=== PATIENT | male | born 1955 | race Two or more races ===

== ENCOUNTER 2016-08-26 05:36 | Inpatient (IN) | payer OTHER ==
[2016-08-26] MEDS ORDERED: LIDOCAINE 1% 5 ML SDV ONE (05:39)
[2016-08-26] MEDS ORDERED: ceFAZolin 2 GM/DEXTROSE 100 ML IV ONE (06:00)
[2016-08-26] MEDS ORDERED: SURGIFLO MATRIX KIT WITH THROMBIN TP ONE (06:50)
[2016-08-26] MEDS ORDERED: THROMBIN (RECOMBINANT) 5,000 UNIT VIAL TP ONE (06:51)
[2016-08-26] MEDS ORDERED: AVITENE POWDER 1 GM JAR TP ONE (06:51)
[2016-08-26] MEDS ORDERED: MANNITOL 20% 100 GM/500 ML BAG IV ONE (06:51)
[2016-08-26] MEDS ORDERED: BUPIVACAINE/EPI 0.25% 30 ML SDV ONE (06:51)
[2016-08-26] MEDS ORDERED: GADOBUTROL 10 ML VIAL IVP ONE (06:52)
[2016-08-26] MEDS ORDERED: BACITRACIN 50,000 UNITS/10 ML SYR IRR ONE (06:52)
[2016-08-26] MEDS ORDERED: REMIFENTANIL HCL 1 MG VIAL ONE ×5 (06:56→11:33)
[2016-08-26] MEDS ORDERED: PROPOFOL/EMULSION 500 MG/50 ML BOTTLE IV ONE ×5 (06:56→10:18)
[2016-08-26] MEDS ORDERED: SUCCINYLCHOLINE CHLORIDE*ANESTHESIA ONLY*200 MG/10 ML SYR IVP ONE (07:04)
[2016-08-26] MEDS ORDERED: LIDOCAINE 2% 5 ML SDV ONE (07:04)
[2016-08-26] MEDS ORDERED: DEXAMETHASONE 10 MG/ML VIAL ONE (07:31)
[2016-08-26] MEDS ORDERED: THROMBIN (RECOMBINANT) 20,000 UNIT VIAL TP ONE ×2 (07:36→10:12)
[2016-08-26] MEDS ORDERED: INSULIN REGULAR HUMAN 100 UNIT/ML ONE ×3 (07:41→14:36)
--- NOTE | 2016-08-26 08:36 | MR ---
MRI Brain With IV Contrast History: Presurgical evaluation. Left facial drooping and weakness. Known brain mass. Comparisons: None. Technique: MRI was performed of the brain using a 1.5 Christiane MRI system. Sagittal and axial imaging wa s obtained post intravenous contrast, 9 mL Gadavist. Imaging sequences were tailored for the evaluati on for [facility] protocol for presurgical evaluation and localization. Findings: There is a lobulated mass in the left cerebellum centered over the left cerebellar peduncle and anteromedial aspect of the left cerebellum. There is nodular enhancement at the anterior aspect of the lesion with mass effect into the fourth ventricle. Overall, the size of the lesion is 2.9 cm c raniocaudal x 2.7 cm anterior to posterior x 3 cm in width. There is surrounding vasogenic edema exte nding into the left cerebellum. Mass effect effaces the left side of the fourth ventricle and left fo ramen of Luschka and left cerebellopontine cistern. Vasogenic edema extends into the left cerebral pe duncle and into the medulla and massiel. No other evidence of abnormal enhancement. There are a few deep hemispheric white matter lesions bilaterally with no evidence of mass effect or abnormal enhancement . Ventricles, sulci, and cisterns are otherwise within normal limits for the patient's age. No eviden ce for an extraaxial fluid collection. Impression: Left cerebellar mass with mass effect and adjacent vasogenic edema, as above. Mild underl kyle deep hemispheric white matter change that can be seen with small vessel ischemic disease.
[2016-08-26] MEDS ORDERED: epHEDrine SULFATE 10 MG/ML SYR ONE ×2 (08:52)
[2016-08-26] MEDS ORDERED: PHENYLEPHRINE HCL 100 MCG/ML SYR ONE ×2 (08:52)
[2016-08-26] MEDS ORDERED: PHENYLEPHRINE 10 MG/ML SDV ONE (09:15)
[2016-08-26] MEDS ORDERED: HYDROmorphONE/DILAUDID 1 MG/ML SYR ONE (12:51)
--- NOTE | 2016-08-26 12:53 | POSTOPPROG ---
Post Op Note Date of Operation: 08/26/16 Surgeon: Janes Dumont Anesthesiologist: Blair Anesthesia: GET(General Endotracheal) Pre-op Diagnosis: brainstem tumor Post-op Diagnosis: same Indication: brainstem tumor Procedure: suboccipital craniotomy for brainstem tumor biopsy/subtotal resection Findings: malignant tumor (unknown type) Inf/Abcess present in the surg proc area at time of surgery?: No EBL: 50-100 Complications: none Specimen(s): brainstem tumor
[2016-08-26] MEDS ORDERED: ACETAMINOPHEN 325 MG TAB PO PRN (12:54)
[2016-08-26] MEDS ORDERED: HYDROCODONE/APAP 10/325 TAB PO PRN (12:54)
[2016-08-26] MEDS ORDERED: LACTULOSE 20 GM/30 ML UDCUP PO PRN (12:54)
[2016-08-26] MEDS ORDERED: DIAZEPAM 5 MG TAB PO PRN (12:54)
[2016-08-26] MEDS ORDERED: BISACODYL 10 MG SUPP PR PRN (12:54)
[2016-08-26] MEDS ORDERED: HYDROmorphONE/DILAUDID 2 MG TAB PO PRN (12:54)
[2016-08-26] MEDS ORDERED: ONDANSETRON 4 MG/2 ML VIAL IVP PRN (12:54)
[2016-08-26] MEDS ORDERED: MAGNESIUM HYDROXIDE 30 ML UDCUP PO PRN (12:54)
[2016-08-26] MEDS ORDERED: POLYETHYLENE GLYCOL 3350 17 GM PKT PO PRN (12:54)
[2016-08-26] MEDS ORDERED: MAG HYDROX/AL HYDROX/SIMETH 30 ML UDCUP PO PRN (12:54)
--- NOTE | 2016-08-26 13:19 | GOP ---
[f rep st] OPERATIVE REPORT DATE OF OPERATION: 08/26/2016 SURGEON: Janes Dumont MD PHILOSOPHY SPECIALIST: None. PREOPERATIVE DIAGNOSIS: Brainstem tumor. POSTOPERATIVE DIAGNOSIS: Brainstem tumor. PROCEDURE PERFORMED: 1. Suboccipital craniotomy. 2. Microsurgical likely subtotal resection of brainstem tumor via telovelotonsillar approach. 3. Use of the operative microscope. 4. Stealth stereotactic neuronavigation for trajectory planning and volumetric resection of tumor. 5. Intraoperative somatosensory-evoked potential, motor-evoked potential, facial electromyography, and brainstem auditory-evoked potential monitoring. FINDINGS: Brainstem tumor. SPECIMENS: 1. Brainstem tumor for frozen section. 2. Brainstem tumor for permanent section. ESTIMATED BLOOD LOSS: Approximately 100 cc. HISTORY: Neil Landaverde is a 61-year-old man who presented with acute left- sided hearing loss. This progressed to include balance problems and some left facial droop as well. MRI showed a tumor near the foramen of Luschka laterally on the left side of the brainstem and cerebellum. It is unclear if this was infiltrating tumor or extraaxial mass. He was scheduled for biopsy and resection today. His chest, abdomen, and pelvis CTs were negative for malignancy. DESCRIPTION OF PROCEDURE: After informed consent was obtained from the patient , the patient was brought to the operating room and was left in a supine position on the transport cart. A formal timeout was performed identifying the patient by name, medical record number, and date of . Preoperative antibiotics were given. An endotracheal tube was placed and general endotracheal anesthesia was smoothly induced. All appropriate monitoring leads were placed and baseline potentials were obtained. Dumas pins were then placed, and the patient was turned in the prone position on a standard table. All appropriate pressure points were padded and checked. At this point, the Stealth neuronavigation was registered to the face using known surface landmarks and checked for accuracy. A standard suboccipital linear incision was then made over the midline from the inion down to about C3 spinous process where this was marked. 10 cc of 0.25% Marcaine with epinephrine was infiltrated in the skin for hemostasis. The head was then prepped and draped in the normal sterile fashion. The skin incision was made using a 10 blade. Subcutaneous tissues were dissected using monopolar electrocautery. The skin was then undermined over the fascia laterally and a T-incision was made in the fascia just below the inion. This was then continued in an avascular midline plane down to the foramen magnum and exposing the arch of C1 laterally. Once all the soft tissues were removed, the Stealth was used to localize the transverse sinus and in an area just below the transverse sinus, 2 bur holes were created laterally and posteriorly on the suboccipital bone. These were then connected in the midline with a high-speed drill and a craniotome was then used to perform a standard suboccipital craniotomy flap. The edges of the foramen magnum were drilled down lateral to be parallel with the edge of the spinal canal. At this point, the dura was opened in a Y-shaped fashion and was tacked laterally. This exposed the tonsils and the inferior portion of the vermis beneath. At this point, the operative microscope was brought on the field and the remainder of the procedure was performed under high-power magnification. We began dissecting in the tonsillouvular fissure medially exposing the floor of the 4th ventricle. The floor of the 4th ventricle was clearly expanded posteriorly and eccentric to the left. This tissue appeared abnormal. We continued this dissection cephalad and used the Stealth to localize the medial and lateral borders of the tumor. At this point, in an area superiorly above the where the facial colliculus would be we made a small corticectomy in the brainstem and biopsied some abnormal tissue beneath. This was sent for frozen section, which initially came back as some neutrophilic cells suggestive of an inflammatory process. 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 At this point, within the cavity some necrotic tissue was seen and this was all debulked. I continued resecting until I could not see any further tumor on the lateral borders; however, I suspect that there may have been some tumor still on the cephalad component of the cavity that I could not see. A small amount of the tumor was removed with the ultrasonic aspirator. The motor-evoked potentials were ran periodically and all remained at baseline. Facial EMGs did not show any signs of irritability. And the brainstem auditory-evoked potentials were poor from the beginning given the patient has very little hearing on the left side. Once I could not see any further tumor within the cavity, the remaining portions that I had taken out were sent for permanent pathology and hemostasis was obtained within the cavity with bipolar electrocautery. A small amount of Surgicel was placed over the cerebellar tonsil and this was allowed to return to its normal position. The wound was copiously irrigated with sterile saline irrigation. The lower portion of the Y opening of the dura was then closed primarily, and a Synthecel graft was placed in the superior portion and closed in a watertight fashion. Once the dura was closed again, the wound was copiously irrigated. The dura was covered with Surgicel and this was then covered with DuraSeal. The craniotomy flap was then plated back in place using Synthes titanium plates and screws. The wound was again copiously irrigated using bacitracin irrigation. The fascia was closed in a watertight fashion using 0 Vicryls. The superficial fascia was closed using interrupted 0 Vicryls. The dermis was closed using interrupted 2-0 Vicryls and the skin was closed using a running 3-0 nylon. The patient was turned back into the supine position where he was extubated, was awakened in the operating room, and was transferred to the PACU in stable condition. There were no operative complications. I was scrubbed and present for the entire procedure, and performed the procedure myself. All sponge and needle counts were correct at the end of the case. FLUIDS: Per the Anesthesia record. /[id number]/MODL MTDD
[2016-08-26] MEDS: NS W/ 20 KCl/L 1,000 ML IV SCH (13:38)
[2016-08-26] MEDS ORDERED: LABETALOL HCL 5 MG/ML 20 ML MDV IVP ONE (14:30)
[2016-08-26] MEDS ORDERED: INSULIN REGULAR HUMAN 100 UNIT/ML IVP ONE (14:30)
[2016-08-26] MEDS ORDERED: niCARdipine/NACL 200 ML IV PRN (14:41)
[2016-08-26] MEDS: PETROLAT,WHT/MIN OIL/SOD CHL 3.5 GM OPHT.OINT LEFTEYE SCH ×2 (17:24→22:05)
[2016-08-26] MEDS ORDERED: KETOROLAC 30 MG/1 ML SDV IVP ONE (17:30)
[2016-08-26 18:00] LABS: % IMMATURE GRANULYOCYTES 0.7 % (0.0-1.1); ABSOLUTE IMMATURE GRANULOCYTES 0.12 10^3/uL (0.00-0.10); ADD DIFF? NO; ADD MORPH? NO; ADD SCAN? NO; ATYPICAL LYMPHOCYTE FLAG 0 (0-99); FRAGMENT RBC FLAG 0 (0-99); HEMATOCRIT 36.1 % (40.0-51.0); HEMOGLOBIN 13.1 g/dL (13.7-17.5); LEFT SHIFT FLG 10 (0-99); LIPEMIA HEMOLYSIS FLAG 90 (0-99); MEAN CELL HEMOGLOBIN CONCENTR. 36.3 g/dL (32.4-36.7); MEAN CELL VOLUME 90.9 fL (81.5-99.8); MEAN PLATELET VOLUME 8.7 fL (8.7-11.7); PLATELET CLUMPS FLAG 0 (0-99); PLATELET COUNT 308 10^3/uL (150-400); RED BLOOD CELL COUNT 3.97 10^6/uL (4.40-6.38); RED CELL DISTRIBUTION WIDTH 11.8 % (11.5-15.2)
[2016-08-26 18:12] LABS: ANION GAP 8 mEq/L (8-16); CALCIUM 8.9 mg/dL (8.5-10.4); CARBON DIOXIDE 27 mEq/l (22-31); CHLORIDE 99 mEq/L (97-110); CREATININE 0.5 mg/dL (0.7-1.3); GLOMERULAR FILTRATION RATE > 60; GLUCOSE 243 mg/dL (70-100); POTASSIUM 3.9 mEq/L (3.5-5.2); SODIUM 134 mEq/L (134-144)
[2016-08-26] MEDS: SENNOSIDES/DOCUSATE SODIUM TAB PO SCH (21:43)
[2016-08-26] MEDS: DEXAMETHASONE 4 MG/ML VIAL IVP SCH (22:08)
[2016-08-27] MEDS: KETOROLAC 15 MG/1 ML SDV IVP SCH ×5 (00:32→23:48)
[2016-08-27] MEDS: NS W/ 20 KCl/L 1,000 ML IV SCH (01:56)
[2016-08-27] MEDS: PETROLAT,WHT/MIN OIL/SOD CHL 3.5 GM OPHT.OINT LEFTEYE SCH ×6 (01:56→23:45)
[2016-08-27] MEDS: DEXAMETHASONE 4 MG/ML VIAL IVP SCH ×4 (04:59→23:45)
[2016-08-27 05:12] LABS: % IMMATURE GRANULYOCYTES 1.1 % (0.0-1.1); ABSOLUTE IMMATURE GRANULOCYTES 0.19 10^3/uL (0.00-0.10); ADD DIFF? NO; ADD MORPH? NO; ADD SCAN? NO; ATYPICAL LYMPHOCYTE FLAG 0 (0-99); FRAGMENT RBC FLAG 0 (0-99); HEMATOCRIT 34.9 % (40.0-51.0); HEMOGLOBIN 12.1 g/dL (13.7-17.5); LEFT SHIFT FLG 10 (0-99); LIPEMIA HEMOLYSIS FLAG 90 (0-99); MEAN CELL HEMOGLOBIN 32.4 pg (27.9-34.1); MEAN CELL HEMOGLOBIN CONCENTR. 34.7 g/dL (32.4-36.7); MEAN CELL VOLUME 93.3 fL (81.5-99.8); MEAN PLATELET VOLUME 8.9 fL (8.7-11.7); PLATELET CLUMPS FLAG 10 (0-99); PLATELET COUNT 287 10^3/uL (150-400); RED BLOOD CELL COUNT 3.74 10^6/uL (4.40-6.38)
[2016-08-27 05:43] LABS: ANION GAP 8 mEq/L (8-16); CALCIUM 8.9 mg/dL (8.5-10.4); CARBON DIOXIDE 26 mEq/l (22-31); CHLORIDE 101 mEq/L (97-110); CREATININE 0.6 mg/dL (0.7-1.3); GLOMERULAR FILTRATION RATE > 60; GLUCOSE 223 mg/dL (70-100); POTASSIUM 4.1 mEq/L (3.5-5.2); SODIUM 135 mEq/L (134-144)
--- NOTE | 2016-08-27 07:40 | SOAPPROG ---
SOAP Progress Note Assessment/Plan: Assessment: 61 yo M POD #1 resection/biopsy of left cerebellar/brainstem lesion Plan: stable and doing well overall PT/OT MRI today to evaluate degree of resection on decadron ok to transfer to floor after MRI Speech to evaluate dysphagia please call with neuro changes discussed with dr rios 08/27/16 07:37 Subjective: pt has mild headache, no N/V. Objective: Vital Signs Temp Pulse Resp BP Pulse Ox 37.1 C 97 20 119/70 95 08/27/16 00:00 08/27/16 06:00 08/27/16 06:00 08/27/16 06:00 08/27/16 06:00 Laboratory Results 08/27/16 05:00 08/27/16 05:00 08/26/16 08/27/16 08/28/16 05:59 05:59 05:59 Intake Total 3313 Output Total 5505 Balance -2192 AAOX4, +FC Pupils: 4 mm ou reactive, EOMI, left facial droop 5/5 arms/leg + light touch C/D/I ICD10 Worksheet Patient Problems: Problems Problem Status Diagnosed Brain lesion Acute - ICD10 Problem Qualifiers (1) Brain lesion
[2016-08-27] MEDS: SENNOSIDES/DOCUSATE SODIUM TAB PO SCH (08:07)
[2016-08-27] MEDS: metFORMIN HCL 500 MG TAB PO SCH ×2 (08:37→15:35)
[2016-08-27] MEDS ORDERED: ATORVASTATIN CALCIUM 10 MG TAB PO SCH (09:00)
[2016-08-27] MEDS ORDERED: GLUCOSAMINE SULF 500 MG CAP PO SCH (09:00)
[2016-08-27] MEDS: INSULIN REGULAR, HUMAN 100 UNIT/1 ML VIAL STANDARD SC SCH ×3 (12:19→23:48)
[2016-08-27] MEDS: TEARS/DEXTRAN 70/HYPROMELLOSE 15 ML OPHT.BTL EACHEYE PRN (12:40)
[2016-08-27] MEDS ORDERED: ACETAMINOPHEN 650 MG SUPP PR PRN (16:46)
[2016-08-27] MEDS: ASPIRIN RECTAL 300 MG SUPP PR SCH (16:52)
[2016-08-27] MEDS ORDERED: GEMFIBROZIL 600 MG TAB PO SCH (17:30)
[2016-08-27] MEDS ORDERED: GADOBUTROL 10 ML VIAL IVP ONE (23:08)
[2016-08-28] MEDS: DEXAMETHASONE 4 MG/ML VIAL IVP SCH ×4 (04:12→22:13)
[2016-08-28] MEDS: PETROLAT,WHT/MIN OIL/SOD CHL 3.5 GM OPHT.OINT LEFTEYE SCH ×7 (04:12→23:56)
[2016-08-28] MEDS: TEARS/DEXTRAN 70/HYPROMELLOSE 15 ML OPHT.BTL EACHEYE PRN ×4 (04:12→22:30)
[2016-08-28] MEDS: KETOROLAC 15 MG/1 ML SDV IVP SCH ×4 (05:41→23:48)
[2016-08-28] MEDS: INSULIN REGULAR, HUMAN 100 UNIT/1 ML VIAL STANDARD SC SCH ×4 (05:41→23:49)
--- NOTE | 2016-08-28 07:38 | SOAPPROG ---
SOAP Progress Note Assessment/Plan: Assessment: 61 yo M POD #2 resection/biopsy of left cerebellar/brainstem lesion Plan: stable and doing well overall PT/OT MRI last night shows partial resection of lesion without hemorrhage. on decadron floor status Speech to evaluate dysphagia, if he fails swallow study then he may need dobhoff please call with neuro changes discussed with dr rios 08/27/16 07:37 08/28/16 07:35 Subjective: mild headaches, no N/V. Continued numbness in tongue with difficulty swallowing. Objective: Vital Signs Temp Pulse Resp BP Pulse Ox 36.3 C 84 12 136/84 H 94 08/27/16 20:00 08/28/16 00:00 08/28/16 00:00 08/28/16 00:00 08/28/16 00:00 Laboratory Results 08/27/16 05:00 08/27/16 05:00 08/27/16 08/28/16 08/29/16 05:59 05:59 05:59 Intake Total 3313 1492 Output Total 5505 425 Balance -2192 1067 AAOx4, +FC PERRL, left facial droop, tongue numbness 5/5 + light touch C/D/I with some dried blood at top of incision ICD10 Worksheet Patient Problems: Problems Problem Status Diagnosed Brain lesion Acute - ICD10 Problem Qualifiers (1) Brain lesion
[2016-08-28] MEDS: ASPIRIN RECTAL 300 MG SUPP PR SCH (12:06)
[2016-08-28] MEDS: NS W/ 20 KCl/L 1,000 ML IV SCH ×2 (12:47→22:19)
--- NOTE | 2016-08-28 12:51 | MR ---
MRI of the Head (Before and Following Gadolinium) Clinical Indications: Postsurgical evaluation. Cerebellar tumor surgery. Technique: T1-weighted images were obtained sagittally and axially. Diffusion-weighted, inversion-r ecovery, and fast T2-weighted axial images were obtained. T1-weighted axial and coronal images were obtained after intravenous administration of 9 mL of Gadavist. Comparison Examination: August 26, 2016. Findings: From prior study, there has been performance of surgery within the cerebellum with partial resection of a previously descried mass centered on the left cerebellar peduncle and vermis. A signi ficant portion of the tumor has been surgically removed, although residual masslike enhancement is id entified along the left side of the 4th ventricle. The 4th ventricle remains stable in size, and ther e are no features of obstructive hydrocephalus. Abnormal masslike enhancement extends centrally to in volve the left side of the brainstem. No significant postsurgical hemorrhage and mild vasogenic edema within the operative bed. Impression: Status post partial surgical resection of a left-sided cerebellar tumor.
[2016-08-29] MEDS: DEXAMETHASONE 4 MG/ML VIAL IVP SCH ×4 (04:19→21:47)
[2016-08-29] MEDS: PETROLAT,WHT/MIN OIL/SOD CHL 3.5 GM OPHT.OINT LEFTEYE SCH ×5 (05:25→21:52)
[2016-08-29] MEDS: INSULIN REGULAR, HUMAN 100 UNIT/1 ML VIAL STANDARD SC SCH ×4 (05:40→23:49)
[2016-08-29] MEDS: KETOROLAC 15 MG/1 ML SDV IVP SCH ×4 (05:48→23:49)
[2016-08-29] MEDS: ASPIRIN RECTAL 300 MG SUPP PR SCH (08:28)
[2016-08-29] MEDS ORDERED: ASPIRIN 325 MG TAB PO SCH (09:00)
--- NOTE | 2016-08-29 11:16 | NEUSURGPN ---
Assessment/Plan: Assessment: 61 yo M POD #3 resection/biopsy of left cerebellar/brainstem lesion Plan: Continued trouble with swallowing. Stable and doing well overall but feels fatigued and hungry. PT/OT/OENOLOGIST MRI shows partial resection of lesion without hemorrhage. on decadron floor status Pathology is still pending Speech to evaluate dysphagia, if he fails swallow study again will possibly need dobhoff. please call with neuro changes discussed with dr rios Subjective: Patient overall feels fatigued and hungry. Tongue and whole mouth feels numb. Still has difficulty swallowing, gait difficulties. Denies headaches. Objective: NAD, depressed Left sided facial droop Left eye erythema- moist EOMI, PERRL / BUE/BLE Catheter Insertion Date: 08/26/16 - Physician Discussed Patient with Dr.: Rios Neurosurgery Physical Exam - Vitals, I&O, Labs I and O 08/28/16 08/29/16 08/30/16 05:59 05:59 05:59 Intake Total 1492 2170 Output Total 425 2725 350 Balance 1067 -555 -350 Intake: IV Infused (ml) 1492 2170 NS W/ 20 KCl/L 1,000 ml @ 1492 2170 100 mls/hr IV CONT HENRY Rx#:[id number] Output: Urine (ml) 425 2725 350 Catheter 250 Urinal 175 2725 350 Other: Intake Quantity No Sufficient Number of Voids Catheter 1 Urinal 1 Vital Signs Temp Pulse Resp BP Pulse Ox 36.8 C 93 14 131/86 H 92 08/29/16 08:00 08/29/16 08:00 08/29/16 08:00 08/29/16 08:00 08/29/16 08:00 Laboratory Results 08/27/16 05:00 08/27/16 05:00 ICD10 Worksheet Patient Problems: Problems Problem Status Diagnosed Brain lesion Acute
[2016-08-29] MEDS: NS W/ 20 KCl/L 1,000 ML IV SCH ×2 (15:36→23:52)
[2016-08-30] MEDS: PETROLAT,WHT/MIN OIL/SOD CHL 3.5 GM OPHT.OINT LEFTEYE SCH ×6 (03:09→21:17)
[2016-08-30] MEDS: DEXAMETHASONE 4 MG/ML VIAL IVP SCH ×4 (03:15→21:17)
[2016-08-30] MEDS: INSULIN REGULAR, HUMAN 100 UNIT/1 ML VIAL STANDARD SC SCH ×3 (06:05→17:59)
[2016-08-30] MEDS: KETOROLAC 15 MG/1 ML SDV IVP SCH ×3 (06:06→17:58)
[2016-08-30] MEDS: NS W/ 20 KCl/L 1,000 ML IV SCH ×2 (09:31→21:19)
[2016-08-30] MEDS: ASPIRIN RECTAL 300 MG SUPP PR SCH (11:05)
--- NOTE | 2016-08-30 11:18 | NEUSURGPN ---
Assessment/Plan: Assessment: 61 yo M POD #4 resection/biopsy of left cerebellar/brainstem lesion Doing better today overall in terms of balance with eye patch/ Plan: Continued trouble with swallowing.Failed Swallow yesterday, will need dobhoff and order placed and spoke to RN about this yesterday, Needs to be placed today. 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 on decadron floor status Pathology is still pending Case Management to look af placement options give dobhoff, etc please call with neuro changes discussed with dr rios Subjective: Better balance today with eye patch. Feels fatigued. Objective: NAD, depressed Left sided facial droop Left eye erythema- moist EOMI, PERRL 5/ BUE/BLE Incision c/d/i Catheter Insertion Date: 08/26/16 - Physician Discussed Patient with Dr.: Rios Neurosurgery Physical Exam - Vitals, I&O, Labs I and O 08/29/16 08/30/16 08/31/16 05:59 05:59 05:59 Intake Total 2170 2343 Output Total 2725 1650 525 Balance -555 693 -525 Intake: IV Infused (ml) 2170 2343 NS W/ 20 KCl/L 1,000 ml @ 2170 2343 100 mls/hr IV CONT HENRY Rx#:[id number] Output: Urine (ml) 2725 1650 525 Urinal 2725 1650 525 Other: Number of Voids Urinal 1 Vital Signs Temp Pulse Resp BP Pulse Ox 36.6 C 88 15 135/80 H 97 08/30/16 08:00 08/30/16 08:00 08/30/16 08:00 08/30/16 08:00 08/30/16 08:00 Laboratory Results 08/27/16 05:00 08/27/16 05:00 ICD10 Worksheet Patient Problems: Problems Problem Status Diagnosed Brain lesion Acute
[2016-08-30] MEDS ORDERED: IOPAMIDOL (ISOVUE 370) 100 ML BTL IV ONE (12:29)
[2016-08-30] MEDS ORDERED: LIDOCAINE 2% JELLY 5 ML TUBE ONE (12:32)
--- NOTE | 2016-08-30 16:57 | DX ---
Fluoroscopy for feeding tube placement History: Unable to swallow. Posterior fossa tumor. Findings: A request was made for placement of a feeding tube using fluoroscopy. The feeding tube was directed into the left nostril and with fluoroscopy directed into the esophagus then into the stomach . It was elected to place the feeding tube in the 4th portion of the duodenum. The tube was then fixe d to the nose. Fluoroscopy time: 1.8 minutes, Estimated dose: 7.2 mGy Impression: Successful placement of feeding tube using fluoroscopic guidance with the tip placed in t he 4th portion of the duodenum.
[2016-08-31] MEDS: KETOROLAC 15 MG/1 ML SDV IVP SCH ×4 (00:50→18:19)
[2016-08-31] MEDS: INSULIN REGULAR, HUMAN 100 UNIT/1 ML VIAL STANDARD SC SCH ×4 (00:50→19:30)
[2016-08-31] MEDS: DEXAMETHASONE 4 MG/ML VIAL IVP SCH ×4 (03:52→22:21)
[2016-08-31] MEDS: PETROLAT,WHT/MIN OIL/SOD CHL 3.5 GM OPHT.OINT LEFTEYE SCH ×6 (03:52→22:25)
[2016-08-31] MEDS: NS W/ 20 KCl/L 1,000 ML IV SCH (06:13)
--- NOTE | 2016-08-31 09:19 | NEUSURGPN ---
Assessment/Plan: Assessment: 61 yo M POD #5 resection/biopsy of left cerebellar/brainstem lesion Doing better today overall in terms of balance with eye patch. S/p successful placement of DobHoff Plan: Dobhoff placed yesterday by IR. 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 Would like a shower. Objective: Left sided facial droop EOMI, PERRL / BUE/BLE Incision c/d/i Catheter Insertion Date: 08/26/16 - Physician Discussed Patient with Dr.: Rios Neurosurgery Physical Exam - Vitals, I&O, Labs I and O 08/30/16 08/31/16 09/01/16 05:59 05:59 05:59 Intake Total 2343 2634 Output Total 1650 1275 Balance 693 1359 Intake: IV Infused (ml) 2343 1958 NS W/ 20 KCl/L 1,000 ml @ 2343 1958 100 mls/hr IV CONT HENRY Rx#:[id number] Tube Feeding (ml) 526 Tube Flush (ml) 150 Output: Urine (ml) 1650 1275 Urinal 1650 1275 Other: Number of Voids Urinal 3 Vital Signs Temp Pulse Resp BP Pulse Ox 36.8 C 98 20 127/78 H 92 08/31/16 08:00 08/31/16 08:00 08/31/16 08:00 08/31/16 08:00 08/31/16 08:00 Laboratory Results 08/27/16 05:00 08/27/16 05:00 ICD10 Worksheet Patient Problems: Problems Problem Status Diagnosed Brain lesion Acute
[2016-08-31] MEDS: metFORMIN HCL 500 MG TAB PO SCH ×2 (10:11→18:19)
[2016-08-31] MEDS: ASPIRIN RECTAL 300 MG SUPP PR SCH (10:45)
[2016-08-31] MEDS ORDERED: chlorproMAZINE HCL 25 MG TAB PO PRN (11:50)
[2016-08-31] MEDS: chlorproMAZINE HCL 25 MG TAB PO PRN ×2 (12:39→18:19)
[2016-08-31] MEDS: INSULIN REGULAR, HUMAN 100 UNIT/1 ML VIAL HIGH SC SCH (19:20)
--- NOTE | 2016-08-31 20:55 | CPEKG ---
Heart Rate: 97 RR Interval: 619 P-R Interval: 156 QRSD Interval: 100 QT Interval: 360 QTC Interval: 458 P [place]: -9 QRS [place]: -30 T Wave [place]: -26 EKG Severity - OTHERWISE NORMAL ECG - EKG Impression: SINUS RHYTHM EKG Impression: LEFT AXIS DEVIATION Preliminary Awaiting MD Review
[2016-08-31] MEDS ORDERED: MAGNESIUM HYDROXIDE 30 ML UDCUP ONE (22:19)
[2016-08-31] MEDS ORDERED: BISACODYL 10 MG SUPP PR PRN (23:30)
[2016-08-31] MEDS ORDERED: POLYETHYLENE GLYCOL 3350 17 GM PKT PO PRN (23:30)
[2016-08-31] MEDS ORDERED: LACTULOSE 20 GM/30 ML UDCUP PO PRN (23:30)
[2016-08-31] MEDS ORDERED: MAGNESIUM HYDROXIDE 30 ML UDCUP PO PRN (23:30)
[2016-08-31] MEDS ORDERED: SENNOSIDES 17.6 MG/10 ML UDL - IF LIQUID ORDERED PO SCH (23:30)
[2016-09-01] MEDS: KETOROLAC 15 MG/1 ML SDV IVP SCH (00:13)
--- NOTE | 2016-09-01 00:15 | DX ---
Single the abdomen Indication: Abdominal pain since 6:00 p.m. today. Findings: Dobbhoff tube is at the antrum/duodenal junction. About gas pattern is within normal limits in this single supine view. Overall stool content is normal. No evidence for free air. Impression: Normal plain film of the abdomen on this single supine view.
[2016-09-01] MEDS ORDERED: MAGNESIUM HYDROXIDE 30 ML UDCUP TUBE PRN (00:30)
[2016-09-01] MEDS ORDERED: LACTULOSE 20 GM/30 ML UDCUP TUBE PRN (00:30)
[2016-09-01 00:46] LABS: GLUCOSE 329 mg/dL (70-100)
[2016-09-01] MEDS ORDERED: NS 1,000 ML IV ONE (01:02)
[2016-09-01] MEDS ORDERED: MAGNESIUM CITRATE 300 ML BOTTLE PO ONE (01:02)
[2016-09-01] MEDS: INSULIN REGULAR, HUMAN 100 UNIT/1 ML VIAL HIGH SC SCH ×3 (01:31→12:58)
[2016-09-01] MEDS: INSULIN GLARGINE 100 UNITS/ML SYRINGE SC SCH ×2 (01:54→20:56)
[2016-09-01] MEDS: ERTAPENEM 1 GM in NS 100 ML IV SCH ×2 (01:54→20:49)
[2016-09-01] MEDS: PETROLAT,WHT/MIN OIL/SOD CHL 3.5 GM OPHT.OINT LEFTEYE SCH ×6 (02:10→23:10)
[2016-09-01 02:26] LABS: ABSOLUTE IMMATURE GRANULOCYTES 0.26 10^3/uL (0.00-0.10); ADD DIFF? NO; ADD MORPH? NO; ADD SCAN? NO; ATYPICAL LYMPHOCYTE FLAG 0 (0-99); FRAGMENT RBC FLAG 0 (0-99); HEMATOCRIT 32.7 % (40.0-51.0); HEMOGLOBIN 11.5 g/dL (13.7-17.5); LEFT SHIFT FLG 10 (0-99); LIPEMIA HEMOLYSIS FLAG 90 (0-99); MEAN CELL HEMOGLOBIN CONCENTR. 35.2 g/dL (32.4-36.7); MEAN CELL VOLUME 93.7 fL (81.5-99.8); MEAN PLATELET VOLUME 9.5 fL (8.7-11.7); PLATELET CLUMPS FLAG 10 (0-99); PLATELET COUNT 309 10^3/uL (150-400); RED BLOOD CELL COUNT 3.49 10^6/uL (4.40-6.38); RED CELL DISTRIBUTION WIDTH 12.4 % (11.5-15.2)
[2016-09-01 03:04] LABS: ALANINE AMINOTRANSFERASE 37 IU/L (21-72); ALBUMIN 2.9 g/dL (3.5-5.0); ALKALINE PHOSPHATASE 57 IU/L (38-126); ANION GAP 10 mEq/L (8-16); ASPARTATE AMINOTRANSFERASE 19 IU/L (17-59); BILIRUBIN,TOTAL 0.8 mg/dL (0.1-1.4); CALCIUM 8.5 mg/dL (8.5-10.4); CARBON DIOXIDE 24 mEq/l (22-31); CHLORIDE 105 mEq/L (97-110); CREATININE 0.7 mg/dL (0.7-1.3); GLOMERULAR FILTRATION RATE > 60; GLUCOSE 272 mg/dL (70-100); SODIUM 139 mEq/L (134-144); TOTAL PROTEIN 5.2 g/dL (6.3-8.2)
[2016-09-01] MEDS ORDERED: NS 1,000 ML BAG *FOR SEPSIS ORDER SET ONLY IV ONE (03:19)
[2016-09-01] MEDS ORDERED: IOPAMIDOL (ISOVUE-300) 100 ML BTL IV ONE (03:19)
[2016-09-01 04:08] LABS: HEMOGLOBIN A1C 9.7 % (4.0-6.0)
[2016-09-01 04:52] LABS: INR 1.33 (0.83-1.16); PROTIME(PATIENT) 16.5 SEC (12.0-15.0)
[2016-09-01 04:53] LABS: APTT 21.7 SEC (23.0-38.0)
[2016-09-01] MEDS: DEXAMETHASONE 4 MG/ML VIAL IVP SCH ×4 (04:53→23:14)
[2016-09-01 04:57] LABS: BILIRUBIN,TOTAL 0.7 mg/dL (0.1-1.4)
[2016-09-01] MEDS ORDERED: fentaNYL 250 MCG/5 ML INJ ONE (05:46)
[2016-09-01] MEDS ORDERED: PROPOFOL 200 MG/20 ML VIAL ONE (05:46)
[2016-09-01] MEDS ORDERED: ROCURONIUM 100 MG/10 ML VIAL ONE (05:52)
[2016-09-01] MEDS ORDERED: ETOMIDATE 20 MG/10 ML VIAL ONE (05:52)
[2016-09-01] MEDS ORDERED: PHENYLEPHRINE HCL 100 MCG/ML SYR ONE (06:59)
[2016-09-01] MEDS ORDERED: ONDANSETRON 4 MG/2 ML VIAL ONE (07:08)
[2016-09-01] MEDS ORDERED: DEXAMETHASONE 4 MG/ML VIAL ONE (07:08)
[2016-09-01] MEDS ORDERED: HYDROmorphONE/DILAUDID 2 MG/ML SYR ONE (07:22)
[2016-09-01] MEDS ORDERED: BUPIVACAINE 0.25% 270 ML in PUMP SET 1 EA MISC SCH (07:30)
[2016-09-01] MEDS ORDERED: PROPOFOL/EMULSION 500 MG/50 ML BOTTLE IV ONE (07:54)
[2016-09-01] MEDS ORDERED: SKIN ADHESIVE (DERMABOND) 1 EACH TP ONE (08:20)
[2016-09-01] MEDS ORDERED: SUGAMMADEX SODIUM 200 MG/2 ML VIAL IVP ONE (08:24)
[2016-09-01 08:30] LABS: % IMMATURE GRANULYOCYTES 0.6 % (0.0-1.1); ABSOLUTE IMMATURE GRANULOCYTES 0.06 10^3/uL (0.00-0.10); ADD DIFF? NO; ADD MORPH? NO; ADD SCAN? YES; ATYPICAL LYMPHOCYTE FLAG 0 (0-99); FRAGMENT RBC FLAG 0 (0-99); HEMATOCRIT 25.5 % (40.0-51.0); HEMOGLOBIN 8.7 g/dL (13.7-17.5); LIPEMIA HEMOLYSIS FLAG 90 (0-99); MEAN CELL HEMOGLOBIN 32.5 pg (27.9-34.1); MEAN CELL HEMOGLOBIN CONCENTR. 34.1 g/dL (32.4-36.7); MEAN CELL VOLUME 95.1 fL (81.5-99.8); MEAN PLATELET VOLUME 9.4 fL (8.7-11.7); PLATELET CLUMPS FLAG 0 (0-99); PLATELET COUNT 204 10^3/uL (150-400); RED BLOOD CELL COUNT 2.68 10^6/uL (4.40-6.38); RED CELL DISTRIBUTION WIDTH 12.6 % (11.5-15.2)
[2016-09-01 08:36] LABS: LEFT SHIFT FLG 210 (0-99)
[2016-09-01 08:45] LABS: GLUCOSE 124 mg/dL (70-100)
[2016-09-01] MEDS ORDERED: PROPOFOL/EMULSION 1,000 MG/100 ML BOTTLE IV ONE (08:58)
--- NOTE | 2016-09-01 09:25 | DX ---
Single Frontal Chest, September 01, 2016 Clinical indication: Aspiration. Comparison: None relevant. Findings: Nasoenteric tube terminates off the edge of the film. Bibasilar atelectatic changes are pre sent. Heart size is normal. Bones are unremarkable. No definite pneumoperitoneum on this examination. Impression: 1. Bibasilar atelectatic changes. 2. Nasoenteric tube in anatomic position. The end of the feeding tube is not visualized on this film.
[2016-09-01 09:28] LABS: SCAN POSITIVE
--- NOTE | 2016-09-01 09:28 | GOP ---
[f rep st] OPERATIVE REPORT DATE OF OPERATION: SURGEON: Aidee Rocha MD CORPORATE STRATEGIST: Marin, whose was present for the case's efficient and safe completion. PREOPERATIVE DIAGNOSIS: Perforated viscus. POSTOPERATIVE DIAGNOSIS: Perforated viscus. PROCEDURE PERFORMED: Antrectomy with gastrojejunostomy and over-sewing of the duodenal stump, LAURA chelsea in placement, and On-Q pain pump placement. FINDINGS: The anterior wall of the 1st and 2nd portion of the duodenum completely blown out involvin g more than half the circumference of the duodenal wall, but not involving the ampulla. SPECIMENS: Antrum. ESTIMATED BLOOD LOSS: 100 mL. INDICATIONS: The patient is a 61-year-old man who, 6 days ago, had resection of a brainstem lymphoma . He developed severe abdominal pain today, progressing to peritonitis, and was noted to have a leuk ocytosis, tachycardia, and hypotension. He was found to have free air on an abdominal CT scan, and w as taken urgently to surgery for exploratory laparotomy. DESCRIPTION OF PROCEDURE: After informed consent was obtained and therapeutic antibiotics were nneka nued, the patient was taken to the operating room, placed in a supine position. SCDs were placed to bilateral lower extremities. General anesthesia was administered. Anesthesia then put in a left rad ial arterial line and right internal jugular central venous catheter. A Gamino catheter was inserted. He was prepped and draped in a sterile fashion. After an appropriate surgical pause, a vertical mi dline incision was made from the xiphoid process to just above the umbilicus, using a 10 blade. Bovi e electrocautery was used to extend this incision. The peritoneum was entered sharply, and then the incision extended using Bovie electrocautery. Initially, a Sarah retractor was placed, but this wa s not adequate, and an Omni retractor was placed to reveal a large perforation of the anterior duoden um in the 1st and 2nd portions. The duodenum was Kocherized using right angle and Bovie electrocaute ry. A very large anterior perforation of the duodenum was noted to involve more than half the circum ference, but not the ampulla, which was intubated with a right angle to confirm its location. Decisi on was made to perform an antrectomy with gastrojejunostomy and over-sewing of the duodenal stump. T he greater and lesser curvatures of the stomach were mobilized using a combination of Bovie electroca utery and the Harmonic scalpel. The proximal stomach was transected using green loads in a CARLO stapl ing device. The duodenum just distal to the pylorus was transected using Gregorio scissors and the speci men sent off to Pathology for permanent assessment. Noting the exact location of the ampulla of Vate r, the duodenal stump was then oversewn using 3-0 PDS suture in a running fashion for the full thickn ess layer, then tacking the stump to the pancreas using interrupted 3-0 Vicryl seromuscular to pancre as sutures for our second layer. A 15-Greenlandic LAURA drain was then placed near the duodenal stump, and b rought out through a separate stab incision lateral to our midline incision. This was later attached to bulb suction and secured at the skin using 3-0 Vicryl suture. A window was created in the mesoco justine using a Harmonic scalpel. A loop of jejunum was brought through the mesocolic defect, approximat sol 40 cm from the ligament of Treitz, and secured to the proximal stomach using 3-0 Vicryl stay sutu res. A posterior row of interrupted 3-0 Vicryl seromuscular Lembert sutures was placed. Part of the staple line was excised. An enterotomy was made in the jejunum, and a hand-sewn 2-layer anastomosis between the proximal stomach and jejunum was created, using 3-0 Vicryl running suture for the full-t hickness layer and interrupted 3-0 Vicryl seromuscular Lembert sutures for the anterior layer. The r emaining staple line was also oversewn using interrupted 3-0 Vicryl sutures, and the additional sutur es were placed at the angle of sorrow to take tension off the staple line. The anastomosis was secur ed to the peritoneum of the mesocolon to avoid obstruction, using interrupted 3-0 Vicryl sutures. He mostasis was noted. The abdomen also had been suctioned upon initially entering the abdomen, and ziyad e fluid sent for Gram stain and culture. Once hemostasis was noted, and the abdomen was free of flui d, and the fascia was closed using #1 PDS suture in a running fashion. On-Q pain pump catheters were placed subcutaneously on either side of the vertical midline incision and secured using Dermabond an d Tegaderm. The skin was closed using mainor. Dry dressings were placed. PLAN: The patient will be taken to the ICU directly from the operating room, likely still intubated and ventilated. /[id number]/MODL
[2016-09-01] MEDS ORDERED: fentaNYL/NACL 100 ML IV SCH (09:30)
[2016-09-01] MEDS ORDERED: PROPOFOL/EMULSION 100 ML IV SCH (09:30)
[2016-09-01 09:31] LABS: PLATELET ESTIMATE ADEQUATE (ADEQ)
--- NOTE | 2016-09-01 09:43 | GCON ---
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 Dumont. A feeding tube was placed on postoperative day 4 under fluoroscopy due to inability to swallow. Today, he was noted to have fail ure to tolerate his tube feedings with abdominal pain, which was initially intermittent and now is co nstant in nature and more severe. Abdominal x-ray obtained last evening showed a relatively normal g as pattern. As his pain escalated, however, began to be associated with hypotension, tachycardia, le ukocytosis to 26. Subsequently, a CT scan was ordered, which showed trace free air within the upper abdomen as well as fluid. PAST MEDICAL HISTORY: Brainstem tumor as per history of present illness, diabetes mellitus, hyperlip idemia. PAST SURGICAL HISTORY: Resection of brainstem tumor as per history of present. MEDICATIONS: Decadron 4 mg p.o. q.6 hours, multivitamin, omega-3 fatty acids 1000 mg twice daily, as pirin 325 mg daily, Lipitor 10 mg p.o. daily, gemfibrozil 600 mg twice daily, glucosamine sulfate 500 mg twice daily, and metformin 500 mg twice daily. ALLERGIES: He has no known drug allergies. REVIEW OF SYSTEMS: He is complaining of abdominal pain of increasing severity, abdominal distention, obstipation. He denied chest pain or shortness of breath. PHYSICAL EXAMINATION: VITAL SIGNS: His temperature is 36.7. Heart rate is in the one-teens. Blood pressure is 85/42, respiratory rate is 33. He is saturating 94%. GENERAL: He is in moderate distr ess. Relatively toxic appearing, nonjaundiced. LUNGS: Clear to auscultation bilaterally, but he is tachypneic. HEART: Regular rhythm, but he is tachycardiac. ABDOMEN: Distended, diffusely tender to palpation with peritoneal signs. LABS: His white count is 26, hematocrit 33, platelets 309. Lactate is 2.7. Blood glucose is 272. ASSESSMENT: Perforated viscus of unclear etiology. PLAN: He has been started on antibiotics therapeutically. He has been receiving fluid resuscitation , and will go to the operating room for exploratory laparotomy urgently. /[id number]/MODL
--- NOTE | 2016-09-01 09:57 | NEUSURGPN ---
Assessment/Plan: Assessment: 61 yo M POD #5 resection/biopsy of left cerebellar/brainstem lesion Patient with severe LUQ pain yesterday evening along with hypotension, tachycardia, and fever, found to have large rupture of the duodenum and taken early this am by Dr. Rocha for repair. In ICU now still intubated. 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 Atkinson to see later today please call with neuro changes discussed with dr rios and Dr. Whitaker who is metal bonding helper today. Subjective: Unable to obtain. Intubated, just back from surgery. Objective: Intubated, just arriving back from surgery PERRL Continued Left facial droop- left eye taped Catheter Insertion Date: 08/26/16 - Physician Discussed Patient with Dr.: Rios Neurosurgery Physical Exam - Vitals, I&O, Labs I and O 08/31/16 09/01/16 09/02/16 05:59 05:59 05:59 Intake Total 2634 4055 Output Total 1275 70 Balance 1359 4055 -70 Intake: IV Infused (ml) 8 2861 NS W/ 20 KCl/L 1,000 ml @ 1958 100 mls/hr IV CONT [facility] Rx#:[id number] Ertapenem 1 gm In Ns 100 100 ml @ 200 mls/hr IV DAILY@ 21 [facility] Rx#:[id number] Ns 2654 ml IV EDNOW ONE 2761 Rx#:[id number] Tube Feeding (ml) 526 809 Tube Flush (ml) 150 385 Output: Urine (ml) 1275 Urinal 1275 Wound Drainage (ml) 70 Abdomen Jonathan Barnes 70 Other: Output Comment Urinal disimpacted Number of Voids Urinal 3 2 Number of Stools Urinal 1 Vital Signs Temp Pulse Resp BP Pulse Ox 36.0 C 98 13 121/59 H 100 09/01/16 09:01 09/01/16 09:36 09/01/16 09:36 09/01/16 09:36 09/01/16 09:36 Laboratory Results 09/01/16 08:15 09/01/16 08:10 ICD10 Worksheet Patient Problems: Problems Problem Status Diagnosed Brain lesion Acute
[2016-09-01] MEDS: NS 1,000 ML IV SCH ×2 (10:00→18:46)
[2016-09-01 10:04] LABS: HEMATOCRIT 29.3 % (40.0-51.0); HEMOGLOBIN 9.9 g/dL (13.7-17.5)
--- NOTE | 2016-09-01 10:11 | DX ---
Chest, One View Portable 0928 hours September 01, 2016 History: Central line placement. Intubation. Comparison: Earlier today. Findings: Cardiac silhouette moderately enlarged. Right internal jugular line in superior vena cava r egion. No pneumothorax. Endotracheal tube 3 cm above the jose. Nasogastric tube below diaphragm. Mi ld pulmonary venous hypertension. Impression: 1. Multiple tubes and lines without pneumothorax. 2. Enlarged cardiomediastinal silhouette with mild pulmonary venous hypertension.
[2016-09-01 10:13] LABS: BASE EXCESS -4.4 mEq/L (-2.5-2.5); BICARBONATE 21 mEq/L (22-26); MEASURED OXYGEN SATURATION 98 % (92-95); PCO2 41 mmHg (34-38); PO2 131 mmHg (65-75); TCO2 22 mEq/L (23-27)
[2016-09-01 10:15] LABS: END TIDAL CO2 44; SIMV YES
[2016-09-01 10:16] LABS: O2 CONCENTRATIION 70 % (0-100); P/F RATIO 187 RATIO; PATIENT RATE 18; PIP 21; PRESSURE SUPPORT 7
--- NOTE | 2016-09-01 10:48 | GCON ---
[f rep st] CONSULTATION DATE OF CONSULTATION: 09/01/2016 REFERRING PHYSICIAN: VICTOR HUGO Thornton REASON FOR CONSULTATION: I was asked by Kelle Zuluaga to see Mr. Landaverde in regard to his abdo jennifer pain, and diabetes. HISTORY OF PRESENT ILLNESS: This is a 61-year-old man with a history of diabetes who recently had a brain tumor resected by Neurosurgery. In July, he noticed a ringing sound in his left ear. This led to ongoing evaluations, including an MRI, which showed a tumor in his cerebellum. This tumor wa s resected by Dr. Dumont on 08/26/2016. Pathology has now shown this to be a lymphoma, though this kearney s not yet been discussed with Mr. Landaverde. Hospital course has been notable for failing a swallow st udy 3 times, as well as significant hyperglycemia while on steroids. He tells me that his diabetes i s normally well controlled. His last A1c was 7.1% in July. He is only on oral metformin. He is not on insulin. When I am seeing him, he has just been partially disimpacted for constipation by his nurse. He is co mplaining of a significantly tender abdomen, which is more swollen than previously. He is also tachy pneic. He notes that he is not coughing. His heart is also beating faster than it had previously. PAST MEDICAL HISTORY: 1. Diabetes mellitus. 2. Hyperlipidemia. 3. Recent craniotomy to remove a cerebellar tumor as above. MEDICATIONS: Please see medication reconciliation. ALLERGIES: None. FAMILY HISTORY: No brain tumors. SOCIAL HISTORY: Does not drink or smoke. REVIEW OF SYSTEMS: A 10-point review of systems is conducted and is negative except per HPI. PHYSICAL EXAM: VITAL SIGNS: Blood pressure is currently 89/55, heart rate is 118, respiration rate is 26, saturating 92% on room air, temperature is 36.7. GENERAL: Mr. Landaverde is a pleasant man who appears mildly uncomfortable with a distended abdomen. HEENT: NG tube in place. He has sutures in the posterior head, which are intact, and well healing. CARDIOVASCULAR: Regular rate and rhythm wit h no murmurs, rubs, or gallops. PULMONARY: Lungs clear bilaterally. ABDOMEN: Distended. He has d iminished bowel sounds. He is diffusely tender to palpation. SKIN: No rash. : No Gamino. NEURO LOGIC: Left-sided facial droop. Otherwise, his motor and sensation are intact in his extremities, a nd he is alert orient x3. PSYCHIATRIC: Normal mood and affect. LABS: Have not been checked over the past few days. However, his white count was 17.7, and hemoglob in was 12.1, on the . At that point, his basic metabolic panel was relatively unremarkable, othe r than an elevated glucose. DATA REVIEWED: 1. I reviewed his postoperative MRI. 2. I reviewed his chart, including Neurosurgery progress note. 3. I personally reviewed the chest x-ray, which shows question of an infiltrate in the left base. IMPRESSION AND PLAN: This is a 61-year-old man with diabetes, now status post craniotomy. 1. Status post craniotomy for what has been revealed as a B-cell lymphoma. This has not been discus sed with the patient at this time. He will need Oncology consultation. I would really defer this di scussion to Neurosurgery at this point. 2. Mildly low blood pressure in the setting of tachycardia and tachypnea: His chest x-ray shows an abnormality in the left base. I am not sure if this is an elevated hemidiaphragm from his abdominal distention or a true infiltrate. At this point, I will give him a dose of Invanz. I have also given him a bolus of 1 L of fluid. We will follow his clinical course closely. 3. Abdominal distention: Abdominal x-ray shows normal stool content, though he seems to be clinical ly constipated. Tonight, we will hold his tube feeds and attempt magnesium citrate. He already was disimpacted, and received a fleets enema. If abdominal pain continues, would obtain a CT of his abdo men tomorrow. 4. Dysphagia/aspiration: Certainly at risk for pneumonia. We will continue to have him work with Kiersten lee. Continue tube feeds for now. 5. Diabetes mellitus, type 2, with hyperglycemia: I considered IV insulin, but, at this time, I thi nk adding a glargine would be most appropriate. I have given him 15 units. We will follow his sugar s with this. We will need to adjust his insulin as his steroids are decreased. 6. We will recheck his labs, given other abnormalities. 7. Hyperlipidemia: He is on atorvastatin and gemfibrozil. Thank you for allowing [facility] to participate in the care of Mr. Landaverde. We will continue to follow with you. /[id number]/MODL
[2016-09-01] MEDS ORDERED: D10W 1,000 ML IV PRN (11:27)
[2016-09-01] MEDS ORDERED: FAMOTIDINE 20 MG/NACL 50 ML IV SCH (11:30)
--- NOTE | 2016-09-01 11:38 | GCON ---
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 REASON FOR ADMISSION: Status post gastric perforation, respiratory failure. HISTORY OF PRESENT ILLNESS: Mr. Landaverde is a 61-year-old white male with a past medical history of h ypertension and diabetes. He was initially admitted on 08/26 per Neurosurgery, and he underwent a re section and biopsy of a left cerebellar and brainstem lesion. This was subsequently found to be a B-c ell lymphoma. However, he was doing well postoperatively and was being packaged for discharge to [place] when he took a turn for the worse. He began becoming hypotensive and had increased abdominal pain . Abdominal x-rays revealed a perforation. He was taken to the operating room and was found to have a gastric perforation. This was repaired per Surgery. Currently, he is in the intensive care unit sed ated and on mechanical ventilation. All history is gleaned from the medical record. Prior to all th is, he did have difficulty with swallowing and there was concern about risk for aspiration. PAST MEDICAL HISTORY: Significant for diabetes and hypertension, as well as his recent B-cell lympho ma of the brain. ALLERGIES: No known allergies to medications. SOCIAL HISTORY: No history of tobacco use. Unknown alcohol use. He has good family support. CURRENT MEDICATIONS: Tylenol, Browder, aspirin, Lipitor, Dulcolax, Thorazine, Decadron, Valium, ertape nem, glucosamine, Dilaudid, Humulin, milk of magnesia, Glucophage, nicardipine, Zofran, MiraLAX. PHYSICAL EXAMINATION: VITAL SIGNS: Blood pressure is 84/46, pulse is 116, respirations are 22, temp erature 36.6, oxygen saturation 100% on mechanical ventilation. GENERAL: He is a well-developed, [place], white male, who is resting comfortably on mechanical ventilation. HEENT: Eyes are SIVAN, EOMI . Throat: Endotracheal tube is good position. NECK: Supple. No cervical adenopathy. HEART: Reg ular rate and rhythm with a 2/6 systolic murmur at the left sternal border without radiation. LUNGS: Diminished breath sounds. A few bibasilar crackles, but no wheeze. ABDOMEN: Distended. Bowel titi nds are unappreciated. EXTREMITIES: No clubbing, cyanosis, or edema. LABORATORIES: White count 9.4, hemoglobin 8.7, hematocrit 25, platelet count 204, INR is 1.33, lacti c acid 2.7, sodium 139, potassium 4.0, chloride 105, CO2 24, BUN 32, creatinine 0.7, glucose is 215. Liver function tests are normal. Chest x-ray interpreted by myself shows mostly clear lung ny, NG tube is in good position. IMPRESSION: 1. Status post gastric perforation with repair. 2. Respiratory failure. 3. Hypotension, likely hypovolemic, did not feel this is septic shock at this time. 4. History of diabetes. 5. History of hypertension. 6. Brainstem tumor with B-cell lymphoma. RECOMMENDATIONS: 1. Aggressive fluid resuscitation. 2. Add pressors as needed. 3. Wean from mechanical ventilation. 4. Adequate sedation. 5. Adequate pain control. 6. DVT and PE prophylaxis, holding anticoagulation for now. /[id number]/MODL
--- NOTE | 2016-09-01 12:13 | GCON ---
[f rep st] CONSULTATION ONCOLOGY CONSULTATION DATE OF CONSULTATION: 09/01/2016 REFERRING PHYSICIAN: Janes Dumont MD REASON FOR CONSULTATION: New diagnosis of primary FLEXIBLE MACHINING SYSTEM MACHINIST lymphoma. HISTORY OF PRESENT ILLNESS: The patient is a 61-year-old man with a new diagnosis of what appears to be primary FLEXIBLE MACHINING SYSTEM MACHINIST lymphoma. He developed sudden hearing loss and tinnitus in his left ear in July. A brain MRI revealed a 1.4 x 1.8 x 1.3 cm enhancing mass in the left lateral 4th ventricle and middle cerebral peduncle. He developed some gait disturbance and also a facial droop. A CT scan of the chest, abdomen, and pelvis did not reveal any evidence of metastatic disease. I saw him in my clinic on August 20, and laboratory work there was unremarkable as well. I recommended to Dr. Dumont that he proceed with resection or biopsy of the lesion, as there did not appear to be another primary. He underwent a subtotal resection of the lesion on August 27. 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 FISH studies are pending. The patient was recovering well postoperatively, but then last night unexpectedly developed leukocytosis, abdominal pain, and tachycardia. He was found to have a perforated viscus and was taken emergently to the operating room. He had a perforated duodenal ulcer. He underwent antrectomy with gastrojejunostomy and over-sewing of the duodenal stump. Currently, he is alert and oriented, but remains on the ventilator. PAST MEDICAL HISTORY: 1. Hypercholesterolemia. 2. Diabetes. CURRENT MEDICATIONS: Include aspirin, ertapenem, gemfibrozil, insulin, micafungin. ALLERGIES: No known drug allergies. FAMILY HISTORY: Noncontributory. SOCIAL HISTORY: He quit smoking 25 years ago. He lives with his son, Fish. REVIEW OF SYSTEMS: Except for pertinent positives noted in the HPI, 14-point review of systems was negative. PHYSICAL EXAMINATION: VITAL SIGNS: His temperature was 36.2, blood pressure 106/50, heart rate 106. He was on a CPAP ventilator with an FiO2 of 40%. GENERAL: He was tired-appearing, but appeared comfortable. HEENT: Sclerae icteric. Oropharynx clear. NECK: Supple without lymphadenopathy. LUNGS: Clear to auscultation bilaterally. CARDIAC: Regular rate and rhythm. No murmurs, gallops or rubs. ABDOMEN: Notable for marked distention. There was a dressing in place. Bowel sounds were absent. EXTREMITIES: 1+ edema. SKIN: No petechiae or purpura. LABORATORY DATA: White count 9.43, hemoglobin 8.7, platelets 204. Sodium 139, potassium 4.0, chloride 105, bicarbonate 24, BUN 32, creatinine 0.7. Liver function tests within normal limits. IMPRESSION: This is a 61-year-old man with new diagnosis of primary central nervous system lymphoma. CT scan did not reveal evidence of other sites of disease. He will need some additional staging studies to confirm that the central nervous system is the only location for this lymphoma. These would include a PET-CT scan, bone marrow biopsy, a testicular ultrasound, to rule out primary testicular cancer to rule out primary testicular cancer, and an ophthalmologic exam. The testicular ultrasound may be performed in the hospital once he out of the ICU, but the other studies will likely need to await the outpatient setting. We will also need to review the pathology from his perforated duodenal ulcer to make sure this was not a manifestation of his lymphoma, though per Dr. Rocha there was nothing suspicious seen intraoperatively. Primary central nervous system lymphoma is a treatable disease and some patient' s can be cured with aggressive chemotherapy. I discussed with Dr. Rocha that he will need to wait at least 4 weeks from now to make sure that his duodenal stump has healed before initiating chemotherapy. He will need induction with a methotrexate-based regimen, such as methotrexate, temozolomide, and rituximab. This is sometimes followed by consolidation with autologous stem cell transplant in selected patients. The treatment would be different if another primary source, such as a testicular lymphoma, were found. As the patient remained on the ventilator today, I was only able to have a limited discussion with him and his son about the disease and its prognosis and treatment. I will return tomorrow to discuss more with him, when he should be off the ventilator. /[id number]/MODL MTDD
[2016-09-01 12:19] LABS: BASE EXCESS -1.2 mEq/L (-2.5-2.5); BICARBONATE 25 mEq/L (22-26); MEASURED OXYGEN SATURATION 95 % (92-95); PCO2 53 mmHg (34-38); PO2 88 mmHg (65-75); TCO2 27 mEq/L (23-27)
[2016-09-01 12:21] LABS: CPAP YES; O2 CONCENTRATIION 40 % (0-100); P/F RATIO 220 RATIO
[2016-09-01 12:22] LABS: END TIDAL CO2 50; PATIENT RATE 21; PRESSURE SUPPORT 7
[2016-09-01 12:24] LABS: ALANINE AMINOTRANSFERASE 204 IU/L (21-72); ALBUMIN 2.1 g/dL (3.5-5.0); ALKALINE PHOSPHATASE 44 IU/L (38-126); ANION GAP 5 mEq/L (8-16); ASPARTATE AMINOTRANSFERASE 162 IU/L (17-59); BILIRUBIN,TOTAL 0.7 mg/dL (0.1-1.4); CALCIUM 7.5 mg/dL (8.5-10.4); CARBON DIOXIDE 29 mEq/l (22-31); CHLORIDE 106 mEq/L (97-110); CREATININE 0.5 mg/dL (0.7-1.3); GLOMERULAR FILTRATION RATE > 60; GLUCOSE 109 mg/dL (70-100); MAGNESIUM 2.6 mg/dL (1.6-2.3); POTASSIUM 4.7 mEq/L (3.5-5.2); SODIUM 140 mEq/L (134-144); TOTAL PROTEIN 4.2 g/dL (6.3-8.2); TRIGLYCERIDE 78 mg/dL (40-150)
--- NOTE | 2016-09-01 12:27 | GCON ---
[f rep st] CONSULTATION INFECTIOUS DISEASE CONSULTATION DATE OF CONSULTATION: 09/01/2016 REFERRING PHYSICIAN: Aidee Rocha MD REASON FOR CONSULTATION: Sepsis with peritonitis secondary to duodenal perforation. CHIEF COMPLAINT: Abdominal pain. HISTORY OF PRESENT ILLNESS: This is a 61-year-old male with a past medical history significant for diabetes mellitus and dyslipidemia, and newly diagnosed brainstem tumor, status post partial resection on the 26 of August. He had been on Toradol as well as Decadron, and recently had a feeding tube placed on postoperative day 4. Yesterday evening, he had sudden onset of abdominal pain and was unable to tolerate the tube feeds. Abdominal x- ray showed relatively normal gas pattern; however, his abdominal pain escalated. He was tachycardic, hypotensive, and followup blood work showed he had a leukocytosis of 26,000. He was taken originally to the OR this morning and was found to have a large perforated duodenum, involving the first and second portion of the duodenum. Intraoperative cultures were taken. He underwent a washout and an antrectomy with gastrojejunostomy and oversewing of the duodenal stump with LAURA drain placement. The patient was started in Invanz therapy this morning as well. The patient is currently intubated, arouses to verbal stimuli, but is unable to provide any history. History is obtained from partly from the medical records along with history obtained from Dr. Rocha in person. REVIEW OF SYSTEMS: Could not be obtained. PAST MEDICAL HISTORY: Significant for diabetes mellitus, dyslipidemia and newly diagnosed brainstem tumor. Pathology shows may represent primary diffuse large B cell lymphoma. PAST SURGICAL HISTORY: Significant for suboccipital craniotomy with subtotal resection of the brainstem tumor. ALLERGIES: No known drug allergies. SOCIAL HISTORY: He used to smoke cigarettes moderately but quit 25 years ago. Currently smokes cigars every now and then. He drinks a moderate amount of alcohol. He lives with his son. He has not left [place] recently. FAMILY HISTORY: Significant for diabetes mellitus, hypertension, and his sister has ovarian cancer. MEDICATIONS: As per MAR. PHYSICAL EXAMINATION: VITAL SIGNS: Temperature current 36.2, pulse is 101, blood pressure 113/58, respiratory rate is 18, saturations of . He is on 70% FIO2 on the ventilator. GENERAL: The patient is endotracheally intubated, lightly sedated, arousal to verbal stimuli. HEENT: Eyes: Left eye droop. No conjunctival injection or petechiae noted. Oropharynx not well visualized. He has an ET tube in place. CARDIOVASCULAR: S1 and S2, regular rhythm. He is tachycardic. No obvious murmurs appreciated. RESPIRATORY: Clear to auscultation anteriorly. Somewhat limited exam. ABDOMEN: Absent bowel sounds. Abdomen is distended. Postoperative dressing noted which I did not take down. He has a LAURA drain in place with serosanguineous drainage. EXTREMITIES: No obvious lower extremity edema. No obvious joint effusions. SKIN: No obvious rashes on this limited exam. LABORATORY DATA: White blood cell count down to 9.4, hemoglobin 9.9, platelets are 204, neutrophil count is 94%. INR 1.3. Venous lactic acid was 2.7. Chemistry: Sodium 139, potassium 4.0, chloride 105, bicarbonate 24, BUN is 32, creatinine 0.7. LFTs are within the normal range. Hemoglobin A1c 9.7. Microbiology: Peritoneal cultures are currently pending. Apparently there are blood cultures also that have been drawn, but those were after a dose of antibiotics. ASSESSMENT: 1. Sepsis with peritonitis, secondary to duodenal perforation. 2. Newly diagnosed brainstem tumor, status post partial resection. PLAN: At this point in time, patient was taken emergently to surgery and had a washout.. Patient is currently on Invanz therapy for the above. Will add micafungin for additional antifungal coverage given the above. Cultures are still in progress and are pending, and will continue to follow them and make antimicrobial adjustments as necessary. Will follow the patient's clinical course closely as well. Plan of care was discussed with the RN and also discussed with the son, and updated the patient's son on the plan of care. I thank you very much for allowing us this opportunity to care for your in consultation. /[id number]/MODL MTDD
[2016-09-01 12:28] LABS: COLOR YELLOW; LEUKOCYTE ESTERASE,URINE NEGATIVE (NEGATIVE); NITRITE,URINE NEGATIVE (NEGATIVE)
[2016-09-01 12:30] LABS: INR 1.28 (0.83-1.16)
[2016-09-01 12:31] LABS: APTT 25.7 SEC (23.0-38.0)
[2016-09-01] MEDS: MICAFUNGIN NA 100 MG in NS 100 ML IV SCH (12:45)
[2016-09-01] MEDS: SENNOSIDES 17.6 MG/10 ML UDL - IF LIQUID ORDERED TUBE SCH ×2 (12:58→19:14)
--- NOTE | 2016-09-01 13:15 | CT ---
CT Abdomen and Pelvis History: Hypotension, abdominal pain. Comparison: Plain film abdomen August 31, 2016. Technique: Axial contrast-enhanced images were obtained through the abdomen and pelvis following the uneventful administration of 90 mL Isovue-300 intravenous contrast. Dose reduction techniques were ut ilized. Findings: Abdomen: There is mild bibasilar atelectasis with mild peribronchial thickening. Heart size is normal . Coronary atherosclerosis is present. The liver, gallbladder, spleen, and adrenals are normal. Pancreatic calcifications suggest sequela of prior pancreatitis. The pancreas is otherwise normal. Nonobstructing nephrolithiasis is present bila terally, including a 6 mm stone in the inferior right kidney. A feeding tube is present with the tip in the second portion of the duodenum. The small bowel is uppe r normal in caliber, measuring up to 3 cm, with no appreciable transition point. There is mild disten tion of the proximal colon with extensive stool in the colon. A small amount of free air is present, principally in the upper abdomen centrally. A small volume of ascites is present. The aorta is normal in caliber with mild atherosclerosis. The IVC, hepatic, portal, splenic, and supe rior mesenteric veins are patent. No pathologically enlarged lymph nodes are identified. A small fat- containing paraumbilical hernia is present. Multilevel degenerative change is present in the spine wi th multilevel mild to moderate spinal canal narrowing, most prominent at L3-L4 and L4-L5. Pelvis: There is moderate air in an otherwise normal bladder. A small amount of free fluid is present . No bladder or distal ureteral calcifications are present. Bridging osteophytes span the left sacroi liac joint. Impression: 1. Small volume of free intraperitoneal air, compatible with bowel perforation, of unclear origin. 2. Borderline small bowel dilatation, suggesting ileus. 3. Small volume of ascites. 4. Constipation. 5. Air in the bladder, suggesting sequela of recent instrumentation or less likely infection. 6. Additional findings as above. Findings discussed with Weston, the patient's nurse, in the ICU, September 01, 2016 at 0354 hours. The p reliminary and final reports were concordant. A phone message was left with Dr. Gaudencio Nugent on D 2015 at 0355 hours.
[2016-09-01] MEDS: PANTOPRAZOLE SODIUM 40 MG in NS 100 ML IV SCH (13:30)
[2016-09-01 13:40] LABS: % IMMATURE GRANULYOCYTES 0.8 % (0.0-1.1); ABSOLUTE IMMATURE GRANULOCYTES 0.08 10^3/uL (0.00-0.10); ADD DIFF? NO; ADD MORPH? NO; ADD SCAN? YES; ATYPICAL LYMPHOCYTE FLAG 10 (0-99); FRAGMENT RBC FLAG 0 (0-99); HEMATOCRIT 29.6 % (40.0-51.0); HEMOGLOBIN 9.9 g/dL (13.7-17.5); LIPEMIA HEMOLYSIS FLAG 80 (0-99); MEAN CELL HEMOGLOBIN 32.1 pg (27.9-34.1); MEAN CELL HEMOGLOBIN CONCENTR. 33.4 g/dL (32.4-36.7); MEAN CELL VOLUME 96.1 fL (81.5-99.8); MEAN PLATELET VOLUME 9.9 fL (8.7-11.7); PLATELET CLUMPS FLAG 0 (0-99); PLATELET COUNT 249 10^3/uL (150-400); RED BLOOD CELL COUNT 3.08 10^6/uL (4.40-6.38); RED CELL DISTRIBUTION WIDTH 12.8 % (11.5-15.2)
[2016-09-01 13:44] LABS: LEFT SHIFT FLG 230 (0-99)
[2016-09-01 14:18] LABS: SCAN POSITIVE
[2016-09-01 14:21] LABS: PLATELET ESTIMATE ADEQUATE (ADEQ)
[2016-09-01 14:46] LABS: BASE EXCESS 0.2 mEq/L (-2.5-2.5); BICARBONATE 26 mEq/L (22-26); MEASURED OXYGEN SATURATION 97 % (92-95); PCO2 48 mmHg (34-38); PO2 98 mmHg (65-75); TCO2 27 mEq/L (23-27)
[2016-09-01 14:47] LABS: END TIDAL CO2 51; O2 CONCENTRATIION 40 % (0-100); P/F RATIO 245 RATIO; PATIENT RATE 18; PRESSURE SUPPORT 7
[2016-09-01] MEDS ORDERED: D50W 25 GM/50 ML SYR IVP PRN (15:20)
[2016-09-01] MEDS ORDERED: PARAMETERS MISC PRN (15:20)
[2016-09-01] MEDS: INSULIN LISPRO 100 UNIT/ML SC SCH (18:14)
[2016-09-01] MEDS: metFORMIN HCL 500 MG TAB PO SCH (19:13)
[2016-09-01] MEDS: CHLORHEXIDINE GLUCONATE 15 ML UDL PO SCH (19:14)
[2016-09-01] MEDS: TPN W/ FAMOTIDINE 1 EA BAG IV SCH (20:49)
[2016-09-01 21:52] LABS: HEMATOCRIT 29.9 % (40.0-51.0); HEMOGLOBIN 10.1 g/dL (13.7-17.5)
--- NOTE | 2016-09-01 23:15 | GCON ---
[f rep st] CONSULTATION DATE OF CONSULTATION: 09/01/2016 REASON FOR CONSULTATION: Diabetes, hypertension. HISTORY OF PRESENT ILLNESS: The patient is a 61-year-old male with a past medical history of hypertension and diabetes, admitted on 08/26/2016 by Neurosurgery and underwent resection and biopsy of a left cerebellar and brainstem lesion. Pathology has demonstrated B-cell lymphoma. He was doing well postoperatively and was planned for discharge to rehab when he became hypotensive and developed significant abdominal pain. Abdominal x- ray revealed a perforation, and he was taken to the OR and was found to have a gastric perforation. This was repaired by Surgery. REVIEW OF SYSTEMS: The patient has limited participation in interview, so most of this history is from medical records. PAST MEDICAL HISTORY: Diabetes, hypertension, newly-diagnosed B-cell lymphoma of the brain. PAST SURGICAL HISTORY: Recent cerebellar resection and biopsy. SOCIAL HISTORY: No tobacco, quit 25 years ago. Occasional cigar. Drinks alcohol moderately. Lives with his son. MEDICATIONS: Home medications: Aspirin 325 mg daily, fish oil 1000 mg twice daily, multivitamin, glucosamine, Decadron 4 mg q.6, metformin 500 mg twice daily, Lopid 600 mg twice daily, Lipitor 10 mg. ALLERGIES: No known drug allergies. FAMILY HISTORY: Diabetes, hypertension. Sister with ovarian cancer. PHYSICAL EXAM: VITAL SIGNS: Temperature 36.8, blood pressure is 118/63, heart rate 108-114, respirations 22, 96% on the ventilator. GENERAL: No acute distress, lying in bed. HEENT: PERRLA. EOMI. ET tube in place. NECK: No cervical adenopathy. CV: Regular rate and rhythm. 2/6 JIMI murmur best heard at left sternal border. LUNGS: Diminished. Minimal crackles at bases. ABDOMEN: Distended. No bowel sounds present. NEURO: Could not close left eye completely. Weakness on left side. LABORATORY DATA: Sodium 140, potassium 4.7, chloride 106, bicarb 29, creatinine 0.5, glucose 109, alkaline phosphatase 7.5, total bilirubin 2.6, AST 162, ALT 204, total protein 4.2, albumin 2.10. CBC 10, hemoglobin 9.9, hematocrit 29, platelets 249. UA was negative. ASSESSMENT AND PLAN: 1. Sepsis: secondary to peritonitis with duodenal perforation: Appreciate ID consultation. Continue ertapenem. 2. Leukocytosis: Resolved with IV antibiotics. 3. Acute hypoxic respiratory failure: Now extubated. 4. Peritonitis: Continue ertapenem. Added micafungin for antifungal coverage. Cultures are pending. 5. Newly-diagnosed brain B-cell lymphoma: Status post partial resection. Oncology has been consulted. Patient will have to wait at least 4 weeks to recover from acute illness prior to starting chemotherapy. 6. Uncontrolled diabetes, on metformin as an outpatient: Glargine 15 units was started. A1c was 9.7. Will continue glargine 15 units, plus sliding scale insulin. Up-titrate as needed. 7. History of hypertension: Given sepsis will hold antihypertensive medicines. 8. Perforated viscus: Patient underwent repair 09/[address] Rocha with antrectomy/gastrojejunostomy and over-sewing of duodenal stump. LAURA drain is in place. Suspect due to NSAIDs/steroids. Cont IV PPI 9. Diet: N.p.o. 10. DVT prophylaxis: SCDs. 11. Acute pain secondary to perforated viscus: Continue p.r.n. opiates. Bowel regimen. 12. Disposition: Patient warrants ICU admission given acute sepsis warranting IV antibiotics. /[id number]/MODL MTDD
[2016-09-02] MEDS: NS 1,000 ML IV SCH ×3 (01:47→23:15)
[2016-09-02] MEDS: PETROLAT,WHT/MIN OIL/SOD CHL 3.5 GM OPHT.OINT LEFTEYE SCH ×6 (01:49→21:49)
[2016-09-02] MEDS: DEXAMETHASONE 4 MG/ML VIAL IVP SCH ×2 (03:57→09:05)
[2016-09-02 05:53] LABS: INR 1.61 (0.83-1.16); PROTIME(PATIENT) 19.2 SEC (12.0-15.0)
[2016-09-02 05:55] LABS: ADD MORPH? NO; ADD SCAN? YES; ATYPICAL LYMPHOCYTE FLAG 10 (0-99); FRAGMENT RBC FLAG 0 (0-99); HEMATOCRIT 26.2 % (40.0-51.0); HEMOGLOBIN 8.9 g/dL (13.7-17.5); LIPEMIA HEMOLYSIS FLAG 90 (0-99); MEAN CELL HEMOGLOBIN 32.6 pg (27.9-34.1); MEAN PLATELET VOLUME 9.5 fL (8.7-11.7); PLATELET CLUMPS FLAG 0 (0-99); PLATELET COUNT 218 10^3/uL (150-400); RED BLOOD CELL COUNT 2.73 10^6/uL (4.40-6.38); RED CELL DISTRIBUTION WIDTH 12.9 % (11.5-15.2)
[2016-09-02 06:01] LABS: LEFT SHIFT FLG 100 (0-99)
[2016-09-02 06:09] LABS: ALANINE AMINOTRANSFERASE 217 IU/L (21-72); ALBUMIN 2.1 g/dL (3.5-5.0); ALKALINE PHOSPHATASE 49 IU/L (38-126); ANION GAP 0 mEq/L (8-16); ASPARTATE AMINOTRANSFERASE 121 IU/L (17-59); BILIRUBIN,TOTAL 0.7 mg/dL (0.1-1.4); CALCIUM 7.6 mg/dL (8.5-10.4); CARBON DIOXIDE 33 mEq/l (22-31); CHLORIDE 99 mEq/L (97-110); CREATININE 0.5 mg/dL (0.7-1.3); GLOMERULAR FILTRATION RATE > 60; GLUCOSE 220 mg/dL (70-100); MAGNESIUM 2.1 mg/dL (1.6-2.3); POTASSIUM 4.6 mEq/L (3.5-5.2); SODIUM 132 mEq/L (134-144); TOTAL PROTEIN 4.2 g/dL (6.3-8.2)
[2016-09-02 07:05] LABS: ADD DIFF? YES; SCAN POSITIVE
[2016-09-02 07:11] LABS: TOXIC VACUOLIZATION PRESENT
[2016-09-02 07:13] LABS: PLATELET ESTIMATE ADEQUATE (ADEQ)
--- NOTE | 2016-09-02 08:33 | HOSPPROG ---
Hospitalist Progress Note Assessment/Plan: #uncontrolled DM2 - Objective: Vital Signs Temp Pulse Resp BP Pulse Ox 36.8 C 98 22 H 133/67 H 93 09/02/16 08:00 09/02/16 08:00 09/02/16 08:00 09/02/16 08:00 09/02/16 08:00 Microbiology 09/01/16 06:35 Mycobacterial Smear (HEATHER) - Final Peritoneal Fluid - Aspirate 09/01/16 06:35 Gram Stain - Final Peritoneal Fluid - Aspirate Laboratory Results 09/02/16 05:30 09/02/16 05:30 09/01/16 09/02/16 09/03/16 05:59 05:59 05:59 Intake Total 4055 3196 Output Total 4192 Balance 4055 -993 PT 19.2 SEC (12.0-15.0) H 09/02/16 05:30 INR 1.61 (0.83-1.16) H 09/02/16 05:30 ICD10 Worksheet Patient Problems: Problems Problem Status Diagnosed Brain lesion Acute
[2016-09-02] MEDS ORDERED: ASPIRIN RECTAL 300 MG SUPP PR SCH (09:00)
--- NOTE | 2016-09-02 09:00 | DX ---
Chest, Single View September 02, 2016 History: ICU patient. Follow up pulmonary status. Comparison: September 01, 2016. Findings: There has been removal of the ET tube. NG tube is seen with its tip off the film. Right IJ central catheter is in stable position. Heart size is enlarged and stable. Opacification is seen at b oth lung bases suggesting atelectasis stable in aeration. Pulmonary vascularity is slightly diminishe d over the interval. Impression: Stable cardiomegaly. Improved pulmonary vascular congestion. Stable bibasilar atelectasis . Removal of ET tube.
[2016-09-02] MEDS: PANTOPRAZOLE SODIUM 40 MG in NS 100 ML IV SCH ×2 (09:05→20:26)
[2016-09-02] MEDS: MICAFUNGIN NA 100 MG in NS 100 ML IV SCH (09:05)
[2016-09-02] MEDS: CHLORHEXIDINE GLUCONATE 15 ML UDL PO SCH (09:05)
--- NOTE | 2016-09-02 09:18 | NEUSURGPN ---
Assessment/Plan: Assessment: 61 yo M POD #7 resection/biopsy of left cerebellar/brainstem lesion , now also s/p duodenal repair by Dr Rocha on 08/31. -Appreciate oncology consultation -Patient extubated -Bed status per gen surg -Diet per gen surg -Appreciate hospitalist recommendations -Continue Decadron -Please notify NS with any change in neuro/motor -Seen also this am by Dr. Dumont Subjective: Abdominal/surgical site pain. Denies any new weakness, headaches other pain Objective: left sided facial droop/ Incision c/d/i. 5/5 and equal in BUE and BLE. Catheter Insertion Date: 08/26/16 - Physician Patient Seen by : Julia Neurosurgery Physical Exam - Vitals, I&O, Labs I and O 09/01/16 09/02/16 09/03/16 05:59 05:59 05:59 Intake Total 4055 3197 Output Total 4190 Balance 4055 -993 Weight 88 kg Intake: IV Infused (ml) 2861 3197 Ertapenem 1 gm In Ns 100 100 ml @ 200 mls/hr IV DAILY@ 21 [facility] Rx#:[id number] Ns 2654 ml IV EDNOW ONE 2761 Rx#:[id number] Ns 1,000 ml @ 150 mls/hr 2833 IV CONT [facility] Rx#: [id number] TPN W/ Famotidine 1 ea IV 364 DAILY21 [facility] Rx#: [id number] Tube Feeding (ml) 809 Tube Flush (ml) 385 Output: Urine (ml) 3400 Catheter 3400 NG Drainage (ml) 350 Large Bore (>12 Amharic) 350 Non-weighted Right Naris Stomach Wound Drainage (ml) 440 Abdomen Jonathan Barnes 440 Other: Output Comment Urinal disimpacted Number of Voids Urinal 2 Number of Stools Urinal 1 Microbiology 09/01/16 06:35 Gram Stain - Final Peritoneal Fluid - Aspirate 09/01/16 06:35 Mycobacterial Smear (HEATHER) - Final Peritoneal Fluid - Aspirate Vital Signs Temp Pulse Resp BP Pulse Ox 36.8 C 98 22 H 133/67 H 93 09/02/16 08:00 09/02/16 08:00 09/02/16 08:00 09/02/16 08:00 09/02/16 08:00 Laboratory Results 09/02/16 05:30 09/02/16 05:30 ICD10 Worksheet Patient Problems: Problems Problem Status Diagnosed Brain lesion Acute
--- NOTE | 2016-09-02 09:33 | PCMIDPN ---
Assessment/Plan: Assessment/Plan: 1. Peritonitis secondary to duodenal perforation: - Covered broadly with invanz + micafungin. - Cx preliminarily with C. albicans. Susceptibilities pending -Continue with current therapy for now. -Labs reviewed. Subjective: Remains in icu. Sitting in chair. Extubated. c/o abd pain. Denies sob. Objective: Vital Signs Temp Pulse Resp BP Pulse Ox 36.8 C 98 22 H 133/67 H 93 09/02/16 08:00 09/02/16 08:00 09/02/16 08:00 09/02/16 08:00 09/02/16 08:00 Microbiology 09/01/16 06:35 Gram Stain - Final Peritoneal Fluid - Aspirate 09/01/16 06:35 Mycobacterial Smear (HEATHER) - Final Peritoneal Fluid - Aspirate Laboratory Results 09/02/16 05:30 09/02/16 05:30 09/01/16 09/02/16 09/03/16 05:59 05:59 05:59 Intake Total 4055 3199 Output Total 4190 Balance 4055 -993 - Physical Exam General Appearance: alert, no apparent distress Respiratory: lungs clear Cardiac/Chest: regular rate, rhythm Extremities: No swelling Abdomen: distended, other (quiet bs) Skin: No erythema ICD10 Worksheet Patient Problems: Problems Problem Status Diagnosed Brain lesion Acute Perforated duodenal ulcer Acute
--- NOTE | 2016-09-02 10:01 | TRAUMAPN ---
- Problem/Surgery Performed (1) Perforated duodenal ulcer Assessment/Plan: s/p antrectomy, gastrojejunostomy, oversewing of the duodenal stump for massive anterior duodenal perforation, likely NSAID/steroid-related continue NGT, LAURA drain, TPN, strict NPO appreciate ID input regarding antibiotic therapy continue to monitor closely for duodenal stump healing vs. leak, will discontinue steroids and wait to give adjuvant chemotherapy until stump is healed NSAIDs and steroid discontinued continue PPI twice daily Subjective: abdominal pain controlled with IV analgesia Objective: Vital Signs Temp Pulse Resp BP Pulse Ox 36.8 C 98 22 H 133/67 H 93 09/02/16 08:00 09/02/16 08:00 09/02/16 08:00 09/02/16 08:00 09/02/16 08:00 Microbiology 09/01/16 06:35 Gram Stain - Final Peritoneal Fluid - Aspirate 09/01/16 06:35 Mycobacterial Smear (HEATHER) - Final Peritoneal Fluid - Aspirate Laboratory Results 09/02/16 05:30 09/02/16 05:30 09/01/16 09/02/16 09/03/16 05:59 05:59 05:59 Intake Total 4055 3197 Output Total 4190 Balance 4055 -993 PT 19.2 SEC (12.0-15.0) H 09/02/16 05:30 INR 1.61 (0.83-1.16) H 09/02/16 05:30 Physical Exam - Physical Exam General Appearance: alert Respiratory: lungs clear Cardiac/Chest: regular rate, rhythm Abdomen: soft, distended, other (hypoactive bowel sounds, LAURA drainage serosanguinous, NGT output bilious)
[2016-09-02] MEDS: INSULIN LISPRO 100 UNIT/ML SC SCH ×4 (10:07→23:15)
[2016-09-02] MEDS: metFORMIN HCL 500 MG TAB PO SCH (10:54)
[2016-09-02] MEDS: SENNOSIDES 17.6 MG/10 ML UDL - IF LIQUID ORDERED TUBE SCH (10:54)
[2016-09-02] MEDS: SCOPOLAMINE HYDROBROMIDE 1.5 MG PATCH TD SCH (10:56)
--- NOTE | 2016-09-02 11:02 | SOAPPROG ---
SOHAI Progress Note Assessment/Plan: Assessment: 1. Primary [employer] lymphoma 2. L sided hemiparesis, dysphagia 3. s/p perforated duodenal ulcer Plan: - continue post-op care - will need to complete staging as outpt: BMBx, PET-CT, testicular ultrasound - discussed outline of treatment: induction with MTX-containing regimen (likely MTX/temodar/rituxan), possibly followed by consolidation autoSCT. 30 min spent w/ pt and son and in coordination of care. 09/02/16 11:01 Subjective: pt feels worn out, "like I got run over by a truck." Objective: exam: tired appearing, NGT in place Lungs CTAB CV RRR no MGR Abd: absent BS. mod distension Ext: 1+ edema neuro: a+ox3. L facial droop and ptosis. L arm weakness. Vital Signs Temp Pulse Resp BP Pulse Ox 36.8 C 98 22 H 133/67 H 93 09/02/16 08:00 09/02/16 08:00 09/02/16 08:00 09/02/16 08:00 09/02/16 08:00 Microbiology 09/01/16 06:35 Gram Stain - Final Peritoneal Fluid - Aspirate 09/01/16 06:35 Mycobacterial Smear (HEATHER) - Final Peritoneal Fluid - Aspirate Laboratory Results 09/02/16 05:30 09/02/16 05:30 09/01/16 09/02/16 09/03/16 05:59 05:59 05:59 Intake Total 4055 3197 Output Total 4190 Balance 4055 -993 PT 19.2 SEC (12.0-15.0) H 09/02/16 05:30 INR 1.61 (0.83-1.16) H 09/02/16 05:30 ICD10 Worksheet Patient Problems: Problems Problem Status Diagnosed Brain lesion Acute Perforated duodenal ulcer Acute
[2016-09-02] MEDS ORDERED: INSULIN GLARGINE 100 UNITS/ML SYRINGE SC SCH (11:12)
[2016-09-02 12:17] LABS: HEMATOCRIT 27.4 % (40.0-51.0); HEMOGLOBIN 9.1 g/dL (13.7-17.5)
--- NOTE | 2016-09-02 13:14 | PDINTPN ---
Garage Attendant Progress Note Assessment/Plan: Assessment: #Brain lymphoma, post surgery with residual left facial droop and dysarthria #Perforated duodemum post gastrojejunostomy and oversewing of the duodenal stump , probably due to NSAIDS and steroids DM worse on steroids Plan: NG drainage for bowel healing SCD's BS control should be better off steroids Eventual workup for his lymphoma and then chemo once his bowel has healed 09/02/16 13:11 Subjective: Mild abdominal pain as expected Objective: Vital Signs Temp Pulse Resp BP Pulse Ox 36.6 C 76 28 H 137/77 H 93 09/02/16 12:00 09/02/16 12:00 09/02/16 12:00 09/02/16 12:00 09/02/16 12:00 Microbiology 09/01/16 06:35 Mycobacterial Smear (HEATHER) - Final Peritoneal Fluid - Aspirate 09/01/16 06:35 Gram Stain - Final Peritoneal Fluid - Aspirate Laboratory Results 09/02/16 12:10 09/02/16 05:30 09/01/16 09/02/16 09/03/16 05:59 05:59 05:59 Intake Total 4055 3197 Output Total 4190 1750 Balance 4055 -993 -1750 PT 19.2 SEC (12.0-15.0) H 09/02/16 05:30 INR 1.61 (0.83-1.16) H 09/02/16 05:30 Physical Exam - Physical Exam General Appearance: mild distress EENT: normal ENT inspection Neck: non-tender Respiratory: lungs clear Cardiac/Chest: regular rate, rhythm Back: Normal inspection Skin: warm/dry Lymphatic: no adenopathy Extremities: non-tender, No pedal edema Neuro/Psych: alert ICD10 Worksheet Patient Problems: Problems Problem Status Diagnosed Brain lesion Acute Perforated duodenal ulcer Acute
--- NOTE | 2016-09-02 15:06 | HOSPPROG ---
Hospitalist Progress Note Assessment/Plan: #Uncontrolled DM -compounded by steroids, which were stopped today -increase Glargine to 20 units, SSI q6hr with tubes feeds #Sepsis: resolved -2/2 peritonitis. Cont -cont ertapenem, Micafungin #Perforated duodenum -spoke with Dr. Rocha; concerned that both NSAIDs ans steroids contributed to ulcer -spoke with NSGY and Onc today; stop steroids. Will monitor for neuro changes and restart if warranted -change to BID IV PPI -No NSAIDs #Newly diagnosed brain B-cell lymphoma -will not be amendable for chemo until stable from surgical standpoint, which will likely be weeks -outpatient staging: BM bx, PET, testicular U/S #Acute hypoxic resp failure -cont wean off oxygen #Leukocytosis: improved IV abx #Hyponatremia -dropped today. Will change IVFs #Deconditioning: PT/OT #Diet: TPN #DVT ppx: ok to restart Lovenox #Disp: pt warrants inpt admission with IV abx, TPN Subjective: feeling better today. Mild abd pain Objective: Vital Signs Temp Pulse Resp BP Pulse Ox 36.6 C 76 28 H 137/77 H 88 L 09/02/16 12:00 09/02/16 12:00 09/02/16 12:00 09/02/16 12:00 09/02/16 14:30 Microbiology 09/01/16 06:35 Mycobacterial Smear (HEATHER) - Final Peritoneal Fluid - Aspirate 09/01/16 06:35 Gram Stain - Final Peritoneal Fluid - Aspirate Laboratory Results 09/02/16 12:10 09/02/16 05:30 09/01/16 09/02/16 09/03/16 05:59 05:59 05:59 Intake Total 4055 3197 Output Total 4190 1750 Balance 4055 -993 -1750 PT 19.2 SEC (12.0-15.0) H 09/02/16 05:30 INR 1.61 (0.83-1.16) H 09/02/16 05:30 - Physical Exam Constitutional: no apparent distress Eyes: PERRL Ears, Nose, Mouth, Throat: other (ET tube. Left eye taped closed) Cardiovascular: regular rate and rhythym Respiratory: rhonchi Gastrointestinal: normoactive bowel sounds, distension (mild epigastric TTP. Min bowel sounds) Genitourinary: no bladder fullness Skin: warm Neurologic: other (left eyelid won't close, left facial droop) Psychiatric: interacting appropriately ICD10 Worksheet Patient Problems: Problems Problem Status Diagnosed Brain lesion Acute Perforated duodenal ulcer Acute
[2016-09-02] MEDS ORDERED: BACLOFEN 10 MG TAB TUBE PRN (15:55)
[2016-09-02] MEDS ORDERED: DEXAMETHASONE 4 MG/ML VIAL ONE (19:08)
[2016-09-02] MEDS: TPN W/ FAMOTIDINE 1 EA BAG IV SCH (20:26)
[2016-09-02] MEDS: ERTAPENEM 1 GM in NS 100 ML IV SCH (20:26)
[2016-09-03] MEDS: PETROLAT,WHT/MIN OIL/SOD CHL 3.5 GM OPHT.OINT LEFTEYE SCH ×6 (02:29→21:27)
[2016-09-03 04:30] LABS: % IMMATURE GRANULYOCYTES 2.5 % (0.0-1.1); ABSOLUTE IMMATURE GRANULOCYTES 0.27 10^3/uL (0.00-0.10); ADD DIFF? NO; ADD MORPH? NO; ADD SCAN? NO; ATYPICAL LYMPHOCYTE FLAG 10 (0-99); FRAGMENT RBC FLAG 0 (0-99); HEMATOCRIT 24.1 % (40.0-51.0); HEMOGLOBIN 8.3 g/dL (13.7-17.5); LEFT SHIFT FLG 30 (0-99); LIPEMIA HEMOLYSIS FLAG 90 (0-99); MEAN CELL HEMOGLOBIN 33.1 pg (27.9-34.1); MEAN CELL HEMOGLOBIN CONCENTR. 34.4 g/dL (32.4-36.7); MEAN PLATELET VOLUME 9.1 fL (8.7-11.7); PLATELET CLUMPS FLAG 0 (0-99); PLATELET COUNT 224 10^3/uL (150-400); RED BLOOD CELL COUNT 2.51 10^6/uL (4.40-6.38); RED CELL DISTRIBUTION WIDTH 12.5 % (11.5-15.2)
[2016-09-03 04:40] LABS: APTT 30.4 SEC (23.0-38.0); INR 1.28 (0.83-1.16)
[2016-09-03 04:57] LABS: ALANINE AMINOTRANSFERASE 470 IU/L (21-72); ALBUMIN 2.1 g/dL (3.5-5.0); ALKALINE PHOSPHATASE 50 IU/L (38-126); ANION GAP 4 mEq/L (8-16); ASPARTATE AMINOTRANSFERASE 281 IU/L (17-59); BILIRUBIN,TOTAL 0.4 mg/dL (0.1-1.4); CALCIUM 7.9 mg/dL (8.5-10.4); CARBON DIOXIDE 33 mEq/l (22-31); CHLORIDE 100 mEq/L (97-110); CREATININE 0.5 mg/dL (0.7-1.3); GLOMERULAR FILTRATION RATE > 60; GLUCOSE 172 mg/dL (70-100); POTASSIUM 3.7 mEq/L (3.5-5.2); SODIUM 137 mEq/L (134-144); TOTAL PROTEIN 4.2 g/dL (6.3-8.2)
[2016-09-03] MEDS: INSULIN LISPRO 100 UNIT/ML SC SCH ×3 (05:50→17:53)
[2016-09-03] MEDS ORDERED: ALTEPLASE 2 MG VIAL IVP PRN (07:28)
--- NOTE | 2016-09-03 07:35 | SOAPPROG ---
SOAP Progress Note Assessment/Plan: Assessment/Plan s/p antrectomy, gastrojejunostomy, closure of duodenal stump for large duodenal ulcer, likely NSAID/steroid-related s/p resection of brainstem lymphoma continue NPO, TPN, NGT, LAURA drainage transfer to step down unit ok avoid steroids and NSAIDs 09/03/16 07:32 Subjective: pain much improved left eye red Objective: Vital Signs Temp Pulse Resp BP Pulse Ox 36.8 C 65 19 125/74 H 96 09/02/16 23:17 09/03/16 05:49 09/03/16 05:49 09/03/16 04:00 09/03/16 05:49 Microbiology 09/01/16 06:35 Mycobacterial Smear (HEATHER) - Final Peritoneal Fluid - Aspirate 09/01/16 06:35 Gram Stain - Final Peritoneal Fluid - Aspirate Laboratory Results 09/03/16 04:25 09/03/16 04:25 09/02/16 09/03/16 09/04/16 05:59 05:59 05:59 Intake Total 3197 3807 Output Total 4190 4410 Balance -993 -603 PT 16.0 SEC (12.0-15.0) H 09/03/16 04:25 INR 1.28 (0.83-1.16) H 09/03/16 04:25 Physical Exam - Physical Exam General Appearance: alert Respiratory: lungs clear Cardiac/Chest: regular rate, rhythm Abdomen: normal bowel sounds, soft, other (LAURA drainage serous, NGT output 200 ml overnight), No distended ICD10 Worksheet Patient Problems: Problems Problem Status Diagnosed Brain lesion Acute Perforated duodenal ulcer Acute - ICD10 Problem Qualifiers (1) Perforated duodenal ulcer
--- NOTE | 2016-09-03 07:44 | NEUSURGPN ---
Assessment/Plan: Assessment: 61 yo M POD #7 resection/biopsy of left cerebellar/brainstem lesion , now also s/p duodenal repair by Dr Rocha on 08/31. -Appreciate oncology consultation -Bed status per gen surg -Diet per gen surg -Appreciate hospitalist recommendations -D/C Decadron and Toradol- Keep off due to -Please notify NS with any change in neuro/motor -Will consult ophthalmology for left eye-possible abrasion -Discussed with Dr. Dumont as well Subjective: Patient feeling a little better this morning in terms of abdominal pain. Denies headache, nausea. Objective: NAD, left sided facial droop/ Incision c/d/i. 5/5 equal in BUE and BLE. Catheter Insertion Date: 08/26/16 - Physician Discussed Patient with : Julia Neurosurgery Physical Exam - Vitals, I&O, Labs I and O 09/02/16 09/03/16 09/04/16 05:59 05:59 05:59 Intake Total 3197 3807 Output Total 4190 4410 Balance -993 -603 Weight 87 kg Intake: IV Infused (ml) 3197 3807 Ns 1,000 ml @ 150 mls/hr 2833 1728 IV CONT [facility] Rx#: [id number] TPN W/ Famotidine 1 ea IV 364 1106 DAILY21 [facility] Rx#: [id number] Ns 1,000 ml @ 75 mls/hr 973 IV CONT [facility] Rx#: [id number] Output: Urine (ml) 3400 3900 Catheter 3400 1700 Urinal 2200 NG Drainage (ml) 350 400 Large Bore (>12 Turkmen) 350 400 Non-weighted Right Naris Stomach Wound Drainage (ml) 440 110 Abdomen Jonathan Barnes 440 110 Microbiology 09/01/16 06:35 Mycobacterial Smear (HEATHER) - Final Peritoneal Fluid - Aspirate 09/01/16 06:35 Gram Stain - Final Peritoneal Fluid - Aspirate Vital Signs Temp Pulse Resp BP Pulse Ox 36.8 C 65 19 125/74 H 96 09/02/16 23:17 09/03/16 05:49 09/03/16 05:49 09/03/16 04:00 09/03/16 05:49 Laboratory Results 09/03/16 04:25 09/03/16 04:25 ICD10 Worksheet Patient Problems: Problems Problem Status Diagnosed Brain lesion Acute Perforated duodenal ulcer Acute
--- NOTE | 2016-09-03 08:19 | DX ---
AP Upright Portable Chest September 03, 2016 Clinical Indication: Pulmonary edema. Comparison: September 02, 2016. Findings: Heart size remains enlarged. Nasogastric tube terminates off the edge of the film. Central line is in good position. There is retrocardiac infiltrate. Basilar atelectasis at the right base is stable. Pulmonary venous congestion is stable. Impression: 1. Bibasilar atelectatic change, worse at the left base that at the right base. 2. Mild CHF, unchanged. 3. Central line in good position. Nasoenteric feeding tube terminates off the edge of the film.
[2016-09-03] MEDS ORDERED: K PHOS 10 MMOL in NS 250 ML IV ONE (08:30)
[2016-09-03] MEDS: PANTOPRAZOLE SODIUM 40 MG in NS 100 ML IV SCH ×2 (08:56→21:36)
[2016-09-03] MEDS: MICAFUNGIN NA 100 MG in NS 100 ML IV SCH (08:57)
[2016-09-03] MEDS: ENOXAPARIN 40 MG/0.4 ML SYR SC SCH (08:57)
[2016-09-03] MEDS ORDERED: INSULIN GLARGINE 100 UNITS/ML SYRINGE SC SCH (11:10)
--- NOTE | 2016-09-03 11:19 | PDINTPN ---
Invisible Braces Orthodontist Progress Note Assessment/Plan: Assessment: #Brain lymphoma, post surgery with residual left facial droop and dysarthria. Left eye dry as his lid does not close #Perforated duodenum post gastrojejunostomy and oversewing of the duodenal stump , probably due to NSAIDS and steroids #DM worse on steroids now with glucose of 211 to 238 Plan: NG drainage while bowel is healing SCD's BS control should be better off steroids Eventual workup for his lymphoma and then chemo once his bowel has healed He does not like eye lubricant but uses saline 09/03/16 11:19 Subjective: No complaints Objective: Vital Signs Temp Pulse Resp BP Pulse Ox 36.8 C 82 16 125/76 H 94 09/03/16 08:00 09/03/16 08:00 09/03/16 08:00 09/03/16 08:00 09/03/16 08:00 Microbiology 09/01/16 06:35 Mycobacterial Smear (HEATHER) - Final Peritoneal Fluid - Aspirate 09/01/16 06:35 Gram Stain - Final Peritoneal Fluid - Aspirate Laboratory Results 09/03/16 04:25 09/03/16 04:25 09/02/16 09/03/16 09/04/16 05:59 05:59 05:59 Intake Total 3197 3807 Output Total 4190 4410 400 Balance -993 -603 -400 PT 16.0 SEC (12.0-15.0) H 09/03/16 04:25 INR 1.28 (0.83-1.16) H 09/03/16 04:25 Physical Exam - Physical Exam General Appearance: mild distress EENT: other (irritated conjunctiva left) Neck: non-tender Respiratory: lungs clear Cardiac/Chest: regular rate, rhythm Abdomen: soft Back: Normal inspection Skin: warm/dry Lymphatic: no adenopathy Extremities: non-tender, No pedal edema Neuro/Psych: alert ICD10 Worksheet Patient Problems: Problems Problem Status Diagnosed Brain lesion Acute Perforated duodenal ulcer Acute
[2016-09-03] MEDS: INSULIN NPH HUMAN 100 UNITS/ML SYRINGE SC SCH ×2 (13:52→17:52)
--- NOTE | 2016-09-03 16:19 | PCMIDPN ---
Assessment/Plan: Assessment: Duodenal rupture and peritonitis status post cerebellar tumor debulking during the 1st part of this admission. Covered on both ertapenem and micafungin. Kamilah albicans and Serratia marcescens in the abdominal fluid culture. Sensitivities pending for both. Currently stable from Infectious Disease standpoint. Plan: 1. Continue both ertapenem and micafungin. 2. Follow sensitivity panels for the isolates already cultured. 3. Follow clinical course and laboratory values. Subjective: Patient is resting in his hospital bed. Continues to have left-sided facial palsy. Also has loss of hearing on the left side. This is unchanged from admission. No other complaints other than lack of appetite. Objective: Ertapenem # 3 Micafungin # 3 Vital Signs Temp Pulse Resp BP Pulse Ox 36.8 C 87 22 H 132/71 H 88 L 09/03/16 12:00 09/03/16 12:00 09/03/16 12:00 09/03/16 12:00 09/03/16 12:23 Microbiology 09/01/16 06:35 Gram Stain - Final Peritoneal Fluid - Aspirate 09/01/16 06:35 Mycobacterial Smear (HEATHER) - Final Peritoneal Fluid - Aspirate Laboratory Results 09/03/16 04:25 09/03/16 04:25 09/02/16 09/03/16 09/04/16 05:59 05:59 05:59 Intake Total 3197 3807 Output Total 4190 4410 400 Balance -993 -603 -400 - Physical Exam General Appearance: WD/WN, alert, no apparent distress, non-toxic Respiratory: lungs clear, normal breath sounds, No respiratory distress Cardiac/Chest: regular rate, rhythm, No tachycardia Abdomen: soft, mass, No non-tender Skin: normal color, warm/dry, No rash Neuro/Psych: alert, normal mood/affect, oriented x 3 ICD10 Worksheet Patient Problems: Problems Problem Status Diagnosed Brain lesion Acute Perforated duodenal ulcer Acute
--- NOTE | 2016-09-03 17:08 | HOSPPROG ---
Hospitalist Progress Note Assessment/Plan: #Uncontrolled DM -compounded by steroids that have been stopped. Change to NPH 15 units BID, SSI and monitor closely #Sepsis: resolved -2/2 peritonitis. Cont -cont Ertapenem, Micafungin #Perforated duodenum hold steroids and NSAIDs. IV PPI BID #Newly diagnosed brain B-cell lymphoma -will not be amendable for chemo until stable from surgical standpoint, which will likely be weeks -outpatient staging: BM bx, PET, testicular U/S. If changes in neuro status, will restart steroids #Acute hypoxic resp failure -cont wean off oxygen #Leukocytosis: improved IV abx #Hyponatremia -dropped today. Will change IVFs #Deconditioning: PT/OT #Diet: TPN #DVT ppx: ok to restart Lovenox #Disp: pt warrants inpt admission with IV abx, TPN Subjective: no acute events. Mild abd pain Objective: Vital Signs Temp Pulse Resp BP Pulse Ox 36.8 C 97 18 120/59 L 92 09/03/16 12:00 09/03/16 16:00 09/03/16 16:00 09/03/16 16:00 09/03/16 16:00 Microbiology 09/01/16 06:35 Gram Stain - Final Peritoneal Fluid - Aspirate 09/01/16 06:35 Mycobacterial Smear (HEATHER) - Final Peritoneal Fluid - Aspirate Laboratory Results 09/03/16 04:25 09/03/16 04:25 09/02/16 09/03/16 09/04/16 05:59 05:59 05:59 Intake Total 3197 3807 Output Total 4190 4410 400 Balance -993 -603 -400 PT 16.0 SEC (12.0-15.0) H 09/03/16 04:25 INR 1.28 (0.83-1.16) H 09/03/16 04:25 - Physical Exam Constitutional: no apparent distress Eyes: PERRL, other (left eye taped shut) Ears, Nose, Mouth, Throat: moist mucous membranes, other (NG in place) Cardiovascular: regular rate and rhythym Respiratory: no respiratory distress Gastrointestinal: normoactive bowel sounds, soft, non-tender abdomen, other ( quiet BS) Genitourinary: no bladder fullness Skin: warm Musculoskeletal: full muscle strength Neurologic: AAOx3 Psychiatric: interacting appropriately ICD10 Worksheet Patient Problems: Problems Problem Status Diagnosed Brain lesion Acute Perforated duodenal ulcer Acute
--- NOTE | 2016-09-03 17:54 | DX ---
AP Portable Chest, September 03, 2016 Indication: Evaluate line placement. Findings: Right-sided PICC terminates in SVC. Lungs and mediastinum are otherwise stable. Jugular xuan e is also in SVC. Impression: Good positioning of right-sided PICC, ready for immediate use.
--- NOTE | 2016-09-03 18:42 | IR ---
Imaging Guided Peripherally Inserted Central Catheter History: Central line access for TPN. Prophylactic Antibiotic: Cefazolin was not ordered and administered for antimicrobial prophylaxis be cause it was not medically necessary for this procedure. VTE Prophylaxis: There is not an order for VTE prophylaxis to be given within 24 hours after procedu re end time because it was not medically necessary for this procedure. Crosscutting Measure: Patient's current list of medications including all known prescriptions, over- the-counters, herbals, and vitamin/mineral/dietary supplements are reviewed. Medications' name, dosa ge, frequency, and route of administration are confirmed. patient is a non-smoker. Technique: This procedure is performed at patient's bedside. No fluoroscopy was utilized. Following i nformed consent, the right arm was prepped and draped in sterile fashion. 1% Xylocaine was used for l ocal anesthetic. All elements of maximal sterile barrier technique including cap, mask, sterile ashok n, sterile gloves, large sterile sheet, hand hygiene, and 2% chlorhexidine for cutaneous antisepsis, followed. Ultrasound evaluation of potential access site was performed. After successfully identifying a patent vessel, ultrasound guidance was used to puncture the vein. A permanent recording was created for the patient's record. Ultrasound transducer was placed in sterile sleeve and used for real-time imaging guidance over steri le gel to enter the basilic vein. 0.018 measuring wire was passed centrally. A skin hansel with scalpel blade was followed by removing the access needle. A 5 Citizen Of [place] peel-away sheath was followed by a 5 F rench double-lumen central catheter, trimmed to 43 cm length. The tip of the catheter was positioned centrally and the guidewire removed. The hub of the catheter was fixed to the skin using a sterile S tatLock adhesive device, and a sterile dressing was applied. The catheter was irrigated. Fluoroscopy: 0 min Dose: 0 mGy Exposures: 0 images Impression: 5 Citizen [place] double lumen peripherally inserted central catheter. Chest x-ray to follow to e valuate tip placement.
[2016-09-03] MEDS: TPN 1 EA BAG IV SCH (21:17)
[2016-09-03] MEDS: ERTAPENEM 1 GM in NS 100 ML IV SCH (21:37)
[2016-09-04] MEDS: PETROLAT,WHT/MIN OIL/SOD CHL 3.5 GM OPHT.OINT LEFTEYE SCH ×7 (02:04→23:38)
[2016-09-04 06:18] LABS: INR 1.14 (0.83-1.16); PROTIME(PATIENT) 14.5 SEC (12.0-15.0)
[2016-09-04 06:19] LABS: APTT 26.2 SEC (23.0-38.0)
[2016-09-04 06:35] LABS: ALANINE AMINOTRANSFERASE 388 IU/L (21-72); ALBUMIN 2.5 g/dL (3.5-5.0); ALKALINE PHOSPHATASE 74 IU/L (38-126); ANION GAP 6 mEq/L (8-16); ASPARTATE AMINOTRANSFERASE 85 IU/L (17-59); BILIRUBIN,TOTAL 0.8 mg/dL (0.1-1.4); CALCIUM 8.3 mg/dL (8.5-10.4); CARBON DIOXIDE 31 mEq/l (22-31); CHLORIDE 102 mEq/L (97-110); CREATININE 0.5 mg/dL (0.7-1.3); GLOMERULAR FILTRATION RATE > 60; GLUCOSE 227 mg/dL (70-100); MAGNESIUM 1.8 mg/dL (1.6-2.3); POTASSIUM 3.9 mEq/L (3.5-5.2); SODIUM 139 mEq/L (134-144); TOTAL PROTEIN 4.9 g/dL (6.3-8.2)
[2016-09-04 06:47] LABS: ADD DIFF? YES; ADD MORPH? NO; ADD SCAN? NO; ATYPICAL LYMPHOCYTE FLAG 20 (0-99); FRAGMENT RBC FLAG 0 (0-99); HEMATOCRIT 29.2 % (40.0-51.0); HEMOGLOBIN 9.9 g/dL (13.7-17.5); LEFT SHIFT FLG 50 (0-99); LIPEMIA HEMOLYSIS FLAG 90 (0-99); MEAN CELL HEMOGLOBIN CONCENTR. 33.9 g/dL (32.4-36.7); MEAN CELL VOLUME 94.5 fL (81.5-99.8); MEAN PLATELET VOLUME 9.8 fL (8.7-11.7); PLATELET CLUMPS FLAG 10 (0-99); PLATELET COUNT 343 10^3/uL (150-400); RED BLOOD CELL COUNT 3.09 10^6/uL (4.40-6.38); RED CELL DISTRIBUTION WIDTH 12.6 % (11.5-15.2)
[2016-09-04] MEDS: INSULIN LISPRO 100 UNIT/ML SC SCH ×2 (06:55)
[2016-09-04 07:23] LABS: PLATELET ESTIMATE ADEQUATE (ADEQ); POLYCHROMASIA 1+
[2016-09-04] MEDS: MICAFUNGIN NA 100 MG in NS 100 ML IV SCH (08:53)
[2016-09-04] MEDS: PANTOPRAZOLE SODIUM 40 MG in NS 100 ML IV SCH ×2 (08:53→22:37)
--- NOTE | 2016-09-04 09:04 | PCMIDPN ---
Assessment/Plan: # Sepsis: resolved, secondary to DU perf and resultant peritonitis # polymicrobial peritonitis with Kamilah and Serratia Recommendations: --cont Ertapenem, Micafungin --yeast susceptibilities are pending --consider discontinuation right IJ triple-lumen catheter now that sepsis has resolved Meds ertapenem 1gm IV daily, #4 micafungin 100mg IV daily, #4 Microbiology 09/01/16 10:50 Blood Cx (1) NGTD 09/01/16 06:35 Peritoneal Fluid - Kamilah Albicans Serratia Marcescens Subjective: Patient complaining of NG tube keeping him from sleeping. Very agitated regarding inability to sleep x2 days Denies abdominal pain No b.m. documented in the last couple days Objective: Vital Signs Temp Pulse Resp BP Pulse Ox 36.6 C 88 20 120/68 90 L 09/04/16 08:41 09/04/16 08:41 09/04/16 08:41 09/04/16 08:41 09/04/16 08:41 Microbiology 09/01/16 06:35 Gram Stain - Final Peritoneal Fluid - Aspirate Laboratory Results 09/04/16 05:50 09/04/16 05:50 09/03/16 09/04/16 09/05/16 05:59 05:59 05:59 Intake Total 3807 3190 Output Total 4410 2325 Balance -603 865 - Physical Exam General Appearance: alert Respiratory: other (Poor inspiratory effort, decreased breath sounds in the bases), No accessory muscle use Cardiac/Chest: regular rate, rhythm Extremities: pedal edema Abdomen: non-tender, soft, distended, other (Scattered bowel sounds) Skin: pallor, No rash Neuro/Psych: alert, facial droop (left) - Line/s other Lines: other (R IJ), No drainage, No erythema RUE PICC Lines: No drainage, No erythema ICD10 Worksheet Patient Problems: Problems Problem Status Diagnosed Brain lesion Acute Perforated duodenal ulcer Acute
[2016-09-04] MEDS: ENOXAPARIN 40 MG/0.4 ML SYR SC SCH (09:19)
[2016-09-04] MEDS: NS 1,000 ML IV SCH ×2 (09:24→21:50)
[2016-09-04] MEDS: INSULIN NPH HUMAN 100 UNITS/ML SYRINGE SC SCH ×3 (09:48→18:03)
--- NOTE | 2016-09-04 10:27 | SOAPPROG ---
SOAP Progress Note Assessment/Plan: Assessment: 1. Primary DEMO COORDINATOR lymphoma 2. L sided hemiparesis, dysphagia 3. s/p perforated duodenal ulcer s/p repair 08/31 Plan: - continue post-op care - will need to complete staging as outpt: BMBx, PET-CT, testicular ultrasound - treatment (chemo) will be deferred at least 4 weeks, until he has recovered from surgery Subjective: frustrated by inability to sleep due to NGT and oral secretions. Objective: exam: tired appearing Lungs CTAB CV RRR no MGR Abd: absent BS. distended Ext: 1+ edema Neuro: L facial droop, stable Vital Signs Temp Pulse Resp BP Pulse Ox 36.6 C 88 20 120/68 90 L 09/04/16 08:41 09/04/16 08:41 09/04/16 08:41 09/04/16 08:41 09/04/16 08:41 Microbiology 09/01/16 06:35 Gram Stain - Final Peritoneal Fluid - Aspirate Laboratory Results 09/04/16 05:50 09/04/16 05:50 09/03/16 09/04/16 09/05/16 05:59 05:59 05:59 Intake Total 3807 3190 Output Total 4410 2325 175 Balance -603 865 -175 PT 14.5 SEC (12.0-15.0) 09/04/16 05:50 INR 1.14 (0.83-1.16) 09/04/16 05:50 ICD10 Worksheet Patient Problems: Problems Problem Status Diagnosed Brain lesion Acute Perforated duodenal ulcer Acute
--- NOTE | 2016-09-04 10:33 | HOSPPROG ---
Hospitalist Progress Note Assessment/Plan: #Uncontrolled DM -compounded by steroids that have been stopped. -Increase NPH to 20 BID, increase SSI today #Mild leukocytosis: up to 12 today. No new infectious sxs. Afebrile. Cont current abx, antifungal #Sepsis: resolved -2/2 peritonitis. Cont -cont Ertapenem, Micafungin per ID #Perforated duodenum -hold steroids and NSAIDs. IV PPI BID #Newly diagnosed brain B-cell lymphoma -will not be amendable for chemo until stable from surgical standpoint, which will likely be weeks -outpatient staging: BM bx, PET, testicular U/S. If changes in neuro status, will restart steroids #Acute hypoxic resp failure -cont wean off oxygen #Leukocytosis: improved IV abx #Hyponatremia -dropped today. Will change IVFs #Deconditioning: PT/OT #Diet: TPN #DVT ppx: ok to restart Lovenox #Disp: pt warrants inpt admission with IV abx, TPN Subjective: secretions in back of throat Objective: Vital Signs Temp Pulse Resp BP Pulse Ox 36.6 C 88 20 120/68 90 L 09/04/16 08:41 09/04/16 08:41 09/04/16 08:41 09/04/16 08:41 09/04/16 08:41 Microbiology 09/01/16 06:35 Gram Stain - Final Peritoneal Fluid - Aspirate Laboratory Results 09/04/16 05:50 09/04/16 05:50 09/03/16 09/04/16 09/05/16 05:59 05:59 05:59 Intake Total 3807 3190 Output Total 4410 2325 175 Balance -603 865 -175 PT 14.5 SEC (12.0-15.0) 09/04/16 05:50 INR 1.14 (0.83-1.16) 09/04/16 05:50 - Physical Exam Constitutional: no apparent distress, uncomfortable Eyes: PERRL, other (left eye taped shut) Ears, Nose, Mouth, Throat: moist mucous membranes, other (NG in place) Cardiovascular: regular rate and rhythym Respiratory: no respiratory distress Gastrointestinal: tenderness (mild TTP), distension Skin: warm Musculoskeletal: generalized weakness Neurologic: AAOx3 Psychiatric: flat affect, agitated ICD10 Worksheet Patient Problems: Problems Problem Status Diagnosed Brain lesion Acute Perforated duodenal ulcer Acute
--- NOTE | 2016-09-04 11:48 | NEUSURGPN ---
Assessment/Plan: Assessment: 61 yo M POD #8 resection/biopsy of left cerebellar/brainstem lesion , now also s/p duodenal repair by Dr Rocha on 08/31. Patient very agitated and frustrated this morning due to lack of being able to sleep due to secretions and tube. -Possibly try Glycopyrrolate for secretions? Will defer to crit care on this if ok -Appreciate oncology consultation -Bed status per gen surg -Diet per gen surg -Appreciate hospitalist recommendations as well -D/C Decadron and Toradol- Keep off due to perforated ulcer -Please notify NS with any change in neuro/motor exam -Will consult ophthalmology for left eye-possible abrasion -Discussed with Dr. Dumont as well Subjective: Patient very upset this morning, has not slept in two days due to secretions/ tube bothering him. Objective: NAD, VSS, irritated Left facial droop GARCES X4 equal Left eye erythema, no drainage, moist Incision- c/d/i Catheter Insertion Date: 08/26/16 - Physician Discussed Patient with Dr.: Dumont Patient Seen by Dr.: Dumont Neurosurgery Physical Exam - Vitals, I&O, Labs I and O 09/03/16 09/04/16 09/05/16 05:59 05:59 05:59 Intake Total 3807 3190 Output Total 4410 2325 175 Balance -603 865 -175 Weight 87 kg 86.8 kg Intake: IV Infused (ml) 3807 3190 Ns 1,000 ml @ 150 mls/hr 1728 IV CONT HENRY Rx#: [id number] TPN W/ Famotidine 1 ea IV 1106 1428 DAILY21 HENRY Rx#: [id number] Pantoprazole Sodium 40 mg 100 In Ns 100 ml @ 200 mls/ hr IV BID HENRY Rx#: [id number] Ns 1,000 ml @ 75 mls/hr 973 1662 IV CONT HENRY Rx#: [id number] Output: Urine (ml) 3900 2050 Catheter 1700 Urinal 2200 2050 NG Drainage (ml) 400 275 175 Large Bore (>12 Czech) 400 275 175 Non-weighted Right Naris Stomach Wound Drainage (ml) 110 Abdomen Jonathan Barnes 110 Other: Number of Voids Urinal 2 Microbiology 09/01/16 06:35 Gram Stain - Final Peritoneal Fluid - Aspirate Vital Signs Temp Pulse Resp BP Pulse Ox 36.6 C 88 20 120/68 90 L 09/04/16 08:41 09/04/16 08:41 09/04/16 08:41 09/04/16 08:41 09/04/16 08:41 Laboratory Results 09/04/16 05:50 09/04/16 05:50 ICD10 Worksheet Patient Problems: Problems Problem Status Diagnosed Brain lesion Acute Perforated duodenal ulcer Acute
[2016-09-04] MEDS ORDERED: BENZOCAINE UNIT DOSE SPRAY HURRICAINE MM PRN (12:09)
--- NOTE | 2016-09-04 12:19 | SOAPPROG ---
SOAP Progress Note Assessment/Plan: Assessment/Plan s/p antrectomy, gastrojejunostomy, closure of duodenal stump for large duodenal ulcer, likely NSAID/steroid-related s/p resection of brainstem lymphoma continue NPO, TPN, NGT, LAURA drainage avoid steroids and NSAIDs continue antibiotics/antifungals per ID 09/04/16 12:12 Subjective: passing flatus, no BM unable to sleep with constant need for suctioning secretions and NGT Objective: Vital Signs Temp Pulse Resp BP Pulse Ox 36.6 C 88 20 120/68 90 L 09/04/16 08:41 09/04/16 08:41 09/04/16 08:41 09/04/16 08:41 09/04/16 08:41 Microbiology 09/01/16 06:35 Gram Stain - Final Peritoneal Fluid - Aspirate Laboratory Results 09/04/16 05:50 09/04/16 05:50 09/03/16 09/04/16 09/05/16 05:59 05:59 05:59 Intake Total 3807 3190 Output Total 4410 2325 175 Balance -603 865 -175 PT 14.5 SEC (12.0-15.0) 09/04/16 05:50 INR 1.14 (0.83-1.16) 09/04/16 05:50 Physical Exam - Physical Exam General Appearance: alert Respiratory: lungs clear Cardiac/Chest: regular rate, rhythm Abdomen: soft, other (hypoactive bowel sounds, incision without erythema, LAURA drainage serosanguinous) ICD10 Worksheet Patient Problems: Problems Problem Status Diagnosed Brain lesion Acute Perforated duodenal ulcer Acute - ICD10 Problem Qualifiers (1) Perforated duodenal ulcer
[2016-09-04] MEDS: INSULIN REGULAR, HUMAN 100 UNIT/1 ML VIAL HIGH SC SCH ×2 (12:26→18:03)
--- NOTE | 2016-09-04 14:43 | PDINTPN ---
Professional Services Specialist Progress Note Assessment/Plan: Assessment: #Brain lymphoma, post surgery with residual left facial droop and dysarthria. Left eye dry as his lid does not close #Perforated duodenum post gastrojejunostomy and oversewing of the duodenal stump , probably due to NSAIDS and steroids #DM worse on steroids now with glucose of 211 to 238 Plan: Trial of ipratropium for oral secretions NG drainage while bowel is healing SCD's BS control should be better off steroids Eventual workup for his lymphoma and then chemo once his bowel has healed He does not like eye lubricant but uses saline 09/04/16 14:41 Subjective: His largest complaint by far is oral secretions Objective: Vital Signs Temp Pulse Resp BP Pulse Ox 36.6 C 93 20 117/71 92 09/04/16 08:41 09/04/16 12:00 09/04/16 12:00 09/04/16 12:00 09/04/16 12:00 Microbiology 09/01/16 06:35 Gram Stain - Final Peritoneal Fluid - Aspirate Laboratory Results 09/04/16 05:50 09/04/16 05:50 09/03/16 09/04/16 09/05/16 05:59 05:59 05:59 Intake Total 3807 3190 Output Total 4410 2325 795 Balance -603 865 -795 PT 14.5 SEC (12.0-15.0) 09/04/16 05:50 INR 1.14 (0.83-1.16) 09/04/16 05:50 Physical Exam - Physical Exam General Appearance: moderate distress EENT: normal ENT inspection Neck: non-tender Respiratory: lungs clear Cardiac/Chest: regular rate, rhythm Abdomen: non-tender, soft Back: Normal inspection Skin: warm/dry Lymphatic: no adenopathy Extremities: non-tender, No pedal edema Neuro/Psych: alert ICD10 Worksheet Patient Problems: Problems Problem Status Diagnosed Brain lesion Acute Perforated duodenal ulcer Acute
[2016-09-04] MEDS: IPRATROPIUM BROMIDE 0.5 MG/2.5 ML DEYVIAL IH SCH ×2 (16:37→22:05)
[2016-09-04] MEDS ORDERED: D50W 25 GM/50 ML SYR IVP PRN (18:05)
[2016-09-04] MEDS: INSULIN REGULAR HUMAN 100 UNIT/ML SC SCH (18:18)
[2016-09-04] MEDS: TPN 1 EA BAG IV SCH (21:22)
[2016-09-04] MEDS: ERTAPENEM 1 GM in NS 100 ML IV SCH (21:50)
[2016-09-04] MEDS: TEARS/DEXTRAN 70/HYPROMELLOSE 15 ML OPHT.BTL EACHEYE PRN (21:56)
[2016-09-05] MEDS: INSULIN REGULAR HUMAN 100 UNIT/ML SC SCH ×4 (00:07→18:13)
[2016-09-05 03:45] LABS: ABSOLUTE NRBC COUNT 0.03 10^3/uL (0-0.01); ADD DIFF? YES; ADD MORPH? NO; ADD SCAN? NO; ATYPICAL LYMPHOCYTE FLAG 30 (0-99); FRAGMENT RBC FLAG 0 (0-99); HEMATOCRIT 28.1 % (40.0-51.0); HEMOGLOBIN 9.5 g/dL (13.7-17.5); LEFT SHIFT FLG 90 (0-99); LIPEMIA HEMOLYSIS FLAG 90 (0-99); MEAN CELL HEMOGLOBIN 32.3 pg (27.9-34.1); MEAN CELL HEMOGLOBIN CONCENTR. 33.8 g/dL (32.4-36.7); MEAN CELL VOLUME 95.6 fL (81.5-99.8); MEAN PLATELET VOLUME 9.2 fL (8.7-11.7); NRBC-AUTO% 0.2 % (0.0-0.2); PLATELET CLUMPS FLAG 20 (0-99); PLATELET COUNT 321 10^3/uL (150-400); RED BLOOD CELL COUNT 2.94 10^6/uL (4.40-6.38); RED CELL DISTRIBUTION WIDTH 12.7 % (11.5-15.2)
[2016-09-05 04:16] LABS: ANION GAP 8 mEq/L (8-16); CALCIUM 8.1 mg/dL (8.5-10.4); CARBON DIOXIDE 26 mEq/l (22-31); CHLORIDE 106 mEq/L (97-110); CREATININE 0.5 mg/dL (0.7-1.3); GLOMERULAR FILTRATION RATE > 60; GLUCOSE 197 mg/dL (70-100); POTASSIUM 3.9 mEq/L (3.5-5.2); SODIUM 140 mEq/L (134-144)
[2016-09-05 04:58] LABS: PLATELET ESTIMATE ADEQUATE (ADEQ)
[2016-09-05 05:02] LABS: POLYCHROMASIA 1+
[2016-09-05] MEDS: IPRATROPIUM BROMIDE 0.5 MG/2.5 ML DEYVIAL IH SCH ×4 (05:38→21:56)
[2016-09-05] MEDS: PETROLAT,WHT/MIN OIL/SOD CHL 3.5 GM OPHT.OINT LEFTEYE SCH ×6 (05:48→21:45)
--- NOTE | 2016-09-05 08:12 | NEUSURGPN ---
Assessment/Plan: Assessment/Plan: Assessment: 61 yo M POD #8 resection/biopsy of left cerebellar/brainstem lesion , now also s/p duodenal repair by Dr Rocha on 08/31. -Appreciate oncology consultation -Bed status per gen surg -Diet per gen surg -Appreciate hospitalist recommendations as well -D/C Decadron and Toradol- Keep off due to perforated ulcer -Please notify NS with any change in neuro/motor exam -Will follow up on ophthalmology consult for left eye-possible abrasion -Discussed with Dr. Dumont as well Subjective: Continues to complain of secretions bothering him. Objective: NAD, VSS, irritated Left facial droop GARCES X4 equal Left eye erythema, no drainage, moist, attempting to tape closed. Incision- c/d/i Catheter Insertion Date: 08/26/16 - Physician Discussed Patient with : Julia Neurosurgery Physical Exam - Vitals, I&O, Labs I and O 09/04/16 09/05/16 09/06/16 05:59 05:59 05:59 Intake Total 3190 3244 Output Total 2325 2190 325 Balance 865 1054 -325 Weight 86.8 kg 86.1 kg Intake: IV Infused (ml) 3190 3244 TPN W/ Famotidine 1 ea IV 1428 DAILY21 HENRY Rx#: [id number] Pantoprazole Sodium 40 mg 100 In Ns 100 ml @ 200 mls/ hr IV BID HENRY Rx#: [id number] Ns 1,000 ml @ 75 mls/hr 1662 1764 IV CONT HENRY Rx#: [id number] TPN 1 ea IV DAILY21 HENRY 1480 Rx#:[id number] Output: Urine (ml) 2050 1370 325 Urinal 2050 1370 325 NG Drainage (ml) 275 800 Large Bore (>12 Chinese) 275 800 Non-weighted Right Naris Stomach Wound Drainage (ml) 20 Abdomen Jonathan Barnes 20 Other: Number of Voids Urinal 2 1 1 Microbiology 09/01/16 06:35 Gram Stain - Final Peritoneal Fluid - Aspirate Vital Signs Temp Pulse Resp BP Pulse Ox 37.4 C 97 18 124/75 H 93 09/05/16 07:32 09/05/16 07:32 09/05/16 07:32 09/05/16 07:32 09/05/16 07:32 Laboratory Results 09/05/16 03:30 09/05/16 03:30 ICD10 Worksheet Patient Problems: Problems Problem Status Diagnosed Brain lesion Acute Perforated duodenal ulcer Acute
[2016-09-05] MEDS: ENOXAPARIN 40 MG/0.4 ML SYR SC SCH (08:29)
[2016-09-05] MEDS: MICAFUNGIN NA 100 MG in NS 100 ML IV SCH (08:30)
[2016-09-05] MEDS: INSULIN NPH HUMAN 100 UNITS/ML SYRINGE SC SCH ×2 (08:31→18:13)
--- NOTE | 2016-09-05 08:37 | HOSPPROG ---
[id number] NPH #Possible corneal abrasion -opthal to evaluate #Mild leukocytosis: Now 13. No new infectious sxs. Afebrile. Cont current abx, antifungal #Sepsis: resolved -2/2 peritonitis. Cont -cont Ertapenem, Micafungin per ID #Perforated duodenum -hold steroids and NSAIDs. IV PPI BID #Newly diagnosed brain B-cell lymphoma -POD #8 resection/biopsy -will not be amendable for chemo until stable from surgical standpoint, which will likely be weeks -outpatient staging: BM bx, PET, testicular U/S. If changes in neuro status, will restart steroids #Acute hypoxic resp failure -cont wean off oxygen #Hyponatremia -resolved #Deconditioning: PT/OT #Diet: TPN #DVT ppx: ok to restart Lovenox #Disp: pt warrants inpt admission with IV abx, TPN Subjective: slept well overnight Objective: Vital Signs Temp Pulse Resp BP Pulse Ox 37.4 C 97 18 124/75 H 93 09/05/16 07:32 09/05/16 07:32 09/05/16 07:32 09/05/16 07:32 09/05/16 07:32 Microbiology 09/01/16 06:35 Gram Stain - Final Peritoneal Fluid - Aspirate Laboratory Results 09/05/16 03:30 09/05/16 03:30 09/04/16 09/05/16 09/06/16 05:59 05:59 05:59 Intake Total 3190 3244 Output Total 2325 2190 325 Balance 865 1054 -325 PT 14.5 SEC (12.0-15.0) 09/04/16 05:50 INR 1.14 (0.83-1.16) 09/04/16 05:50 - Physical Exam Constitutional: chronically ill appearing Eyes: PERRL, other (left eye taped shut) Ears, Nose, Mouth, Throat: moist mucous membranes, other (NG in place) Cardiovascular: regular rate and rhythym Respiratory: no respiratory distress Gastrointestinal: normoactive bowel sounds, soft, non-tender abdomen Musculoskeletal: generalized weakness Neurologic: facial droop (left sided) Psychiatric: interacting appropriately, flat affect ICD10 Worksheet Patient Problems: Problems Problem Status Diagnosed Brain lesion Acute Perforated duodenal ulcer Acute
[2016-09-05] MEDS: PANTOPRAZOLE SODIUM 40 MG in NS 100 ML IV SCH ×2 (08:39→21:44)
[2016-09-05] MEDS: SCOPOLAMINE HYDROBROMIDE 1.5 MG PATCH TD SCH (08:43)
[2016-09-05] MEDS: TEARS/DEXTRAN 70/HYPROMELLOSE 15 ML OPHT.BTL EACHEYE PRN (08:48)
--- NOTE | 2016-09-05 11:49 | SOAPPROG ---
SOAP Progress Note Assessment/Plan: Assessment/Plan s/p antrectomy, gastrojejunostomy, closure of duodenal stump for large duodenal ulcer, likely NSAID/steroid-related s/p resection of brainstem lymphoma continue NPO, TPN, NGT, LAURA drainage upper GI to assess gastrojejunostomy and duodenal stump 09/05/16 11:47 Subjective: no SOB no sputum production Objective: Vital Signs Temp Pulse Resp BP Pulse Ox 37.4 C 97 18 124/75 H 93 09/05/16 07:32 09/05/16 07:32 09/05/16 07:32 09/05/16 07:32 09/05/16 07:32 Microbiology 09/01/16 06:35 Gram Stain - Final Peritoneal Fluid - Aspirate Laboratory Results 09/05/16 03:30 09/05/16 03:30 09/04/16 09/05/16 09/06/16 05:59 05:59 05:59 Intake Total 3190 3244 Output Total 2325 2190 325 Balance 865 1054 -325 PT 14.5 SEC (12.0-15.0) 09/04/16 05:50 INR 1.14 (0.83-1.16) 09/04/16 05:50 Physical Exam - Physical Exam General Appearance: alert Abdomen: other (incision without erythema, LAURA drainage serous) ICD10 Worksheet Patient Problems: Problems Problem Status Diagnosed Brain lesion Acute Perforated duodenal ulcer Acute - ICD10 Problem Qualifiers (1) Perforated duodenal ulcer
--- NOTE | 2016-09-05 13:51 | DX ---
Upper GI Clinical Indication: Assess gastrojejunostomy and duodenal stump. Findings: On the boiler control room operator examination there is a nasogastric tube. Midline mainor are noted. Dilute ba rium was injected through the nasogastric tube into the stomach under direct fluoroscopic visualizati on. It pooled in the posterior upper stomach. The patient was tilted upward until the dilute barium s pilled out of the stomach. There was no evidence of a leak along the gastrectomy staple line. There i s normal filling of the anastomosed jejunum without evidence of narrowing. Fluoroscopy Time 3.8 minutes. Dose 45.9 mGy. Impression: Partial gastrectomy without evidence of narrowing of the enteric anastomosis to the jejun um.
--- NOTE | 2016-09-05 14:14 | SOAPPROG ---
SOH[facility] Progress Note Assessment/Plan: Assessment: 1. 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 L sided hemiparesis, dysphagia 3. s/p perforated duodenal ulcer s/p repair 08/31 Final path on ulcer did not show evidence of lymphoma. Plan: - continue post-op care - will need to complete staging as outpt: BMBx, PET-CT, testicular ultrasound - treatment (chemo) will be deferred at least 4 weeks, until he has recovered from surgery. I reviewed the planned course of care with the patient and his son (high dose methotrexate, rituxan, temodar for 2-3 months, possibly followed by autologous stem cell transplant for consolidation). 25 min spent w/ pt and in coordination of care. case d/w dr sequeira. 09/05/16 14:12 Subjective: feeling better. Objective: exam: more alert, comfortable appearing lungs CTAB CV RRR no MGR ABd: -BS. mod distension. nontender Neuro: L facial droop and ptosis, unchanged Vital Signs Temp Pulse Resp BP Pulse Ox 37.2 C 84 18 118/70 94 09/05/16 11:56 09/05/16 12:55 09/05/16 12:55 09/05/16 11:56 09/05/16 12:55 Microbiology 09/01/16 06:35 Gram Stain - Final Peritoneal Fluid - Aspirate Laboratory Results 09/05/16 03:30 09/05/16 03:30 09/04/16 09/05/16 09/06/16 05:59 05:59 05:59 Intake Total 3190 3244 Output Total 2325 2190 325 Balance 865 1054 -325 PT 14.5 SEC (12.0-15.0) 09/04/16 05:50 INR 1.14 (0.83-1.16) 09/04/16 05:50 ICD10 Worksheet Patient Problems: Problems Problem Status Diagnosed Brain lesion Acute Perforated duodenal ulcer Acute
[2016-09-05] MEDS: NS 1,000 ML IV SCH (14:56)
--- NOTE | 2016-09-05 15:20 | PCMIDPN ---
Assessment/Plan: Assessment: Duodenal rupture and peritonitis status post cerebellar tumor debulking during the 1st part of this admission. Covered on both ertapenem and micafungin. Kamilah albicans and Serratia marcescens along with anaerobes in the abdominal fluid culture. Sensitivities pending for both. Seems to be steadily improving after his bout of sepsis. Plan: 1. Continue both ertapenem and micafungin. 2. Follow sensitivity panels for the isolates already cultured. 3. Follow clinical course and laboratory values. 09/05/16 22:02 Subjective: Patient is awake and alert. No new complaints. Agrees that he is feeling better than he did two days ago. Reports two bowel movements so far today. Objective: ertapenem #5 micafungin #5 Vital Signs Temp Pulse Resp BP Pulse Ox 37.2 C 84 18 118/70 94 09/05/16 11:56 09/05/16 12:55 09/05/16 12:55 09/05/16 11:56 09/05/16 12:55 Microbiology 09/01/16 06:35 Gram Stain - Final Peritoneal Fluid - Aspirate Laboratory Results 09/05/16 03:30 09/05/16 03:30 09/04/16 09/05/16 09/06/16 05:59 05:59 05:59 Intake Total 3190 3244 Output Total 2325 2190 325 Balance 865 1054 -325 - Physical Exam General Appearance: WD/WN, alert, no apparent distress, non-toxic Respiratory: crackles (in bases B), No lungs clear, No normal breath sounds, No respiratory distress Cardiac/Chest: regular rate, rhythm, No tachycardia Extremities: non-tender, normal inspection Abdomen: soft, distended Skin: normal color, warm/dry, No rash Neuro/Psych: alert, normal mood/affect, oriented x 3 ICD10 Worksheet Patient Problems: Problems Problem Status Diagnosed Brain lesion Acute Perforated duodenal ulcer Acute
[2016-09-05] MEDS: ERYTHROMYCIN 0.5% 1 GM OPHT.OINT LEFTEYE SCH ×2 (16:30→21:45)
[2016-09-05] MEDS: ERTAPENEM 1 GM in NS 100 ML IV SCH (20:29)
[2016-09-05] MEDS: TPN 1 EA BAG IV SCH (21:45)
[2016-09-06] MEDS: INSULIN REGULAR HUMAN 100 UNIT/ML SC SCH ×4 (00:04→18:49)
[2016-09-06] MEDS: PETROLAT,WHT/MIN OIL/SOD CHL 3.5 GM OPHT.OINT LEFTEYE SCH ×5 (05:00→21:23)
[2016-09-06] MEDS: IPRATROPIUM BROMIDE 0.5 MG/2.5 ML DEYVIAL IH SCH ×4 (05:49→22:46)
--- NOTE | 2016-09-06 08:56 | HOSPPROG ---
Hospitalist Progress Note Assessment/Plan: #Uncontrolled DM -decreased SSI since off steroids now and sugars trending down -increased NPH to 15 units again today and will uptitrate PRN #Possible corneal abrasion -opthal to evaluate #Mild leukocytosis: Now 13. No new infectious sxs. Afebrile. Cont current abx, antifungal #Sepsis: resolved -2/2 peritonitis. Cont -cont Ertapenem, Micafungin per ID #Perforated duodenum -hold steroids and NSAIDs. IV PPI BID -NG pulled 09/06 #Newly diagnosed brain B-cell lymphoma -POD #11 resection/biopsy -will not be amendable for chemo until stable from surgical standpoint, which will likely be weeks -outpatient staging: BM bx, PET, testicular U/S. If changes in neuro status, will restart steroids #Acute hypoxic resp failure -cont wean off oxygen #Hyponatremia -resolved #Deconditioning: PT/OT #Diet: TPN #DVT ppx: ok to restart Lovenox #Disp: pt warrants inpt admission with IV abx, TPN Subjective: NG pulled today. Did not sleep last night Objective: Vital Signs Temp Pulse Resp BP Pulse Ox 37.6 C 98 14 112/74 93 09/06/16 08:00 09/06/16 08:00 09/06/16 08:00 09/06/16 08:00 09/06/16 08:00 Microbiology 09/01/16 06:35 Gram Stain - Final Peritoneal Fluid - Aspirate Laboratory Results 09/05/16 03:30 09/05/16 03:30 09/05/16 09/06/16 09/07/16 05:59 05:59 05:59 Intake Total 3244 3565 Output Total 2190 1250 450 Balance 1054 2315 -450 PT 14.5 SEC (12.0-15.0) 09/04/16 05:50 INR 1.14 (0.83-1.16) 09/04/16 05:50 - Physical Exam Constitutional: no apparent distress Eyes: PERRL, other (left eye taped shut) Ears, Nose, Mouth, Throat: moist mucous membranes, other (NG tube out) Cardiovascular: regular rate and rhythym, no murmur, rub, or gallop Respiratory: no respiratory distress Gastrointestinal: normoactive bowel sounds, other (incision stapled, C/D/I. Drain in place) Genitourinary: no bladder fullness Skin: warm Musculoskeletal: full muscle strength Neurologic: facial droop (left-sided) Psychiatric: flat affect ICD10 Worksheet Patient Problems: Problems Problem Status Diagnosed Brain lesion Acute Perforated duodenal ulcer Acute
[2016-09-06] MEDS: MICAFUNGIN NA 100 MG in NS 100 ML IV SCH (09:38)
[2016-09-06] MEDS: ENOXAPARIN 40 MG/0.4 ML SYR SC SCH (09:38)
[2016-09-06] MEDS: INSULIN NPH HUMAN 100 UNITS/ML SYRINGE SC SCH ×2 (09:40→17:45)
--- NOTE | 2016-09-06 10:11 | NEUSURGPN ---
Assessment/Plan: Assessment: 61 yo M POD #11 resection/biopsy of left cerebellar/brainstem lesion , now also s/p duodenal repair by Dr Rocha on 08/31. -Bed status per gen surg -Diet/Abdominal care per gen surg -Appreciate hospitalist recommendations -D/C Decadron and Toradol- Keep off due to perforated ulcer -Please notify NS with any change in neuro/motor -Ophthalmology was called by trauma this morning for eval of left eye -Discussed with Dr. Dumont Subjective: Denies any new pain. Objective: NAD left sided facial droop, Incision c/d/i. Catheter Insertion Date: 08/26/16 - Physician Discussed Patient with : [facility] Physical Exam - Vitals, I&O, Labs I and O 09/05/16 09/06/16 09/07/16 05:59 05:59 05:59 Intake Total 3244 3565 Output Total 2190 1250 450 Balance 1054 2315 -450 Weight 86.1 kg Intake: Oral (ml) 0 IV Infused (ml) 3244 3565 Micafungin Na 100 mg In 100 Ns 100 ml @ 100 mls/hr IV DAILY REPLACED BY [facility] Rx#:[id number] Pantoprazole Sodium 40 mg 200 In Ns 100 ml @ 200 mls/ hr IV BID [facility] Rx#: [id number] Ns 1,000 ml @ 75 mls/hr 1764 1825 IV CONT REPLACED BY [facility] Rx#: [id number] TPN 1 ea IV DAILY21 [facility] 1480 1440 Rx#:[id number] Output: Urine (ml) 1370 325 450 Urinal 1370 325 450 NG Drainage (ml) 800 925 Large Bore (>12 Upper Sorbian) 800 925 Non-weighted Right Naris Stomach Wound Drainage (ml) 20 Abdomen Jonathan Barnes 20 Other: Number of Voids Urinal 1 1 1 Toilet 1 Number of Stools Toilet 1 Microbiology 09/01/16 06:35 Gram Stain - Final Peritoneal Fluid - Aspirate Vital Signs Temp Pulse Resp BP Pulse Ox 37.6 C 98 14 112/74 93 09/06/16 08:00 09/06/16 08:00 09/06/16 08:00 09/06/16 08:00 09/06/16 08:00 Laboratory Results 09/05/16 03:30 09/05/16 03:30 ICD10 Worksheet Patient Problems: Problems Problem Status Diagnosed Brain lesion Acute Perforated duodenal ulcer Acute
[2016-09-06] MEDS: PANTOPRAZOLE SODIUM 40 MG in NS 100 ML IV SCH ×2 (11:01→21:50)
[2016-09-06] MEDS: ERYTHROMYCIN 0.5% 1 GM OPHT.OINT LEFTEYE SCH ×3 (11:04→21:06)
--- NOTE | 2016-09-06 14:32 | PCMIDPN ---
Assessment/Plan: Assessment: Duodenal rupture and peritonitis status post cerebellar tumor debulking during the 1st part of this admission. Covered on both ertapenem and micafungin. Kamilah albicans and Serratia marcescens along with anaerobes in the abdominal fluid culture. Sensitivities pending for both. Seems to be steadily improving after his bout of sepsis. Plan: 1. Continue both ertapenem and micafungin. 2. Follow sensitivity panels for the isolates already cultured. 3. Follow clinical course and laboratory values. Subjective: Patient bed without complaint. No fevers overnight. Mild abdominal pain which is greater with movement. Bowel movements x4 today-a bit loose. Objective: Ertapenem # 6 Micafungin # 6 Vital Signs Temp Pulse Resp BP Pulse Ox 36.7 C 96 16 101/71 93 09/06/16 12:00 09/06/16 12:00 09/06/16 12:00 09/06/16 12:00 09/06/16 12:00 Microbiology 09/01/16 06:35 Gram Stain - Final Peritoneal Fluid - Aspirate Laboratory Results 09/05/16 03:30 09/05/16 03:30 09/05/16 09/06/16 09/07/16 05:59 05:59 05:59 Intake Total 3244 3565 Output Total 2190 1250 450 Balance 1054 2315 -450 - Physical Exam General Appearance: WD/WN, alert, no apparent distress, non-toxic Respiratory: lungs clear, normal breath sounds, No respiratory distress Cardiac/Chest: regular rate, rhythm, No tachycardia Extremities: non-tender, normal inspection Skin: normal color, warm/dry, No rash Neuro/Psych: alert, normal mood/affect, oriented x 3 ICD10 Worksheet Patient Problems: Problems Problem Status Diagnosed Brain lesion Acute Perforated duodenal ulcer Acute
--- NOTE | 2016-09-06 14:52 | SOAPPROG ---
SOAP Progress Note Assessment/Plan: Assessment: 1. Duodenal rupture and peritonitis status post cerebellar tumor debulking during the 1st part of this admission. Covered on both ertapenem and micafungin. Kamilah albicans and Serratia marcescens along with anaerobes in the abdominal fluid culture. Sensitivities pending for both. Seems to be steadily improving after his bout of sepsis. Plan: 1. Continue both ertapenem and micafungin. 2. Follow sensitivity panels for the isolates already cultured. 3. Follow clinical course and laboratory values. 1. 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 L sided hemiparesis, dysphagia 3. 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 His course was complicated by penetrating duodenal ulcer. Objective: Vital Signs Temp Pulse Resp BP Pulse Ox 36.7 C 96 16 101/71 93 09/06/16 12:00 09/06/16 12:00 09/06/16 12:00 09/06/16 12:00 09/06/16 12:00 Microbiology 09/01/16 06:35 Gram Stain - Final Peritoneal Fluid - Aspirate Laboratory Results 09/05/16 03:30 09/05/16 03:30 09/05/16 09/06/16 09/07/16 05:59 05:59 05:59 Intake Total 3244 3565 Output Total 2190 1250 750 Balance 1054 2315 -750 PT 14.5 SEC (12.0-15.0) 09/04/16 05:50 INR 1.14 (0.83-1.16) 09/04/16 05:50 Left central facial weakness ICD10 Worksheet Patient Problems: Problems Problem Status Diagnosed Brain lesion Acute Perforated duodenal ulcer Acute
--- NOTE | 2016-09-06 18:26 | US ---
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 Rule out testicular lymphoma. Technique: A linear 12-megahertz transducer was used to sonographically evaluate each hemiscrotum. Color and spectral Doppler are used. A cine clip was provided through the left testis. Comparison Study: None. Findings: There is no focal testicular mass or regionalized orchitis. There are some bilateral seema onal striations near the mediastinum testis, which are within normal anatomic range. The right testi s measures 3.1 x 1.8 x 2.1 cm (for a volume of 6.1 mL), and the left testis measures 3.3 x 1.8 x 2.0 cm (for a volume of 6.2 mL). Intratesticular vascular flow is documented, with no torsion. There is a mild right-sided hydrocele. There is no evidence of a left-sided hydrocele, nor is there a varico coco on either side. Each epididymis is normal, and notable only for a benign 12 x 13 x 16 mm right epididymal head cyst versus spermatocele. Impression: 1. There is no sonographic evidence of a testicular mass. 2. Right hydrocele. 3. Benign-appearing 16-mm right epididymal head cyst versus spermatocele.
[2016-09-06] MEDS: ERTAPENEM 1 GM in NS 100 ML IV SCH (21:06)
[2016-09-06] MEDS: NS 1,000 ML IV SCH (21:06)
[2016-09-06] MEDS: TPN 1 EA BAG IV SCH (21:50)
[2016-09-07] MEDS: INSULIN REGULAR HUMAN 100 UNIT/ML SC SCH ×4 (00:22→17:52)
[2016-09-07] MEDS: PETROLAT,WHT/MIN OIL/SOD CHL 3.5 GM OPHT.OINT LEFTEYE SCH ×6 (02:19→21:41)
[2016-09-07] MEDS: IPRATROPIUM BROMIDE 0.5 MG/2.5 ML DEYVIAL IH SCH ×4 (06:13→21:26)
[2016-09-07 06:29] LABS: ANION GAP 9 mEq/L (8-16); CALCIUM 7.8 mg/dL (8.5-10.4); CARBON DIOXIDE 23 mEq/l (22-31); CHLORIDE 105 mEq/L (97-110); CREATININE 0.6 mg/dL (0.7-1.3); GLOMERULAR FILTRATION RATE > 60; GLUCOSE 484 mg/dL (70-100); SODIUM 137 mEq/L (134-144)
[2016-09-07 08:04] LABS: CALCIUM 7.8 mg/dL (8.5-10.4); CARBON DIOXIDE 24 mEq/l (22-31); CHLORIDE 104 mEq/L (97-110); CREATININE 0.6 mg/dL (0.7-1.3); GLOMERULAR FILTRATION RATE > 60; GLUCOSE 446 mg/dL (70-100); SODIUM 137 mEq/L (134-144)
[2016-09-07] MEDS: INSULIN NPH HUMAN 100 UNITS/ML SYRINGE SC SCH (08:05)
[2016-09-07 08:10] LABS: ANION GAP 9 mEq/L (8-16)
[2016-09-07 08:41] LABS: ANION GAP 8 mEq/L (8-16); CALCIUM 7.9 mg/dL (8.5-10.4); CARBON DIOXIDE 26 mEq/l (22-31); CHLORIDE 104 mEq/L (97-110); CREATININE 0.5 mg/dL (0.7-1.3); GLOMERULAR FILTRATION RATE > 60; GLUCOSE 213 mg/dL (70-100); POTASSIUM 4.4 mEq/L (3.5-5.2); SODIUM 138 mEq/L (134-144)
--- NOTE | 2016-09-07 10:01 | NEUSURGPN ---
Assessment/Plan: 61 yo M POD #12 resection/biopsy of left cerebellar/brainstem lesion, now also s /p duodenal repair by Dr Rocha on 08/31. -Bed status per gen surg -Diet/Abdominal care per gen surg - per nursing, Dr Rocha to take him to the OR tomorrow for PEG placement -Appreciate hospitalist recommendations -D/C Decadron and Toradol- Keep off due to perforated ulcer -Ophthalmology was called by trauma yesterday for eval of left eye Subjective: bored and wants to mobilize out of the hospital Objective: NAD left sided facial droop Incision c/d/i. Urinary Catheter in Place: No Catheter Insertion Date: 08/26/16 Neurosurgery Physical Exam - Vitals, I&O, Labs I and O 09/06/16 09/07/16 09/08/16 05:59 05:59 05:59 Intake Total 3565 3247 Output Total 1250 1130 Balance 2315 2117 Weight 86.1 kg 84.504 kg 84 kg Intake: Oral (ml) 0 IV Infused (ml) 3565 3247 Ertapenem 1 gm In Ns 100 100 ml @ 200 mls/hr IV DAILY@ 21 [facility] Rx#:[id number] Micafungin Na 100 mg In 100 100 Ns 100 ml @ 100 mls/hr IV DAILY [facility] Rx#:[id number] Pantoprazole Sodium 40 mg 200 200 In Ns 100 ml @ 200 mls/ hr IV BID [facility] Rx#: [id number] Ns 1,000 ml @ 75 mls/hr 1825 1476 IV CONT [facility] Rx#: [id number] TPN 1 ea IV DAILY21 [facility] 1440 1371 Rx#:[id number] Output: Urine (ml) 325 1130 Urinal 325 750 Toilet 380 NG Drainage (ml) 925 Large Bore (>12 Tajik) 925 Non-weighted Right Naris Stomach Other: Output Comment Toilet flecks and liquid Number of Voids Urinal 1 1 Toilet 1 1 Number of Stools Toilet 1 1 Microbiology 09/01/16 06:35 Gram Stain - Final Peritoneal Fluid - Aspirate 09/01/16 10:50 Blood Culture - Final Blood Vital Signs Temp Pulse Resp BP Pulse Ox 37.6 C 90 14 112/68 92 09/07/16 08:00 09/07/16 08:00 09/07/16 08:00 09/07/16 08:00 09/07/16 08:00 Laboratory Results 09/05/16 03:30 09/07/16 08:20 ICD10 Worksheet Patient Problems: Problems Problem Status Diagnosed Brain lesion Acute Perforated duodenal ulcer Acute
[2016-09-07] MEDS: PANTOPRAZOLE SODIUM 40 MG in NS 100 ML IV SCH ×2 (10:11→21:30)
[2016-09-07] MEDS: ENOXAPARIN 40 MG/0.4 ML SYR SC SCH (10:14)
[2016-09-07] MEDS: MICAFUNGIN NA 100 MG in NS 100 ML IV SCH (11:22)
[2016-09-07] MEDS: ERYTHROMYCIN 0.5% 1 GM OPHT.OINT LEFTEYE SCH ×3 (11:23→21:40)
--- NOTE | 2016-09-07 11:57 | PCMIDPN ---
Assessment/Plan: Assessment: Duodenal rupture and peritonitis status post cerebellar tumor debulking during the 1st part of this admission. Covered on both ertapenem and micafungin. Kamilah albicans and Serratia marcescens along with anaerobes in the abdominal fluid culture. Sensitivities pending for both. Seems to be steadily improving after his bout of sepsis. Plan: 1. Continue both ertapenem and micafungin. 2. Follow sensitivity panels for the isolates already cultured. 3. Follow clinical course and laboratory values. Subjective: Patient is in the midst of swallow therapy. He has no new complaints. Says that his abdomen is slightly tender but no more so than yesterday. No fevers or chills. Objective: Ertapenem # 7 Micafungin # 7 Vital Signs Temp Pulse Resp BP Pulse Ox 37.6 C 90 14 112/68 92 09/07/16 08:00 09/07/16 08:00 09/07/16 08:00 09/07/16 08:00 09/07/16 08:00 Microbiology 09/01/16 06:35 Gram Stain - Final Peritoneal Fluid - Aspirate 09/01/16 10:50 Blood Culture - Final Blood Laboratory Results 09/05/16 03:30 09/07/16 08:20 09/06/16 09/07/16 09/08/16 05:59 05:59 05:59 Intake Total 3565 3247 Output Total 1250 1130 Balance 2315 2117 - Physical Exam General Appearance: WD/WN, alert, no apparent distress, non-toxic EENT: other (Left-sided facial nerve palsy.), No scleral icterus (Some injection in the left sclera.), No photophobia Respiratory: lungs clear, normal breath sounds, No respiratory distress Cardiac/Chest: regular rate, rhythm, No tachycardia Skin: normal color, warm/dry, No rash Neuro/Psych: alert, normal mood/affect, oriented x 3 ICD10 Worksheet Patient Problems: Problems Problem Status Diagnosed Brain lesion Acute Perforated duodenal ulcer Acute
--- NOTE | 2016-09-07 13:21 | SOAPPROG ---
SOAP Progress Note Assessment/Plan: Assessment: post op ileus s/p antrectomy/BII post op contrast study shows no evidence of leak Plan:patient may require feeding tube due to dysphagia related to his recent lymphoma resection we discussed surgical vs. endoscopic options. continue TPN and NPO for now 09/07/16 13:18 Subjective: Mr Landaverde is s/p antrectomy, BII/oversewing of doudenal stump for perforated duodeanl ulcer. He is awake and resiting comfortably. Dr. Rocha removed his NGT yesterday. He has difficulty swallowing and remains NPO Objective: Vital Signs Temp Pulse Resp BP Pulse Ox 36.6 C 91 18 97/65 L 91 L 09/07/16 12:00 09/07/16 12:29 09/07/16 12:29 09/07/16 12:00 09/07/16 12:29 Microbiology 09/01/16 06:35 Gram Stain - Final Peritoneal Fluid - Aspirate 09/01/16 10:50 Blood Culture - Final Blood Laboratory Results 09/05/16 03:30 09/07/16 08:20 09/06/16 09/07/16 09/08/16 05:59 05:59 05:59 Intake Total 3565 3247 Output Total 1250 1130 Balance 2315 2117 PT 14.5 SEC (12.0-15.0) 09/04/16 05:50 INR 1.14 (0.83-1.16) 09/04/16 05:50 Physical Exam - Physical Exam General Appearance: mild distress Respiratory: lungs clear, decreased breath sounds Cardiac/Chest: regular rate, rhythm Abdomen: non-tender, soft, other (healing midline incision/LAURA serosanguinous) Neuro/Psych: normal mood/affect, oriented x 3, facial droop (left facial paresis ) ICD10 Worksheet Patient Problems: Problems Problem Status Diagnosed Brain lesion Acute Perforated duodenal ulcer Acute
--- NOTE | 2016-09-07 13:59 | SOAPPROG ---
SOAP Progress Note Assessment/Plan: Assessment: 1. Duodenal rupture and peritonitis status post cerebellar tumor debulking during the 1st part of this admission. Covered on both ertapenem and micafungin. Kamliah albicans and Serratia marcescens along with anaerobes in the abdominal fluid culture. Sensitivities pending for both. Seems to be steadily improving after his bout of sepsis. Plan: 1. Continue both ertapenem and micafungin. 2. Follow sensitivity panels for the isolates already cultured. 3. Follow clinical course and laboratory values. 1. 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 L sided hemiparesis, dysphagia 3. s/p perforated duodenal ulcer s/p repair 08/31 Plan: - continue post-op care - will need to complete staging as outpt: BMBx, PET-CT, testicular ultrasound was negative. 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 His course was complicated by penetrating duodenal ulcer. He is resting well today. Objective: Vital Signs Temp Pulse Resp BP Pulse Ox 36.6 C 91 18 97/65 L 91 L 09/07/16 12:00 09/07/16 12:29 09/07/16 12:29 09/07/16 12:00 09/07/16 12:29 Microbiology 09/01/16 06:35 Gram Stain - Final Peritoneal Fluid - Aspirate 09/01/16 10:50 Blood Culture - Final Blood Laboratory Results 09/05/16 03:30 09/07/16 08:20 09/06/16 09/07/16 09/08/16 05:59 05:59 05:59 Intake Total 3565 3247 Output Total 1250 1130 Balance 2315 2117 PT 14.5 SEC (12.0-15.0) 09/04/16 05:50 INR 1.14 (0.83-1.16) 09/04/16 05:50 ICD10 Worksheet Patient Problems: Problems Problem Status Diagnosed Brain lesion Acute Perforated duodenal ulcer Acute
--- NOTE | 2016-09-07 15:28 | HOSPPROG ---
Hospitalist Progress Note Assessment/Plan: * Perforated duodenal ulcer s/p antrectomy/Billroth II -IV PPI * Sepsis due to peritonitis (serratia, anaerobe, av) -IV invanz, micafungin * Post-op ileus * Primary NUTRITIONISTS lymphoma (new diagnosis) -s/p cerebellar tumor debulking -residual left hemiparesis and dysphagia -outpatient BMBx, PET -delay chemo 4 weeks for surgical recovery * Dysphagia -currently on TPN -transition to tube feeds when okay to use GI tract * DM II -insulin in TPN -holding metformin Subjective: No complaints Objective: Vital Signs Temp Pulse Resp BP Pulse Ox 36.6 C 91 18 97/65 L 91 L 09/07/16 12:00 09/07/16 12:29 09/07/16 12:29 09/07/16 12:00 09/07/16 12:29 Microbiology 09/01/16 06:35 Gram Stain - Final Peritoneal Fluid - Aspirate 09/01/16 10:50 Blood Culture - Final Blood Laboratory Results 09/05/16 03:30 09/07/16 08:20 09/06/16 09/07/16 09/08/16 05:59 05:59 05:59 Intake Total 3565 3247 Output Total 1250 1130 Balance 2315 2117 PT 14.5 SEC (12.0-15.0) 09/04/16 05:50 INR 1.14 (0.83-1.16) 09/04/16 05:50 - Physical Exam Constitutional: no apparent distress, appears nourished, not in pain Cardiovascular: No edema Respiratory: no respiratory distress Gastrointestinal: soft, non-tender abdomen, distension Skin: warm, No rash Psychiatric: No anxious, No agitated ICD10 Worksheet Patient Problems: Problems Problem Status Diagnosed Brain lesion Acute Perforated duodenal ulcer Acute
[2016-09-07] MEDS ORDERED: IPRATROPIUM BROMIDE 0.5 MG/2.5 ML DEYVIAL IH PRN (21:19)
[2016-09-07] MEDS: TPN 1 EA BAG IV SCH (21:26)
[2016-09-07] MEDS: ERTAPENEM 1 GM in NS 100 ML IV SCH (21:30)
[2016-09-08] MEDS: INSULIN REGULAR HUMAN 100 UNIT/ML SC SCH ×5 (01:27→23:59)
[2016-09-08] MEDS: DIAZEPAM 10 MG/2 ML SYR IVP PRN ×2 (02:45→16:29)
[2016-09-08] MEDS: PETROLAT,WHT/MIN OIL/SOD CHL 3.5 GM OPHT.OINT LEFTEYE SCH ×6 (03:04→21:14)
[2016-09-08 05:32] LABS: ADD DIFF? YES; ADD MORPH? NO; ADD SCAN? NO; ATYPICAL LYMPHOCYTE FLAG 40 (0-99); FRAGMENT RBC FLAG 0 (0-99); HEMATOCRIT 27.3 % (40.0-51.0); HEMOGLOBIN 9.2 g/dL (13.7-17.5); LEFT SHIFT FLG 40 (0-99); LIPEMIA HEMOLYSIS FLAG 80 (0-99); MEAN CELL HEMOGLOBIN 32.2 pg (27.9-34.1); MEAN CELL HEMOGLOBIN CONCENTR. 33.7 g/dL (32.4-36.7); MEAN CELL VOLUME 95.5 fL (81.5-99.8); MEAN PLATELET VOLUME 9.5 fL (8.7-11.7); PLATELET CLUMPS FLAG 10 (0-99); PLATELET COUNT 394 10^3/uL (150-400); RED BLOOD CELL COUNT 2.86 10^6/uL (4.40-6.38); RED CELL DISTRIBUTION WIDTH 12.9 % (11.5-15.2)
[2016-09-08 05:43] LABS: INR 1.13 (0.83-1.16); PROTIME(PATIENT) 14.4 SEC (12.0-15.0)
[2016-09-08 05:44] LABS: APTT 30.9 SEC (23.0-38.0)
[2016-09-08 05:45] LABS: ALANINE AMINOTRANSFERASE 173 IU/L (21-72); ALBUMIN 2.6 g/dL (3.5-5.0); ALKALINE PHOSPHATASE 310 IU/L (38-126); ANION GAP 9 mEq/L (8-16); ASPARTATE AMINOTRANSFERASE 51 IU/L (17-59); CALCIUM 8.2 mg/dL (8.5-10.4); CARBON DIOXIDE 26 mEq/l (22-31); CHLORIDE 104 mEq/L (97-110); CREATININE 0.5 mg/dL (0.7-1.3); GLOMERULAR FILTRATION RATE > 60; GLUCOSE 128 mg/dL (70-100); POTASSIUM 4.3 mEq/L (3.5-5.2); SODIUM 139 mEq/L (134-144); TOTAL PROTEIN 5.2 g/dL (6.3-8.2); TRIGLYCERIDE 108 mg/dL (40-150)
[2016-09-08 06:13] LABS: PLATELET ESTIMATE ADEQUATE (ADEQ); POLYCHROMASIA 1+
[2016-09-08] MEDS: PANTOPRAZOLE SODIUM 40 MG in NS 100 ML IV SCH ×2 (09:15→21:10)
[2016-09-08] MEDS: ERYTHROMYCIN 0.5% 1 GM OPHT.OINT LEFTEYE SCH ×3 (09:20→21:11)
[2016-09-08] MEDS: ENOXAPARIN 40 MG/0.4 ML SYR SC SCH (09:23)
[2016-09-08] MEDS: SCOPOLAMINE HYDROBROMIDE 1.5 MG PATCH TD SCH (09:24)
--- NOTE | 2016-09-08 09:47 | SOAPPROG ---
[facility] Progress Note Assessment/Plan: Assessment/Plan s/p antrectomy, gastrojejunostomy, closure of duodenal stump for large duodenal ulcer, likely NSAID/steroid-related s/p resection of brainstem lymphoma to OR today to have open jejunostomy placement discussed PEG with GI but they agree that open jejunostomy placement in light of recent duodenal perforation, antrectomy with gastrojejunostomy, with feeding distally is preferred 09/08/16 09:45 Subjective: had considerable incisional pain last night now feeling better Objective: Vital Signs Temp Pulse Resp BP Pulse Ox 37.0 C 93 18 95/62 L 97 09/08/16 08:00 09/08/16 08:00 09/08/16 08:00 09/08/16 08:00 09/08/16 08:00 Microbiology 09/01/16 06:35 Gram Stain - Final Peritoneal Fluid - Aspirate 09/01/16 10:50 Blood Culture - Final Blood Laboratory Results 09/08/16 03:15 09/08/16 03:15 09/07/16 09/08/16 09/09/16 05:59 05:59 05:59 Intake Total 3247 1620 Output Total 1130 505 200 Balance 2117 1115 -200 PT 14.4 SEC (12.0-15.0) 09/08/16 03:15 INR 1.13 (0.83-1.16) 09/08/16 03:15 Physical Exam - Physical Exam General Appearance: alert Abdomen: soft, other (incision healing well without signs of infection) ICD10 Worksheet Patient Problems: Problems Problem Status Diagnosed Brain lesion Acute Perforated duodenal ulcer Acute - ICD10 Problem Qualifiers (1) Perforated duodenal ulcer
--- NOTE | 2016-09-08 10:06 | NEUSURGPN ---
Assessment/Plan: 61 yo M POD #12 resection/biopsy of left cerebellar/brainstem lesion, now also s /p duodenal repair by Dr Rocha on 08/31. -Bed status per gen surg -Diet/Abdominal care per gen surg - TO OR for PEG tube placement today -Appreciate hospitalist recommendations - Decadron and Toradol- Keep off due to perforated ulcer -Please notify NS with any change in neuro/motor exam -Dispo planning once cleared by general surgery and medicine Subjective: Denies any new headaches, pain Objective: NAD Left sided facial droop, MAEx4, Incision c/d/i Catheter Insertion Date: 08/26/16 Neurosurgery Physical Exam - Vitals, I&O, Labs I and O 09/07/16 09/08/16 09/09/16 05:59 05:59 05:59 Intake Total 3247 1620 Output Total 1130 505 200 Balance 2117 1115 -200 Weight 84.504 kg 86.3 kg Intake: IV Infused (ml) 3247 1620 Ertapenem 1 gm In Ns 100 100 100 ml @ 200 mls/hr IV DAILY@ 21 [facility] Rx#:[id number] Micafungin Na 100 mg In 100 100 Ns 100 ml @ 100 mls/hr IV DAILY [facility] Rx#:[id number] Pantoprazole Sodium 40 mg 200 100 In Ns 100 ml @ 200 mls/ hr IV BID [facility] Rx#: [id number] Ns 1,000 ml @ 75 mls/hr 1476 600 IV CONT [facility] Rx#: [id number] TPN 1 ea IV DAILY21 [facility] 1371 720 Rx#:[id number] Output: Urine (ml) 1130 500 200 Urinal 750 500 200 Toilet 380 Wound Drainage (ml) 5 Abdomen Jonathan Barnes 5 Other: Output Comment Toilet flecks and liquid Number of Voids Urinal 1 1 Toilet 1 1 Number of Stools Toilet 1 Microbiology 09/01/16 06:35 Gram Stain - Final Peritoneal Fluid - Aspirate 09/01/16 10:50 Blood Culture - Final Blood Vital Signs Temp Pulse Resp BP Pulse Ox 37.0 C 93 18 95/62 L 97 09/08/16 08:00 09/08/16 08:00 09/08/16 08:00 09/08/16 08:00 09/08/16 08:00 Laboratory Results 09/08/16 03:15 09/08/16 03:15 ICD10 Worksheet Patient Problems: Problems Problem Status Diagnosed Brain lesion Acute Perforated duodenal ulcer Acute
[2016-09-08] MEDS ORDERED: LIDOCAINE 2% 100 MG/5 ML SYR IVP ONE (10:27)
[2016-09-08] MEDS ORDERED: ROCURONIUM 50 MG/5 ML VIAL ONE (10:27)
[2016-09-08] MEDS ORDERED: fentaNYL 100 MCG/2 ML INJ ONE ×2 (10:27→11:52)
[2016-09-08] MEDS ORDERED: PROPOFOL 200 MG/20 ML VIAL ONE (10:27)
[2016-09-08] MEDS ORDERED: BUPIVACAINE 0.5% 30 ML SDV ONE (10:41)
[2016-09-08] MEDS ORDERED: SUGAMMADEX SODIUM 200 MG/2 ML VIAL IVP ONE (11:05)
--- NOTE | 2016-09-08 11:43 | PCMIDPN ---
Assessment/Plan: Assessment/Plan: 1. Peritonitis secondary to duodenal perforation: - Covered broadly with invanz + micafungin. - Cx preliminarily with C. albicans. Susceptibilities still pending -Continue with current therapy for now. -Labs reviewed. Creatinine stable. -Discussed care and events of last evening with Dr. Rocha. She is taking him to OR for open jejunostomy. Meds invanz micafungin Subjective: Afebrile. c/o of intense abd pain last night, at 8/10. today it is better down to 2/10. incision site is intact, without drainage or erythema. Denies sob. Objective: Vital Signs Temp Pulse Resp BP Pulse Ox 37.0 C 93 18 95/62 L 97 09/08/16 08:00 09/08/16 08:00 09/08/16 08:00 09/08/16 08:00 09/08/16 08:00 Microbiology 09/01/16 06:35 Gram Stain - Final Peritoneal Fluid - Aspirate 09/01/16 10:50 Blood Culture - Final Blood Laboratory Results 09/08/16 03:15 09/08/16 03:15 09/07/16 09/08/16 09/09/16 05:59 05:59 05:59 Intake Total 3247 1620 Output Total 1130 505 200 Balance 2117 1115 -200 - Physical Exam General Appearance: alert, no apparent distress Respiratory: lungs clear Cardiac/Chest: regular rate, rhythm Extremities: No swelling Abdomen: other (bs quiet. distended but not tense. midline incision with mainor , intact, erythema and no drainage. some tendernes to the left of the incision site. mild guarding. ) ICD10 Worksheet Patient Problems: Problems Problem Status Diagnosed Brain lesion Acute Perforated duodenal ulcer Acute
--- NOTE | 2016-09-08 11:58 | DX ---
OMEGAB, 2 views, 11:31 a.m. History: Intraoperative instrument count History: Instrument count was not done before surgery, no instrument is known to be lost Comparison: August 31, 2016 Findings: No metallic instrument is identified. The weighted feeding tube has been removed. There are new intra-abdominal wall skin mainor and a cluster of right upper quadrant surgical clips. There is radiopaque contrast material in the splenic flexure. A radiopaque catheter overlies the abdomen. Impression: No surgical instrument identified. Dr. Dumont was notified by telephone at 11:55 am.
--- NOTE | 2016-09-08 12:19 | GOP ---
[f rep st] OPERATIVE REPORT DATE OF OPERATION: SURGEON: Aidee Rocha MD PREOPERATIVE DIAGNOSIS: Inability to swallow following resection of brainstem lymphoma, and status p ost recent antrectomy, gastrojejunostomy and over-sewing of duodenal stump for perforated anterior du odenal ulcer. POSTOPERATIVE DIAGNOSIS: Inability to swallow following resection of brainstem lymphoma, and status post recent antrectomy, gastrojejunostomy and over-sewing of duodenal stump for perforated anterior d uodenal ulcer. PROCEDURE PERFORMED: Jejunostomy tube placement, open. FINDINGS: Healthy jejunum. The site of the anterior duodenal perforation was completely covered in omentum, with no bilious staining or abscess cavities noted. SPECIMENS: None. ESTIMATED BLOOD LOSS: 5 mL. INDICATIONS: The patient is a 61-year-old male, status post resection of a brainstem lymphoma. The tumor and the surgery left him unable to swallow as well as he is status post antrectomy, gastrojejun ostomy and over-sewing of the duodenal stump for a perforated anterior duodenal ulcer. He desires je junostomy tube placement for tube feeding access. DESCRIPTION OF PROCEDURE: After informed consent was obtained and therapeutic antibiotics were nneka nued, the patient was taken to the operating room, placed in a supine position. SCDs were placed to bilateral lower extremities. General anesthesia was administered. He was prepped and draped in a st erile fashion. After an appropriate surgical pause, his mainor were removed and his fascial suture incised to reopen his recent laparotomy suture. Omentum was noted to be densely adherent to the site of duodenal perforation, with no bile staining noted or abscess noted. A loop of the jejunum approx imately 40 cm from the gastrojejunostomy site was chosen and bowel clamps applied. The jejunum was e ntered using Bovie electrocautery and a red rubber catheter with extra holes cut into it was inserted into the jejunum and secured in place using 3-0 Prolene pursestring suture. A Witzel tunnel was cre ated, over-sewing the pursestring suture and the jejunostomy tube for a length of approximately 6 cm using interrupted 3-0 Vicryl seromuscular Lembert sutures. The jejunum was then tacked to the anteri or abdominal wall at the site of the J-tube. This was later secured to the anterior abdominal wall u sing 3-0 silk and a 3-0 PDS suture. The fascia was closed, after hemostasis was noted, using 0 PDS s uture. The skin was closed using mainor. Dry dressings were applied. The patient was awakened fro m general anesthesia, extubated and will be taken to the post anesthesia recovery unit. /[id number]/MODL
[2016-09-08] MEDS: MICAFUNGIN NA 100 MG in NS 100 ML IV SCH (12:31)
--- NOTE | 2016-09-08 13:56 | SOAPPROG ---
SOAP Progress Note Assessment/Plan: Assessment: 1. Duodenal rupture and peritonitis status post cerebellar tumor debulking during the 1st part of this admission. Covered on both ertapenem and micafungin. Kamilah albicans and Serratia marcescens along with anaerobes in the abdominal fluid culture. Sensitivities pending for both. Seems to be steadily improving after his bout of sepsis. Plan: 1. Continue both ertapenem and micafungin. 2. Follow sensitivity panels for the isolates already cultured. 3. Follow clinical course and laboratory values. 1. Primary REFRESH TECHNICIAN lymphoma 2. L sided hemiparesis, dysphagia 3. s/p perforated duodenal ulcer s/p repair 08/31 Plan: - continue post-op care - will need to complete staging as outpt: BMBx, PET-CT, testicular ultrasound was negative. - treatment (chemo) will be deferred at least 4 weeks, until he has recovered from surgery. 09/06/16 14:52 09/06/16 14:53 09/06/16 14:59 09/07/16 14:11 09/07/16 14:11 09/08/16 13:56 Subjective: Neil is a 61 yo M with Left central facial weakness, diplopia, and balance problems who has a REFRESH TECHNICIAN lymphoma. His course was complicated by penetrating duodenal ulcer. He had a feeding jejunostomy placed today. Objective: Vital Signs Temp Pulse Resp BP Pulse Ox 37.2 C 95 20 100/60 95 09/08/16 13:01 09/08/16 13:01 09/08/16 13:01 09/08/16 13:01 09/08/16 13:01 Microbiology 09/01/16 06:35 Gram Stain - Final Peritoneal Fluid - Aspirate 09/01/16 10:50 Blood Culture - Final Blood Laboratory Results 09/08/16 03:15 09/08/16 03:15 09/07/16 09/08/16 09/09/16 05:59 05:59 05:59 Intake Total 3247 1620 800 Output Total 1130 505 205 Balance 2117 1115 595 PT 14.4 SEC (12.0-15.0) 09/08/16 03:15 INR 1.13 (0.83-1.16) 09/08/16 03:15 ICD10 Worksheet Patient Problems: Problems Problem Status Diagnosed Brain lesion Acute Perforated duodenal ulcer Acute
[2016-09-08] MEDS: HYDROmorphONE/DILAUDID 1 MG/ML SYR IVP PRN (14:37)
--- NOTE | 2016-09-08 15:02 | HOSPPROG ---
Hospitalist Progress Note Assessment/Plan: * Perforated duodenal ulcer s/p antrectomy/Billroth II -H pylori negative -IV PPI - change to PO when J-tube functional * Sepsis due to peritonitis (serratia, anaerobe, av) -IV invanz, micafungin * Post-op ileus * Primary PEACE OFFICER lymphoma (new diagnosis) -s/p cerebellar tumor debulking -residual left hemiparesis and dysphagia -outpatient BMBx, PET -delay chemo 4 weeks for surgical recovery * Dysphagia s/p open jejunostomy -stop TPN after next bag -transition to tube feeds via J-tube - advance per surgery * DM II -insulin in TPN -holding metformin Subjective: Lots of pain at new J-tube site Objective: Vital Signs Temp Pulse Resp BP Pulse Ox 37.2 C 95 20 100/60 95 09/08/16 13:01 09/08/16 13:01 09/08/16 13:01 09/08/16 13:01 09/08/16 13:01 Microbiology 09/01/16 06:35 Gram Stain - Final Peritoneal Fluid - Aspirate Laboratory Results 09/08/16 03:15 09/08/16 03:15 09/07/16 09/08/16 09/09/16 05:59 05:59 05:59 Intake Total 3247 1620 800 Output Total 1130 505 205 Balance 2117 1115 595 PT 14.4 SEC (12.0-15.0) 09/08/16 03:15 INR 1.13 (0.83-1.16) 09/08/16 03:15 - Physical Exam Constitutional: no apparent distress, appears nourished, not in pain Cardiovascular: regular rate and rhythym, no murmur, rub, or gallop Respiratory: no respiratory distress, no rales or rhonchi, clear to auscultation Gastrointestinal: normoactive bowel sounds, soft, non-tender abdomen, no palpable masses Skin: no rashes or abrasions, no fluctuance, no induration Neurologic: AAOx3, sensation intact bilaterally, CN II-XII Intact (facial droop) Psychiatric: interacting appropriately, not anxious, not encephalopathic, thought process linear, other (appropriate and contributing to conversation) ICD10 Worksheet Patient Problems: Problems Problem Status Diagnosed Brain lesion Acute Perforated duodenal ulcer Acute
[2016-09-08] MEDS: ERTAPENEM 1 GM in NS 100 ML IV SCH (21:08)
[2016-09-08] MEDS: TPN 1 EA BAG IV SCH (21:10)
[2016-09-08] MEDS: TEARS/DEXTRAN 70/HYPROMELLOSE 15 ML OPHT.BTL EACHEYE PRN (21:12)
[2016-09-09] MEDS: DIAZEPAM 10 MG/2 ML SYR IVP PRN ×3 (00:44→20:25)
[2016-09-09] MEDS: PETROLAT,WHT/MIN OIL/SOD CHL 3.5 GM OPHT.OINT LEFTEYE SCH ×6 (01:54→22:33)
[2016-09-09 04:42] LABS: INR 1.16 (0.83-1.16); PROTIME(PATIENT) 14.8 SEC (12.0-15.0)
[2016-09-09 04:43] LABS: APTT 29.5 SEC (23.0-38.0)
[2016-09-09 04:45] LABS: ADD DIFF? YES; ADD MORPH? NO; ADD SCAN? NO; ATYPICAL LYMPHOCYTE FLAG 40 (0-99); FRAGMENT RBC FLAG 0 (0-99); HEMATOCRIT 27.1 % (40.0-51.0); HEMOGLOBIN 9.1 g/dL (13.7-17.5); LEFT SHIFT FLG 20 (0-99); LIPEMIA HEMOLYSIS FLAG 80 (0-99); MEAN CELL HEMOGLOBIN 31.7 pg (27.9-34.1); MEAN CELL HEMOGLOBIN CONCENTR. 33.6 g/dL (32.4-36.7); MEAN CELL VOLUME 94.4 fL (81.5-99.8); MEAN PLATELET VOLUME 9.6 fL (8.7-11.7); PLATELET CLUMPS FLAG 0 (0-99); PLATELET COUNT 415 10^3/uL (150-400); RED BLOOD CELL COUNT 2.87 10^6/uL (4.40-6.38); RED CELL DISTRIBUTION WIDTH 12.9 % (11.5-15.2)
[2016-09-09 05:13] LABS: ALANINE AMINOTRANSFERASE 132 IU/L (21-72); ALBUMIN 2.6 g/dL (3.5-5.0); ALKALINE PHOSPHATASE 312 IU/L (38-126); ANION GAP 7 mEq/L (8-16); ASPARTATE AMINOTRANSFERASE 33 IU/L (17-59); BILIRUBIN,TOTAL 1.2 mg/dL (0.1-1.4); CARBON DIOXIDE 28 mEq/l (22-31); CHLORIDE 102 mEq/L (97-110); CREATININE 0.5 mg/dL (0.7-1.3); GLOMERULAR FILTRATION RATE > 60; GLUCOSE 172 mg/dL (70-100); POTASSIUM 4.5 mEq/L (3.5-5.2); SODIUM 137 mEq/L (134-144); TOTAL PROTEIN 5.2 g/dL (6.3-8.2); TRIGLYCERIDE 91 mg/dL (40-150)
[2016-09-09 05:24] LABS: LARGE PLATELETS PRESENT
[2016-09-09 05:26] LABS: HYPOCHROMIA 1+; MACROCYTES 1+; PLATELET ESTIMATE ADEQUATE (ADEQ); POLYCHROMASIA 1+
[2016-09-09] MEDS: INSULIN REGULAR HUMAN 100 UNIT/ML SC SCH ×3 (05:50→18:45)
--- NOTE | 2016-09-09 07:52 | NEUSURGPN ---
Date of Surgery: 08/26/16 Post Op Day: 14 Assessment/Plan: Assessment: 61 yo M POD #14 resection/biopsy of left cerebellar/brainstem lesion, now also s/p duodenal repair by Dr Rocha on 08/31. Plan: -pt with continued left sided facial droop/no neuro changes -Diet/Abdominal care per gen surg - TO OR for PEG tube placement yesterday -Appreciate hospitalist recommendations -appreciate oncology and gen surgery involvement -oncology wants a CT OF C/A/P as well as HIV/hepatitis B surface Ag-orders placed -Decadron and Toradol- Keep off due to perforated ulcer -Please notify NS with any change in neuro/motor exam -Dispo planning once cleared by general surgery and medicine Subjective: Awake and alert. NAD. PEG in place. No f/c/n/v/d. Objective: NAD Left sided facial droop, MAEx4, Incision c/d/i Neuro Check Frequency: per routine Urinary Catheter in Place: No Catheter Insertion Date: 08/26/16 - Physician Discussed Patient with : Julia Patient Seen by : Julia Neurosurgery Physical Exam - Vitals, I&O, Labs I and O 09/08/16 09/09/16 09/10/16 05:59 05:59 05:59 Intake Total 1620 2720 920 Output Total 505 1105 Balance 1115 1615 920 Weight 86.3 kg Intake: IV Intake (ml) 1140 IV Infused (ml) 1620 1580 920 Ertapenem 1 gm In Ns 100 100 100 ml @ 200 mls/hr IV DAILY@ 21 [facility] Rx#:[id number] Micafungin Na 100 mg In 100 100 Ns 100 ml @ 100 mls/hr IV DAILY [facility] Rx#:[id number] Pantoprazole Sodium 40 mg 100 100 100 In Ns 100 ml @ 200 mls/ hr IV BID [facility] Rx#: [id number] Ns 1,000 ml @ 75 mls/hr 600 IV CONT [facility] Rx#: [id number] TPN 1 ea IV DAILY21 [facility] 720 1380 720 Rx#:[id number] Output: Urine (ml) 500 1100 Urinal 500 1100 Estimated Blood Loss (ml) 5 Wound Drainage (ml) 5 Abdomen Jonathan Barnes 5 Other: Number of Voids Urinal 1 1 Toilet 1 Microbiology 09/01/16 06:35 Gram Stain - Final Peritoneal Fluid - Aspirate Vital Signs Temp Pulse Resp BP Pulse Ox 37 C 98 18 97/66 L 97 09/09/16 04:08 09/09/16 04:08 09/09/16 04:08 09/09/16 04:08 09/09/16 04:08 Laboratory Results 09/09/16 04:00 09/09/16 04:00 ICD10 Worksheet Patient Problems: Problems Problem Status Diagnosed Brain lesion Acute Perforated duodenal ulcer Acute
--- NOTE | 2016-09-09 08:33 | SOAPPROG ---
SOAP Progress Note Assessment/Plan: Assessment/Plan s/p antrectomy, gastrojejunostomy, closure of duodenal stump for large duodenal ulcer, likely NSAID/steroid-related s/p resection of brainstem lymphoma s/p jejunostomy tube placement continue TPN until ileus resolved 09/09/16 08:31 Subjective: still not swallowing well not sleeping well due to secretion management Objective: Vital Signs Temp Pulse Resp BP Pulse Ox 36.4 C 98 16 93/62 L 90 L 09/09/16 08:00 09/09/16 08:00 09/09/16 08:00 09/09/16 08:00 09/09/16 08:00 Microbiology 09/01/16 06:35 Gram Stain - Final Peritoneal Fluid - Aspirate Laboratory Results 09/09/16 04:00 09/09/16 04:00 09/08/16 09/09/16 09/10/16 05:59 05:59 05:59 Intake Total 1620 2720 920 Output Total 505 1105 Balance 1115 1615 920 PT 14.8 SEC (12.0-15.0) 09/09/16 04:00 INR 1.16 (0.83-1.16) 09/09/16 04:00 Physical Exam - Physical Exam General Appearance: alert Abdomen: soft, other (dressing clean, dry, intact) ICD10 Worksheet Patient Problems: Problems Problem Status Diagnosed Brain lesion Acute Perforated duodenal ulcer Acute - ICD10 Problem Qualifiers (1) Perforated duodenal ulcer
[2016-09-09] MEDS: PANTOPRAZOLE SODIUM 40 MG in NS 100 ML IV SCH ×2 (08:38→22:33)
[2016-09-09] MEDS: HYDROmorphONE/DILAUDID 1 MG/ML SYR IVP PRN (08:38)
[2016-09-09] MEDS: ENOXAPARIN 40 MG/0.4 ML SYR SC SCH (08:38)
[2016-09-09] MEDS: ERYTHROMYCIN 0.5% 1 GM OPHT.OINT LEFTEYE SCH ×3 (08:51→20:48)
[2016-09-09] MEDS: MICAFUNGIN NA 100 MG in NS 100 ML IV SCH (10:00)
--- NOTE | 2016-09-09 10:08 | PCMIDPN ---
Assessment/Plan: Assessment/Plan: 1. Peritonitis secondary to duodenal perforation: - Covered broadly with invanz + micafungin. - Cx preliminarily with Serratia (susceptibility profile noted) and C. albicans. Susceptibilities still pending -Continue with current therapy for now. -Labs reviewed. Creatinine stable. -s/p open jejunostomy yesterday. no abscesses seen -s/p antrectomy, gastrojejunostomy, over sewen duodenal stump due to duodenal perforation. - On Day #05/21 of invanz and micafungin. Tentative end date: 09/15/16. - ID to sign off. Please feel free to call us if questions arise. -Care coordinated with Dr. Rocha. Meds invanz 09/01---#05/21 micafungin---09/01--#05/21 Subjective: Afebrile. Less abd pain overall. s/; open jejunostomy yesterday. no abscesses found. Denies sob. Objective: Vital Signs Temp Pulse Resp BP Pulse Ox 36.4 C 98 16 93/62 L 90 L 09/09/16 08:00 09/09/16 08:00 09/09/16 08:00 09/09/16 08:00 09/09/16 08:00 Microbiology 09/01/16 06:35 Gram Stain - Final Peritoneal Fluid - Aspirate Laboratory Results 09/09/16 04:00 09/09/16 04:00 09/08/16 09/09/16 09/10/16 05:59 05:59 05:59 Intake Total 1620 2720 920 Output Total 505 1105 Balance 1115 1615 920 - Physical Exam General Appearance: alert, no apparent distress Respiratory: lungs clear Cardiac/Chest: regular rate, rhythm Extremities: swelling (mild LE.compression stockings noted) Abdomen: other (bs quiet, abd distended. jejunostomy tube. ) Skin: No erythema ICD10 Worksheet Patient Problems: Problems Problem Status Diagnosed Brain lesion Acute Perforated duodenal ulcer Acute
[2016-09-09 10:55] LABS: MAGNESIUM 2.1 mg/dL (1.6-2.3)
[2016-09-09] MEDS ORDERED: IOPAMIDOL (ISOVUE-300) 100 ML BTL IV ONE (11:34)
--- NOTE | 2016-09-09 13:39 | HOSPPROG ---
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) -s/p cerebellar tumor debulking -residual left hemiparesis and dysphagia -CT chest/abd/pelvis today -delay chemo 4 weeks for surgical recovery * Dysphagia s/p open jejunostomy -stop TPN when TF initiated * DM II -insulin in TPN -holding metformin Subjective: no new complaints less pain today Objective: Vital Signs Temp Pulse Resp BP Pulse Ox 37.1 C 85 16 92/61 L 95 09/09/16 12:00 09/09/16 12:00 09/09/16 12:00 09/09/16 12:00 09/09/16 12:00 Microbiology 09/01/16 06:35 Mycobacterial Smear (HEATHER) - Final Peritoneal Fluid - Aspirate 09/01/16 06:35 Gram Stain - Final Peritoneal Fluid - Aspirate Laboratory Results 09/09/16 04:00 09/09/16 04:00 09/08/16 09/09/16 09/10/16 05:59 05:59 05:59 Intake Total 1620 2720 920 Output Total 505 1105 Balance 1115 1615 920 PT 14.8 SEC (12.0-15.0) 09/09/16 04:00 INR 1.16 (0.83-1.16) 09/09/16 04:00 - Physical Exam Constitutional: no apparent distress, appears nourished, not in pain Cardiovascular: regular rate and rhythym, no murmur, rub, or gallop Respiratory: no respiratory distress, no rales or rhonchi, clear to auscultation Gastrointestinal: normoactive bowel sounds, soft, non-tender abdomen, no palpable masses Skin: no rashes or abrasions, no fluctuance, no induration Neurologic: AAOx3, sensation intact bilaterally, CN II-XII Intact (facial droop significant on left) Psychiatric: interacting appropriately, not anxious, not encephalopathic, thought process linear ICD10 Worksheet Patient Problems: Problems Problem Status Diagnosed Brain lesion Acute Perforated duodenal ulcer Acute
[2016-09-09] MEDS: GUAIFENESIN/DM 10 ML UDCUP TUBE PRN ×2 (14:21→20:22)
[2016-09-09] MEDS ORDERED: HEPARIN 10,000 UNIT/10 ML MDV IVP ONE (15:20)
[2016-09-09] MEDS ORDERED: HEPARIN 10,000 UNIT/10 ML MDV IVP PRN (15:20)
--- NOTE | 2016-09-09 15:31 | CT ---
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 Evaluate for chest mass or lymphadenopathy.. Technique: Spiral images were obtained through the chest with the uneventful intravenous administr ation of 98 mL of Isovue-300. Images were reconstructed and reviewed in multiple planes. Dose reduc tion techniques were utilized. Findings: Vessels: There is moderate volume of thrombus in the right pulmonary artery with segmental extension of thrombus into right middle lobe and right lower lobe branches as well as right upper lobe. Subsegm ental embolus is also seen left lower lobe posteriorly. The thoracic aorta has a normal contour witho ut evidence of aneurysm or dissection. A few scattered calcified plaques are present at the aortic ar ch level and involving the proximal LAD. Lung and large airways: There is subsegmental atelectasis involving right lower lobe as well as a few bands in the left lower lobe. There is no significant pulmonary nodule, consolidation, or effusion. Bronchi: No significant bronchial wall thickening. Pleura: Normal. Heart and pericardium: Normal. Mediastinum and aissatou: No mass or lymphadenopathy. Chest wall and lower neck: Normal. Skeletal system: Vertebral body heights are well-maintained. There are no lytic or sclerotic osseous lesions. Impression: 1. Moderate volume pulmonary emboli right-side greater than left as detailed above. 2. Subsegmental atelectasis involving the lower lobes right-side greater than left. These findings were discussed by telephone with the Neil Andre PA-C at 1515 hrs.
--- NOTE | 2016-09-09 15:40 | SOAPPROG ---
SOAP Progress Note Assessment/Plan: E&M for EX ASSISTANT/PROGRAM DIRECTOR NHL * Primary EX ASSISTANT/PROGRAM DIRECTOR lymphoma: Resected 08/26 and planning to wait 4 weeks post resection before starting therapy. Residual left facial hemiparesis and dysphagia. Will follow up on CT c/a/p today for staging. Testicular u/s negative. * Duodenal ulcer rupture and peritonitis s/p antrectomy/Billroth II: post op per surgery. On IV invanz, micafungin through 09/15 per ID. Subjective: No new complaints. No flatus and not eating. Unable to feel or control left eye. Objective: Vital Signs Temp Pulse Resp BP Pulse Ox 36.3 C 97 16 102/61 90 L 09/09/16 15:24 09/09/16 15:24 09/09/16 15:24 09/09/16 15:24 09/09/16 15:24 Microbiology 09/01/16 06:35 Mycobacterial Smear (HEATHER) - Final Peritoneal Fluid - Aspirate 09/01/16 06:35 Gram Stain - Final Peritoneal Fluid - Aspirate Laboratory Results 09/09/16 04:00 09/09/16 04:00 09/08/16 09/09/16 09/10/16 05:59 05:59 05:59 Intake Total 1620 2720 920 Output Total 505 1105 Balance 1115 1615 920 PT 14.8 SEC (12.0-15.0) 09/09/16 04:00 INR 1.16 (0.83-1.16) 09/09/16 04:00 Physical Exam - Physical Exam General Appearance: no apparent distress EENT: EOM palsy (left lateral) Respiratory: lungs clear Cardiac/Chest: regular rate, rhythm Abdomen: distended, No normal bowel sounds ICD10 Worksheet Patient Problems: Problems Problem Status Diagnosed Brain lesion Acute Perforated duodenal ulcer Acute
[2016-09-09] MEDS ORDERED: NS 1,000 ML IV SCH (16:00)
--- NOTE | 2016-09-09 16:05 | CT ---
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 Evaluate for possible abdominal mass. Recent surgical resection of antral g astric ulcer. Technique: Axial computed tomographic images of the abdomen and pelvis were obtained with the unevent ful intravenous administration of 98 mL Isovue-300 contrast. Images were reviewed in multiple planes. Dose reduction techniques were utilized. CT Abdomen and Pelvis Findings: Comparison to prior CT study of September 01, 2016. Postoperative changes are seen related to recent abdominal surgery. There are some gas bubbles within the abdomen related to the prior surgery as well some haziness of the omentum. Postoperative changes related to gastrojejunostomy are noted. Percutaneous small bowel feeding tube is also evident. Liver: Normal. Spleen: Normal. Gallbladder and Bile Ducts: Normal. Pancreas: Normal. Adrenals: Normal. Kidneys: No obstruction or solid masses. Abdominal Aorta: There are some scattered arteriosclerotic calcified plaques involving the abdominal aorta without evidence of aneurysm. Pelvic structures: Normal Bladder: There are a few gas bubbles within the bladder related to prior instrumentation. No focal b ladder wall mass is seen. Appendix: Normal. Bowel Loops: There are no significantly dilated loops of bowel.. No bowel obstruction, ascites, or significant retroperitoneal lymphadenopathy. Skeletal system: Vertebral body heights are well-maintained. There are no significant lytic or scler otic osseous lesions. There is incidental bony fusion across the anterior left SI joint. Impression: 1. Free air bubbles are present within the abdomen with postoperative changes from recent abdominal s urgery as detailed above. 2. A few gas bubbles within the bladder related to prior instrumentation. 3. No evidence for abdominal abscess, bowel obstruction, or hematoma. 4. No abdominal mass or periaortic lymphadenopathy.
[2016-09-09 16:10] LABS: APTT 30.3 SEC (23.0-38.0); INR 1.33 (0.83-1.16); PROTIME(PATIENT) 16.5 SEC (12.0-15.0)
[2016-09-09] MEDS: HEPARIN/DEXTROSE 500 ML IV SCH (16:42)
[2016-09-09] MEDS: TPN 1 EA BAG IV SCH (20:31)
[2016-09-09] MEDS: ERTAPENEM 1 GM in NS 100 ML IV SCH (22:34)
[2016-09-10] MEDS: INSULIN REGULAR HUMAN 100 UNIT/ML SC SCH ×4 (01:59→18:43)
[2016-09-10] MEDS: PETROLAT,WHT/MIN OIL/SOD CHL 3.5 GM OPHT.OINT LEFTEYE SCH ×5 (02:01→19:58)
[2016-09-10 05:07] LABS: ADD DIFF? YES; ADD MORPH? NO; ADD SCAN? NO; ATYPICAL LYMPHOCYTE FLAG 50 (0-99); FRAGMENT RBC FLAG 0 (0-99); HEMATOCRIT 25.1 % (40.0-51.0); HEMOGLOBIN 8.2 g/dL (13.7-17.5); LEFT SHIFT FLG 50 (0-99); LIPEMIA HEMOLYSIS FLAG 80 (0-99); MEAN CELL HEMOGLOBIN 32.3 pg (27.9-34.1); MEAN CELL HEMOGLOBIN CONCENTR. 32.7 g/dL (32.4-36.7); MEAN CELL VOLUME 98.8 fL (81.5-99.8); MEAN PLATELET VOLUME 9.7 fL (8.7-11.7); PLATELET CLUMPS FLAG 0 (0-99); PLATELET COUNT 388 10^3/uL (150-400); RED BLOOD CELL COUNT 2.54 10^6/uL (4.40-6.38); RED CELL DISTRIBUTION WIDTH 12.9 % (11.5-15.2)
[2016-09-10 05:19] LABS: INR 1.23 (0.83-1.16); PROTIME(PATIENT) 15.5 SEC (12.0-15.0)
[2016-09-10 05:42] LABS: ALANINE AMINOTRANSFERASE 102 IU/L (21-72); ALBUMIN 2.3 g/dL (3.5-5.0); ALKALINE PHOSPHATASE 336 IU/L (38-126); ANION GAP 8 mEq/L (8-16); ASPARTATE AMINOTRANSFERASE 31 IU/L (17-59); BILIRUBIN,TOTAL 0.9 mg/dL (0.1-1.4); CALCIUM 7.7 mg/dL (8.5-10.4); CARBON DIOXIDE 29 mEq/l (22-31); CHLORIDE 102 mEq/L (97-110); CREATININE 0.5 mg/dL (0.7-1.3); GLOMERULAR FILTRATION RATE > 60; GLUCOSE 181 mg/dL (70-100); POTASSIUM 4.3 mEq/L (3.5-5.2); SODIUM 139 mEq/L (134-144); TOTAL PROTEIN 4.9 g/dL (6.3-8.2); TRIGLYCERIDE 105 mg/dL (40-150)
[2016-09-10 06:03] LABS: PLATELET ESTIMATE ADEQUATE (ADEQ)
[2016-09-10 06:04] LABS: HYPOCHROMIA 1+; LARGE PLATELETS PRESENT; MACROCYTES 1+; POLYCHROMASIA 1+
--- NOTE | 2016-09-10 07:56 | SOAPPROG ---
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 No new weakness. Objective: Vital Signs Temp Pulse Resp BP Pulse Ox 37.0 C 93 16 101/71 95 09/10/16 04:00 09/10/16 04:00 09/10/16 04:00 09/10/16 04:00 09/10/16 04:00 Microbiology 09/01/16 06:35 Mycobacterial Smear (HEATHER) - Final Peritoneal Fluid - Aspirate 09/01/16 06:35 Gram Stain - Final Peritoneal Fluid - Aspirate Laboratory Results 09/10/16 04:50 09/10/16 04:50 09/09/16 09/10/16 09/11/16 05:59 05:59 05:59 Intake Total 2720 2271 Output Total 1105 420 500 Balance 1615 1851 -500 PT 15.5 SEC (12.0-15.0) H 09/10/16 04:50 INR 1.23 (0.83-1.16) H 09/10/16 04:50 AAOX4, + FC PERRL, left sided facial droop FRANK x 4 + light touch C/D/I ICD10 Worksheet Patient Problems: Problems Problem Status Diagnosed Brain lesion Acute Perforated duodenal ulcer Acute - ICD10 Problem Qualifiers (1) Brain lesion
[2016-09-10] MEDS: PANTOPRAZOLE SODIUM 40 MG in NS 100 ML IV SCH (08:26)
[2016-09-10] MEDS: ERYTHROMYCIN 0.5% 1 GM OPHT.OINT LEFTEYE SCH ×4 (08:26→19:58)
[2016-09-10] MEDS: MICAFUNGIN NA 100 MG in NS 100 ML IV SCH (10:00)
[2016-09-10] MEDS: HEPARIN/DEXTROSE 500 ML IV SCH (11:47)
--- NOTE | 2016-09-10 14:47 | SOAPPROG ---
SOAP Progress Note Assessment/Plan: Assessment/Plan s/p antrectomy, gastrojejunostomy, closure of duodenal stump for large duodenal ulcer, likely NSAID/steroid-related s/p resection of brainstem lymphoma s/p jejunostomy tube placement wean TPN, start enteral feeding 09/10/16 14:44 Subjective: slept well last night no nausea no bloating passing flatus Objective: Vital Signs Temp Pulse Resp BP Pulse Ox 37.7 C 96 16 88/56 L 94 09/10/16 08:00 09/10/16 11:40 09/10/16 11:40 09/10/16 11:40 09/10/16 11:40 Microbiology 09/01/16 06:35 Gram Stain - Final Peritoneal Fluid - Aspirate Anaerobic Culture - Final Serratia Marcescens Kamilah Albicans 09/01/16 06:35 Mycobacterial Smear (HEATHER) - Final Peritoneal Fluid - Aspirate Laboratory Results 09/10/16 04:50 09/10/16 04:50 09/09/16 09/10/16 09/11/16 05:59 05:59 05:59 Intake Total 2720 2271 Output Total 3432 579 9125 Balance 1615 1851 -1450 PT 15.5 SEC (12.0-15.0) H 09/10/16 04:50 INR 1.23 (0.83-1.16) H 09/10/16 04:50 Physical Exam - Physical Exam General Appearance: alert Abdomen: soft, other (incision without erythema) ICD10 Worksheet Patient Problems: Problems Problem Status Diagnosed Brain lesion Acute Perforated duodenal ulcer Acute - ICD10 Problem Qualifiers (1) Perforated duodenal ulcer
--- NOTE | 2016-09-10 14:59 | SOAPPROG ---
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 Residual left facial hemiparesis and dysphagia. CT c/a/p showed no evidence of other sites of disease. Testicular u/ s negative. * Duodenal ulcer rupture and peritonitis s/p antrectomy/Billroth II: post op per surgery. On IV invanz, micafungin through 09/15 per ID. * Acute PE: relatively asymptomatic. Agree with anticoagulation Subjective: Getting ready to do therapy. Denies chest pain or sob. No change in balance, vision, or facial weakness. Objective: Vital Signs Temp Pulse Resp BP Pulse Ox 37.7 C 96 16 88/56 L 94 09/10/16 08:00 09/10/16 11:40 09/10/16 11:40 09/10/16 11:40 09/10/16 11:40 Microbiology 09/01/16 06:35 Gram Stain - Final Peritoneal Fluid - Aspirate Anaerobic Culture - Final Serratia Marcescens Kamilah Albicans 09/01/16 06:35 Mycobacterial Smear (HEATHER) - Final Peritoneal Fluid - Aspirate Laboratory Results 09/10/16 04:50 09/10/16 04:50 09/09/16 09/10/16 09/11/16 05:59 05:59 05:59 Intake Total 2720 2271 Output Total 8127 826 1490 Balance 1615 1851 -1450 PT 15.5 SEC (12.0-15.0) H 09/10/16 04:50 INR 1.23 (0.83-1.16) H 09/10/16 04:50 CT Chest With Contrast 1157 hours Impression: 1. Moderate volume pulmonary emboli right-side greater than left as detailed above. 2. Subsegmental atelectasis involving the lower lobes right-side greater than left. These findings were discussed by telephone with the Neil Andre PA-C at 1515 hrs. Dictated By: Pio Leyva MD CT Scan of the Abdomen and Pelvis (With Contrast) 1157 hours Impression: 1. Free air bubbles are present within the abdomen with postoperative changes from recent abdominal surgery as detailed above. 2. A few gas bubbles within the bladder related to prior instrumentation. 3. No evidence for abdominal abscess, bowel obstruction, or hematoma. 4. No abdominal mass or periaortic lymphadenopathy. Dictated By: Pio Leyva MD Physical Exam - Physical Exam General Appearance: no apparent distress EENT: other (eye patch over left eye) Respiratory: lungs clear Cardiac/Chest: regular rate, rhythm ICD10 Worksheet Patient Problems: Problems Problem Status Diagnosed Brain lesion Acute Perforated duodenal ulcer Acute
--- NOTE | 2016-09-10 16:50 | HOSPPROG ---
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 Passing gas but no BM Objective: Vital Signs Temp Pulse Resp BP Pulse Ox 36.6 C 90 18 102/61 91 L 09/10/16 16:00 09/10/16 16:00 09/10/16 16:00 09/10/16 16:00 09/10/16 16:00 Microbiology 09/01/16 06:35 Gram Stain - Final Peritoneal Fluid - Aspirate Anaerobic Culture - Final Serratia Marcescens [place]il[place] Albicans 09/01/16 06:35 Mycobacterial Smear (HEATHER) - Final Peritoneal Fluid - Aspirate Laboratory Results 09/10/16 04:50 09/10/16 04:50 09/09/16 09/10/16 09/11/16 05:59 05:59 05:59 Intake Total 2720 2271 Output Total 9817 029 3269 Balance 1615 1851 -1450 PT 15.5 SEC (12.0-15.0) H 09/10/16 04:50 INR 1.23 (0.83-1.16) H 09/10/16 04:50 - Physical Exam Constitutional: no apparent distress, appears nourished, not in pain Cardiovascular: regular rate and rhythym, no murmur, rub, or gallop Respiratory: no respiratory distress, no rales or rhonchi, clear to auscultation Gastrointestinal: normoactive bowel sounds, soft, non-tender abdomen, no palpable masses Skin: no rashes or abrasions, no fluctuance, no induration Neurologic: AAOx3, facial droop Psychiatric: interacting appropriately, not anxious, not encephalopathic, thought process linear ICD10 Worksheet Patient Problems: Problems Problem Status Diagnosed Brain lesion Acute Perforated duodenal ulcer Acute
[2016-09-10] MEDS: GUAIFENESIN/DM 10 ML UDCUP TUBE PRN (19:43)
[2016-09-10] MEDS: DIAZEPAM 10 MG/2 ML SYR IVP PRN (19:44)
[2016-09-10] MEDS: TPN 1 EA BAG IV SCH (19:46)
[2016-09-10] MEDS: LANSOPRAZOLE SUSP 30MG/10ML UDSYR (Adult) TUBE SCH (22:03)
[2016-09-10] MEDS: ERTAPENEM 1 GM in NS 100 ML IV SCH (22:11)
[2016-09-11] MEDS: INSULIN REGULAR HUMAN 100 UNIT/ML SC SCH ×3 (01:06→14:58)
[2016-09-11] MEDS: PETROLAT,WHT/MIN OIL/SOD CHL 3.5 GM OPHT.OINT LEFTEYE SCH ×8 (01:07→22:59)
[2016-09-11 05:14] LABS: % IMMATURE GRANULYOCYTES 2.8 % (0.0-1.1); ABSOLUTE IMMATURE GRANULOCYTES 0.29 10^3/uL (0.00-0.10); ADD DIFF? NO; ADD MORPH? NO; ADD SCAN? NO; ATYPICAL LYMPHOCYTE FLAG 40 (0-99); FRAGMENT RBC FLAG 0 (0-99); HEMATOCRIT 21.1 % (40.0-51.0); LEFT SHIFT FLG 30 (0-99); LIPEMIA HEMOLYSIS FLAG 80 (0-99); MEAN CELL HEMOGLOBIN 31.8 pg (27.9-34.1); MEAN CELL HEMOGLOBIN CONCENTR. 33.2 g/dL (32.4-36.7); MEAN CELL VOLUME 95.9 fL (81.5-99.8); MEAN PLATELET VOLUME 9.5 fL (8.7-11.7); PLATELET CLUMPS FLAG 0 (0-99); PLATELET COUNT 376 10^3/uL (150-400); RED CELL DISTRIBUTION WIDTH 12.7 % (11.5-15.2)
[2016-09-11 05:37] LABS: INR 1.21 (0.83-1.16); PROTIME(PATIENT) 15.3 SEC (12.0-15.0)
[2016-09-11 05:38] LABS: APTT 65.3 SEC (23.0-38.0)
[2016-09-11 05:46] LABS: ALANINE AMINOTRANSFERASE 80 IU/L (21-72); ALBUMIN 2.1 g/dL (3.5-5.0); ALKALINE PHOSPHATASE 312 IU/L (38-126); ANION GAP 4 mEq/L (8-16); ASPARTATE AMINOTRANSFERASE 20 IU/L (17-59); BILIRUBIN,TOTAL 0.6 mg/dL (0.1-1.4); CALCIUM 7.6 mg/dL (8.5-10.4); CARBON DIOXIDE 31 mEq/l (22-31); CHLORIDE 102 mEq/L (97-110); CREATININE 0.4 mg/dL (0.7-1.3); GLOMERULAR FILTRATION RATE > 60; GLUCOSE 207 mg/dL (70-100); POTASSIUM 4.3 mEq/L (3.5-5.2); SODIUM 137 mEq/L (134-144); TOTAL PROTEIN 4.5 g/dL (6.3-8.2); TRIGLYCERIDE 114 mg/dL (40-150)
[2016-09-11] MEDS: ERYTHROMYCIN 0.5% 1 GM OPHT.OINT LEFTEYE SCH ×4 (05:56→22:59)
--- NOTE | 2016-09-11 07:19 | SOAPPROG ---
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 "I am ready to get out of here." Objective: Vital Signs Temp Pulse Resp BP Pulse Ox 37.0 C 97 16 91/60 L 95 09/11/16 04:00 09/11/16 04:00 09/11/16 04:00 09/11/16 04:00 09/11/16 04:00 Microbiology 09/01/16 06:35 Gram Stain - Final Peritoneal Fluid - Aspirate Anaerobic Culture - Final Serratia Marcescens [place] Albicans Laboratory Results 09/11/16 05:05 09/11/16 05:05 09/10/16 09/11/16 09/12/16 05:59 05:59 05:59 Intake Total 2271 Output Total 420 1450 Balance 1851 -1450 PT 15.3 SEC (12.0-15.0) H 09/11/16 05:05 INR 1.21 (0.83-1.16) H 09/11/16 05:05 AAOx4, +FC left facial droop, pupils: 5 mm ou FRANK x 4 + light touch C/D/I ICD10 Worksheet Patient Problems: Problems Problem Status Diagnosed Brain lesion Acute Perforated duodenal ulcer Acute - ICD10 Problem Qualifiers (1) Brain lesion
[2016-09-11] MEDS: HEPARIN/DEXTROSE 500 ML IV SCH (07:48)
[2016-09-11] MEDS: LANSOPRAZOLE SUSP 30MG/10ML UDSYR (Adult) TUBE SCH ×2 (07:48→22:30)
[2016-09-11] MEDS: MICAFUNGIN NA 100 MG in NS 100 ML IV SCH (09:26)
[2016-09-11] MEDS: SCOPOLAMINE HYDROBROMIDE 1.5 MG PATCH TD SCH (11:45)
--- NOTE | 2016-09-11 12:07 | HOSPPROG ---
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/ facial droop/dysphagia - chemo delayed 4 weeks per onc # duodenal perforation d/t ulcer s/p antrectomy and billroth II by Dr Rocha # sepsis/peritonitis - serratia/kamilah -IV invanz, micafungin through 09/15 # anemia - worse today, suspect blood loss in setting of AC/surgery - transfuse - will d/w Dr Rocha regarding further possible imaging # PE - on heparin gtt # nutrition - weaning TPN, will start J-tube feeds # DMII - currently getting insulin in TPN, will restart metformin when enteral feedings ## CT chest/abd reviewed chart reviewed Subjective: ongoing dizziness, abd pain Objective: Vital Signs Temp Pulse Resp BP Pulse Ox 36.8 C 98 18 88/57 L 97 09/11/16 08:00 09/11/16 08:00 09/11/16 08:00 09/11/16 08:00 09/11/16 08:50 Microbiology 09/01/16 06:35 Gram Stain - Final Peritoneal Fluid - Aspirate Anaerobic Culture - Final Serratia Marcescens [place] Albicans Laboratory Results 09/11/16 05:05 09/11/16 05:05 09/10/16 09/11/16 09/12/16 05:59 05:59 05:59 Intake Total 2271 Output Total 420 1450 Balance 1851 -1450 PT 15.3 SEC (12.0-15.0) H 09/11/16 05:05 INR 1.21 (0.83-1.16) H 09/11/16 05:05 - Physical Exam Constitutional: no apparent distress, appears nourished Cardiovascular: regular rate and rhythym, no murmur, rub, or gallop Respiratory: no respiratory distress, no rales or rhonchi, clear to auscultation Gastrointestinal: normoactive bowel sounds, other (soft, TTP, J-tube in place, midline incision) ICD10 Worksheet Patient Problems: Problems Problem Status Diagnosed Brain lesion Acute Perforated duodenal ulcer Acute
--- NOTE | 2016-09-11 13:58 | SOAPPROG ---
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 Residual left facial hemiparesis and dysphagia. CT c/a/p showed no evidence of other sites of disease. Testicular u/ s negative. * Duodenal ulcer rupture and peritonitis s/p antrectomy/Billroth II: post op per surgery. On IV invanz, micafungin through 09/15 per ID. * Acute PE: relatively asymptomatic. Agree with anticoagulation * Acute drop in H/H: agree most likely due to bleeding but no obvious source; suspect related to surgery. Would monitor closely and hold heparin for 24-48 hours. Subjective: Passing minimal flatus. Tired. Denies bleeding and no bm x 2 days. Objective: Vital Signs Temp Pulse Resp BP Pulse Ox 36.8 C 98 18 88/57 L 97 09/11/16 08:00 09/11/16 08:00 09/11/16 08:00 09/11/16 08:00 09/11/16 08:50 Microbiology 09/01/16 06:35 Gram Stain - Final Peritoneal Fluid - Aspirate Anaerobic Culture - Final Serratia Marcescens [place] Albicans Laboratory Results 09/11/16 05:05 09/11/16 05:05 09/10/16 09/11/16 09/12/16 05:59 05:59 05:59 Intake Total 2271 Output Total 420 1450 Balance 1851 -1450 PT 15.3 SEC (12.0-15.0) H 09/11/16 05:05 INR 1.21 (0.83-1.16) H 09/11/16 05:05 Laboratory Tests 09/09/16 09/10/16 09/11/16 04:00 04:50 05:05 WBC 14.15 H 11.86 H 10.40 H Hgb 9.1 L 8.2 L 7.0 L Plt Count 415 H 388 376 Physical Exam - Physical Exam General Appearance: no apparent distress Respiratory: lungs clear Cardiac/Chest: regular rate, rhythm Abdomen: soft, No normal bowel sounds ICD10 Worksheet Patient Problems: Problems Problem Status Diagnosed Brain lesion Acute Perforated duodenal ulcer Acute
[2016-09-11] MEDS: INSULIN REGULAR, HUMAN 100 UNIT/1 ML VIAL HIGH SC SCH ×4 (14:50→22:23)
[2016-09-11] MEDS: metFORMIN HCL 500 MG TAB TUBE SCH (18:20)
[2016-09-11] MEDS: DIAZEPAM 10 MG/2 ML SYR IVP PRN (22:22)
[2016-09-11] MEDS: GUAIFENESIN/DM 10 ML UDCUP TUBE PRN (22:30)
[2016-09-11 22:35] LABS: HEMATOCRIT 26.4 % (40.0-51.0); HEMOGLOBIN 9.2 g/dL (13.7-17.5)
[2016-09-11] MEDS: ERTAPENEM 1 GM in NS 100 ML IV SCH (22:39)
[2016-09-11] MEDS: TPN 1 EA BAG IV SCH (22:54)
[2016-09-12 05:01] LABS: ADD DIFF? YES; ADD MORPH? NO; ADD SCAN? NO; ATYPICAL LYMPHOCYTE FLAG 40 (0-99); FRAGMENT RBC FLAG 0 (0-99); HEMOGLOBIN 8.5 g/dL (13.7-17.5); LEFT SHIFT FLG 50 (0-99); LIPEMIA HEMOLYSIS FLAG 90 (0-99); MEAN PLATELET VOLUME 9.7 fL (8.7-11.7); PLATELET CLUMPS FLAG 0 (0-99); PLATELET COUNT 352 10^3/uL (150-400); RED BLOOD CELL COUNT 2.66 10^6/uL (4.40-6.38); RED CELL DISTRIBUTION WIDTH 13.9 % (11.5-15.2)
[2016-09-12 05:06] LABS: APTT 31.7 SEC (23.0-38.0); INR 1.15 (0.83-1.16); PROTIME(PATIENT) 14.7 SEC (12.0-15.0)
[2016-09-12 05:37] LABS: ALANINE AMINOTRANSFERASE 76 IU/L (21-72); ALBUMIN 2.3 g/dL (3.5-5.0); ALKALINE PHOSPHATASE 330 IU/L (38-126); ANION GAP 4 mEq/L (8-16); ASPARTATE AMINOTRANSFERASE 22 IU/L (17-59); BILIRUBIN,TOTAL 1.3 mg/dL (0.1-1.4); CARBON DIOXIDE 30 mEq/l (22-31); CHLORIDE 103 mEq/L (97-110); CREATININE 0.5 mg/dL (0.7-1.3); GLOMERULAR FILTRATION RATE > 60; GLUCOSE 188 mg/dL (70-100); POTASSIUM 4.9 mEq/L (3.5-5.2); SODIUM 137 mEq/L (134-144); TOTAL PROTEIN 4.7 g/dL (6.3-8.2); TRIGLYCERIDE 141 mg/dL (40-150)
[2016-09-12 06:31] LABS: PLATELET ESTIMATE ADEQUATE (ADEQ); POLYCHROMASIA 1+
[2016-09-12 06:32] LABS: GIANT PLATELETS PRESENT
[2016-09-12] MEDS: PETROLAT,WHT/MIN OIL/SOD CHL 3.5 GM OPHT.OINT LEFTEYE SCH ×5 (06:49→22:55)
[2016-09-12] MEDS: INSULIN REGULAR, HUMAN 100 UNIT/1 ML VIAL HIGH SC SCH ×3 (06:49→18:54)
--- NOTE | 2016-09-12 08:37 | SOAPPROG ---
[facility] Progress Note Assessment/Plan: Assessment/Plan s/p antrectomy, gastrojejunostomy, closure of duodenal stump for large duodenal ulcer, likely NSAID/steroid-related s/p resection of brainstem lymphoma s/p jejunostomy tube placement has moderate volume PEs but also had black tarry stools this morning/last night on heparin IVC filter placement planned for today keep tube feeding at low volume secondary to nausea and GI bleeding 09/12/16 08:36 Subjective: mild nausea black tarry stools this a.m. Objective: Vital Signs Temp Pulse Resp BP Pulse Ox 36.8 C 111 H 18 90/59 L 87 L 09/12/16 07:31 09/12/16 07:31 09/12/16 07:31 09/12/16 07:31 09/12/16 07:31 Laboratory Results 09/12/16 04:50 09/12/16 04:50 09/11/16 09/12/16 09/13/16 05:59 05:59 05:59 Intake Total 1963.6 Output Total 1450 Balance -1450 1963.6 PT 14.7 SEC (12.0-15.0) 09/12/16 04:50 INR 1.15 (0.83-1.16) 09/12/16 04:50 Physical Exam - Physical Exam General Appearance: alert Respiratory: lungs clear Cardiac/Chest: regular rate, rhythm Abdomen: soft, No distended ICD10 Worksheet Patient Problems: Problems Problem Status Diagnosed Brain lesion Acute Perforated duodenal ulcer Acute - ICD10 Problem Qualifiers (1) Perforated duodenal ulcer
[2016-09-12] MEDS: metFORMIN HCL 500 MG TAB TUBE SCH ×2 (08:49→18:54)
[2016-09-12] MEDS: LANSOPRAZOLE SUSP 30MG/10ML UDSYR (Adult) TUBE SCH (08:49)
[2016-09-12] MEDS: MICAFUNGIN NA 100 MG in NS 100 ML IV SCH (08:50)
[2016-09-12] MEDS: ERYTHROMYCIN 0.5% 1 GM OPHT.OINT LEFTEYE SCH ×3 (10:18→22:55)
[2016-09-12 10:36] LABS: HEMATOCRIT 24.6 % (40.0-51.0); HEMOGLOBIN 8.5 g/dL (13.7-17.5)
--- NOTE | 2016-09-12 11:08 | POSTOPPROG ---
Post Op Note Date of Operation: 09/12/16 Surgeon: Abdon Dixon Anesthesia: IV Sedation Pre-op Diagnosis: Pulmonary Embolism Post-op Diagnosis: Same Indication: GI bleeding on anticoagulation Procedure: IVC filter Findings: Patent IVC, retrievable filter in good position Inf/Abcess present in the surg proc area at time of surgery?: No Complications: 0
--- NOTE | 2016-09-12 12:08 | IR ---
Inferior Venacavogram Inferior Vena Caval Filter Placement History: Gastrointestinal bleeding while on anticoagulation for pulmonary embolism. Consent: Risks and benefits of the procedure were discussed in detail, and informed consent was obta ined. The patient accepted risks of maldeployment or migration of filter, pulmonary embolism despite filter, internal bleeding, and occlusion of inferior vena cava. Medications: Intravenous analgesia was given under my supervision. Vital signs, pulse oximetry, and e lectrocardiogram were monitored. The patient received 50 micrograms of fentanyl intravenously. 4 mg o f Zofran were given intravenously, prophylactically. Start time: 1045. End time: 1100. Fluoroscopy time in minutes: 1.0. Estimated exposure in mGy: 35.5. Technique: The right groin was prepped and draped in sterile fashion. All elements of maximal sterile barrier technique were used, including cap, mask, sterile gown, sterile gloves, large sterile sheet, hand hygiene, and 2% chlorhexidine for cutaneous antisepsis. For ultrasound imaging guidance, the tr ansducer and cable were placed in a sterile cover, and sterile coupling gel was used. Ultrasound dean luation of potential access sites was performed. After successfully identifying patent right common f emoral vein, ultrasound guidance was used to enter the vein with 5-Palestinian microintroducer. Permanent record was created. 1% Xylocaine was used for local anesthetic. 9-Palestinian dilator was passed over a 0. 035 J-wire. 8-Palestinian sidearm sheath with a coaxial 6-Palestinian multisidehole straight measuring catheter was placed to the low inferior vena cava, and frontal inferior vena cavagram was imaged. The sheath and catheter were advanced over the wire to the upper inferior vena cava. The wire and catheter were removed, and a retrievable a Cook Celect filter was deployed. Frontal spot image was obtained. Sheath was removed and hemostasis was obtained by manual compression with a Thrombix patch. Sterile dressin g was applied. The patient tolerated the procedure well and was returned to his room in stable condit ion. Findings: Inferior vena cava is patent and normal in size. The renal veins are patent bilaterally, en tering the inferior vena cava at the level of the T12-L1 interspace. The legs of the filter are at th e level of the inferior margin of L2, while the retrieval hook at the apex of the filter is at the le elma of the upper margin of L1. No tilt of the filter. Multiple surgical clips are found in the right upper quadrant, and skin clips are present in the midline of the abdomen. Impression: 1. Normal inferior vena cava. 2. Placement of retrievable inferior vena caval filter at the level of L1-L2. Comment: Successful retrieval rates are highest in the first 6 months after placement of the filter. - - - - - - - - - - - - - - - - - - - - - - - - - - - - - - - - - - - - - - - - - - - - (PQRS Measures: Current medications were listed in the medical record, including all known prescript ions, [id number] medications, herbal medications, and nutritional supplements. Tobacco Use: Non e. Prophylactic antibiotic: Unnecessary. VTE prophylaxis: Unnecessary.)
--- NOTE | 2016-09-12 14:13 | HOSPPROG ---
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/ facial droop/dysphagia - chemo delayed 4 weeks per onc # duodenal perforation d/t ulcer s/p antrectomy and billroth II by Dr Rocha # sepsis/peritonitis - serratia/av -IV invanz, micafungin through 09/15 # nutrition - weaning TPN, cont J-tube feeds # DMII - currently getting insulin in TPN, will restart metformin when enteral feedings ## high risk with UGIB Subjective: Black, tarry stools overnight Objective: Vital Signs Temp Pulse Resp BP Pulse Ox 36.6 C 106 H 16 102/53 L 97 09/12/16 13:07 09/12/16 13:07 09/12/16 13:07 09/12/16 13:07 09/12/16 13:07 Laboratory Results 09/12/16 10:12 09/12/16 04:50 09/11/16 09/12/16 09/13/16 05:59 05:59 05:59 Intake Total 1963.6 683 Output Total 1450 175 Balance -1450 1963.6 508 PT 14.7 SEC (12.0-15.0) 09/12/16 04:50 INR 1.15 (0.83-1.16) 09/12/16 04:50 Vitals reviewed Pleasant, no acute distress Left-sided facial droop Regular rate and rhythm, no murmurs rubs or gallops No respiratory distress, lungs clear to auscultation bilaterally, no wheezes or rales Abdomen soft nontender, nondistended, no hepatosplenomegaly; incision clean dry and intact ICD10 Worksheet Patient Problems: Problems Problem Status Diagnosed Brain lesion Acute Perforated duodenal ulcer Acute
[2016-09-12] MEDS ORDERED: NS 1,000 ML IV ONE (14:21)
--- NOTE | 2016-09-12 14:43 | SOAPPROG ---
SOAP Progress Note Assessment/Plan: E&M for RN PEDIATRIC NHL * Primary RN PEDIATRIC lymphoma, c-myc neg: Resected 08/26 and planning to wait 4 weeks post resection before starting therapy. Residual left facial hemiparesis and dysphagia. CT c/a/p showed no evidence of other sites of disease. Testicular u/ s negative. * Duodenal ulcer rupture and peritonitis s/p antrectomy/Billroth II: post op per surgery. On IV invanz, micafungin through 09/15 per ID. * Acute PE: relatively asymptomatic. Anticoagulation stopped due to GI bleeding. Spoke with Dr. Nugent and I agree with IVC filter and holding anticoagulation for several days then rechallenge. * Acute drop in H/H: nursing reported melanotic stools; heparin on hold; continue to monitor * F/E/N: TF started and going ok so far Subjective: With son and friends. Tired but no acute complaints. No change in facial weakness or balance. Objective: Vital Signs Temp Pulse Resp BP Pulse Ox 36.6 C 106 H 16 102/53 L 97 09/12/16 13:07 09/12/16 13:07 09/12/16 13:07 09/12/16 13:07 09/12/16 13:07 Laboratory Results 09/12/16 10:12 09/12/16 04:50 09/11/16 09/12/16 09/13/16 05:59 05:59 05:59 Intake Total 1963.6 683 Output Total 1450 175 Balance -1450 1963.6 508 PT 14.7 SEC (12.0-15.0) 09/12/16 04:50 INR 1.15 (0.83-1.16) 09/12/16 04:50 Laboratory Tests 09/11/16 09/11/16 09/12/16 05:05 22:20 04:50 WBC 10.40 H 15.77 H Hgb 9.2 L 8.5 L 09/12/16 10:12 WBC Hgb 8.5 L Physical Exam - Physical Exam General Appearance: no apparent distress Respiratory: lungs clear Cardiac/Chest: regular rate, rhythm, systolic murmur Abdomen: normal bowel sounds, soft ICD10 Worksheet Patient Problems: Problems Problem Status Diagnosed Brain lesion Acute Perforated duodenal ulcer Acute
[2016-09-12] MEDS: PANTOPRAZOLE SODIUM 40 MG in NS 100 ML IV SCH ×2 (16:07→21:20)
[2016-09-12 18:52] LABS: HEMATOCRIT 23.7 % (40.0-51.0)
[2016-09-12] MEDS: ERTAPENEM 1 GM in NS 100 ML IV SCH (21:20)
[2016-09-13] MEDS: INSULIN REGULAR, HUMAN 100 UNIT/1 ML VIAL HIGH SC SCH ×4 (00:29→17:36)
[2016-09-13] MEDS: PETROLAT,WHT/MIN OIL/SOD CHL 3.5 GM OPHT.OINT LEFTEYE SCH ×6 (03:05→21:12)
--- NOTE | 2016-09-13 06:34 | CPEKG ---
Heart Rate: 118 RR Interval: 508 P-R Interval: 148 QRSD Interval: 104 QT Interval: 324 QTC Interval: 455 P [place]: 42 QRS [place]: -36 T Wave [place]: 25 EKG Severity - OTHERWISE NORMAL ECG - EKG Impression: SINUS TACHYCARDIA EKG Impression: LEFT AXIS DEVIATION Electronically Signed By: Isidoro Heller 14-Sep-2016 10:47:03
[2016-09-13 06:40] LABS: % IMMATURE GRANULYOCYTES 1.2 % (0.0-1.1); ABSOLUTE IMMATURE GRANULOCYTES 0.13 10^3/uL (0.00-0.10); ADD DIFF? NO; ADD MORPH? NO; ADD SCAN? NO; ATYPICAL LYMPHOCYTE FLAG 40 (0-99); FRAGMENT RBC FLAG 0 (0-99); HEMATOCRIT 24.1 % (40.0-51.0); HEMATOCRIT 24.2 % (40.0-51.0); HEMOGLOBIN 7.9 g/dL (13.7-17.5); HEMOGLOBIN 8.1 g/dL (13.7-17.5); LEFT SHIFT FLG 90 (0-99); LIPEMIA HEMOLYSIS FLAG 80 (0-99); MEAN CELL HEMOGLOBIN 31.7 pg (27.9-34.1); MEAN CELL HEMOGLOBIN CONCENTR. 32.6 g/dL (32.4-36.7); MEAN CELL VOLUME 97.2 fL (81.5-99.8); MEAN PLATELET VOLUME 9.5 fL (8.7-11.7); PLATELET CLUMPS FLAG 10 (0-99); PLATELET COUNT 341 10^3/uL (150-400); RED BLOOD CELL COUNT 2.49 10^6/uL (4.40-6.38); RED CELL DISTRIBUTION WIDTH 13.4 % (11.5-15.2)
[2016-09-13 06:44] LABS: INR 1.21 (0.83-1.16); PROTIME(PATIENT) 15.3 SEC (12.0-15.0)
[2016-09-13 06:45] LABS: APTT 28.1 SEC (23.0-38.0)
[2016-09-13] MEDS ORDERED: NS 500 ML IV ONE ×3 (06:45→22:41)
[2016-09-13 06:50] LABS: ALANINE AMINOTRANSFERASE 62 IU/L (21-72); ALBUMIN 2.3 g/dL (3.5-5.0); ALKALINE PHOSPHATASE 295 IU/L (38-126); ANION GAP 8 mEq/L (8-16); ASPARTATE AMINOTRANSFERASE 24 IU/L (17-59); BILIRUBIN,TOTAL 1.2 mg/dL (0.1-1.4); CALCIUM 8.5 mg/dL (8.5-10.4); CARBON DIOXIDE 29 mEq/l (22-31); CHLORIDE 102 mEq/L (97-110); CREATININE 0.5 mg/dL (0.7-1.3); GLOMERULAR FILTRATION RATE > 60; GLUCOSE 215 mg/dL (70-100); POTASSIUM 4.6 mEq/L (3.5-5.2); SODIUM 139 mEq/L (134-144); TOTAL PROTEIN 4.9 g/dL (6.3-8.2); TRIGLYCERIDE 144 mg/dL (40-150)
[2016-09-13] MEDS: PANTOPRAZOLE SODIUM 40 MG in NS 100 ML IV SCH ×2 (08:36→20:45)
[2016-09-13] MEDS: metFORMIN HCL 500 MG TAB TUBE SCH ×2 (08:36→17:40)
[2016-09-13] MEDS: ERYTHROMYCIN 0.5% 1 GM OPHT.OINT LEFTEYE SCH ×3 (08:42→21:12)
[2016-09-13] MEDS: MICAFUNGIN NA 100 MG in NS 100 ML IV SCH (09:02)
--- NOTE | 2016-09-13 10:14 | DX ---
Portable Chest, Single View on September 13, 2016 at 9:00 a.m. Indication: Hypoxia. Comparison: Portable chest dated September 03, 2016. Findings: The esophagogastric tube and right IJ central venous line have been removed since 2 weeks p rior. The right PICC remains in good position. Hypoventilation is unchanged. Bibasilar consolidation is worse and a new small right pleural effusion has developed obscuring the right diaphragm. Heart si ze is within normal limit for degree of inspiration and AP technique. Impression: Hypoventilation, bibasilar (atelectasis versus bronchopneumonia), and probable small rig ht pleural effusion.
--- NOTE | 2016-09-13 11:11 | HOSPPROG ---
Hospitalist Progress Note Assessment/Plan: # SIRS, new - broad differential, suspect most likely aspiration pneumonia - empirically broaden antibiotics to vanc and Zosyn for now - discussed with Infectious Disease - move to step-down unit for now - blood/sputum cultures sent # UGIB in setting of IV heparin - likely anastomotic ooze - hold IV heparin, follow H&H - cont Protonix IV # ABLA - s/p 2U transfusion - H/H stable x 24 hours # PE - need to hold anticoagulation due to GI bleed - IVC filter placed # primary ADMINISTRATIVE RESIDENT lymphoma s/p cerebellar debulking with residual R hemiparesis/L facial droop/dysphagia - chemo delayed 4 weeks per onc - neuro to eval vision changes today - will involve ophtho if neuro feels appropriate # duodenal perforation d/t ulcer s/p antrectomy and billroth II by Dr Rocha # sepsis/peritonitis - serratia/av - abx changed as above # nutrition - weaning TPN, cont J-tube feeds # DMII - restart metformin ## high risk with new SIRS Subjective: Tells me his left eye vision has never returned, would like to see an production helper; increased sputum production Objective: Vital Signs Temp Pulse Resp BP Pulse Ox 38.0 C 117 H 14 97/61 L 92 09/13/16 07:57 09/13/16 07:57 09/13/16 07:57 09/13/16 07:57 09/13/16 07:57 Microbiology 09/13/16 04:30 - Final Sputum, Expectorated Laboratory Results 09/13/16 06:00 09/13/16 06:00 09/12/16 09/13/16 09/14/16 05:59 05:59 05:59 Intake Total 1963.6 2030 Output Total 1300 Balance 1963.6 730 PT 15.3 SEC (12.0-15.0) H 09/13/16 06:00 INR 1.21 (0.83-1.16) H 09/13/16 06:00 Vitals reviewed Pleasant, no acute distress Right hemiparesis, left-sided facial droop Regular rate and rhythm, no murmurs rubs or gallops Mild respiratory distress, coughing, no wheezes rhonchi, he does have bilateral basilar rales Abdomen with incision clean dry and intact, J-tube in place, mildly distended but soft nontender ICD10 Worksheet Patient Problems: Problems Problem Status Diagnosed Brain lesion Acute Perforated duodenal ulcer Acute
[2016-09-13] MEDS ORDERED: VANCOMYCIN HCL/NORMAL SALINE 250 ML IV SCH (11:30)
--- NOTE | 2016-09-13 11:38 | SOAPPROG ---
SOAP Progress Note Assessment/Plan: Assessment: s/p antrectomy/BII + feeding jejunostomy tolerating TF with no clinical signs of GI bleeding at this time Plan: continue TF/supportive care 09/07/16 13:18 09/13/16 11:35 Subjective: sitting up in chair denies nausea feels very weak Objective: Vital Signs Temp Pulse Resp BP Pulse Ox 38.0 C 117 H 14 97/61 L 92 09/13/16 07:57 09/13/16 07:57 09/13/16 07:57 09/13/16 07:57 09/13/16 07:57 Microbiology 09/13/16 04:30 - Final Sputum, Expectorated Laboratory Results 09/13/16 06:00 09/13/16 06:00 09/12/16 09/13/16 09/14/16 05:59 05:59 05:59 Intake Total 1963.6 2030 Output Total 1300 Balance 1963.6 730 PT 15.3 SEC (12.0-15.0) H 09/13/16 06:00 INR 1.21 (0.83-1.16) H 09/13/16 06:00 Physical Exam - Physical Exam General Appearance: mild distress Respiratory: lungs clear, decreased breath sounds (at bases) Cardiac/Chest: regular rate, rhythm Abdomen: normal bowel sounds, non-tender, soft, distended, other (JT in place/ secondary anchor with tape applied) ICD10 Worksheet Patient Problems: Problems Problem Status Diagnosed Brain lesion Acute Perforated duodenal ulcer Acute
[2016-09-13] MEDS: PIPERACILLIN/TAZO 4.5 GM/DEX 100 ML IV SCH ×2 (12:48→17:36)
[2016-09-13] MEDS: VANCOMYCIN 1.25 GM in D5W 250 ML IV SCH (12:54)
[2016-09-13] MEDS: INSULIN GLARGINE 100 UNITS/ML SYRINGE SC SCH (13:07)
--- NOTE | 2016-09-13 13:41 | SOAPPROG ---
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 Residual left facial hemiparesis and dysphagia. CT c/a/p showed no evidence of other sites of disease. Testicular u/ s negative. * Duodenal ulcer rupture and peritonitis s/p antrectomy/Billroth II: post op per surgery. On IV invanz, micafungin through 09/15 per ID. * Acute PE: relatively asymptomatic. Anticoagulation stopped due to GI bleeding. IVC filter placed, holding anticoagulation * GI bleed, hct stable * F/E/N: TF started and going ok so far Plan:Continue post op care 09/13/16 13:39 Objective: Vital Signs Temp Pulse Resp BP Pulse Ox 98.7 F 106 H 15 78/57 L 97 09/13/16 11:44 09/13/16 11:44 09/13/16 11:44 09/13/16 11:44 09/13/16 11:44 Microbiology 09/13/16 04:30 - Final Sputum, Expectorated Laboratory Results 09/13/16 06:00 09/13/16 06:00 09/12/16 09/13/16 09/14/16 05:59 05:59 05:59 Intake Total 1963.6 2030 Output Total 1300 Balance 1963.6 730 PT 15.3 SEC (12.0-15.0) H 09/13/16 06:00 INR 1.21 (0.83-1.16) H 09/13/16 06:00 ICD10 Worksheet Patient Problems: Problems Problem Status Diagnosed Brain lesion Acute Perforated duodenal ulcer Acute
[2016-09-13 14:41] LABS: HEMATOCRIT 21.8 % (40.0-51.0); HEMOGLOBIN 7.2 g/dL (13.7-17.5)
--- NOTE | 2016-09-13 14:50 | GCON ---
[f rep st] CONSULTATION INPATIENT CONSULTATION NOTE DATE OF CONSULTATION: 09/13/2016 CHIEF COMPLAINT: Left eye vision changes. HISTORY OF PRESENT ILLNESS: This is a 61-year-old male who has had a prolonged hospitalization at [facility]. 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 Following the surgery, he was left with l eft facial weakness, dysphagia and left arm incoordination. Unfortunately, he has had a prolonged ho spital course complicated by bowel perforation, pulmonary embolism requiring anticoagulation, GI blee d requiring stopping anticoagulation and placing a filter. Throughout this, he has had persistent le ft facial weakness, dysphagia and incoordination of the left hand due to debulking of a primary [employer]IL[employer]IO[employer]ATION RESEARCH ECOLOGIST l ymphoma tumor in the left cerebellum. Today, I am also seeing the patient. The patient reported to the hospitalist he has had longstanding left eye vision problems. The patient states that these problems existed prior to the hospitalizati on, but since the surgery the have worsened. They are described as problems focusing in the left eye seeing things. He states the right eye has normal vision and no problems. This prompted neurologic consultation. 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 SOCIAL HISTORY: No tobacco. FAMILY HISTORY: Diabetes, hypertension. Sister with ovarian cancer. REVIEW OF SYSTEMS: At this time, the review of systems is negative, except what is placed in the HPI . PHYSICAL EXAM: VITAL SIGNS: Blood pressure is 78/57, heart rate 64, respirations 15, saturating 97% on 3 L nasal cannula, temperature 37.1 degrees Celsius. GENERAL: In no acute distress. EYES: Fun duscopic exam could not visualize the optic disk. LUNGS: Clear to auscultation bilaterally. No rho nchi or rales. HEART: Regular rate and rhythm. No murmurs. No carotid bruits auscultated. NEUROL OGIC: On mental status, he is alert and oriented to person, place, and date. Memory, attention, joni guage and fund of knowledge all appear intact. He does have problems speaking due to dysphagia from his left cerebellar resection. Cranial nerves: Pupils equal, round, and reactive to light. Visual ny are full to confrontation. Extraocular muscle movement shows vision to be very psychotic and difficulty following my finger at times, although no clear impairment in either direction or vertical ly is seen. When I cover the patient's left eye, he says his right eye has good acuity and he can se e my finger well. When I cover his right eye, he says his left visual acuity is poor and he has prob lems seeing. This is his primary complaint now and it seems this has preexisted the surgery, it has worsened since the surgery. He has a left facial weakness from his resection. Bilateral face symmet karyn sensation. Hearing intact to conversation. Tongue protrudes midline. Uvula raises symmetricall y. He does have dysphagia and this dysarthric voice on talking. Traps 5/5 strength. Motor exam: N ormal tone and strength in all 4 extremities. His left arm is incoordinated. Coordination: Ataxia in the left arm. Sensory exam all 4 extremities intact to light touch. Reflexes bilateral biceps 2/ 4. Gait deferred. LABS: March 13, 2016: A chemistry shows a creatinine of 0.5 and glucose is 215. IMAGING: On August 27, 2016, a brain MRI with and without contrast shows status post partial surgi narinder resection of a left-sided cerebellar tumor. I personally visualized this study. ASSESSMENT: 1. 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 2. Residual left facial weakness, dysphagia, dysarthria and left arm ataxia from cerebellar tumor re section. 3. Chronic left eye visual acuity problems worsened since surgery, per patient's subjective report. I am not clear if the patient has a primary eye issue complicated by his known left cerebellar resec tion neurologic problems or if this is entirely a neurologic issue. The patient requests an ophthalm ology evaluation to detect any primary eye issues, which seems reasonable at this time. However, I a m not exactly sure of the etiology of his symptoms. If the etiology of his symptoms are completely f rom his neurologic damage from the left cerebellar tumor or resection, treatment would be symptomatic at this time, if further tumor cannot be resected or treated. If a primary eye issue, I would defer to primary Ophthalmology evaluation. RECOMMENDATIONS: 1. No further neurologic workup is needed at this time. 2. It would not be unreasonable to allow Ophthalmology look for any primary left eye issues. If oph thalmology exam feels there is a new primary neurologic issue, I would be happy to get re-involved bu t at this point, I suspect his issues are primarily from his known left cerebellar tumor resection an d possibly an additional primary left eye issue. Neurology will sign off, but will be happy to become re-involved if clinical situation changes or mor e input is needed. /[id number]/MODL
[2016-09-13] MEDS: NS 1,000 ML IV SCH (15:19)
--- NOTE | 2016-09-13 15:45 | PCMIDPN ---
Assessment/Plan: Assessment/Plan: 1. Peritonitis secondary to duodenal perforation: - Covered broadly with vanco , zosyn + micafungin. see below - Cx preliminarily with Serratia (susceptibility profile noted) and C. albicans. Susceptibilities still pending -Continue with current therapy for now. -Labs reviewed. Creatinine stable. -s/p open jejunostomy yesterday. no abscesses seen -s/p antrectomy, gastrojejunostomy, over sewen duodenal stump due to duodenal perforation. - On Day #08/20 of invanz and micafungin. Tentative end date: 09/15/16. - care coordinated with hosptiliast 2. B/l infiltrates, fever, -multiple failed swallow studies. possible aspiration although no witnessed event -productive cough, progressive sx. -antbx broadened earlier today to vanco, zosyn. empirically - blood cx in porgress, and sputum cx - will folllwo and make adjustement to atbx as needed. Meds vanco zosyn micafungin---09/01--#08/20 invanz 09/01---09/13/16 Subjective: TEmp to 38.0 degress F today, coughing up phlegm. denies abd pain. Objective: Vital Signs Temp Pulse Resp BP Pulse Ox 37.1 C 106 H 15 78/57 L 97 09/13/16 11:44 09/13/16 11:44 09/13/16 11:44 09/13/16 11:44 09/13/16 11:44 Microbiology 09/13/16 04:30 - Final Sputum, Expectorated Laboratory Results 09/13/16 13:30 09/13/16 06:00 09/12/16 09/13/16 09/14/16 05:59 05:59 05:59 Intake Total 1963.6 2030 Output Total 1300 450 Balance 1963.6 730 -450 - Physical Exam General Appearance: alert, no apparent distress Respiratory: coarse breath sounds Cardiac/Chest: regular rate, rhythm Extremities: No swelling Abdomen: normal bowel sounds, non-tender, soft, other ICD10 Worksheet Patient Problems: Problems Problem Status Diagnosed Brain lesion Acute Perforated duodenal ulcer Acute
[2016-09-13] MEDS ORDERED: TEMAZEPAM 15 MG CAP PO PRN (16:05)
[2016-09-13 22:15] LABS: HEMATOCRIT 19.7 % (40.0-51.0)
[2016-09-13 22:29] LABS: HEMOGLOBIN 6.5 g/dL (13.7-17.5)
[2016-09-14] MEDS: INSULIN REGULAR, HUMAN 100 UNIT/1 ML VIAL HIGH SC SCH ×4 (00:17→18:27)
[2016-09-14] MEDS: PIPERACILLIN/TAZO 4.5 GM/DEX 100 ML IV SCH ×5 (00:20→23:45)
[2016-09-14] MEDS: VANCOMYCIN 1.25 GM in D5W 250 ML IV SCH ×2 (01:25→12:50)
[2016-09-14] MEDS: PETROLAT,WHT/MIN OIL/SOD CHL 3.5 GM OPHT.OINT LEFTEYE SCH ×6 (02:03→20:17)
[2016-09-14] MEDS: NS 1,000 ML IV SCH (04:03)
[2016-09-14 06:12] LABS: % IMMATURE GRANULYOCYTES 1.2 % (0.0-1.1); ADD DIFF? NO; ADD MORPH? NO; ADD SCAN? NO; ATYPICAL LYMPHOCYTE FLAG 30 (0-99); FRAGMENT RBC FLAG 0 (0-99); HEMATOCRIT 22.6 % (40.0-51.0); HEMOGLOBIN 7.5 g/dL (13.7-17.5); LEFT SHIFT FLG 20 (0-99); LIPEMIA HEMOLYSIS FLAG 80 (0-99); MEAN CELL HEMOGLOBIN 31.5 pg (27.9-34.1); MEAN CELL HEMOGLOBIN CONCENTR. 33.2 g/dL (32.4-36.7); MEAN PLATELET VOLUME 9.5 fL (8.7-11.7); PLATELET CLUMPS FLAG 20 (0-99); PLATELET COUNT 295 10^3/uL (150-400); RED BLOOD CELL COUNT 2.38 10^6/uL (4.40-6.38); RED CELL DISTRIBUTION WIDTH 14.6 % (11.5-15.2)
[2016-09-14 06:32] LABS: ALANINE AMINOTRANSFERASE 56 IU/L (21-72); ALBUMIN 2.1 g/dL (3.5-5.0); ALKALINE PHOSPHATASE 254 IU/L (38-126); ANION GAP 7 mEq/L (8-16); ASPARTATE AMINOTRANSFERASE 24 IU/L (17-59); BILIRUBIN,TOTAL 1.2 mg/dL (0.1-1.4); CALCIUM 7.9 mg/dL (8.5-10.4); CARBON DIOXIDE 30 mEq/l (22-31); CHLORIDE 102 mEq/L (97-110); CREATININE 0.5 mg/dL (0.7-1.3); GLOMERULAR FILTRATION RATE > 60; GLUCOSE 146 mg/dL (70-100); INR 1.24 (0.83-1.16); POTASSIUM 3.6 mEq/L (3.5-5.2); PROTIME(PATIENT) 15.6 SEC (12.0-15.0); SODIUM 139 mEq/L (134-144); TOTAL PROTEIN 4.5 g/dL (6.3-8.2); TRIGLYCERIDE 102 mg/dL (40-150)
[2016-09-14 06:33] LABS: APTT 30.3 SEC (23.0-38.0)
[2016-09-14] MEDS: PANTOPRAZOLE SODIUM 40 MG in NS 100 ML IV SCH ×2 (07:54→20:17)
[2016-09-14] MEDS: INSULIN GLARGINE 100 UNITS/ML SYRINGE SC SCH (07:55)
[2016-09-14] MEDS: ERYTHROMYCIN 0.5% 1 GM OPHT.OINT LEFTEYE SCH ×3 (07:56→20:17)
[2016-09-14] MEDS: metFORMIN HCL 500 MG TAB TUBE SCH ×2 (07:56→18:27)
[2016-09-14] MEDS: MICAFUNGIN NA 100 MG in NS 100 ML IV SCH (08:04)
--- NOTE | 2016-09-14 08:06 | SOAPPROG ---
SOAP Progress Note Assessment/Plan: Assessment: s/p antrectomy/BII + feeding jejunostomy tolerating TF with recurrent GI bleed, intermitant Plan: continue TF/supportive care/transfuse additional unit PRBC GI consult for possible EGD as needed if bleeding persists 09/07/16 13:18 09/13/16 11:35 09/14/16 08:04 Subjective: resting comfortably/melanotic stool last night Objective: Vital Signs Temp Pulse Resp BP Pulse Ox 36.9 C 108 H 14 108/64 90 L 09/14/16 07:28 09/14/16 07:28 09/14/16 07:28 09/14/16 07:28 09/14/16 07:28 Microbiology 09/13/16 04:30 - Final Sputum, Expectorated Laboratory Results 09/14/16 06:00 09/14/16 06:00 09/13/16 09/14/16 09/15/16 05:59 05:59 05:59 Intake Total 2030 Output Total 1300 900 Balance 730 -900 PT 15.6 SEC (12.0-15.0) H 09/14/16 06:00 INR 1.24 (0.83-1.16) H 09/14/16 06:00 Physical Exam - Physical Exam General Appearance: alert, no apparent distress Cardiac/Chest: regular rate, rhythm Abdomen: non-tender, soft, distended, other (incision healing well/JT site intact) ICD10 Worksheet Patient Problems: Problems Problem Status Diagnosed Brain lesion Acute Perforated duodenal ulcer Acute
--- NOTE | 2016-09-14 09:18 | HOSPPROG ---
Hospitalist Progress Note Assessment/Plan: # UGIB in setting of IV heparin - likely anastomotic ooze - off IV heparin, seems to be continuing to bleed - cont Protonix IV - discussed with Dr. 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 with residual R hemiparesis/L facial droop/dysphagia - chemo delayed 4 weeks per onc - neuro identifies no clear neruological cause to vision problems - will d/w optho # duodenal perforation d/t ulcer s/p antrectomy and billroth II by Dr Rocha # sepsis/peritonitis - serratia/av - abx changed as above # nutrition - weaning TPN, cont J-tube feeds # DMII - restart metformin ## high risk with ongoing GIB Subjective: Had more melena last night; getting transfused again today Objective: Vital Signs Temp Pulse Resp BP Pulse Ox 36.9 C 108 H 14 108/64 90 L 09/14/16 07:28 09/14/16 07:28 09/14/16 07:28 09/14/16 07:28 09/14/16 07:28 Microbiology 09/13/16 04:30 - Final Sputum, Expectorated Laboratory Results 09/14/16 06:00 09/14/16 06:00 09/13/16 09/14/16 09/15/16 05:59 05:59 05:59 Intake Total 2030 Output Total 1300 900 Balance 730 -900 PT 15.6 SEC (12.0-15.0) H 09/14/16 06:00 INR 1.24 (0.83-1.16) H 09/14/16 06:00 Vitals reviewed Pleasant, no acute distress Regular rate and rhythm, no murmurs rubs or gallops No respiratory distress, lungs clear to auscultation bilaterally, no wheezes or rales Abdomen soft, nontender, J-tube in place, normal bowel sounds Right hemiparesis, left facial droop ICD10 Worksheet Patient Problems: Problems Problem Status Diagnosed Brain lesion Acute Perforated duodenal ulcer Acute
--- NOTE | 2016-09-14 09:58 | PCMIDPN ---
Assessment/Plan: Assessment/Plan: 1. Peritonitis secondary to duodenal perforation: - Covered broadly with vanco , zosyn + micafungin. see below - Cx preliminarily with Serratia (susceptibility profile noted) and C. albicans. Susceptibilities still pending -Continue with current therapy for now. -Labs reviewed. Creatinine stable. -s/p open jejunostomy yesterday. no abscesses seen -s/p antrectomy, gastrojejunostomy, over sewen duodenal stump due to duodenal perforation. - On Day #13/ Tentative end date: 09/15/16. - care coordinated with hospitalist 2. B/l infiltrates, fever, -multiple failed swallow studies. possible aspiration although no witnessed event -productive cough, progressive sx. -antbx broadened earlier yesterday to vanco, zosyn. empirically - blood cx in progress, and sputum cx- mixed mayra - await final on cx. plan for short course therapy only. Meds vanco-1.25gm q12- 09/13---#2 zosyn-4.5gm q6--09/13---#2 micafungin---09/01--#13/ invanz 09/01---09/13/16 Subjective: Afebrile. Coughing is less. On room air. has melanotic stools. Denies abd pain. Objective: Vital Signs Temp Pulse Resp BP Pulse Ox 36.9 C 108 H 14 108/64 90 L 09/14/16 07:28 09/14/16 07:28 09/14/16 07:28 09/14/16 07:28 09/14/16 07:28 Microbiology 09/13/16 04:30 - Final Sputum, Expectorated Laboratory Results 09/14/16 06:00 09/14/16 06:00 09/13/16 09/14/16 09/15/16 05:59 05:59 05:59 Intake Total 2030 Output Total 1300 900 Balance 730 -900 - Physical Exam General Appearance: alert, no apparent distress Respiratory: coarse breath sounds (mild at bases) Cardiac/Chest: regular rate, rhythm Extremities: No swelling Abdomen: normal bowel sounds, non-tender, soft, other (jejunostomy tube), No distended Skin: No erythema ICD10 Worksheet Patient Problems: Problems Problem Status Diagnosed Brain lesion Acute Perforated duodenal ulcer Acute
[2016-09-14] MEDS ORDERED: TEMAZEPAM 15 MG CAP TUBE PRN (11:31)
--- NOTE | 2016-09-14 11:57 | SOAPPROG ---
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 Residual left facial hemiparesis and dysphagia. CT c/a/p showed no evidence of other sites of disease. Testicular u/ s negative. * Duodenal ulcer rupture and peritonitis s/p antrectomy/Billroth II: post op per surgery. On IV invanz, micafungin through 09/15 per ID. * Acute PE: relatively asymptomatic. Anticoagulation stopped due to GI bleeding. IVC filter placed, holding anticoagulation * GI bleed: probably ongoing to some extent, txn support, possible GI consult * F/E/N: TF started and going ok so far Plan:Continue post op care, monitor H and H 09/13/16 13:39 09/14/16 11:54 Subjective: Feels about the same Objective: Vital Signs Temp Pulse Resp BP Pulse Ox 98.5 F 108 H 14 108/64 90 L 09/14/16 07:28 09/14/16 07:28 09/14/16 07:28 09/14/16 07:28 09/14/16 07:28 Microbiology 09/13/16 04:30 - Final Sputum, Expectorated Laboratory Results 09/14/16 06:00 09/14/16 06:00 09/13/16 09/14/16 09/15/16 05:59 05:59 05:59 Intake Total 2030 Output Total 1300 900 Balance 730 -900 PT 15.6 SEC (12.0-15.0) H 09/14/16 06:00 INR 1.24 (0.83-1.16) H 09/14/16 06:00 Physical Exam - Physical Exam General Appearance: mild distress Respiratory: normal breath sounds Cardiac/Chest: regular rate, rhythm Neuro/Psych: facial droop (left) ICD10 Worksheet Patient Problems: Problems Problem Status Diagnosed Brain lesion Acute Perforated duodenal ulcer Acute
--- NOTE | 2016-09-14 14:17 | GCON ---
[f rep st] CONSULTATION GASTROENTEROLOGY CONSULTATION. DATE OF CONSULTATION: 09/14/2016 REFERRING PHYSICIAN: Gaudencio Nugent MD REASON FOR CONSULTATION: 1. Melena. 2. Decreased hemoglobin and hematocrit. HISTORY OF PRESENT ILLNESS: The patient is a pleasant 61-year-old man who has a past medical history significant for diabetes, hypertension, and newly diagnosed B-cell lymphoma of the brain which required a left cerebellar resection recently. A few days after the resection, he developed a perforated duodenal ulcer and underwent a Billroth II surgical repair. Over the last number of days, by report he has been having melenic stools. By his history, he says he has had melenic stools over the last number of months and they have not changed significantly. That is 2-3 blackish stools a day. He did drop his hemoglobin and hematocrit last night, required transfusion to increase it. He denies any nausea, vomiting. No hematuria, no hematochezia, but he has melenic stools by reports. Interestingly, he does not have an elevated BUN/creatinine ratio with his melenic stools. He did have a colonoscopy a year ago, by report with Dr. Sousa at [facility] which reportedly had a right-sided polyp and was requested to have a 1-year followup. Likely, that was a large, right- sided, flat lesion with a piecemeal removal. However, I do not have that report at present, and is not obtainable on the weekend. Currently, the patient is doing well. When I initially came in, he was in the bathroom shaving and washing. When I returned, he was in his chair sitting comfortably in no distress. He is being transferred down to a step-down unit at the present time and I am here to help and evaluate and treat a possible GI bleed. PAST MEDICAL/SURGICAL HISTORY: Recent cerebellar resection biopsy, Billroth II for perforated duodenal ulcer. DM, HTN, B cell lymphoma SOCIAL HISTORY: Quit tobacco 25 years ago. He was a moderate alcohol drinker. He lives with his son. FAMILY HISTORY: A sister with ovarian cancer. There is diabetes and hypertension in his family as well. REVIEW OF SYSTEMS: A complete 10-point review of systems was performed and was negative, other than as noted in the HPI. Pertinent negatives include no chest pain, palpitations, diaphoresis, nausea, vomiting, hematuria, dysuria. MEDICATIONS: Medications in hospital include: Tylenol p.r.n.,. PICC line policy, bisacodyl rectal suppository p.r.n., diazepam p.r.n., Benadryl p.r.n., erythromycin ointment left eye t.i.d., Robitussin 10 mL q.4 hours p.r.n., Dilaudid p.r.n., Lantus 10 mg subcu daily and then sliding scale, Atrovent p.r.n., pantoprazole 40 mg IV b.i.d., Glucophage 500 mg b.i.d., micafungin as per ID, Zofran p.r.n., Prevacid is on hold, Zosyn 100 mL IV q.6, Restoril 15 mg q.h.s. p.r.n., vancomycin. IV q.12. ALLERGIES: No known drug allergies. PHYSICAL EXAM: GENERAL: An elderly male sitting in bed with some left-sided weakness, facial droop. VITAL SIGNS: Blood pressure is 86/53, pulse is 98, respirations 16, 97% on 2 L. HEENT: Eyes anicteric. PERRL. NECK: No JVD. No lymph nodes. BACK: No spine tenderness. No CVA tenderness. LUNGS: Clear. CARDIAC: S1, S2. Regular rate and rhythm. ABDOMEN: Bowel sounds are normal, in pitch and frequency Abdomen is soft. He has tenderness over his scar sites and a little bit in the right lower quadrant. EXTREMITIES: No cyanosis, clubbing. NEUROLOGIC: He is alert and oriented to person, place, and time. He has some difficulty speaking related to his left cerebellar resection. Left facial weakness. Some left arm ataxia. SKIN: No stigmata of advanced liver disease. No rashes. LABORATORY DATA: 1. WBC 8.07, hemoglobin 7.5, hematocrit 22.6, platelet count is 295 (that was this morning). Yesterday, prior to 1 unit blood transfusion, his hemoglobin was 6.5, hematocrit 19.7. 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 2. From today: Sodium 139, potassium 3.6, chloride 102, bicarb 30, BUN 12, creatinine 0.5, glucose 146. Calcium 7.9, total bilirubin 1.2, AST 24, ALT 56, alkaline phosphatase 254, albumin 2.1, total protein 4.5. 3. From today: Prothrombin time 15.6, INR 1.24, PTT 30.3. ADDENDUM: colon report states 18mm descending colon polyp removed by snare, path = TVA ASSESSMENT: 1. By report, melenic stools, although the small amount of stool that I see on his bed sheets does look brownish with a little black tinge. 2. Presumed posthemorrhagic anemia. 3. Recent perforated duodenal ulcer status post Billroth II. 4. Recently diagnosed B-cell lymphoma status post resection. 5. Diabetes. 6. Hypertension. RECOMMENDATIONS: 1. Continue PPI b.i.d.. 2. Serial hemoglobin and hematocrit, as per Hospitalists. 3. For now will not perform any EGD, although if he has any significant continued blood loss, then will recommend EGD at that time. 4. Try to obtain previous colonoscopy report from [place] from August 2015. It is possible that he is having a slow right colon bleed and not an upper GI bleed, given the BUN/creatinine ratio has not changed. 5. Continue holding anticoagulation. IVC filter is in place. 6. Patient will need a colonoscopy at some point, given his recommendation for colonoscopy in August. Obviously, if there is was no further bleeding, we will postpone this until things are more stable. If there is further bleeding and the upper endoscopy does not reveal any etiology, then performing a colonoscopy would be considered. Thank you for allowing me to participate in this patient's healthcare. Do not hesitate to call me with any questions. Copy requested to: Conrado Martinez MD /[id number]/MODL MTDD
--- NOTE | 2016-09-14 14:27 | PDINTPN ---
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 Left eye dry as his lid does not close * Perforated duodenum post gastrojejunostomy and oversewing of the duodenal stump, probably due to NSAIDS and steroids * DM worse on steroids now with glucose of 211 to 238 * GI Bleed- -follow H/H closely -GI for endoscopy soon * Anemia * Asp Pna * PE Subjective: Up in chair. Resting comfortably Objective: Vital Signs Temp Pulse Resp BP Pulse Ox 36.7 C 96 34 H 96/53 L 96 09/14/16 12:47 09/14/16 12:47 09/14/16 12:47 09/14/16 12:47 09/14/16 12:47 Microbiology 09/13/16 04:30 - Final Sputum, Expectorated Laboratory Results 09/14/16 06:00 09/14/16 06:00 09/13/16 09/14/16 09/15/16 05:59 05:59 05:59 Intake Total 2030 Output Total 1300 900 Balance 730 -900 PT 15.6 SEC (12.0-15.0) H 09/14/16 06:00 INR 1.24 (0.83-1.16) H 09/14/16 06:00 Physical Exam - Physical Exam General Appearance: alert, no apparent distress EENT: PERRL/EOMI, normal ENT inspection, other (eye patch left eye) Neck: non-tender, full range of motion, supple Respiratory: chest non-tender, lungs clear, normal breath sounds Cardiac/Chest: normal peripheral pulses, regular rate, rhythm Abdomen: normal bowel sounds, non-tender, soft Male Genitalia: deferred Rectal: deferred Skin: normal color, warm/dry ICD10 Worksheet Patient Problems: Problems Problem Status Diagnosed Brain lesion Acute Perforated duodenal ulcer Acute
[2016-09-14 17:13] LABS: HEMATOCRIT 24.8 % (40.0-51.0); HEMOGLOBIN 8.5 g/dL (13.7-17.5)
--- NOTE | 2016-09-14 21:58 | GCON ---
[f rep st] CONSULTATION OPHTHALMOLOGY CONSULTATION. DATE OF CONSULTATION: 09/14/2016 CHIEF COMPLAINT: Decreased vision left eye. PAST OCULAR HISTORY: Patient has a history of refractive error corrected with glasses which he has with him. He has a history of strabismus corrected with surgery approximately 20 years ago without residual deviation following surgery until his recent visual symptoms beginning two months ago. 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 The patient reports beginning to have trouble with conjugate vision using both eyes, but had clear vision in each individually when covering one eye beginning two months ago. He denies true diplopia at that time. He also started to develop left ear auditory difficulty and vertigo and left-sided facial numbness that led to his diagnosis of a cerebellar lesion. He states that following his surgery and during his hospital stay his vision has become progressively worse in the left eye. He denies pain in the eyes. He has been applying ophthalmic lubrication to the left eye and taping closed at night. 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 SOCIAL HISTORY: Denies tobacco use. FAMILY HISTORY: Denies a significant family history of ocular problems. PHYSICAL EXAM: GENERAL: Patient is alert and engaged in playing a game of AppGyver when beginning the consultation. HEENT: The left eye is patched with a soft cloth patch. Patient denies pain of the eyes. Visual acuity is 20/30 equivalent at near in the right eye with correction and 2/200 with correction in the left eye. His pupils are 7 mm constricting to 3 mm in the right and 3 mm constricted to 2 mm on the left. There may be a left afferent pupillary defect, but very difficult to bath house attendant given the noticeable anisometropia. His extraocular muscles movements are full. There is nystagmus of the left eye only , most prominent in up-gaze, but also seen in down and lateral gaze. There is slight ptosis of the left upper lid and noticeable weakness of the lower lid. With attempted eyelid closure, the is 10 mm of lagophthalmos on the left. There is decreased sensation on the left side of his face, around the eyes, as well as ocular surface sensation on the left side. There is also noticeable left-sided facial weakness. The left conjunctiva is 1+ injection. There is a 6 mm central corneal abrasion on the left. The anterior chamber in the left eye is clear with normal iris. There is trace nuclear sclerosis of the lens on the left eye. The right external ocular exam and anterior segment exam is normal. Dilated funduscopic examination of both eyes shows cup-to-disc ratio of 0.4. There is no evidence of nerve edema or retinal pathology. There is no evidence of diabetic retinopathy or intraocular infection. ASSESSMENT: The patient has complications of primary central nervous system lymphoma involvement of the cerebellum and what appears to be the lateral and posterior massiel and portion of the medulla with involvement of the descending sympathetic fibers. His corneal abrasion would explain his loss of vision, although other underlying causes of vision loss may also be present. PLAN: Recommend an antibiotic ointment such as erythromycin 4 times a day and taping the lid closed to completely cover and occlude the left eye to allow the corneal abrasion to heal. Once the patient is in a stable condition, enough for hospital discharge, he should follow up with Ophthalmology as an outpatient for further evaluation and possible permanent tarsorrhaphy if his lagophthalmos and facial weakness persist. His last MRI of the brain was August 26. A comparison MRI should be considered to determine if there is any interval change. /[id number]/MODL MTDD
[2016-09-15] MEDS: NS 1,000 ML IV SCH (00:26)
[2016-09-15] MEDS: INSULIN REGULAR, HUMAN 100 UNIT/1 ML VIAL HIGH SC SCH ×5 (00:26→23:52)
[2016-09-15] MEDS: VANCOMYCIN 1.25 GM in D5W 250 ML IV SCH ×2 (01:00→13:22)
[2016-09-15] MEDS: PETROLAT,WHT/MIN OIL/SOD CHL 3.5 GM OPHT.OINT LEFTEYE SCH ×6 (02:15→20:02)
[2016-09-15] MEDS: PIPERACILLIN/TAZO 4.5 GM/DEX 100 ML IV SCH ×4 (05:26→23:29)
[2016-09-15 05:34] LABS: % IMMATURE GRANULYOCYTES 1.7 % (0.0-1.1); ABSOLUTE IMMATURE GRANULOCYTES 0.12 10^3/uL (0.00-0.10); ADD DIFF? NO; ADD MORPH? NO; ADD SCAN? NO; ATYPICAL LYMPHOCYTE FLAG 50 (0-99); FRAGMENT RBC FLAG 0 (0-99); HEMATOCRIT 24.6 % (40.0-51.0); HEMOGLOBIN 8.1 g/dL (13.7-17.5); LEFT SHIFT FLG 20 (0-99); LIPEMIA HEMOLYSIS FLAG 80 (0-99); MEAN CELL HEMOGLOBIN 31.6 pg (27.9-34.1); MEAN CELL HEMOGLOBIN CONCENTR. 32.9 g/dL (32.4-36.7); MEAN CELL VOLUME 96.1 fL (81.5-99.8); MEAN PLATELET VOLUME 9.6 fL (8.7-11.7); PLATELET CLUMPS FLAG 0 (0-99); PLATELET COUNT 285 10^3/uL (150-400); RED BLOOD CELL COUNT 2.56 10^6/uL (4.40-6.38); RED CELL DISTRIBUTION WIDTH 15.3 % (11.5-15.2)
[2016-09-15 05:44] LABS: INR 1.25 (0.83-1.16); PROTIME(PATIENT) 15.7 SEC (12.0-15.0)
[2016-09-15 05:45] LABS: APTT 29.8 SEC (23.0-38.0)
[2016-09-15 05:58] LABS: ALANINE AMINOTRANSFERASE 44 IU/L (21-72); ALBUMIN 1.9 g/dL (3.5-5.0); ALKALINE PHOSPHATASE 272 IU/L (38-126); ANION GAP 7 mEq/L (8-16); ASPARTATE AMINOTRANSFERASE 20 IU/L (17-59); BILIRUBIN,TOTAL 0.9 mg/dL (0.1-1.4); CALCIUM 7.5 mg/dL (8.5-10.4); CARBON DIOXIDE 36 mEq/l (22-31); CHLORIDE 98 mEq/L (97-110); CREATININE 0.5 mg/dL (0.7-1.3); GLOMERULAR FILTRATION RATE > 60; GLUCOSE 116 mg/dL (70-100); MAGNESIUM 1.7 mg/dL (1.6-2.3); POTASSIUM 3.5 mEq/L (3.5-5.2); SODIUM 141 mEq/L (134-144); TOTAL PROTEIN 4.4 g/dL (6.3-8.2); TRIGLYCERIDE 105 mg/dL (40-150)
[2016-09-15] MEDS: INSULIN GLARGINE 100 UNITS/ML SYRINGE SC SCH (08:02)
[2016-09-15] MEDS: metFORMIN HCL 500 MG TAB TUBE SCH ×2 (08:03→18:04)
[2016-09-15] MEDS: PANTOPRAZOLE SODIUM 40 MG in NS 100 ML IV SCH ×2 (08:03→19:37)
[2016-09-15] MEDS: ERYTHROMYCIN 0.5% 1 GM OPHT.OINT LEFTEYE SCH ×3 (08:08→20:10)
--- NOTE | 2016-09-15 08:38 | HOSPPROG ---
Hospitalist Progress Note Assessment/Plan: #Acute blood loss anemia -H/H stable this morning -appreciate GI consult. They are trying to obtain records from prior endoscopy #Acute PE -holding heparin with acute bleed;IVC filter in place. #Uncontrolled DM -controlled on current regimen #Corneal abrasion -appreciate Opthal consultation -E-mycin ointment QID and tape eye closed. FU outpatient #Aspiration PNA -Vanc/Zosyn #Sepsis: resolved -2/2 peritonitis. Culture with Serratia/Kamilah albicans. Day 14 of Ertapenem, Micafungin #Perforated duodenum with abscess -hold steroids and NSAIDs. 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 No metastatic disease -await chemo 4 wks after resection and healed from abdominal standpoint #Acute hypoxic resp failure -cont wean off oxygen #Hyponatremia -resolved #Deconditioning: PT/OT #Diet: tube feeds #DVT ppx: SCDs #Disp: pt warrants inpt admission with IV abx, TPN Subjective: minimal abdominal pain Objective: Vital Signs Temp Pulse Resp BP Pulse Ox 36.9 C 102 H 33 H 114/59 L 95 09/15/16 08:00 09/15/16 08:00 09/15/16 08:00 09/15/16 08:00 09/15/16 08:00 Microbiology 09/13/16 04:30 - Final Sputum, Expectorated Laboratory Results 09/15/16 05:10 09/15/16 05:10 09/14/16 09/15/16 09/16/16 05:59 05:59 05:59 Intake Total 2857 Output Total 900 1600 Balance -900 1257 PT 15.7 SEC (12.0-15.0) H 09/15/16 05:10 INR 1.25 (0.83-1.16) H 09/15/16 05:10 - Physical Exam Constitutional: no apparent distress Eyes: PERRL, other (left eye with patch) Ears, Nose, Mouth, Throat: moist mucous membranes Cardiovascular: regular rate and rhythym Respiratory: no respiratory distress Gastrointestinal: other (surgical incision C/D/I) Genitourinary: no bladder fullness Skin: warm Musculoskeletal: full muscle strength Neurologic: AAOx3 Psychiatric: flat affect ICD10 Worksheet Patient Problems: Problems Problem Status Diagnosed Brain lesion Acute Perforated duodenal ulcer Acute
[2016-09-15] MEDS: MICAFUNGIN NA 100 MG in NS 100 ML IV SCH (09:15)
--- NOTE | 2016-09-15 11:26 | SOAPPROG ---
KAREY Progress Note Assessment/Plan: Assessment:Plan: 1) Melena - none today, HB stable, BUN low so I suspect a right colon bleed and not an UGI bleed 2) Polyps - had colon 08/21 with polyp removed and asked for repeat in one year - will try to get report from Dr. Sousa at [facility] 3) Anemia - serial H/H, no overt bleeding, no need for transfusion at present - did get 2 units total 4) lymphoma - as per Oncology If rebleeds, then will need scopes - EGD to r/o upper and colon for source of bleed imo 09/15/16 11:27 Subjective: CC- melana decreased H/H c/w GI bleed, hx perf DU, lymphoma in brain No more black stools no pain, no n/v Objective: Vital Signs Temp Pulse Resp BP Pulse Ox 36.9 C 102 H 33 H 114/59 L 98 09/15/16 08:00 09/15/16 08:00 09/15/16 08:00 09/15/16 08:00 09/15/16 09:10 Microbiology 09/13/16 04:30 - Final Sputum, Expectorated Laboratory Results 09/15/16 05:10 09/15/16 05:10 09/14/16 09/15/16 09/16/16 05:59 05:59 05:59 Intake Total 2857 Output Total 900 1600 Balance -900 1257 PT 15.7 SEC (12.0-15.0) H 09/15/16 05:10 INR 1.25 (0.83-1.16) H 09/15/16 05:10 A+Ox3 CTA S1S2 +BS, soft tender over site no rebound Laboratory Tests 09/14/16 09/14/16 09/15/16 06:00 16:50 05:10 Hgb 7.5 L 8.5 L 8.1 L Hct 22.6 L 24.8 L 24.6 L BUN 12 6 L Creatinine 0.5 L 0.5 L ICD10 Worksheet Patient Problems: Problems Problem Status Diagnosed Brain lesion Acute Perforated duodenal ulcer Acute
--- NOTE | 2016-09-15 13:55 | PDINTPN ---
Location And Measurement Technician Progress Note Assessment/Plan: Assessment: * Brain lymphoma, post surgery with residual left facial droop and dysarthria. Left eye dry as his lid does not close: patched * Perforated duodenum post gastrojejunostomy and oversewing of the duodenal stump, probably due to NSAIDS and steroids * DM - glucoses better * GI Bleed- -H/H stable at 24 without active bleeding currently -GI following: Will do upper and lower endoscopies if he rebleeds. * Anemia * Asp Pna: On vancomycin and Zosyn, doing well * PE - small volume. Status post IVC filter. Plan: Continue care in the ICU for now. Continue antibiotics, bronchopulmonary therapies. Follow hematocrit and lab. Speech therapy to continue to work with the patient regarding swallowing function. Subjective: Doing fairly well. Up in the chair. Wants to go home when possible. Wants to eat when possible. Denies significant pain. Objective: Vital Signs Temp Pulse Resp BP Pulse Ox 36.6 C 109 H 18 121/62 H 99 09/15/16 11:58 09/15/16 11:58 09/15/16 11:58 09/15/16 11:58 09/15/16 11:58 Microbiology 09/13/16 04:30 - Final Sputum, Expectorated Sputum Culture - Final Laboratory Results 09/15/16 05:10 09/15/16 05:10 09/14/16 09/15/16 09/16/16 05:59 05:59 05:59 Intake Total 2857 Output Total 900 1600 Balance -900 1257 PT 15.7 SEC (12.0-15.0) H 09/15/16 05:10 INR 1.25 (0.83-1.16) H 09/15/16 05:10 Physical Exam - Physical Exam General Appearance: alert, no apparent distress, other (In chair) EENT: other (Eye patched) Neck: normal inspection Respiratory: decreased breath sounds, rales (Bibasilar rales with inspiration), No rhonchi, No wheezing Cardiac/Chest: tachycardia (Sinus) Abdomen: non-tender, soft, other (Tolerating tube feeding) Skin: warm/dry Lymphatic: no adenopathy Extremities: No pedal edema Neuro/Psych: no motor/sensory deficits (extremities) ICD10 Worksheet Patient Problems: Problems Problem Status Diagnosed Brain lesion Acute Perforated duodenal ulcer Acute
--- NOTE | 2016-09-15 13:55 | SOAPPROG ---
SOAP Progress Note Assessment/Plan: Assessment/Plan s/p antrectomy, gastrojejunostomy, closure of duodenal stump for large duodenal ulcer, likely NSAID/steroid-related s/p resection of brainstem lymphoma s/p jejunostomy tube placement has moderate volume PEs but also had GI bleeding on heparin IVC filter placement placed tolerating tube feeding recommend rehab vs. home therapies once Hcts relatively stable for > 48 hours 09/15/16 13:53 Subjective: no further melena Objective: Vital Signs Temp Pulse Resp BP Pulse Ox 36.6 C 109 H 18 121/62 H 99 09/15/16 11:58 09/15/16 11:58 09/15/16 11:58 09/15/16 11:58 09/15/16 11:58 Microbiology 09/13/16 04:30 - Final Sputum, Expectorated Sputum Culture - Final Laboratory Results 09/15/16 05:10 09/15/16 05:10 09/14/16 09/15/16 09/16/16 05:59 05:59 05:59 Intake Total 2857 Output Total 900 1600 Balance -900 1257 PT 15.7 SEC (12.0-15.0) H 09/15/16 05:10 INR 1.25 (0.83-1.16) H 09/15/16 05:10 Physical Exam - Physical Exam General Appearance: alert Abdomen: soft, other (incision without erythema, abdomen soft) ICD10 Worksheet Patient Problems: Problems Problem Status Diagnosed Brain lesion Acute Perforated duodenal ulcer Acute - ICD10 Problem Qualifiers (1) Perforated duodenal ulcer
--- NOTE | 2016-09-15 16:07 | SOAPPROG ---
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 Has not yet started on Tx, due to hospital course 2.) Duodenal ulcer/GIB/perforation/peritonitis, S/P surgical repair 3.) Pulmonary Embolism, S/P IVC filter, w/out anti-coagulation due to acute/ recent GIBleed. Plan: 1.) We will follow post op acute recovery. 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 09/15/16 16:02 Subjective: Sitting up in chair and comfortable. No new complaints. Objective: VSS as noted here. HEENT- anicteric, L eye with gauze patch No oral lesions Neck- supple Chest- clear anteriorly CVS- RSR, no extra HS ABD- soft, BS active, mildly distended EXT- minimal edema, bilaterally Labs as noted here: Hgb 8.1 PLT 285, WBC 7.16 Vital Signs Temp Pulse Resp BP Pulse Ox 36.6 C 109 H 18 121/62 H 99 09/15/16 11:58 09/15/16 11:58 09/15/16 11:58 09/15/16 11:58 09/15/16 11:58 Microbiology 09/13/16 04:30 - Final Sputum, Expectorated Sputum Culture - Final Laboratory Results 09/15/16 05:10 09/15/16 05:10 09/14/16 09/15/16 09/16/16 05:59 05:59 05:59 Intake Total 2857 Output Total 900 1600 Balance -900 1257 PT 15.7 SEC (12.0-15.0) H 09/15/16 05:10 INR 1.25 (0.83-1.16) H 09/15/16 05:10 ICD10 Worksheet Patient Problems: Problems Problem Status Diagnosed Brain lesion Acute Perforated duodenal ulcer Acute
--- NOTE | 2016-09-15 18:54 | PCMIDPN ---
Assessment/Plan: Assessment/Plan: * Peritonitis associated with duodenal perforation s/p repair: Now completed 14 days of antibiotic therapy. Will stop micafungin. * Aspiration PNA: Clinically improved. Fever resolved. Plan short course of vancomycin and zosyn. Assess vancomycin trough. 09/15/16 18:51 Subjective: Feels better. Still has difficulty swallowing. No abdominal pain. Objective: Vital Signs Temp Pulse Resp BP Pulse Ox 36.9 C 101 H 18 105/63 98 09/15/16 15:59 09/15/16 15:59 09/15/16 15:59 09/15/16 15:59 09/15/16 15:59 Microbiology 09/13/16 04:30 - Final Sputum, Expectorated Sputum Culture - Final Laboratory Results 09/15/16 05:10 09/15/16 05:10 09/14/16 09/15/16 09/16/16 05:59 05:59 05:59 Intake Total 2857 2111 Output Total 900 1600 500 Balance -900 1257 1611 Vancomycin #3 Zosyn #3 Antibiotics #14 Micafungin #14 Blood cultures 09/13/16 no growth - Physical Exam General Appearance: alert, no apparent distress EENT: pharynx normal, No scleral icterus Respiratory: lungs clear (anterolaterally), No respiratory distress Cardiac/Chest: tachycardia Abdomen: non-tender, distended (mild) ICD10 Worksheet Patient Problems: Problems Problem Status Diagnosed Brain lesion Acute Perforated duodenal ulcer Acute
[2016-09-15] MEDS: FLUTICASONE/SALMETER 250/50MCG DISKUS IH SCH (20:00)
[2016-09-16] MEDS: VANCOMYCIN 1.25 GM in D5W 250 ML IV SCH ×2 (00:27→13:59)
[2016-09-16] MEDS: NS 1,000 ML IV SCH (00:30)
[2016-09-16] MEDS: PETROLAT,WHT/MIN OIL/SOD CHL 3.5 GM OPHT.OINT LEFTEYE SCH ×6 (02:26→21:05)
[2016-09-16 04:29] LABS: HEMOGLOBIN 7.9 g/dL (13.7-17.5); MEAN CELL HEMOGLOBIN 31.7 pg (27.9-34.1); MEAN CELL HEMOGLOBIN CONCENTR. 32.9 g/dL (32.4-36.7); MEAN CELL VOLUME 96.4 fL (81.5-99.8); RED BLOOD CELL COUNT 2.49 10^6/uL (4.40-6.38); RED CELL DISTRIBUTION WIDTH 14.5 % (11.5-15.2)
[2016-09-16] MEDS: INSULIN REGULAR, HUMAN 100 UNIT/1 ML VIAL HIGH SC SCH ×3 (05:52→18:00)
[2016-09-16] MEDS: PIPERACILLIN/TAZO 4.5 GM/DEX 100 ML IV SCH ×3 (06:52→17:51)
--- NOTE | 2016-09-16 08:06 | HOSPPROG ---
Hospitalist Progress Note Assessment/Plan: #Acute blood loss anemia -mild drop in H/H this morn. Repeat this mauricio -Appreciate GI consult. They are trying to obtain records from prior endoscopy -will hold off endoscopy unless an acute bleed #Acute PE -holding heparin with acute bleed;IVC filter in place. -U/S LE today with no DVTs #Uncontrolled DM -controlled on current regimen #Corneal abrasion -appreciate Opthal consultation -E-mycin ointment QID and tape eye closed. FU outpatient #Aspiration PNA -Vanc/Zosyn Day 12/12 #Sepsis: resolved -2/2 peritonitis. Culture with Serratia/Kamilah albicans. Completed course of Invanz and Micafungin #Perforated duodenum with abscess -hold steroids and NSAIDs. 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 No metastatic disease -await chemo 4 wks after resection and healed from abdominal standpoint #Acute hypoxic resp failure -cont wean off oxygen #Hyponatremia -resolved #Deconditioning: PT/OT #Diet: tube feeds #DVT ppx: SCDs #Disp: pt warrants inpt admission with IV abx, TPN Subjective: dizziness this morning that is unchanged. No melena Objective: Vital Signs Temp Pulse Resp BP Pulse Ox 35.8 C L 89 26 H 129/63 H 97 09/16/16 04:00 09/16/16 04:00 09/16/16 04:00 09/16/16 04:00 09/16/16 04:00 Microbiology 09/13/16 04:30 - Final Sputum, Expectorated Sputum Culture - Final Laboratory Results 09/16/16 04:18 09/15/16 05:10 09/15/16 09/16/16 09/17/16 05:59 05:59 05:59 Intake Total 2857 4232 Output Total 1600 500 Balance 1257 3732 PT 15.7 SEC (12.0-15.0) H 09/15/16 05:10 INR 1.25 (0.83-1.16) H 09/15/16 05:10 - Physical Exam Constitutional: no apparent distress Eyes: PERRL, other (left eye taped shut) Ears, Nose, Mouth, Throat: moist mucous membranes Cardiovascular: regular rate and rhythym, no murmur, rub, or gallop Respiratory: no respiratory distress Gastrointestinal: other (surgical incision C/D/I. G-tube in place) Genitourinary: no bladder fullness Skin: warm Musculoskeletal: full muscle strength Neurologic: AAOx3 Psychiatric: flat affect ICD10 Worksheet Patient Problems: Problems Problem Status Diagnosed Brain lesion Acute Perforated duodenal ulcer Acute
[2016-09-16] MEDS: PANTOPRAZOLE SODIUM 40 MG in NS 100 ML IV SCH ×2 (08:08→20:56)
[2016-09-16] MEDS: metFORMIN HCL 500 MG TAB TUBE SCH ×2 (08:12→17:59)
[2016-09-16] MEDS: ERYTHROMYCIN 0.5% 1 GM OPHT.OINT LEFTEYE SCH ×3 (08:13→21:05)
[2016-09-16] MEDS: INSULIN GLARGINE 100 UNITS/ML SYRINGE SC SCH (08:13)
--- NOTE | 2016-09-16 09:05 | DX ---
Portable AP Upright Chest September 16, 2016, 6:05 a.m. Clinical History: 61-year-old male in the ICU presenting for follow up of respiratory status. 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 Comparison Study: Chest, dated September 13, 2016. Findings: Oxygen tubing and telemetry monitoring lead lines are present. There is a right-sided PICC line which terminates at the SVC/right atrial junction. The cardiac silhouette remains mildly enlarge d, and there is peribronchial cuffing. There are persistent bibasilar infiltrates, stable to slightly worse on the left, and slightly improved at the right lung base. There is no pneumothorax. Impression: Bibasilar infiltrates, slightly worse on the left and slightly improved on the right, com pared to September 13, 2016.
--- NOTE | 2016-09-16 09:08 | PCMIDPN ---
Assessment/Plan: Assessment/Plan: 1. Peritonitis secondary to duodenal perforation: - s/p initially invanz + micafungin---then to vanco , zosyn + micafungin. see below - Cx preliminarily with Serratia (susceptibility profile noted) and C. albicans. -s/p open jejunostomy. no abscesses seen -s/p antrectomy, gastrojejunostomy, over sewn duodenal stump due to duodenal perforation. - Completed 14 days of therapy as of 09/15/16. - care coordinated with hospitalist 2. B/l infiltrates-Aspiration vs HCAP -multiple failed swallow studies. possible aspiration although no witnessed event -productive cough, had progressive sx. Symptoms have been improving over past several days. -On broad empiric Antibiotics with Vanco + Zosyn - blood cx ngtd, and sputum cx- mixed mayra - Plan for short course therapy barring clinical worsening. Currently on D#12/12. - care coordinated with Rn, patient updated. Meds vanco-1.25gm q12- 09/13---#12/12 zosyn-4.5gm q6--09/13---#12/12 s/p micafungin---09/01---09/15/16-# invanz-- 09/01---09/13/16 Subjective: Afebrile. Remains in icu. Less productive cough overall. Denies pleuritic cp. less abd pain as well. Objective: Vital Signs Temp Pulse Resp BP Pulse Ox 36.4 C 88 18 110/53 L 97 09/16/16 08:39 09/16/16 08:39 09/16/16 08:39 09/16/16 08:39 09/16/16 08:39 Microbiology 09/13/16 04:30 - Final Sputum, Expectorated Sputum Culture - Final Laboratory Results 09/16/16 04:18 09/15/16 05:10 09/15/16 09/16/16 09/17/16 05:59 05:59 05:59 Intake Total 2857 4232 Output Total 1600 500 Balance 1257 3732 - Physical Exam General Appearance: alert, no apparent distress Respiratory: coarse breath sounds (mild bilaterally) Cardiac/Chest: regular rate, rhythm Extremities: No swelling Abdomen: normal bowel sounds, non-tender, soft, distended, other (jejunostomy tube) Skin: other (back scalp incision site: intact, no drainage, no erythema), No erythema ICD10 Worksheet Patient Problems: Problems Problem Status Diagnosed Brain lesion Acute Perforated duodenal ulcer Acute
--- NOTE | 2016-09-16 09:40 | SOAPPROG ---
KAREY Progress Note Assessment/Plan: Assessment:Plan: 1) Melena - none today, HB stable, BUN low so I suspect a right colon bleed and not an UGI bleed 2) Polyps - had colon 08/21 with polyp removed and asked for repeat in one year - will try to get report from Dr. Sousa at [facility] 3) Anemia - serial H/H, no overt bleeding, no need for transfusion at present - did get 2 units total 4) lymphoma - as per Oncology If rebleeds, then will need scopes - EGD to r/o upper and colon for source of bleed imo 09/15/16 11:27 09/16/16 09:35 as above still with dark stools, Hb drifting down, BUN not checked today but not c/w UGI bleed in past few days 1) Melena - dark formed stool, query slow right colon bleed? If Hb continues to decrease we will consider both EGD and Colon. If stabilizes then I would defer procedures until pt more stable. 2) DVT - has GFV in place off anticoagulation, I do think the anticoagulation aggravated the GI blood loss 3) Anemia - as with #1, HB =7.9, so no need for PRBC yet 4) Polyps - I spoke to med rec's at [facility] this am and they are supposed to fax over colon and path from 08/2015 procedure 5) lymphoma - no tx yet, as per Oncology will follow 09/16/16 09:41 Subjective: CC- post hemorrhagic anemia, GI bleed , lymphoma Pt says stool still dark but formed no abdo pain, no n/v Objective: Vital Signs Temp Pulse Resp BP Pulse Ox 36.4 C 88 18 110/53 L 97 09/16/16 08:39 09/16/16 08:39 09/16/16 08:39 09/16/16 08:39 09/16/16 08:39 Microbiology 09/01/16 06:35 Mycobacterial Smear (HEATHER) - Final Peritoneal Fluid - Aspirate 09/13/16 04:30 - Final Sputum, Expectorated Sputum Culture - Final Laboratory Results 09/16/16 04:18 09/15/16 05:10 09/15/16 09/16/16 09/17/16 05:59 05:59 05:59 Intake Total 2857 4232 Output Total 1600 500 Balance 1257 3732 PT 15.7 SEC (12.0-15.0) H 09/15/16 05:10 INR 1.25 (0.83-1.16) H 09/15/16 05:10 A+Ox3 CTA S1S2, Laboratory Tests 09/14/16 09/14/16 09/15/16 06:00 16:50 05:10 Hgb 7.5 L 8.5 L 8.1 L Hct 22.6 L 24.8 L 24.6 L PT 15.6 H 15.7 H INR 1.24 H 1.25 H BUN 6 L Creatinine 0.5 L 09/16/16 04:18 Hgb 7.9 L Hct 24.0 L PT INR BUN Creatinine +BS, soft, tender over surgery site no r/g ICD10 Worksheet Patient Problems: Problems Problem Status Diagnosed Brain lesion Acute Perforated duodenal ulcer Acute
[2016-09-16] MEDS: FLUTICASONE/SALMETER 250/50MCG DISKUS IH SCH ×2 (10:25→21:50)
--- NOTE | 2016-09-16 13:26 | US ---
Ultrasound Venous Duplex Doppler - Bilateral Legs at 1220 hour History: Pulmonary emboli. IVC filter. Findings: Ultrasound venous Duplex and Doppler imaging of the bilateral common femoral veins, femo ral veins, popliteal veins, calf veins, and greater saphenous vein origins demonstrates normal compre ssibility, Duplex color-flow, Doppler flow without deep venous thrombosis. Impression: No deep venous thrombosis bilateral legs.
--- NOTE | 2016-09-16 15:48 | PDINTPN ---
Aeronautics Commission Director Progress Note Assessment/Plan: Assessment: * Brain lymphoma, post surgery with residual left facial droop and dysarthria. Left eye dry as his lid does not close: patched * Perforated duodenum post gastrojejunostomy and oversewing of the duodenal stump, probably due to NSAIDS and steroids * DM - glucoses better * GI Bleed with acute blood loss anemia - -H/H stable at 24 without active bleeding currently -GI following: Will do upper and lower endoscopies if he rebleeds. * Asp Pna: On vancomycin and Zosyn for 7 days, doing well. Id following * PE - Status post IVC filter. Off anticoagulation secondary to GI bleed. Plan: Can transfer to a medical-surgical bed if hematocrit remains stable throughout the day. Continue antibiotics, bronchopulmonary therapies. Follow hematocrit and lab. Speech therapy to continue to work with the patient regarding swallowing function. To inpatient rehabilitation tomorrow if stable. Subjective: Doing okay, unchanged. Up in the chair. Ambulatory. Objective: Vital Signs Temp Pulse Resp BP Pulse Ox 36.6 C 94 14 125/60 H 96 09/16/16 11:42 09/16/16 11:42 09/16/16 11:42 09/16/16 11:42 09/16/16 11:42 Microbiology 09/01/16 06:35 Mycobacterial Smear (HEATHER) - Final Peritoneal Fluid - Aspirate 09/13/16 04:30 - Final Sputum, Expectorated Sputum Culture - Final Laboratory Results 09/16/16 04:18 09/15/16 05:10 09/15/16 09/16/16 09/17/16 05:59 05:59 05:59 Intake Total 2857 4232 Output Total 1600 500 Balance 1257 3732 PT 15.7 SEC (12.0-15.0) H 09/15/16 05:10 INR 1.25 (0.83-1.16) H 09/15/16 05:10 Physical Exam - Physical Exam General Appearance: alert, no apparent distress EENT: other (Nasal cannula at 3 L), No normal ENT inspection (Left facial droop is unchanged) Neck: normal inspection Respiratory: decreased breath sounds, rales (At posterior bases) Abdomen: normal bowel sounds, non-tender, soft Skin: warm/dry, pallor Lymphatic: no adenopathy Extremities: pedal edema (Trace) Neuro/Psych: no motor/sensory deficits (Except related to his facial droop, dysarthria.), No cognition abnormalities ICD10 Worksheet Patient Problems: Problems Problem Status Diagnosed Brain lesion Acute Perforated duodenal ulcer Acute
--- NOTE | 2016-09-16 17:00 | SOAPPROG ---
SOAP Progress Note Assessment/Plan: Assessment/Plan s/p antrectomy, gastrojejunostomy, closure of duodenal stump for large duodenal ulcer, likely NSAID/steroid-related s/p resection of brainstem lymphoma s/p jejunostomy tube placement has moderate volume PEs but also had GI bleeding on heparin IVC filter placement placed tube feedings advancing to goal hopefully, will be able to go to inpatient rehab tomorrow 09/16/16 16:58 Subjective: stools normal now (no melena) tolerating tube feeding a t 65 ml/hr Objective: Vital Signs Temp Pulse Resp BP Pulse Ox 36.6 C 94 14 125/60 H 96 09/16/16 11:42 09/16/16 11:42 09/16/16 11:42 09/16/16 11:42 09/16/16 11:42 Microbiology 09/01/16 06:35 Mycobacterial Smear (HEATHER) - Final Peritoneal Fluid - Aspirate 09/13/16 04:30 - Final Sputum, Expectorated Sputum Culture - Final Laboratory Results 09/16/16 04:18 09/15/16 05:10 09/15/16 09/16/16 09/17/16 05:59 05:59 05:59 Intake Total 2857 4232 1430 Output Total 1600 500 800 Balance 1257 3732 630 PT 15.7 SEC (12.0-15.0) H 09/15/16 05:10 INR 1.25 (0.83-1.16) H 09/15/16 05:10 Physical Exam - Physical Exam General Appearance: alert Respiratory: lungs clear Cardiac/Chest: regular rate, rhythm Abdomen: soft, other (incision without erythema) ICD10 Worksheet Patient Problems: Problems Problem Status Diagnosed Brain lesion Acute Perforated duodenal ulcer Acute - ICD10 Problem Qualifiers (1) Perforated duodenal ulcer
[2016-09-16 18:33] LABS: HEMATOCRIT 24.5 % (40.0-51.0)
[2016-09-17] MEDS: INSULIN REGULAR, HUMAN 100 UNIT/1 ML VIAL HIGH SC SCH ×3 (00:05→12:39)
[2016-09-17] MEDS: PIPERACILLIN/TAZO 4.5 GM/DEX 100 ML IV SCH ×3 (00:08→13:31)
[2016-09-17] MEDS: VANCOMYCIN 1.25 GM in D5W 250 ML IV SCH (01:03)
[2016-09-17] MEDS: PETROLAT,WHT/MIN OIL/SOD CHL 3.5 GM OPHT.OINT LEFTEYE SCH ×3 (01:07→09:23)
[2016-09-17 05:00] LABS: HEMATOCRIT 27.5 % (40.0-51.0); MEAN CELL HEMOGLOBIN 31.3 pg (27.9-34.1); MEAN CELL HEMOGLOBIN CONCENTR. 32.7 g/dL (32.4-36.7); MEAN CELL VOLUME 95.5 fL (81.5-99.8); RED BLOOD CELL COUNT 2.88 10^6/uL (4.40-6.38); RED CELL DISTRIBUTION WIDTH 14.1 % (11.5-15.2)
[2016-09-17] MEDS: FLUTICASONE/SALMETER 250/50MCG DISKUS IH SCH (09:23)
[2016-09-17] MEDS: PANTOPRAZOLE SODIUM 40 MG in NS 100 ML IV SCH (09:23)
[2016-09-17] MEDS: metFORMIN HCL 500 MG TAB TUBE SCH (09:23)
[2016-09-17] MEDS: ERYTHROMYCIN 0.5% 1 GM OPHT.OINT LEFTEYE SCH (09:24)
[2016-09-17] MEDS: INSULIN GLARGINE 100 UNITS/ML SYRINGE SC SCH (10:16)
[2016-09-17 10:34] VITALS: O2SAT 96
--- NOTE | 2016-09-17 12:15 | PDIAF ---
- Diagnosis Code Status: Full Code - Medication Management Discharge Medications: Medications to Continue on Transfer metFORMIN HCL [Glucophage 500 mg (*)] 500 mg PO BIDMEAL 08/22/16 [Last Taken Unknown] Acetaminophen [Tylenol Rectal] 650 mg GA Q4 PRN #0 supp 09/17/16 [Last Taken Unknown] Alteplase [Cathflo Activase 2 mg (*)] 2 mg IVP PRN PRN #0 vial 09/17/16 [Last Taken Unknown] Dextrose 50% Syringe 12.5 - 25 gm IVP PRN PRN #0 syr 09/17/16 [Last Taken Unknown] Diazepam [Valium Injection (*)] 2.5 - 5 mg IVP QID PRN #0 syr 09/17/16 [Last Taken Unknown] Erythromycin 0.5% 1 lorraine LEFTEYE TID #0 opht.oint 09/17/16 [Last Taken Unknown] Fluticasone/Salmeter 250/50Mcg [Advair 250/50 (*)] 1 puffs IH BID #0 disk [Last Taken Unknown] HYDROmorphone HCL [Dilaudid] 0.2 - 0.4 mg IVP Q2HRS PRN #0 syr 09/17/16 [Last Taken Unknown] Insulin Glargine [Lantus 100 UNITS/ML (*)] 10 units SC DAILY #0 ml 09/17/16 [ Last Taken Unknown] Ipratropium [Atrovent Neb (*)] 0.5 mg IH QID PRN #0 deyvial 09/17/16 [Last Taken Unknown] Lansoprazole [PREVACID 30mg/10ml susp (Adult) (*)] 30 mg TUBE BID #0 udsyr 09/17 [Last Taken Unknown] Ondansetron HCl Pf [Zofran 4 mg Inj (*)] 4 mg IVP Q4HRS PRN #0 vial 09/17/16 [ Last Taken Unknown] Pantoprazole Sodium [Protonix IV (*)] 40 mg IV BID #0 vial 09/17/16 [Last Taken Unknown] Petrolat,Wht/Min Oil/Sod Chl [Refresh P.m. Ointment] 1 lorraine LEFTEYE Q4 #0 opht.oint 09/17/16 [Last Taken Unknown] Piperacillin/Tazo 4.5 gm/Dex [Zosyn (Premix)] 100 ml IV Q6HRS #0 bag 09/17/16 [ Last Taken Unknown] Tears/Dextran 70/Hypromellose [Natural Balance Tears (*)] 1 drop EACHEYE Q2 PRN #0 opht.btl 09/17/16 [Last Taken Unknown] Temazepam [Restoril 15 MG (*)] 15 mg TUBE HS PRN #0 cap 09/17/16 [Last Taken Unknown] Vancomycin [Vancomycin (*)] 1.25 gm IV Q12H #0 vial 09/17/16 [Last Taken Unknown ] diphenhydrAMINE [Benadryl Injection] 12.5 - 50 mg IVP Q6HRS PRN #0 inj 09/17/16 [Last Taken Unknown] guaiFENesin/DEXTROMETHORPHAN [Robitussin Dm Oral Liquid (*)] 10 ml TUBE Q4HRS PRN #0 ml 09/17/16 [Last Taken Unknown] Discharge Medications: Refer to the Discharge Home Medication list for PRN reason. - Orders Services needed: Registered Nurse, Certified Stemming Machine Operator, Master Package Line Operator , Physical Therapy, Occupational Therapy Diet Texture: Non Oral Meds Tube feeding: Promote at 75ml/hr - Follow Up Care Current Providers and Referrals: MANDO ESPANA [Primary Care Provider] - Aidee Rocha MD [Medical Doctor] - 3 days of d/c SNF/Rehab
--- NOTE | 2016-09-17 12:30 | SOAPPROG ---
[facility] Progress Note Assessment/Plan: Assessment:Plan: 09/16/16 09:35 still with dark stools, Hb drifting down, BUN not checked today but not c/w UGI bleed in past few days 1) Melena - dark formed stool, query slow right colon bleed? If Hb continues to decrease we will consider both EGD and Colon. If stabilizes then I would defer procedures until pt more stable. 2) DVT - has GFV in place off anticoagulation, I do think the anticoagulation aggravated the GI blood loss 3) Anemia - as with #1, HB =7.9, so no need for PRBC yet 4) Polyps - I spoke to med rec's at [facility] this am and they are supposed to fax over colon and path from 08/2015 procedure 5) lymphoma - no tx yet, as per Oncology will follow 09/16/16 09:41 09/17/16 12:26 as above Hb up, stool less dark got old report had prox descending colon 18 mm sessile polyp removed and rubalcava diverticulosis I do want to perform colon and prob EGD, but would like to wait 2-3 months if his HB remains stable and goes up If further bleeding then scopes earlier off anticoagulation - if needs to be restarted may want scopes prior to starting OK form GI point to go to rehab, but would have them check H/H prob BIW initially, then weekly at least will sign off and follow on computer thank you Subjective: cc- post hemorrhagic anemia, melena, s/p perf DU, lymphoma I had one BM yesterday, les dark no pain no n/v Objective: Vital Signs Temp Pulse Resp BP Pulse Ox 36.9 C 101 H 16 124/75 H 96 09/17/16 10:33 09/17/16 10:33 09/17/16 10:33 09/17/16 10:33 09/17/16 10:33 Microbiology 09/01/16 06:35 Mycobacterial Smear (HEATHER) - Final Peritoneal Fluid - Aspirate Laboratory Results 09/17/16 04:50 09/15/16 05:10 09/16/16 09/17/16 09/18/16 05:59 05:59 05:59 Intake Total 4232 1530 Output Total 500 1500 500 Balance 3732 30 -500 PT 15.7 SEC (12.0-15.0) H 09/15/16 05:10 INR 1.25 (0.83-1.16) H 09/15/16 05:10 A+Ox3 CTA S1S2 +BS, soft ICD10 Worksheet Patient Problems: Problems Problem Status Diagnosed Brain lesion Acute Perforated duodenal ulcer Acute
[2016-09-17 12:39] VITALS: BP 131/78; PULSE 95; RESP 18; TEMP 98.3
--- NOTE | 2016-09-17 13:11 | PDIAF ---
- Diagnosis Code Status: Full Code - Medication Management Discharge Medications: Medications to Continue on Transfer metFORMIN HCL [Glucophage 500 mg (*)] 500 mg PO BIDMEAL 08/22/16 [Last Taken Unknown] Acetaminophen [Tylenol Rectal] 650 mg NJ Q4 PRN #0 supp 09/17/16 [Last Taken Unknown] Alteplase [Cathflo Activase 2 mg (*)] 2 mg IVP PRN PRN #0 vial 09/17/16 [Last Taken Unknown] Dextrose 50% Syringe 12.5 - 25 gm IVP PRN PRN #0 syr 09/17/16 [Last Taken Unknown] Diazepam [Valium Injection (*)] 2.5 - 5 mg IVP QID PRN #0 syr 09/17/16 [Last Taken Unknown] Erythromycin 0.5% 1 lorraine LEFTEYE TID #0 opht.oint 09/17/16 [Last Taken Unknown] Fluticasone/Salmeter 250/50Mcg [Advair 250/50 (*)] 1 puffs IH BID #0 disk [Last Taken Unknown] HYDROmorphone HCL [Dilaudid] 0.2 - 0.4 mg IVP Q2HRS PRN #0 syr 09/17/16 [Last Taken Unknown] Insulin Glargine [Lantus 100 UNITS/ML (*)] 10 units SC DAILY #0 ml 09/17/16 [ Last Taken Unknown] Ipratropium [Atrovent Neb (*)] 0.5 mg IH QID PRN #0 deyvial 09/17/16 [Last Taken Unknown] Lansoprazole [PREVACID 30mg/10ml susp (Adult) (*)] 30 mg TUBE BID #0 udsyr 09/17 [Last Taken Unknown] Ondansetron HCl Pf [Zofran 4 mg Inj (*)] 4 mg IVP Q4HRS PRN #0 vial 09/17/16 [ Last Taken Unknown] Pantoprazole Sodium [Protonix IV (*)] 40 mg IV BID #0 vial 09/17/16 [Last Taken Unknown] Petrolat,Wht/Min Oil/Sod Chl [Refresh P.m. Ointment] 1 lorraine LEFTEYE Q4 #0 opht.oint 09/17/16 [Last Taken Unknown] Piperacillin/Tazo 4.5 gm/Dex [Zosyn (Premix)] 100 ml IV Q6HRS #0 bag 09/17/16 [ Last Taken Unknown] Tears/Dextran 70/Hypromellose [Natural Balance Tears (*)] 1 drop EACHEYE Q2 PRN #0 opht.btl 09/17/16 [Last Taken Unknown] Temazepam [Restoril 15 MG (*)] 15 mg TUBE HS PRN #0 cap 09/17/16 [Last Taken Unknown] Vancomycin [Vancomycin (*)] 1.25 gm IV Q12H #0 vial 09/17/16 [Last Taken Unknown ] diphenhydrAMINE [Benadryl Injection] 12.5 - 50 mg IVP Q6HRS PRN #0 inj 09/17/16 [Last Taken Unknown] guaiFENesin/DEXTROMETHORPHAN [Robitussin Dm Oral Liquid (*)] 10 ml TUBE Q4HRS PRN #0 ml 09/17/16 [Last Taken Unknown] Discharge Medications: Refer to the Discharge Home Medication list for PRN reason. - Orders Services needed: Registered Nurse, Certified Ship Rigger Apprentice, Master Outpatient Phlebotomist , Physical Therapy, Occupational Therapy Diet Texture: Non Oral Meds Tube feeding: Promote at 75ml/hr, 50ml water flushes q 4hr - Labs/Radiology CBC Date: 09/18/16 (check at least twice weekly) - Follow Up Care Current Providers and Referrals: MANDO ESPANA [Primary Care Provider] - Aidee Rocha MD [Medical Doctor] - 3 days of d/c SNF/Rehab
--- NOTE | 2016-09-17 16:32 | GDS ---
[f rep st] DISCHARGE SUMMARY DISCHARGE DIAGNOSES: 1. Melena. 2. Acute blood loss anemia. 3. Deep vein thrombosis. 4. Polyps. 5. Primary central nervous system lymphoma. 6. Left corneal abrasion. 7. Duodenal ulcer, likely related to nonsteroidal anti-inflammatory drugs/steroids; status post antr ectomy, gastrojejunostomy, closure of duodenal stump. 8. Pulmonary embolism. 9. Uncontrolled diabetes with hyperglycemia. 10. Sepsis secondary to peritonitis. 11. Acute hypoxic respiratory failure. CONSULTATIONS: 1. Infectious Disease. 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 3. Surgery. 4. Oncology. 5. Neurosurgery. PROCEDURES: 1. Jejunostomy tube placement. 2. Antrectomy, gastrojejunostomy, closure of duodenal stump for large duodenal ulcer. 3. Tube feeding placement. 4. IVC filter placement. HISTORY OF PRESENT ILLNESS: Patient is a 61-year-old male with a history of diabetes who had brain r esection by Neurosurgery, who was diagnosed in setting of ringing in the ears. This led to an MR whi ch showed a cerebellar tumor. This was resected by Dr. Jara on August 26. He was initially admit corinna to the Neurosurgery team, and the hospitalist service was asked to consult. The patient underwent further evaluation for lymphoma that had a negative testicular ultrasound. He will outpatient staging with a bone marrow biopsy and a PET scan. The patient's hospital course was complicated by a duodenal ulcer in the setting of steroids and NSAI Ds. Dr. Rocha with surgery performed an antrectomy, gastrojejunostomy, closure of the duodenal stum p. HOSPITAL COURSE BY PROBLEM: 1. Perforated duodenal ulcer. This is secondary to steroids and NSAIDs. The patient was evaluated promptly by Surgery, and underwent antrectomy, gastrojejunostomy and closure of duodenal stump. The patient has had intermittent drops in H and H since surgery, but has been stable and has responded to intermittent blood transfusions. We discontinued steroids and no NSAIDs. He is on twice daily IV P PI. He is to follow up with Dr. Rocha. He currently has a J tube in place. 2. Acute blood loss anemia: This is secondary to a duodenal ulcer in the setting of steroids and NS AIDs. He has had intermittent blood transfusions. His most recent transfusion was on 09/14/2016, 1 unit. H and H have remained stable for the past several days. Today, they are 9 and 27. Recommend biweekly CBC when transferred to inpatient rehab. The patient was evaluated by Gastroenterology here . Dr. Ortega reviewed outside hospital records that showed a proximal descending colon 8 mm sessile polyp removed, and rubalcava diverticulosis. Patient will warrant a repeat EGD and colonoscopy [facility] 2[facility]3 months. 3. Melena. Again, this is secondary to duodenal ulcer. He has had intermittent melena, but has bee n stable as stated above. 4. Pulmonary embolism: CT on 09/09/2016 demonstrated a moderate burden of clot in the right pulmona ry artery as well as right upper middle lobes. The patient was started on IV heparin; however, then developed recurrent GI bleed. Holding anticoagulation at this time. Patient should have his endosco py first and then restart anticoagulation. He does have an IVC filter in place. Ultrasound of the l ower extremities was negative for clot on 09/16/2016. 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 Chemo was delayed for 4 weeks to allow abdominal issue to heal. 6. Sepsis: Secondary to peritonitis. Cultures grew Serratia and [place]. Patient received an adeq uate course of antibiotics and micafungin. 7. Aspiration pneumonia. This occurred during the last week of stay. Patient is currently on day 5 of vanc and Zosyn. We will continue this for a total of 7 days. 8. Nutrition. Patient was initiated on TPN. He is currently receiving J tube feeds. Rate was incr eased from 75 mL an hour to 95 yesterday, but patient developed pretty significant distention. He is passing gas. Denies any nausea. I will reduce the tube feeds back to 75 an hour. Dietary to follo w the patient over at inpatient rehab. 9. Uncontrolled diabetes with hyperglycemia: Sugars at beginning of stay were significantly out of control. This is likely in the setting of steroids for TRIAL MANAGER lymphoma. These have since been disconti nued due to bleed. Sugars are currently controlled on glargine and sliding scale insulin. 10. Left corneal abrasion: The patient was evaluated by Ophthalmology. He is to use E-Mycin ointme nt four times daily and tape eye closed. The patient should follow up with Ophthalmology for possibl e permanent tarsorrhaphy. 11. Acute hypoxic respiratory failure secondary to aspiration pneumonia. Wean as tolerated. 12. Medications. See medication reconciliation. FOLLOWUP: 1. Dr. Rocha with General Surgery within 3 days of discharge from SNF rehab. 2. Follow up with Dr. Moralez with Ophthalmology. 3. Dr. Ortega with Gastroenterology in 2-3 months for repeat endoscopy. 4. Dr. Atkinson with Oncology. 5. Labs: CBC 2 times a week to ensure H and H are stable. 6. Anticoagulation will need to be started for pulmonary embolism, but would recommend endoscopy roddy or to re-initiation. /[id number]/MODL
--- NOTE | 2016-09-22 13:18 | PQFORM ---
PHYSICIAN QUERY FORM Needs Your Response This query form is being sent to you to assure this patient record is coded properly. 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 Dumont, In the Hospitalist Progress Notes, dated 09/07-09/10, it is documented that this patient was diagnosed with "Post operative Ileus." After Study, should the diagnosis of 'post operative ileus' be included in the Discharge Summery? Yes No other I believe the patient was discharged from the hospitalist service so I am not sure if it should be included or not. unable to determine Thank you Genia Duran, VANESSA HIM/Coding Dept INSTRUCTIONS FOR RESPONSE: Answer question by clicking on the "Edit Document" button. Move cursor to area below the stars. When complete, hit "Save." Click on the "Sign" button, then click "Sign" again. Type in your PIN and hit "Enter." MTDD
== END 2016-09-17 14:36 | DRG 820 ==
LOC: F2N 05:36 → F3N 09-04 16:30 → F2N 09-14 12:20 → F1N 09-16 17:19
PROVIDERS: ADMIT Neurological Surgery; ATTEND Neurological Surgery
DX: C83.31 Diffuse large B-cell lymphoma, lymph nodes of head, face, and neck (principal); K26.5 Chronic or unspecified duodenal ulcer with perforation; J96.01 Acute respiratory failure with hypoxia; A41.9 Sepsis, unspecified organism; K65.9 Peritonitis, unspecified; I26.99 Other pulmonary embolism without acute cor pulmonale; J69.0 Pneumonitis due to inhalation of food and vomit; D62 Acute posthemorrhagic anemia; I82.409 Acute embolism and thrombosis of unspecified deep veins of unspecified lower extremity; S05.02XA Injury of conjunctiva and corneal abrasion without foreign body, left eye, initial encounter; E11.65 Type 2 diabetes mellitus with hyperglycemia; I10 Essential (primary) hypertension; D12.4 Benign neoplasm of descending colon; R13.10 Dysphagia, unspecified; E66.01 Morbid (severe) obesity due to excess calories; R29.810 Facial weakness; E78.5 Hyperlipidemia, unspecified; T38.0X5A Adverse effect of glucocorticoids and synthetic analogues, initial encounter; R47.1 Dysarthria and anarthria; Z87.891 Personal history of nicotine dependence; Z79.84 Long term (current) use of oral hypoglycemic drugs; Z80.41 Family history of malignant neoplasm of ovary
CPT/HCPCS: 82947-QW; 85520-90; 87186-90; 92526-GN; 92610-GN; 97001-GP; 97003-GO; 97110-GP; 97112-GP; 97116-GP; 97530-GO; 97530-GP; 97535-GO; A9585; C1713; C1751; C1769; J0330; J0690; J1100; J1170; J1200; J1335; J1644; J1650; J1815; J1885; J2001; J2248; J2370; J2405; J2543; J2704; J2997; J3010; J3370; J3490; P9016; Q9967

== ENCOUNTER 2016-09-12 15:06 | Inpatient (IN) | payer OTHER ==
[~2016-09-12 15:06] MED LIST: IOPAMIDOL (ISOVUE-300) 100 ML BTL IV ONE; MIDAZOLAM 2 MG/2 ML VIAL ONE; ONDANSETRON 4 MG/2 ML VIAL ONE; fentaNYL 100 MCG/2 ML INJ ONE
[2016-09-17] MEDS ORDERED: GUAIFENESIN/DM 10 ML UDCUP TUBE PRN (15:20)
[2016-09-17] MEDS ORDERED: IPRATROPIUM BROMIDE 0.5 MG/2.5 ML DEYVIAL IH PRN (15:20)
[2016-09-17] MEDS ORDERED: D50W 25 GM/50 ML SYR IVP PRN (15:20)
[2016-09-17] MEDS ORDERED: ACETAMINOPHEN 650 MG SUPP PR PRN (15:20)
[2016-09-17] MEDS ORDERED: ALTEPLASE 2 MG VIAL IVP PRN (15:20)
[2016-09-17] MEDS ORDERED: HYDROmorphONE/DILAUDID 1 MG/ML SYR IVP PRN (15:20)
[2016-09-17] MEDS ORDERED: TEMAZEPAM 15 MG CAP TUBE PRN (15:20)
[2016-09-17] MEDS ORDERED: ONDANSETRON 4 MG/2 ML VIAL IVP PRN (15:20)
[2016-09-17] MEDS ORDERED: TEARS/DEXTRAN 70/HYPROMELLOSE 15 ML OPHT.BTL EACHEYE PRN (15:20)
[2016-09-17] MEDS ORDERED: SENNOSIDES 17.6 MG/10 ML UDL TUBE PRN (15:30)
[2016-09-17] MEDS ORDERED: VANCOMYCIN 1.25 GM IV SCH (15:30)
[2016-09-17] MEDS: VANCOMYCIN 1.25 GM in D5W 250 ML IV SCH (17:03)
[2016-09-17] MEDS: ERYTHROMYCIN 0.5% 1 GM OPHT.OINT LEFTEYE SCH ×3 (17:03→21:17)
[2016-09-17] MEDS: metFORMIN HCL 500 MG TAB PO SCH (17:04)
[2016-09-17] MEDS ORDERED: TAZO IV SCH (18:00)
[2016-09-17] MEDS ORDERED: DEX IV SCH (18:00)
[2016-09-17] MEDS ORDERED: PIPERACILLIN IV SCH (18:00)
--- NOTE | 2016-09-17 18:18 | GHP ---
[f rep st] HISTORY AND PHYSICAL POST ADMISSION PHYSICIAN EVALUATION AND REHABILITATION TREATMENT PLAN DATE OF ADMISSION: 09/17/2016 DATE OF EVALUATION: 09/17/2016 TIME OF EVALUATION: 1530 REFERRING PHYSICIAN: Dr. Dumont REFERRING FACILITY: [facility]. CONSULTING PHYSICIANS: There were consultations with Oncology, Hospital Medicine, Infectious Disease, Gastroenterology, General Surgery, and Ophthalmology. 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 IMPAIRMENT GROUP: 2.1. ETIOLOGIC DIAGNOSIS: Nontraumatic brain dysfunction. DATE OF ONSET: 07/13/2016. DATE OF SURGERY: 08/26/2016. HISTORY OF PRESENT ILLNESS: Mr. Landaverde developed a buzzing in his left ear which progressed to hearing loss and left facial droop with balance impairment. An MRI of the brain showed a tumor near the foramina of Luschka on the left side of the brainstem and in the cerebellum. He was admitted to [facility] on 08/26/2016, where he underwent a subtotal resection of the brain tumor via suboccipital craniotomy. Pathology showed B-cell lymphoma. He had complications in the hospital including pulmonary embolus, aspiration pneumonia, and a perforated duodenum with emergent surgery on 09/01/2016. He required an antrectomy and gastrojejunostomy with oversewing of the duodenal stump. Subsequently, he was placed on TPN for nutrition and later a percutaneous jejunostomy tube was placed. He had anemia with melena and was diagnosed with a gastrointestinal bleed more likely in the colon than in the upper gastrointestinal tract. Having had his GI bleed, he was not continued on anticoagulation. An IVC filter was placed. He was on IV antibiotics for pneumonia and peritonitis, and a PICC line was placed to continue the IV antibiotics. One of the consequences of his lymphoma is a left facial paralysis and incomplete closing of the left eye. He developed a corneal abrasion for which he is treated with erythromycin ointment and eye patching. He also has left-sided hearing loss, and he reports some balance impairment. He has dysphagia and uses a suction device for excess oral secretions. Studies and labs in the hospital were many. Most recent laboratory studies: CBC done today showed a hemoglobin of 9 and a hematocrit of 27.5. This was improved considerably from the day before. Coagulation studies showed an INR of 1.25 on 09/15/2016, which most likely was due to nutritional issues as he was not on a vitamin K antagonist. He had elevated glucoses for which he has been treated with insulin and his outpatient metformin has been restarted. His hemoglobin A1c was 9.7. Comprehensive metabolic panel done 2 days before discharge showed an elevated carbon dioxide at 36, a low BUN at 6, a low creatinine of 0.5, and otherwise renal function and electrolytes were within normal limits. His calcium was 7.5 commensurate with a low albumin of 1.9. Alkaline phosphatase was mildly elevated at 272. Otherwise, liver function tests were within normal limits. Urinalysis done on 09/01/2016, was completely negative. Vancomycin trough was 7 yesterday at 1300. He was negative for hepatitis B surface antigen and for HIV 1 and 2. Chest, abdominal, and pelvic CT and a testicular ultrasound ruled out other sites for lymphoma. Chest CT showed pulmonary emboli. Chest x-rays have shown pneumonia. PRECAUTIONS: He is a fall risk and an aspiration risk. ACTIVE COMORBIDITIES: He has the tier 2 active comorbidity of dysphagia. He has the tier 3 comorbidities of septicemia, morbid obesity with diabetes mellitus as a comorbidity with the diabetes. PAST MEDICAL HISTORY: 1. Diabetes mellitus type 2 for which he was only taking metformin. 2. Dyslipidemia for which he was taking atorvastatin. He denies any history of pre-existing pulmonary disease or clotting disorder. PAST SURGICAL HISTORY: He reports he has had several arthroscopy procedures for injuries sustained while skiing and doing other activities. PRE-HOSPITAL MEDICATIONS: I do not have a list of his prehospital medications other than as mentioned above. ADMISSION MEDICATIONS: 1. Hydromorphone 0.2-0.4 mg IV q.2 hours p.r.n. 2. Guaifenesin/dextromethorphan 10 mL per J-tube q.4 hours p.r.n. 3. Ondansetron 4 mg IV push q.4 hours p.r.n. 4. Fluticasone/salmeterol 1 puff twice daily. 5. Ipratropium 0.5 mg inhaled q.i.d. p.r.n. 6. Cathflo 2 mg IV push p.r.n. PICC line occlusion. 7. Dextrose 50% 12.5-25 mg IV p.r.n. hypoglycemia. 8. Erythromycin ointment 0.5% to left eye t.i.d. 9. Metformin 500 mg per tube b.i.d. 10. Insulin glargine 10 units subcutaneous daily. 11. Artificial Tears 1 drop each eye q.2 hours p.r.n. 12. Lansoprazole 30 mg per tube b.i.d.. 13. Petroleum mineral oil eye ointment left eye q.4 hours. 14. Temazepam 15 mg per tube at q.h.s. p.r.n. 15. Acetaminophen 650 mg rectal q.4 hours p.r.n. 16. Vancomycin 1.25 g IV q.12 hours. 17. Piperacillin/tazobactam 4.5 g IV q.6 hours. 18. Vancomycin and piperacillin/tazobactam are to continue through 09/19/2016. ALLERGIES: There are no known drug allergies. FAMILY HISTORY: Noncontributory. PSYCHOSOCIAL HISTORY: He has a remote history of smoking. He quit 25 years ago. He lives independently in his own home with his son. 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 He is able to live on 1 level in his home. REVIEW OF SYSTEMS: He currently denies pain or dyspnea. He has an occasional cough which is nonproductive. There is no chest pain or palpitations. He moved his bowels this morning. He denies diarrhea. He feels that his abdomen is distended and feels full. He denies nausea or vomiting. He is unclear whether or not he has an appetite. He has not had any food by mouth for many weeks. He denies dysuria or urinary frequency though on chart review he had a bladder scan volume of 698 on 09/13/2016. Unclear whether this was postvoid. He denies any skin rash or skin breakdown. He denies joint pain or joint swelling. He is in good spirits. He notes some left-sided weakness. He denies loss of sensation. He is aware of dysphagia. He reports that he has cloudy vision out of his left eye. Otherwise a 10-point review of systems is negative. PHYSICAL EXAM: VITAL SIGNS: Blood pressure is 111/75, heart rate is 91, respiratory rate is 20, oxygen saturation 97% on 4 L, temperature is 37.3 degrees centigrade. His weight is 92.7 kg for a body mass index of 31.1. GENERAL: This is a well-nourished, well-developed, obese man, appears his chronologic age. Cooperative and in no acute distress. HEENT: Extraocular movements are intact. Right pupil is round and reactive to light. Left pupil is not clearly visible as the cornea is opacified. He has some left upper lid ptosis and is unable to close his left lower lid. There is a left facial droop. Mucous membranes are moist. Dentition is in good condition. NECK: Supple. HEART: Regular rate and rhythm with no murmurs, rubs, or gallops. LUNGS: Clear to auscultation bilaterally. ABDOMEN: Soft, distended, and nontender with hypoactive bowel sounds. There is no hepatosplenomegaly noted. There is a midline surgical incision which is healing. There is a jejunostomy tube in the left upper quadrant. EXTREMITIES: There is no cyanosis, clubbing, or edema. Radial and dorsalis pedis pulses are 2+ bilaterally. NEUROLOGIC: There is left facial droop. He has mild dysarthria. There is left uper eyelid ptosis and inability to close the lower left eyelid. There is hearing loss in left ear. Otherwise, cranial nerves 2-12 are grossly intact. He is alert and oriented x3. In terms of motor strength, he has 5/5 overall except for 4+/5 in the left hand grinder set up operator thread and the left biceps. He requires minimal assistance for bed mobility. He is able to arise from seated to standing with no assistance. He does not appear to have any weakness in the lower extremities. His deep tendon reflexes are 2+ bilaterally at the biceps, patella, and Achilles tendons. Sensation is intact to light touch bilaterally, and there is no extinction to double simultaneous stimulation. There is no tremor. Cerebellar testing is normal with the right arm. He has past pointing with the left upper extremity. CURRENT LEVEL OF FUNCTION: Per the pre-admission screen. Regarding diet, feeding, and swallowing, he was n.p.o. with J-tube feeding. Grooming was independent with setup. Dressing the upper body was independent with setup. Lower body required contact guard and voice cuing. Toileting was accomplished with standby assist. Regarding bladder, he was noted to be continent. Regarding bed mobility, he required minimal assistance for transfers. He required minimal to moderate assistance of one with a 2nd person when he was mobilizing from a low surface and for assistance with equipment. Regarding equipment, he was using oxygen and a front-wheeled walker. For balance, he required minimal assistance. Endurance was noted to be fair to poor. He was able to ambulate 80 feet with minimal to moderate assistance of 1-2 and a front- wheeled walker. Regarding communication, he was noted to be difficult to understand at times. Cognition was overall normal. Regarding safety precautions, he was noted to be a fall risk, to have fatigue, to have swallow precautions, and to have a visual deficit. IMPRESSION: Mr. Landaverde is a 61-year-old man who comes to inpatient rehabilitation after a prolonged hospital course. He was initially admitted for craniotomy which was done via the suboccipital route for biopsy and ultimately incomplete excision of a non-Hodgkin lymphoma tumor. He came through that procedure well but had many hospital complications including a ruptured duodenal ulcer requiring a Billroth II procedure and jejunostomy tube placement for feeding, pulmonary embolus, gastrointestinal bleed, dysphagia and pneumonia, inability to close the left eye and a corneal abrasion, dysarthria, and left-sided hearing loss. Additionally, with a history of diabetes mellitus type 2, he has had hyperglycemia exacerbated by anti-inflammatory steroids that were required post surgery. He has inability to swallow oral secretions and is using a suction device. He has had nausea and has been treated with an antiemetic. He is on IV antibiotics through 09/19/2016, for pneumonia and peritonitis. He is appropriate for inpatient rehabilitation where he will benefit from physical and occupational therapy regarding mobility and activities of daily living as well as speech and language pathology for dysphagia and to improve his communication. Additionally, he will require close nursing care as he is a fall risk, for skin protection, for medication education, for tube feeding and education regarding tube feeding, and to monitor for any signs or symptoms of infection. He will require close medical care regarding pneumonia, respiratory status, diabetes mellitus type 2, medication for excess secretion, pain management, and attention to sleep should he have insomnia. His goal is to return home with his family and supportive services. For a safe discharge, it is anticipated that he will achieve independence to modified independence with grooming, bed mobility, and transfers. He may continue to require assistance with dressing, bathing, and ambulation for household distances. It is expected he will require assistance for household management, shopping, and for tube feeding. He will have therapy with physical therapy, occupational therapy, and speech and language pathology for 30-60 minutes per day on 7 days per week on a modified schedule. His expected duration of stay is 10-14 days. It is anticipated that upon discharge he will continue to benefit from home health services, including nursing, speech and language pathology, a nurse's aide, occupational therapy and physical therapy. ASSESSMENT AND PLAN: 1. Debility, status post craniotomy for cerebellar central nervous system lymphoma and prolonged complicated hospital stay. Physical therapy and occupational therapy to optimize mobility and activities of daily living. 2. Dysphagia and dysarthria. Speech and language pathology to optimize swallowing and communication. It is hoped that he will be to return to p.o. feeding on the least restrictive diet. 3. Nutritional needs. He will continue on tube feeding per jejunostomy tube until he can tolerate orals and at which point diet will be advanced as much as possible. I will obtain a comprehensive metabolic profile in the morning to assure that his electrolytes, liver function, and renal function are stable and to further assess his nutritional and hydration status. 4. Status post craniotomy. To have medical nursing attention regarding wound healing. 5. Pneumonia. Continue antibiotics as ordered through 09/19/2016, oxygen as needed, and inhalers as currently ordered. As his respiratory status stabilizes and improves, the inhalers may be able to be discontinued as well as the mucolytic expectorant, guaifenesin. 6. Corneal abrasion. Continue erythromycin t.i.d. to the left eye as well as other eyedrops that have been ordered and eye patching. Planned duration of erythromycin and eye patch will be determined with further conversation with Ophthalmology. 7. Status post ruptured duodenal ulcer with surgical repair and jejunostomy feeding. 8. Status post GI bleed. Will continue lansoprazole per J-tube and will check a CBC in the morning to assure that his anemia remains stable or is improving. 9. Excess oral secretions, using suction to manage. He reports that he was given diphenhydramine in the hospital to reduce oral secretions at bedtime. I will substitute glycopyrrolate IV at h.s. as it is less sedating. 10. Diabetes mellitus type 2. Will continue metformin b.i.d. as well as Lantus insulin. His blood sugar will be checked, and he will be on a sliding scale of insulin. Metformin can be titrated and potentially he will not need insulin as well. However, his hemoglobin A1c on metformin was quite elevated at 9.7 early in his hospitalization so it is likely he will need either an additional oral medication or continued insulin for glycemic control. 11. 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 He will follow up with Oncology after his discharge from inpatient rehabilitation to consider further treatment. 12. Pulmonary emboli, status post IVC placement. Anticoagulation is contraindicated in the setting of recent GI bleed. His respiratory status will be monitored, and he will be observed for any signs or symptoms of new thrombosis or thromboembolism. He is at elevated risk due to his age, obesity, and malignancy. 13. History of peritonitis due to duodenal perforation. Continue vancomycin and piperacillin/tazobactam. /[id number]/MODL MTDD
[2016-09-17] MEDS: PETROLAT,WHT/MIN OIL/SOD CHL 3.5 GM OPHT.OINT LEFTEYE SCH ×2 (18:33→21:18)
[2016-09-17] MEDS: PIPERACILLIN/TAZO 4.5 GM/DEX 100 ML IV SCH (19:28)
[2016-09-17] MEDS: LANSOPRAZOLE SUSP 30MG/10ML UDSYR (Adult) TUBE SCH (19:48)
[2016-09-17] MEDS ORDERED: GLYCOPYRROLATE 0.2 MG/1 ML VIAL IVP SCH (21:00)
[2016-09-17] MEDS ORDERED: PANTOPRAZOLE SODIUM 40 MG VIAL IV SCH (21:00)
[2016-09-17] MEDS: INSULIN REGULAR HUMAN 100 UNIT/ML SC SCH (21:16)
[2016-09-17] MEDS: FLUTICASONE/SALMETER 250/50MCG DISKUS IH SCH (21:22)
[2016-09-18] MEDS: PIPERACILLIN/TAZO 4.5 GM/DEX 100 ML IV SCH ×4 (00:05→18:59)
[2016-09-18] MEDS: PETROLAT,WHT/MIN OIL/SOD CHL 3.5 GM OPHT.OINT LEFTEYE SCH ×6 (02:32→21:36)
[2016-09-18] MEDS: VANCOMYCIN 1.25 GM in D5W 250 ML IV SCH ×2 (04:01→17:08)
[2016-09-18] MEDS: INSULIN REGULAR HUMAN 100 UNIT/ML SC SCH ×4 (08:12→21:11)
[2016-09-18 08:32] LABS: ALANINE AMINOTRANSFERASE 43 IU/L (21-72); ALBUMIN 2.3 g/dL (3.5-5.0); ALKALINE PHOSPHATASE 241 IU/L (38-126); ANION GAP 6 mEq/L (8-16); ASPARTATE AMINOTRANSFERASE 22 IU/L (17-59); BILIRUBIN,TOTAL 0.4 mg/dL (0.1-1.4); CALCIUM 7.9 mg/dL (8.5-10.4); CARBON DIOXIDE 37 mEq/l (22-31); CHLORIDE 97 mEq/L (97-110); CREATININE 0.5 mg/dL (0.7-1.3); GLOMERULAR FILTRATION RATE > 60; GLUCOSE 187 mg/dL (70-100); POTASSIUM 3.8 mEq/L (3.5-5.2); SODIUM 140 mEq/L (134-144); TOTAL PROTEIN 4.7 g/dL (6.3-8.2)
[2016-09-18] MEDS: FLUTICASONE/SALMETER 250/50MCG DISKUS IH SCH ×2 (08:55→21:34)
[2016-09-18] MEDS: ERYTHROMYCIN 0.5% 1 GM OPHT.OINT LEFTEYE SCH ×3 (08:57→21:36)
[2016-09-18] MEDS: metFORMIN HCL 500 MG TAB PO SCH ×2 (09:00→17:12)
[2016-09-18] MEDS ORDERED: INSULIN GLARGINE 100 UNITS/ML SYRINGE SC SCH ×2 (09:00)
[2016-09-18] MEDS: LANSOPRAZOLE SUSP 30MG/10ML UDSYR (Adult) TUBE SCH ×2 (09:06→21:27)
[2016-09-18 09:14] LABS: ADD DIFF? YES; ADD MORPH? NO; ADD SCAN? NO; ATYPICAL LYMPHOCYTE FLAG 0 (0-99); FRAGMENT RBC FLAG 0 (0-99); HEMATOCRIT 24.4 % (40.0-51.0); HEMOGLOBIN 7.8 g/dL (13.7-17.5); LEFT SHIFT FLG 30 (0-99); LIPEMIA HEMOLYSIS FLAG 80 (0-99); MEAN CELL HEMOGLOBIN 31.2 pg (27.9-34.1); MEAN CELL VOLUME 97.6 fL (81.5-99.8); PLATELET CLUMPS FLAG 0 (0-99); PLATELET COUNT 474 10^3/uL (150-400); RED CELL DISTRIBUTION WIDTH 13.8 % (11.5-15.2)
[2016-09-18 10:03] LABS: GIANT PLATELETS PRESENT; HYPOCHROMIA 1+; PLATELET ESTIMATE INCREASED (ADEQ); POLYCHROMASIA 1+
--- NOTE | 2016-09-18 12:28 | PDOREHIP ---
Admission [facility] - Admission - 3 Day Assessment Period Admission Date/Day 1: 09/17/16 Day 2: 09/18/16 Day 3: 09/19/16 - Active Diagnoses Comorbidities and Co-existing Conditions at Admission: 46161. DM (e.g. diabetic retinopathy, nephropathy, and neuropathy) - Skin Conditions Unhealed Pressure Ulcer (1 or more/Stage 1 or >)-Admission: 0. No (DM2 but no evidence of retinopathy, neuropathy or nephropathy)
--- NOTE | 2016-09-18 12:28 | SOAPPROG ---
SOAP Progress Note Assessment/Plan: Assessment: 61 yo M status post craniotomy for cerebellar central nervous system lymphoma and prolonged complicated hospital stay * Debility. Physical therapy and occupational therapy to optimize mobility and activities of daily living. * Dysphagia and dysarthria. Speech and language pathology to optimize swallowing and communication. * Anemia. Status post GI bleed. Hgb decrease from 9.0 on 09/17/16 to 7.8 on 08/23. Check reticulocytes, iron panel. Recheck H/H at 1700; if blood loss is continuing, he may need intervention. Continue lansoprazole per J-tube. * Nutritional needs. Continue on tube feeding per jejunostomy tube until he can tolerate orals and at which point diet will be advanced as much as possible. * Status post craniotomy. To have medical nursing attention regarding wound healing. * Pneumonia. Continue antibiotics as ordered through 09/19/2016, oxygen as needed, and inhalers as currently ordered. * Corneal abrasion. Continue erythromycin t.i.d. to the left eye as well as other eyedrops that have been ordered and eye patching. Follow-up with Ophthalmology after discharge from rehabilitation. Will have surgical procedure to resolve. * Status post ruptured duodenal ulcer with surgical repair and jejunostomy feeding. * Oral secretions, using suction to manage due to dysphagia. Glycopyrrolate was effective but did not last through the night. Ordered 2nd dose 0.2 mg to be given IV at 0100 each night. * Diabetes mellitus type 2. On metformin 500 mg b.i.d. as well as Lantus insulin, and Q 6 hr sliding scale of insulin. Will increase metformin ro 1000 mg BID. However, his hemoglobin A1c on metformin was quite elevated at 9.7 early in his hospitalization so it is likely he will need either an additional oral medication or continued insulin for glycemic control. 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 He will follow up with Oncology after his discharge from inpatient rehabilitation to consider further treatment. * Pulmonary emboli, status post IVC placement. Anticoagulation is contraindicated in the setting of recent GI bleed. His respiratory status will be monitored, and he will be observed for any signs or symptoms of new thrombosis or thromboembolism. He is at elevated risk due to his age, obesity, and malignancy. * History of peritonitis due to duodenal perforation. Continue vancomycin and piperacillin/tazobactam. Follow-up Ophthalmology Dr. Lindy Moralez after discharge. 09/18/16 13:36 Subjective: Slept well until oral secretions increased at about 0500. Otherwise glycopyrrolate was effective in reducing secretions. Feels fatigued and has been nappping between therapy session. Not in pain. No f/c, n/v/c/d, cough, dyspnea. Objective: Vital Signs Temp Pulse Resp BP Pulse Ox 36.9 C 84 16 113/73 93 09/18/16 07:03 09/18/16 07:03 09/18/16 07:03 09/18/16 07:03 09/18/16 07:03 Laboratory Results 09/18/16 06:00 09/18/16 06:00 09/17/16 09/18/16 09/19/16 05:59 05:59 05:59 Intake Total 50 Output Total 0 1575 700 Balance 0 -1525 -700 Physical Exam - Physical Exam General Appearance: WD/WN, alert, no apparent distress, obese Respiratory: normal breath sounds, No crackles, No rhonchi, No wheezing Cardiac/Chest: regular rate, rhythm, No edema Skin: normal color, warm/dry Neuro/Psych: alert, normal mood/affect, oriented x 3 ICD10 Worksheet Patient Problems: Problems Problem Status Diagnosed Brain lesion Acute Perforated duodenal ulcer Acute
[2016-09-18 15:14] LABS: % SATURATION 15 % (20-55); TOTAL IRON BINDING CAPACITY 200 ug/dL (260-490)
[2016-09-18 15:26] LABS: HEMATOCRIT 24.8 % (40.0-51.0)
[2016-09-18 18:39] LABS: HEMATOCRIT 24.6 % (40.0-51.0); HEMOGLOBIN 7.9 g/dL (13.7-17.5)
[2016-09-18] MEDS ORDERED: GLYCOPYRROLATE 0.2 MG/1 ML VIAL IVP ONE (21:00)
[2016-09-18] MEDS ORDERED: GLYCOPYRROLATE 0.2 MG/1 ML VIAL IVP SCH (21:01)
[2016-09-19] MEDS: PIPERACILLIN/TAZO 4.5 GM/DEX 100 ML IV SCH ×3 (00:10→12:34)
[2016-09-19] MEDS: PETROLAT,WHT/MIN OIL/SOD CHL 3.5 GM OPHT.OINT LEFTEYE SCH ×6 (02:00→20:50)
[2016-09-19] MEDS: GLYCOPYRROLATE 0.2 MG/1 ML VIAL IVP PRN ×2 (02:30→20:28)
[2016-09-19] MEDS: VANCOMYCIN 1.25 GM in D5W 250 ML IV SCH ×2 (05:07→16:38)
[2016-09-19] MEDS: INSULIN REGULAR HUMAN 100 UNIT/ML SC SCH ×4 (07:56→18:05)
[2016-09-19] MEDS: FLUTICASONE/SALMETER 250/50MCG DISKUS IH SCH ×2 (07:57→20:26)
[2016-09-19] MEDS: metFORMIN HCL 500 MG TAB PO SCH ×2 (07:57→18:06)
[2016-09-19] MEDS: ERYTHROMYCIN 0.5% 1 GM OPHT.OINT LEFTEYE SCH ×3 (07:57→20:49)
[2016-09-19] MEDS: LANSOPRAZOLE SUSP 30MG/10ML UDSYR (Adult) TUBE SCH ×2 (07:58→20:26)
[2016-09-19] MEDS: INSULIN GLARGINE 100 UNITS/ML SYRINGE SC SCH (09:24)
[2016-09-19 09:26] LABS: HEMATOCRIT 25.1 % (40.0-51.0); HEMOGLOBIN 7.9 g/dL (13.7-17.5)
--- NOTE | 2016-09-19 10:55 | SOAPPROG ---
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 Initial FIM 73 on 09/19/16. Walked 150'. CGA t'fers and ambulation. Min A bathing, o/w SBA - CGA for ADLs. Mobility and ADLs complicated by equipment: O2, feeding tube, IVs. Continue Physical therapy and occupational therapy to optimize mobility and activities of daily living. * Dysphagia and dysarthria. Speech and language pathology to optimize swallowing and communication. Planning repeat VFSS to target e-stim. * Mild cognotive impairment with memory loss. Cognitive training per CRISIS COUNSELOR. * Anemia. Status post GI bleed. Hgb decrease from 9.0 on 09/17/16 to 7.8 on 08/23; stabilized at 7.9 09/18/16 evening and 09/19/16 morning. Appropriate reticulocytes. Iron deficient; will supplement. Continue lansoprazole per J- tube. * Nutritional needs. Continue on tube feeding per jejunostomy tube. Has not tolerated increased rate; will continue to attempt to increase with goal of continuous feeding overnight and bolus during the day. Per his report, NPO for nutrition for 6 weeks (due to Billroth II procedure?). Free water flush has been increased form 50 cc to 80 cc. Q 4 hr. * Status post craniotomy. To have medical nursing attention regarding wound healing. * Pneumonia. Continue antibiotics as ordered through 09/19/2016, oxygen as needed, and inhalers as currently ordered. * Corneal abrasion. Continue erythromycin t.i.d. to the left eye as well as other eyedrops that have been ordered and eye patching. Follow-up with Ophthalmology after discharge from rehabilitation. Will have surgical procedure to resolve. * Oral secretions, using suction to manage due to dysphagia. Glycopyrrolate was effective but did not last through the night. Ordered 2nd dose 0.2 mg to be given IV at 0100 each night starting 09/18/16 - 09/19/16; adeqaute secretion control. * Diabetes mellitus type 2. On metformin 500 mg b.i.d. as well as Lantus insulin, and Q 6 hr sliding scale of insulin. Will increase metformin ro 1000 mg BID. However, his hemoglobin A1c on metformin was quite elevated at 9.7 early in his hospitalization so it is likely he will need either an additional enteral medication or continued insulin for glycemic control. 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 He will follow up with Oncology after his discharge from inpatient rehabilitation to consider further treatment. * Pulmonary emboli, status post IVC placement. Anticoagulation is contraindicated in the setting of recent GI bleed. His respiratory status will be monitored, and he will be observed for any signs or symptoms of new thrombosis or thromboembolism. He is at elevated risk due to his age, obesity, and malignancy. Encourage mobilization. * History of peritonitis due to duodenal perforation. Continue vancomycin and piperacillin/tazobactam. Attended staffing, 15 min. D/W case mgmt, nursing, customer acquisition specialist, PT, OT, CRISIS COUNSELOR. 29 yo son will be home to help care for patient. Tentative discharge date of . 09/19/16 11:16 Subjective: No complaints. 2nd dose of glycopyrrolate kept oral secretions reduced all night and he did not need to self-suction. Not in pain, no f/c, dyspnea/cough, n/v/c/d. Objective: Vital Signs Temp Pulse Resp BP Pulse Ox 37.5 C 85 23 H 100/64 94 09/19/16 07:46 09/19/16 07:46 09/19/16 07:46 09/19/16 07:46 09/19/16 07:46 Laboratory Results 09/19/16 05:00 09/18/16 06:00 09/18/16 09/19/16 09/20/16 05:59 05:59 05:59 Intake Total 50 613 990 Output Total 1587 4855 450 Balance -7390 -0197 540 - Time Spent With Patient Time Spent With Patient: Greater than 35 minutes floor time today, including more than 50% of time in coordination of care during staffing, and counseling patient. Physical Exam - Physical Exam General Appearance: WD/WN, alert, no apparent distress Respiratory: decreased breath sounds, No crackles, No rhonchi, No wheezing Cardiac/Chest: regular rate, rhythm, No edema Neuro/Psych: alert, normal mood/affect, oriented x 3, abnormal arts administrator or manager II-XII (L facial droop and dysarthria) ICD10 Worksheet Patient Problems: Problems Problem Status Diagnosed Brain lesion Acute Perforated duodenal ulcer Acute
[2016-09-19] MEDS: FERROUS SULFATE 300 MG/5 ML UD CUP TUBE SCH (13:23)
[2016-09-19] MEDS ORDERED: PIPERACILLIN NA/TAZO 4.5 GM in D5W 100 ML IV SCH (18:00)
[2016-09-19] MEDS ORDERED: GLYCOPYRROLATE 0.2 MG/1 ML VIAL IVP ONE (23:30)
[2016-09-19] MEDS ORDERED: GLYCOPYRROLATE 0.2 MG/1 ML VIAL IVP PRN (23:30)
[2016-09-20] MEDS: INSULIN REGULAR HUMAN 100 UNIT/ML SC SCH ×3 (00:24→18:07)
[2016-09-20] MEDS: PETROLAT,WHT/MIN OIL/SOD CHL 3.5 GM OPHT.OINT LEFTEYE SCH ×5 (02:08→18:08)
[2016-09-20 07:01] VITALS: BP 104/69; PULSE 91; RESP 18; TEMP 97.9; O2SAT 96
[2016-09-20] MEDS: ERYTHROMYCIN 0.5% 1 GM OPHT.OINT LEFTEYE SCH ×2 (08:58→18:05)
[2016-09-20] MEDS: FLUTICASONE/SALMETER 250/50MCG DISKUS IH SCH (08:58)
[2016-09-20] MEDS ORDERED: PANCREASE FOR DOBHOFF 50 ML BTL TUBE ONE (10:00)
--- NOTE | 2016-09-20 11:47 | SOAPPROG ---
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 Initial FIM 73 on 09/19/16. Mobility improving. Mobility and ADLs complicated by equipment: O2, feeding tube, IVs. Continue Physical therapy and occupational therapy to optimize mobility and activities of daily living. * Dysphagia and dysarthria. Speech and language pathology to optimize swallowing and communication. Planning repeat VFSS to target e-stim. * Mild cognotive impairment with memory loss. 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 * Anemia. Status post GI bleed. Hgb decrease from 9.0 on 09/17/16 to 7.8 on 08/23; stabilized at 7.9 09/18/16 evening and 09/19/16 morning. Appropriate reticulocytes. Iron deficient; will supplement. Continue lansoprazole per J- tube. * J-tube: currently clogged. Trial Coke, Pancrease, pressure. Will avoid all meds which need to be crused to get through tube and have risk of clogging tube including (Metformin to be switched to Sliding Scale Insulin, reg) and temazepam. * GI: Bloated, but passing gas, BM's, and with active BS's. Discussed with Dr Rocha (). Cont current treatment plan and monitor. * Nutritional needs. Continue on tube feeding per jejunostomy tube. Has not tolerated increased rate; will continue to attempt to increase with goal of continuous feeding overnight and bolus during the day. Per his report, NPO for nutrition for 6 weeks (due to Billroth II procedure?). Free water flush has been increased form 50 cc to 80 cc. Q 4 hr. * Status post craniotomy. wound healing. * Pneumonia. antibiotics completed 09/19/2016, oxygen as needed, and inhalers as currently ordered. * Corneal abrasion. Continue erythromycin t.i.d. to the left eye as well as other eyedrops that have been ordered and eye patching. Follow-up with Ophthalmology after discharge from rehabilitation. Will have surgical procedure to resolve. * Oral secretions, using suction to manage due to dysphagia. Glycopyrrolate was effective but did not last through the night. Ordered 2nd dose 0.2 mg to be given IV at 0100 each night starting 1/12/17 - 09/19/16; adequate secretion control. * Diabetes mellitus type 2. Will hold metformin 2/2 risk of clogging J tube. Cont Lantus insulin, and Q 6 hr sliding scale of insulin. And, his hemoglobin A1c on metformin was quite elevated at 9.7 early in his hospitalization so it is likely he will need either an additional enteral medication or continued insulin for glycemic control. 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 He will follow up with Oncology after his discharge from inpatient rehabilitation to consider further treatment. * Pulmonary emboli, status post IVC placement. Anticoagulation is contraindicated in the setting of recent GI bleed. His respiratory status will be monitored, and he will be observed for any signs or symptoms of new thrombosis or thromboembolism. He is at elevated risk due to his age, obesity, and malignancy. Encourage mobilization. * History of peritonitis due to duodenal perforation. Continue vancomycin and piperacillin/tazobactam. Plan: Cont Dr Bartlett's rehab treatment plan 09/20/16 12:34 Subjective: Grumpy No F/C/CP/SOB Had small BM this am I's and O's stable J-tubed clogged ? duration. holding lantus until unclogged. Abdomen distended, no sig pain c/o's Objective: Vital Signs Temp Pulse Resp BP Pulse Ox 36.6 C 91 18 104/69 96 09/20/16 07:01 09/20/16 07:01 09/20/16 07:01 09/20/16 07:01 09/20/16 07:01 Laboratory Results 09/19/16 05:00 09/18/16 06:00 09/19/16 09/20/16 09/21/16 05:59 05:59 05:59 Intake Total 613 2850 Output Total 2650 1100 100 Balance -2037 1750 -100 Physical Exam - Physical Exam General Appearance: alert, no apparent distress Neck: supple Respiratory: lungs clear Cardiac/Chest: regular rate, rhythm Abdomen: soft, distended, other (J tube ostomy WNL, J tube clogged), No normal bowel sounds (loud, hypoactive BS x 4Q's), No guarding, No rebound, No rigid, No ascites Skin: normal color, warm/dry Extremities: No pedal edema, No calf tenderness Neuro/Psych: alert, normal mood/affect, oriented x 3, motor weakness, sensory deficit, cognition abnormalities, speech abnormalities, other (no acute changes) ICD10 Worksheet Patient Problems: Problems Problem Status Diagnosed Brain lesion Acute Perforated duodenal ulcer Acute
[2016-09-20] MEDS ORDERED: diphenhydrAMINE 12.5 MG/5 ML UDCUP TUBE PRN (13:23)
[2016-09-20] MEDS: metFORMIN HCL 500 MG TAB PO SCH (16:43)
[2016-09-20] MEDS: FERROUS SULFATE 300 MG/5 ML UD CUP TUBE SCH (18:06)
[2016-09-20] MEDS: INSULIN GLARGINE 100 UNITS/ML SYRINGE SC SCH (18:07)
[2016-09-20] MEDS: LANSOPRAZOLE SUSP 30MG/10ML UDSYR (Adult) TUBE SCH (18:08)
--- NOTE | 2016-09-21 18:27 | GDS ---
[f rep st] DISCHARGE SUMMARY CONSULTING PHYSICIANS: Maisha Harper MD; Aidee Rocha MD; Vitor Negrete MD. REHABILITATION DIAGNOSES: Debility following craniotomy for [employer]ODU[employer] SHIPPER non-Hodgkin's lymphoma, severe dysphagia, complicated gastrointestinal process. IMPAIRMENT GROUP: 2.1. HISTORY: The patient has had a very complicated medical course since 2015. Following resection of a brain stem lymphoma per Dr. Dumont, he developed the complication of a perforated duodenal ulcer requiring emergent enterectomy, oversewing of the duodenal stump, and gastrojejunostomy, per Dr. Rocha. He was admitted to rehab on 09/17/2016, and was medically stable, and participating and benefiting from therapies until the morning of 09/20/2016. He was not tolerating advancement of the tube feeding, and complained of abdominal bloating and leaking of the J-tube throughout the night. On the morning of 09/20/2016, it was noted that the J-tube was fully occluded. Attempts by the nurse, followed by myself, at irrigating the tube were unsuccessful. The patient initially refused a trial with Coca Cola. There was a long delay in obtaining Pancrease from the [facility]. Once that was eventually available, it failed on 2 attempts to clear the J-tube. He later agreed to the Coca Cola trial which was also unsuccessful after 3 attempts. By this time, it was mid afternoon and the patient had gone without nutrition since early in the morning. He is a type 2 diabetic and his Lantus insulin was held. His blood sugars remained stable between 100-110. He was medically stable throughout the entire day. Despite that, he was extremely frustrated, angry, and demanded consultation and direct discussion with his general surgeon, Dr. Rocha. By late afternoon, due to the unfortunate circumstance of a non-functioning J-tube, it was decided to transfer him via the ER back to acute care at [facility]. Dr. Rocha planned a revision on 09/21/2016. The patient agreed to the transfer. On 09/20/2016, at approximately 1600 hours, he was transferred via ambulance to the ER. At that time, vital signs were stable. Blood pressure 112/50, pulse 95, respirations 18 , O2 saturation 97% on 3 L nasal cannula. It would be anticipated that he could return to acute rehab once medically stable, and with a functioning jejunostomy tube. /[id number]/MODL MTDD
== END 2016-09-20 17:00 | disposition still patient (30) | DRG 949 ==
LOC: BREH 09-17 14:32
PROVIDERS: ADMIT Internal Medicine; ATTEND Internal Medicine
PROC: F08Z7ZZ Vocational Activities and Functional Community or Work Reintegration Skills Treatment (ICD-10-PCS; principal; 2016-09-17)
PROC: F07M3ZZ Motor Function Treatment of Musculoskeletal System - Whole Body (ICD-10-PCS; principal; 2016-09-17)
PROC: F0636ZZ Communicative/Cognitive Integration Skills Treatment of Neurological System - Whole Body (ICD-10-PCS; principal; 2016-09-17)
DX: Z48.811 Encounter for surgical aftercare following surgery on the nervous system (principal); J18.9 Pneumonia, unspecified organism; C85.11 Unspecified B-cell lymphoma, lymph nodes of head, face, and neck; K94.19 Other complications of enterostomy; S05.02XD Injury of conjunctiva and corneal abrasion without foreign body, left eye, subsequent encounter; R13.10 Dysphagia, unspecified; E66.01 Morbid (severe) obesity due to excess calories; R29.810 Facial weakness; E11.9 Type 2 diabetes mellitus without complications; R47.1 Dysarthria and anarthria; H91.92 Unspecified hearing loss, left ear; Z93.4 Other artificial openings of gastrointestinal tract status; Z98.0 Intestinal bypass and anastomosis status; Z79.2 Long term (current) use of antibiotics; Z79.84 Long term (current) use of oral hypoglycemic drugs; Z86.711 Personal history of pulmonary embolism; Z87.891 Personal history of nicotine dependence
CPT/HCPCS: 92507-GN; 92522-GN; 92526; 92610; 97110-GO; 97112-GP; 97116-GP; 97162-GP; 97167-GO; 97530-GO; 97530-GP; 97535-GO; J1644; J1815; J2250; J2405; J2543; J2997; J3010; J3370; Q9967

== ENCOUNTER 2016-09-20 16:08 | Inpatient (IN) | payer OTHER ==
--- NOTE | 2016-09-20 17:00 | EDPHY ---
H & P Time Seen by Provider: 09/20/16 16:45 HPI/ROS: Chief complaint. Blocked J tube HPI. 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 He has diabetes gets lots of medications and apparently pills were crushed and put down into the J-tube this morning and blocked up. Has not worked since this morning. It was surgically placed September 08. Patient has no abdominal pain. He sent from for management of the blocked jejunostomy to ROS Constitutional. no fever/chills, no weakness Eyes. no problems with vision ENT. no sore throat, no nasal drainage Cardiovascular. no chest pain Respiratory. no shortness of breath, no cough Abdominal. no abdominal pain, no nausea/vomiting, no diarrhea . no problems urinating MS. no calf pain/swelling, no neck/back pain, no joint pain Skin. no rash Lymph. no swollen glands Neuro. 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 ENT, Mouth: Mucous membranes are moist. Respiratory: There are no retractions, lungs are clear to auscultation. Cardiovascular: Regular rate and rhythm. Gastrointestinal: Abdomen is soft and nontender, no masses, bowel sounds normal. Jejunostomy tube is in place Neurological: Awake and alert, sensory and motor exams grossly normal. Skin: Warm and dry, no rashes. Musculoskeletal: Neck is supple nontender. Extremities symmetrical, full range of motion. Psychiatric: Patient is oriented X 3, there is no agitation. Constitutional: Initial Vital Signs Temperature (C) 36.9 C 09/20/16 16:08 Heart Rate 95 09/20/16 16:08 Respiratory Rate 18 09/20/16 16:08 Blood Pressure 112/50 L 09/20/16 16:08 O2 Sat (%) 97 09/20/16 16:08 O2 Delivery Mode Nasal Cannula O2 (L/minute) 3 Allergies/Adverse Reactions: No Known Allergies Allergy (Unverified 08/22/16 11:45) Home Medications: Medication Instructions Recorded metFORMIN HCL [Glucophage 500 mg 500 mg PO BIDMEAL 08/22/16 (*)] Acetaminophen [Tylenol Rectal] 650 mg OK Q4 PRN #0 supp 09/17/16 Alteplase [Cathflo Activase 2 mg 2 mg IVP PRN PRN #0 vial 09/17/16 (*)] Dextrose 50% Syringe 12.5 - 25 gm IVP PRN PRN #0 syr 09/17/16 Diazepam [Valium Injection (*)] 2.5 - 5 mg IVP QID PRN #0 syr 09/17/16 Erythromycin 0.5% 1 lorraine LEFTEYE TID #0 opht.oint 09/17/16 Fluticasone/Salmeter 250/50Mcg 1 puffs IH BID #0 disk 09/17/16 [Advair 250/50 (*)] HYDROmorphone HCL [Dilaudid] 0.2 - 0.4 mg IVP Q2HRS PRN #0 syr 09/17/16 Insulin Glargine [Lantus 100 10 units SC DAILY #0 ml 09/17/16 UNITS/ML (*)] Ipratropium [Atrovent Neb (*)] 0.5 mg IH QID PRN #0 deyvial 09/17/16 Lansoprazole [PREVACID 30mg/10ml 30 mg TUBE BID #0 udsyr 09/17/16 susp (Adult) (*)] Ondansetron HCl Pf [Zofran 4 mg 4 mg IVP Q4HRS PRN #0 vial 09/17/16 Inj (*)] Pantoprazole Sodium [Protonix IV 40 mg IV BID #0 vial 09/17/16 (*)] Petrolat,Wht/Min Oil/Sod Chl 1 lorraine LEFTEYE Q4 #0 opht.oint 09/17/16 [Refresh P.m. Ointment] Piperacillin/Tazo 4.5 gm/Dex 100 ml IV Q6HRS #0 bag 09/17/16 [Zosyn (Premix)] Tears/Dextran 70/Hypromellose 1 drop EACHEYE Q2 PRN #0 opht.btl 09/17/16 [Natural Balance Tears (*)] Temazepam [Restoril 15 MG (*)] 15 mg TUBE HS PRN #0 cap 09/17/16 Vancomycin [Vancomycin (*)] 1.25 gm IV Q12H #0 vial 09/17/16 diphenhydrAMINE [Benadryl 12.5 - 50 mg IVP Q6HRS PRN #0 inj 09/17/16 Injection] guaiFENesin/DEXTROMETHORPHAN 10 ml TUBE Q4HRS PRN #0 ml 09/17/16 [Robitussin Dm Oral Liquid (*)] Medical Decision Making ED Course/Re-evaluation: Attempts to irrigate and unclog the jejunostomy tube are unsuccessful. I have irrigated it. I have used a guidewire to try to break up the clot and then irrigated again but mm am unsuccessful I have consulted and discussed case with Dr. Aidee Rocha who placed the JG an ostomy tube. She recommends admission to hospitalist and she will replace the JG an ostomy tube tomorrow. I have consulted and discussed the case with Dr. Zavala , on-call for Gastroenterology. He is aware and will be helpful. I have consulted and discussed the case with Dr. George, hospitalist, who agrees to the admission Differential Diagnosis: Jejunostomy tube that is block. Apparently pills have been crushed and put through the jejunostomy tube and have caused obstruction. I am unable to clear it. Departure - Departure Disposition: [facility] Inpatient Acute Clinical Impression: Blocked jejunostomy tube Condition: Good
[2016-09-20] MEDS ORDERED: LORazepam 2 MG/ML INJ IVP PRN (20:47)
[2016-09-20] MEDS ORDERED: ACETAMINOPHEN 325 MG TAB PO PRN (20:47)
[2016-09-20] MEDS ORDERED: ONDANSETRON 4 MG/2 ML VIAL IVP PRN (20:47)
[2016-09-20] MEDS ORDERED: PROMETHAZINE HCL 25 MG/ML VIAL IVP PRN (20:47)
[2016-09-20] MEDS ORDERED: ONDANSETRON DISINTEGRATING 4 MG TAB PO PRN (20:47)
[2016-09-20] MEDS ORDERED: IPRATROPIUM BROMIDE 0.5 MG/2.5 ML DEYVIAL IH PRN (20:53)
[2016-09-20] MEDS ORDERED: ALTEPLASE 2 MG VIAL IVP PRN (20:53)
[2016-09-20] MEDS ORDERED: DIAZEPAM 10 MG/2 ML SYR IVP PRN (20:53)
[2016-09-20] MEDS ORDERED: TEARS/DEXTRAN 70/HYPROMELLOSE 15 ML OPHT.BTL EACHEYE PRN (20:53)
[2016-09-20] MEDS ORDERED: D50W 25 GM/50 ML SYR IVP PRN (20:53)
[2016-09-20] MEDS ORDERED: NS 1,000 ML IV SCH (21:00)
[2016-09-20] MEDS ORDERED: VANCOMYCIN 1.25 GM IV SCH (21:00)
[2016-09-20] MEDS ORDERED: PANTOPRAZOLE SODIUM 40 MG VIAL IV SCH (21:00)
[2016-09-20] MEDS: PANTOPRAZOLE SODIUM 40 MG in NS 100 ML IV SCH (22:19)
[2016-09-20] MEDS: FLUTICASONE/SALMETER 250/50MCG DISKUS IH SCH (22:35)
[2016-09-20] MEDS: ERYTHROMYCIN 0.5% 1 GM OPHT.OINT LEFTEYE SCH (22:36)
[2016-09-20] MEDS: PETROLAT,WHT/MIN OIL/SOD CHL 3.5 GM OPHT.OINT LEFTEYE SCH ×2 (22:38)
[2016-09-21] MEDS ORDERED: TAZO IV SCH
[2016-09-21] MEDS ORDERED: DEX IV SCH
[2016-09-21] MEDS ORDERED: PIPERACILLIN IV SCH
--- NOTE | 2016-09-21 00:09 | GHP ---
[f rep st] HISTORY AND PHYSICAL DATE OF ADMISSION: 09/20/2016 The patient is a 61-year-old gentleman with a history of MILITARY PERSONNEL SPECIALIST lymphoma with resection and complex post operative course including perforated gastric ulcer with emergent laparotomy and J-tube placement. Rhonda caceres has been at [facility] the [facility] for approximately 3 days. He returns today with a clogged J-tube. Physical measures such as enzymes, Coca Cola and guidewire were unsuccessful in un clogging the tube. I am now asked to admit him for further management. I discussed the case with Dr. Aidee Rocha and Dr. Judah Zavala. The patient is currently frustrated but denies pain. He denies abdominal bloating, fever, chills, cough, sputum, nausea, vomiting,diarr hea. He remains n.p.o. it sounds like because of dysphagia following his neurosurgery for removal of his MILITARY PERSONNEL SPECIALIST lymphoma. REVIEW OF SYSTEMS: Complete 10-point review of systems conducted. Negative except as noted in the HPI. PAST MEDICAL HISTORY: 1. 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 2. Pulmonary embolism, not on anticoagulation. 3. Aspiration pneumonia. 4. Perforated duodenum with emergent surgery on 09/01/2016. This was an antrectomy and gastrojejuno stomy with over-sewing of the duodenal stump. 5. Anemia. 6. Iron deficiency. 7. Aspiration pneumonia on antibiotics. 8. Dysphagia. 9. Type 2 diabetes. 10. Dyslipidemia. ALLERGIES: No known drug allergies. HOME MEDICATIONS: 1. Hydromorphone. 2. Guaifenesin. 3. Dextromethorphan. 4. Ondansetron. 5. Advair. 6. Ipratropium. 7. Cathflo. 8. Dextrose. 9. Erythromycin ointment. 10. Metformin. 11. Glargine 10 units daily. 12. Artificial Tears. 13. Lansoprazole. 14. Mineral oil. 15. Eye ointment. 16. Temazepam. 17. Acetaminophen. 18. Vancomycin. 19. through 113. FAMILY HISTORY: Reviewed and unremarkable. SOCIAL HISTORY: Minimal tobacco and alcohol. PHYSICAL EXAM: VITAL SIGNS: Presenting vitals: Temp 36.9, blood pressure 112/50, pulse 95, breathi ng 18 times a minute, 97% on 3 L. GENERAL: No acute distress. Angry. Sclerae anicteric. Orophary nx clear. Mucous membranes moist. NECK: Supple without lymphadenopathy, JVD. LUNGS: Clear to aus cultation bilaterally. HEART: S1, S2. ABDOMEN: Soft, nontender, nondistended. His tube is clogge d. Bowel sounds are hypoactive. EXTREMITIES: Lower extremities without edema. Calves nontender. SKIN: Without rash. NEUROLOGIC: Exam shows left-sided facial droop. He has a patch over his left eye. LABS: Recent labs show a hemoglobin of 7.9. Glucose is in the therapeutic range. There is no imaging today. Discussed case with Dr. Judah Zavala, Dr. Aidee Rocha and Dr. Vitor Negrete. ASSESSMENT/PLAN: Complex 61-year-old gentleman with a clogged J-tube. 1. Clogged J-tube. Typical methods of unclogging have been unsuccessful. Sounds to be typically cl ogged when pills are administered, which is being done. The options include PEG tube which GI feels is too dangerous, IR guided G-tube which has been ordered or replacement of the feeding tube to be do ne intraoperatively which may be a riskier way to proceed. I have also ordered a speech therapy cons ult to evaluate the patient's need for ongoing tube feeds. I have requested GI discussed this with S kapil tomorrow, and I have placed an order for IR to discuss this with Dr. Rocha. For the time melissa manasa, will provide him with IV fluids. 2. Diabetes. Will put his lancets at 4, hold his metformin. 3. Aspiration pneumonia. He has completed an adequate course. Will stop his antibiotics. 4. Pulmonary embolism. The patient is not on anticoagulation. Given the upcoming procedure, will n ot start. Other than that, I do not see a contraindication to anticoagulation in this patient despit e his critical illness. 5. Blood loss anemia. Patient has iron deficiency by iron studies a couple of days ago. DISPOSITION: He is admitted to observation status. /[id number]/MODL
[2016-09-21 03:52] LABS: % IMMATURE GRANULYOCYTES 2.6 % (0.0-1.1); ADD DIFF? NO; ADD MORPH? NO; ADD SCAN? NO; ATYPICAL LYMPHOCYTE FLAG 20 (0-99); FRAGMENT RBC FLAG 0 (0-99); HEMATOCRIT 24.4 % (40.0-51.0); HEMOGLOBIN 7.7 g/dL (13.7-17.5); LEFT SHIFT FLG 20 (0-99); LIPEMIA HEMOLYSIS FLAG 80 (0-99); MEAN CELL HEMOGLOBIN 31.3 pg (27.9-34.1); MEAN CELL HEMOGLOBIN CONCENTR. 31.6 g/dL (32.4-36.7); MEAN CELL VOLUME 99.2 fL (81.5-99.8); MEAN PLATELET VOLUME 9.2 fL (8.7-11.7); PLATELET CLUMPS FLAG 0 (0-99); PLATELET COUNT 581 10^3/uL (150-400); RED BLOOD CELL COUNT 2.46 10^6/uL (4.40-6.38); RED CELL DISTRIBUTION WIDTH 14.5 % (11.5-15.2)
[2016-09-21] MEDS: PETROLAT,WHT/MIN OIL/SOD CHL 3.5 GM OPHT.OINT LEFTEYE SCH ×6 (03:53→22:11)
[2016-09-21 04:00] LABS: ANION GAP 9 mEq/L (8-16); CARBON DIOXIDE 29 mEq/l (22-31); CHLORIDE 106 mEq/L (97-110); CREATININE 0.6 mg/dL (0.7-1.3); GLOMERULAR FILTRATION RATE > 60; GLUCOSE 75 mg/dL (70-100); POTASSIUM 4.2 mEq/L (3.5-5.2); SODIUM 144 mEq/L (134-144)
[2016-09-21] MEDS: D10W IV SCH ×2 (07:53→16:50)
[2016-09-21] MEDS: POTASSIUM CL IV SCH ×2 (07:53→16:50)
[2016-09-21] MEDS: PANTOPRAZOLE SODIUM 40 MG in NS 100 ML IV SCH ×2 (07:55→21:28)
[2016-09-21] MEDS: ERYTHROMYCIN 0.5% 1 GM OPHT.OINT LEFTEYE SCH ×3 (07:57→21:32)
--- NOTE | 2016-09-21 08:50 | GCON ---
[f rep st] CONSULTATION REFERRING PHYSICIAN: Nash George MD HISTORY OF PRESENT ILLNESS: This patient is a 61-year-old man who was recently hospitalized for a lo ng duration following resection of a brainstem lymphoma by Dr. Dumont. During his hospitalization he was on steroid and NSAIDs for to reduce brainstem edema and developed a perforated duodenal ulcer req uiring emergent antrectomy, over-sewing of the duodenal stump and gastrojejunostomy by me. Due to hi s difficulty swallowing status post brainstem lymphoma resection, a feeding jejunostomy tube was plac ed. He was eventually discharged on tube feedings to rehab. Unfortunately his J tube has become luma gged with crushed medications, and he needs enteral feeding access. PAST MEDICAL HISTORY: Perforated duodenal ulcer likely related to NSAIDs and steroids as per History of Present Illness. Anemia. Brainstem lymphoma status post resection as per History of Present Ill ness. Pulmonary embolism, not on anticoagulation due to GI bleeding while on anticoagulation. Type 2 diabetes. Dysphagia secondary to the brainstem lymphoma. Dyslipidemia. PAST SURGICAL HISTORY: See History of Present Illness. MEDICATIONS: Ipratropium, Advair, ondansetron, guaifenesin, dextromethorphan, and hydromorphone. Er ythromycin ointment, metformin, lansoprazole, Artificial Tears, glargine, mineral oil, temazepam, dana taminophen, and vancomycin. ALLERGIES: He has no known drug allergies. SOCIAL HISTORY: He is . He is a nonsmoker. He is active, is an avid skier, and has not miss ed a ski season since the age of 10 until this year. REVIEW OF SYSTEMS: He denied chest pain, shortness of breath. He complained of bloating with his tu be feedings and some gas pain. PHYSICAL EXAM: VITAL SIGNS: His temperature is 36.4, pulse 93, blood pressure 115/67, respiratory r ate is 20. He is saturating 91% on 2 L per nasal cannula. GENERAL: He is alert, nontoxic appearing , nonjaundiced, in no acute distress. HEENT: He has a left-sided facial droop status post resection of his brainstem lymphoma. ABDOMEN: Nondistended. LABORATORY DATA: His white count is 8, hematocrit 24, platelets 581. Creatinine is 0.6. ASSESSMENT: Clogged jejunostomy tube with need for enteral feeding access due to dysphagia status po st brainstem lymphoma resection. PLAN: I have discussed the case with both Gastroenterology and radiology. At this point, because hi s duodenal stump and gastrojejunostomy are adequately healed, I think G-tube placement via minimally invasive approach is his best option as a G tube is less likely to get clogged. He can have medicati ons placed through the G tube and he can be bolus fed through a G tube. This is all preferable to op en jejunostomy tube placement, which would not only require open surgery but would commit him to a co ntinuous feeding regimen making him in a less mobile and free. The jejunostomy tube is also likely t o get clogged again at some point if used for medication administration. Dr. Zavala with gastroenter ology would defer placement via an endoscopic approach to placement by IR by imaging guidance. He kearney s been scheduled for IR G-tube placement for tomorrow. Once he has G-tube access, his jejunostomy tu be will be discontinued. /[id number]/MODL
[2016-09-21] MEDS: FLUTICASONE/SALMETER 250/50MCG DISKUS IH SCH ×2 (09:25→21:55)
[2016-09-21] MEDS: INSULIN GLARGINE 100 UNITS/ML SYRINGE SC SCH (09:59)
--- NOTE | 2016-09-21 12:07 | HOSPPROG ---
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 He had a complex postoperative course including a perforated gastric ulcer with emergent laparotomy and G-tube placement. He return to the emergency room with a J tube that is clogged. I reviewed Dr. Rocha's consult. She is recommending a G-tube placement because they are less issues with this clogging. Today is my 1st encounter with the patient. Chart reviewed. #. clogged J tube * appreciate Dr. Rocha seeing the patient * plan is for placement of a G-tube will likely clogs less * multiple attempts were done to unclog the tube #. diabetes * metformin on hold /on Lantus #. anemia/ iron deficiency * hemoglobin 7.7 hematocrit 24.4/this is close to his baseline #. 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 recent bout of pneumonia finished treatment #. history of a pulmonary embolism * not on treatment * status post IVC filter placement * he had a recent GI bleed so is not on anticoagulation * this will need to be resumed in the near future #. history of duodenal ulcer with perforation and Billroth 2 surgical repair * had emergent surgery on 09/01/2016 #. plan. Appreciate Dr. Rocha seeing the patient/ he will be getting a G- tube in the morning. Patient is very frustrated about the J-tube being clogged. He will need another midnight stay for further treatment. This will make him inpatient status Subjective: Weston is very frustrated. He wants to be discharged as soon as possible. He has no complaints of pain Objective: Vital Signs Temp Pulse Resp BP Pulse Ox 36.9 C 90 18 95/55 L 95 09/21/16 11:23 09/21/16 11:23 09/21/16 11:23 09/21/16 11:23 09/21/16 11:23 Laboratory Results 09/21/16 03:45 09/21/16 03:45 09/20/16 09/21/16 09/22/16 05:59 05:59 05:59 Output Total 500 Balance -500 - Physical Exam Constitutional: no apparent distress, chronically ill appearing Eyes: other ( patch over his left eye) Ears, Nose, Mouth, Throat: hearing normal Cardiovascular: regular rate and rhythym Respiratory: no respiratory distress Gastrointestinal: normoactive bowel sounds, soft, non-tender abdomen, other ( large and round) Skin: warm, No normal color ( pale) Neurologic: AAOx3 Psychiatric: other ( angry) ICD10 Worksheet Patient Problems: Problems Problem Status Diagnosed Brain lesion Acute Perforated duodenal ulcer Acute
[2016-09-21] MEDS ORDERED: D50W 25 GM/50 ML SYR IVP PRN (20:54)
[2016-09-21] MEDS: D5W 1/2 NS W/ 20 KCl/L 1,000 ML IV SCH (21:28)
[2016-09-22] MEDS: PETROLAT,WHT/MIN OIL/SOD CHL 3.5 GM OPHT.OINT LEFTEYE SCH ×6 (06:06→22:43)
[2016-09-22 08:16] LABS: INR 1.25 (0.83-1.16); PROTIME(PATIENT) 15.7 SEC (12.0-15.0)
[2016-09-22] MEDS: INSULIN LISPRO 100 UNIT/ML SC SCH ×3 (08:16→18:01)
[2016-09-22] MEDS: FLUTICASONE/SALMETER 250/50MCG DISKUS IH SCH ×2 (08:19→20:42)
--- NOTE | 2016-09-22 08:20 | SOAPPROG ---
SOAP Progress Note Assessment/Plan: Assessment: J-tube clogged Plan: G-tube placement today in IR 09/22/16 08:19 Subjective: frustrated Objective: Vital Signs Temp Pulse Resp BP Pulse Ox 36.4 C 84 14 103/65 90 L 09/22/16 07:36 09/22/16 07:36 09/22/16 07:36 09/22/16 07:36 09/22/16 07:36 09/21/16 09/22/16 09/23/16 05:59 05:59 05:59 Intake Total 900 Balance 900 PT 15.7 SEC (12.0-15.0) H 09/22/16 07:56 INR 1.25 (0.83-1.16) H 09/22/16 07:56 Physical Exam - Physical Exam General Appearance: alert Respiratory: lungs clear Cardiac/Chest: regular rate, rhythm Abdomen: soft, distended ICD10 Worksheet Patient Problems: Problems Problem Status Diagnosed Brain lesion Acute Perforated duodenal ulcer Acute
[2016-09-22] MEDS: PANTOPRAZOLE SODIUM 40 MG in NS 100 ML IV SCH ×2 (08:23→21:48)
[2016-09-22] MEDS: INSULIN GLARGINE 100 UNITS/ML SYRINGE SC SCH (08:24)
[2016-09-22] MEDS: ERYTHROMYCIN 0.5% 1 GM OPHT.OINT LEFTEYE SCH ×3 (08:26→21:51)
[2016-09-22] MEDS ORDERED: LIDOCAINE 2% JELLY 20 ML (UROJECT) ONE (10:47)
[2016-09-22] MEDS ORDERED: fentaNYL 100 MCG/2 ML INJ ONE ×2 (10:54→11:31)
[2016-09-22] MEDS ORDERED: MIDAZOLAM 2 MG/2 ML VIAL ONE (10:55)
[2016-09-22] MEDS ORDERED: LIDOCAINE 1% 30 ML SDV ONE (11:39)
[2016-09-22] MEDS ORDERED: IOPAMIDOL (ISOVUE-300) 100 ML BTL IV ONE (11:48)
--- NOTE | 2016-09-22 12:39 | HOSPPROG ---
Hospitalist Progress Note Assessment/Plan: Patient is a 61-year-old male with a history of INCLINOMETER TESTER lymphoma with resection. He had a complex postoperative course including a perforated gastric ulcer with emergent laparotomy and G-tube placement. He return to the emergency room with a J tube that is clogged. I reviewed Dr. Rocha's consult. She is recommending a G-tube placement because they are less issues with this clogging. #. clogged J tube * appreciate Dr. Rocha seeing the patient * gastrostomy tube placed today/ can't be used for 24 hours and if working well , can dc in a.m. * having some pain after the procedure/ morphine ordered #. diabetes * metformin on hold /on Lantus #. anemia/ iron deficiency * hemoglobin 7.7 hematocrit 24.4/this is close to his baseline #. 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 recent bout of pneumonia finished treatment #. history of a pulmonary embolism * not on treatment * status post IVC filter placement * he had a recent GI bleed so is not on anticoagulation * this will need to be resumed in the near future #. history of duodenal ulcer with perforation and Billroth 2 surgical repair * had emergent surgery on 09/01/2016 #. plan. likely DC tomorrow. Will discuss with Dr. Rocha if the J tube can be removed since a gastrostomy tube is in place. reviewed his care with case management. They will discuss with rehab if he can go back there. Subjective: Weston is complaining of pain at the G-tube site. Objective: Vital Signs Temp Pulse Resp BP Pulse Ox 36.4 C 84 14 103/65 95 09/22/16 07:36 09/22/16 08:22 09/22/16 08:22 09/22/16 07:36 09/22/16 08:22 09/21/16 09/22/16 09/23/16 05:59 05:59 05:59 Intake Total 900 Balance 900 PT 15.7 SEC (12.0-15.0) H 09/22/16 07:56 INR 1.25 (0.83-1.16) H 09/22/16 07:56 - Physical Exam Constitutional: chronically ill appearing, uncomfortable, No not in pain Ears, Nose, Mouth, Throat: hearing normal Cardiovascular: regular rate and rhythym Respiratory: no respiratory distress Gastrointestinal: normoactive bowel sounds, soft, non-tender abdomen, other ( G tube in place on the left abdominal area) Skin: warm Musculoskeletal: no muscle tenderness Neurologic: AAOx3 Psychiatric: interacting appropriately ICD10 Worksheet Patient Problems: Problems Problem Status Diagnosed Brain lesion Acute Perforated duodenal ulcer Acute
[2016-09-22] MEDS: D5W 1/2 NS W/ 20 KCl/L 1,000 ML IV SCH (13:03)
--- NOTE | 2016-09-22 19:07 | IR ---
Percutaneous Fluoroscopy-Guided G-Tube Placement Indication: Plugged up jejunal tube. Dr. Rocha would prefer a larger tube for medications and feed ing. Informed Consent: Obtained from the patient. Risks and benefits were discussed. Cross Cutting Measure: Patient's current list of medications including all known prescriptions, over -the-counters, herbals, and vitamin/mineral/dietary supplements are reviewed. Medications' name, dos age, frequency, and route of administration are confirmed. Patient is a non-smoker. Prophylactic Antibiotic: Cefazolin was not ordered and administered for antimicrobial prophylaxis be cause it was not medically necessary. VTE Prophylaxis: There is not an order for VTE prophylaxis to be given within 24 hours of the proced ure end time. VTE prophylaxis was not given because it was not medically necessary. Technique: Patient is placed in supine position. A "timeout" procedure was performed to identify th e correct patient and the correct procedure. 1% Xylocaine was used for local anesthetic. All elemen ts of maximal sterile barrier technique, including cap, mask, sterile gown, sterile gloves, large karissa rile sheet, hand hygiene, and 2% chlorhexidine for cutaneous antisepsis, followed. 5-Amharic Glidecatheter is inserted via the nostril into the stomach. The stomach is then subsequentl y inflated with air until it is fully distended. The stomach is accessed in three different points by an 18-gauge needle. The first two accesses plac ed T-fasteners. The 3rd access in between the two T-fasteners was followed by advancement of a wire to the gastric fundus. A large incision is made at the abdominal wall, allowing for a 20-Amharic peel -away sheath. 20-Amharic gastrostomy tube is advanced. Balloon is inflated, and the tube is pulled b ack to the stomach wall. Contrast injection confirms satisfactory intragastric placement of the tip of the tube. The patient tolerated the procedure well. Medication: 150 mcg fentanyl, 2 mg Versed, 1105 to 1135. Fluoroscopy: 10.7 minutes, two images. Impression: Percutaneous fluoroscopy-guided G-tube placement, as above. Tube is ready to use in 24 hours.
[2016-09-23] MEDS: PETROLAT,WHT/MIN OIL/SOD CHL 3.5 GM OPHT.OINT LEFTEYE SCH ×5 (04:36→21:58)
[2016-09-23] MEDS: FLUTICASONE/SALMETER 250/50MCG DISKUS IH SCH ×2 (08:21→21:56)
[2016-09-23] MEDS: INSULIN LISPRO 100 UNIT/ML SC SCH ×3 (08:28→18:12)
[2016-09-23] MEDS: INSULIN GLARGINE 100 UNITS/ML SYRINGE SC SCH (09:08)
[2016-09-23] MEDS: PANTOPRAZOLE SODIUM 40 MG in NS 100 ML IV SCH ×2 (09:08→21:57)
[2016-09-23] MEDS: ERYTHROMYCIN 0.5% 1 GM OPHT.OINT LEFTEYE SCH ×3 (09:09→21:59)
[2016-09-23] MEDS: ENOXAPARIN 40 MG/0.4 ML SYR SC SCH (09:09)
--- NOTE | 2016-09-23 09:41 | SOAPPROG ---
SOAP Progress Note Assessment/Plan: Assessment: J-tube clogged Plan: G-tube placed J-tube removed will test G-tube today 09/23/16 09:40 Objective: Vital Signs Temp Pulse Resp BP Pulse Ox 36.6 C 88 18 112/66 96 09/23/16 08:00 09/23/16 08:21 09/23/16 08:21 09/23/16 08:00 09/23/16 08:21 09/22/16 09/23/16 09/24/16 05:59 05:59 05:59 Intake Total 900 1590 Output Total 500 575 Balance 900 1090 -575 PT 15.7 SEC (12.0-15.0) H 09/22/16 07:56 INR 1.25 (0.83-1.16) H 09/22/16 07:56 Physical Exam - Physical Exam General Appearance: alert Abdomen: other (soft, G-tube in place, no erythema around J-tube site) ICD10 Worksheet Patient Problems: Problems Problem Status Diagnosed Brain lesion Acute Perforated duodenal ulcer Acute
--- NOTE | 2016-09-23 12:46 | HOSPPROG ---
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 He had a complex postoperative course including a perforated gastric ulcer with emergent laparotomy and G-tube placement. He return to the emergency room with a J tube that is clogged. I reviewed with Dr. Rocha. She is recommending a G- tube placement because they are less issues with this clogging. First encounter. #. clogged J tube * appreciate Dr. Rocha seeing the patient * gastrostomy tube placed/ can't be used for 24 hours and if working well/ start using today * having some pain after the procedure/ morphine #. diabetes * metformin on hold /on Lantus #. anemia/ iron deficiency * hemoglobin 7.7 hematocrit 24.4/this is close to his baseline #. 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 recent bout of pneumonia finished treatment #. history of a pulmonary embolism * not on treatment * status post IVC filter placement * he had a recent GI bleed so is not on anticoagulation * this will need to be resumed in the near future #. history of duodenal ulcer with perforation and Billroth 2 surgical repair * had emergent surgery on 09/01/2016 #. plan. likely DC tomorrow. Discussed with Dr. Rocha. J tube removed since a gastrostomy tube is in place. reviewed his care with case management. They will discuss with rehab if he can go back there. Subjective: Up in the chair. Feeling well. No pain currently. Objective: Vital Signs Temp Pulse Resp BP Pulse Ox 36.6 C 88 18 112/66 96 09/23/16 08:00 09/23/16 08:21 09/23/16 08:21 09/23/16 08:00 09/23/16 08:21 09/22/16 09/23/16 09/24/16 05:59 05:59 05:59 Intake Total 900 1590 Output Total 500 575 Balance 900 1090 -575 PT 15.7 SEC (12.0-15.0) H 09/22/16 07:56 INR 1.25 (0.83-1.16) H 09/22/16 07:56 - Physical Exam Constitutional: no apparent distress, appears nourished, not in pain Eyes: PERRL, EOMI, other (left eye patch) Ears, Nose, Mouth, Throat: moist mucous membranes, hearing normal, ears appear normal Cardiovascular: regular rate and rhythym, No JVD, No edema Respiratory: no respiratory distress, no rales or rhonchi, reduced air movement Gastrointestinal: normoactive bowel sounds, No tenderness, No ascites Skin: warm, normal color, No erythema Musculoskeletal: normal joint ROM, no joint effusions, generalized weakness Neurologic: AAOx3 Psychiatric: interacting appropriately, not anxious, not encephalopathic ICD10 Worksheet Patient Problems: Problems Problem Status Diagnosed Brain lesion Acute Perforated duodenal ulcer Acute
[2016-09-23] MEDS: D5W 1/2 NS W/ 20 KCl/L 1,000 ML IV SCH (14:03)
[2016-09-24] MEDS: PETROLAT,WHT/MIN OIL/SOD CHL 3.5 GM OPHT.OINT LEFTEYE SCH ×3 (01:25→11:18)
[2016-09-24] MEDS: INSULIN LISPRO 100 UNIT/ML SC SCH ×2 (05:26→12:12)
[2016-09-24] MEDS: PANTOPRAZOLE SODIUM 40 MG in NS 100 ML IV SCH (08:51)
[2016-09-24] MEDS: ENOXAPARIN 40 MG/0.4 ML SYR SC SCH (08:52)
[2016-09-24] MEDS: INSULIN GLARGINE 100 UNITS/ML SYRINGE SC SCH (08:52)
[2016-09-24] MEDS: ERYTHROMYCIN 0.5% 1 GM OPHT.OINT LEFTEYE SCH (08:52)
[2016-09-24] MEDS: D5W 1/2 NS W/ 20 KCl/L 1,000 ML IV SCH (08:52)
--- NOTE | 2016-09-24 09:57 | PDIAF ---
- Diagnosis Diagnosis: feeding tube Code Status: Full Code - Medication Management Discharge Medications: Medications to Continue on Transfer Alteplase [Cathflo Activase 2 mg (*)] 2 mg IVP PRN PRN #0 vial 09/17/16 [Last Taken 09/12/16] Dextrose 50% Syringe 12.5 - 25 gm IVP PRN PRN #0 syr 09/17/16 [Last Taken Unknown] Diazepam [Valium Injection (*)] 2.5 - 5 mg IVP QID PRN #0 syr 09/17/16 [Last Taken 09/11/16] Erythromycin 0.5% 1 lorraine LEFTEYE TID #0 opht.oint 09/17/16 [Last Taken 09/17/16 09:25] Fluticasone/Salmeter 250/50Mcg [Advair 250/50 (*)] 1 puffs IH BID #0 disk [Last Taken 09/17/16 09:20] Ipratropium [Atrovent Neb (*)] 0.5 mg IH QID PRN #0 deyvial 09/17/16 [Last Taken 09/12/16] Lansoprazole [PREVACID 30mg/10ml susp (Adult) (*)] 30 mg TUBE BID #0 udsyr 09/17 [Last Taken 09/12/16] Ondansetron HCl Pf [Zofran 4 mg Inj (*)] 4 mg IVP Q4HRS PRN #0 vial 09/17/16 [ Last Taken Unknown] Petrolat,Wht/Min Oil/Sod Chl [Refresh P.m. Ointment] 1 lorraine LEFTEYE Q4 #0 opht.oint 09/17/16 [Last Taken 09/17/16 09:20] Tears/Dextran 70/Hypromellose [Natural Balance Tears (*)] 1 drop EACHEYE Q2 PRN #0 opht.btl 09/17/16 [Last Taken 09/08/16] Temazepam [Restoril 15 MG (*)] 15 mg TUBE HS PRN #0 cap 09/17/16 [Last Taken Unknown] diphenhydrAMINE [Benadryl Injection] 12.5 - 50 mg IVP Q6HRS PRN #0 inj 09/17/16 [Last Taken Unknown] Atorvastatin Calcium [Lipitor 10 mg (*)] 10 mg PO DAILY 09/20/16 [Last Taken Unknown] Gemfibrozil [Lopid 600 MG (*)] 600 mg PO BIDAC 09/20/16 [Last Taken Unknown] Acetaminophen [Tylenol 325mg (*)] 650 mg PO Q4HRS PRN #0 tab 09/24/16 [Last Taken Unknown] Enoxaparin [Lovenox 40 MG (*)] 40 mg SC DAILY #0 syr 09/24/16 [Last Taken Unknown] Insulin Glargine [Lantus 100 UNITS/ML (*)] 4 units SC DAILY #0 ml 09/24/16 [ Last Taken Unknown] Insulin Lispro [humALOG LISPRO 100 units/ml (*)] 0 unit SC TIDMEAL #0 unit 09/24 [Last Taken Unknown] Ondansetron Odt [Zofran Odt 4 mg (*)] 4 mg PO Q4HRS PRN #0 tab 09/24/16 [Last Taken Unknown] metFORMIN HCL [Glucophage 500 mg (*)] 500 mg TUBE BIDMEAL #0 tab 09/24/16 [Last Taken Unknown] morphINE [morphINE 2mg/ml Inj (*)] 1 mg IVP Q2 PRN #0 syr 09/24/16 [Last Taken Unknown] Discharge Medications: Refer to the Discharge Home Medication list for PRN reason. PICC Care - Routine: Yes - Orders Services needed: Registered Nurse, Physical Therapy, Occupational Therapy, Speech Language Pathologist Diet Texture: Oral Feeding with Speech Pathologist Only - Follow Up Care Current Providers and Referrals: MANDO ESPANA [Primary Care Provider] - As per Instructions
[2016-09-24] MEDS: FLUTICASONE/SALMETER 250/50MCG DISKUS IH SCH (10:10)
--- NOTE | 2016-09-24 11:47 | GDS ---
[f rep st] DISCHARGE SUMMARY DISCHARGE DIAGNOSES: 1. Clogged J tube. 2. Diabetes. 3. Iron deficiency anemia. 4. 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 5. Recent bout of pneumonia. 6. History of pulmonary emboli. 7. History of duodenal ulcer. 8. G-tube placement. PHYSICAL EXAM: GENERAL: The patient is alert and oriented. VITAL SIGNS: Afebrile 36.2, pulse is 9 3, respiratory rate 16, blood pressure 91/51. He is saturating greater than 90% on room air. I have seen and evaluated the patient prior to discharge. STUDIES AND PROCEDURES DONE: G tube placement. CONSULTATIONS: Dr. Rocha of General Surgery. HOSPITAL COURSE: The patient is a 61-year-old male who was previously at inpatient rehab when he dev eloped a clogged J tube. He was transferred to the hospital for further evaluation. He was treated for: 1. Clogged J tube. During this hospitalization, he had surgical consult from Dr. Rocha. A G tube has been placed. He has been tolerating tube feeding for 24 hours with no complaints, pain or issues . He has no nausea or complications. He will continue his tube feeding in the outpatient setting. 2. Diabetes. His medications have been re-initiated including metformin and Lantus. 3. Iron deficiency anemia. This is close to baseline and will continue to require replacement. 4. Status post craniotomy. The patient will continue rehabilitation secondary to this condition and will follow with Oncology in the outpatient setting. 5. Recent pneumonia. This has resolved and finished treatment. 6. History of pulmonary emboli. The patient is not anticoagulated at this time secondary to a recen t GI bleed. He is likely to initiate anticoagulation in the future. He does have an IVC filter in [facility] and this will require removal in the near future. 7. History of duodenal ulcer with perforation. The patient had surgical intervention and is stable. DISPOSITION: The patient will be discharged to return to inpatient rehab for further therapies and t reatment. There are no pending studies. DISCHARGE MEDICATIONS: Please refer to EMR form. I spent greater than 35 minutes in the care, coordination, and management of this patient's discharge . /[id number]/MODL
--- NOTE | 2016-09-24 12:02 | GDS ---
[f rep st] DISCHARGE SUMMARY . /[id number]/MODL
[2016-09-24] MEDS ORDERED: NS 1,000 ML IV SCH (12:30)
[2016-09-24 12:35] VITALS: TEMP 98.2
--- NOTE | 2016-09-24 12:47 | PDIAF ---
- Diagnosis Diagnosis: feeding tube Code Status: Full Code - Medication Management Discharge Medications: Medications to Continue on Transfer Alteplase [Cathflo Activase 2 mg (*)] 2 mg IVP PRN PRN #0 vial 09/17/16 [Last Taken 09/12/16] Dextrose 50% Syringe 12.5 - 25 gm IVP PRN PRN #0 syr 09/17/16 [Last Taken Unknown] Diazepam [Valium Injection (*)] 2.5 - 5 mg IVP QID PRN #0 syr 09/17/16 [Last Taken 09/11/16] Erythromycin 0.5% 1 lorraine LEFTEYE TID #0 opht.oint 09/17/16 [Last Taken 09/17/16 09:25] Fluticasone/Salmeter 250/50Mcg [Advair 250/50 (*)] 1 puffs IH BID #0 disk [Last Taken 09/17/16 09:20] Ipratropium [Atrovent Neb (*)] 0.5 mg IH QID PRN #0 deyvial 09/17/16 [Last Taken 09/12/16] Lansoprazole [PREVACID 30mg/10ml susp (Adult) (*)] 30 mg TUBE BID #0 udsyr 09/17 [Last Taken 09/12/16] Ondansetron HCl Pf [Zofran 4 mg Inj (*)] 4 mg IVP Q4HRS PRN #0 vial 09/17/16 [ Last Taken Unknown] Petrolat,Wht/Min Oil/Sod Chl [Refresh P.m. Ointment] 1 lorraine LEFTEYE Q4 #0 opht.oint 09/17/16 [Last Taken 09/17/16 09:20] Tears/Dextran 70/Hypromellose [Natural Balance Tears (*)] 1 drop EACHEYE Q2 PRN #0 opht.btl 09/17/16 [Last Taken 09/08/16] Temazepam [Restoril 15 MG (*)] 15 mg TUBE HS PRN #0 cap 09/17/16 [Last Taken Unknown] diphenhydrAMINE [Benadryl Injection] 12.5 - 50 mg IVP Q6HRS PRN #0 inj 09/17/16 [Last Taken Unknown] Atorvastatin Calcium [Lipitor 10 mg (*)] 10 mg PO DAILY 09/20/16 [Last Taken Unknown] Gemfibrozil [Lopid 600 MG (*)] 600 mg PO BIDAC 09/20/16 [Last Taken Unknown] Acetaminophen [Tylenol 325mg (*)] 650 mg PO Q4HRS PRN #0 tab 09/24/16 [Last Taken Unknown] Enoxaparin [Lovenox 40 MG (*)] 40 mg SC DAILY #0 syr 09/24/16 [Last Taken Unknown] Insulin Glargine [Lantus 100 UNITS/ML (*)] 4 units SC DAILY #0 ml 09/24/16 [ Last Taken Unknown] Insulin Lispro [humALOG LISPRO 100 units/ml (*)] 0 unit SC TIDMEAL #0 unit 09/24 [Last Taken Unknown] Ondansetron Odt [Zofran Odt 4 mg (*)] 4 mg PO Q4HRS PRN #0 tab 09/24/16 [Last Taken Unknown] metFORMIN HCL [Glucophage 500 mg (*)] 500 mg TUBE BIDMEAL #0 tab 09/24/16 [Last Taken Unknown] morphINE [morphINE 2mg/ml Inj (*)] 1 mg IVP Q2 PRN #0 syr 09/24/16 [Last Taken Unknown] Discharge Medications: Refer to the Discharge Home Medication list for PRN reason. PICC Care - Routine: Yes - Orders Services needed: Registered Nurse, Physical Therapy, Occupational Therapy, Speech Language Pathologist Diet Recommendation: other (tube feeding jevity 1.5 at 60ml) Diet Texture: Oral Feeding with Speech Pathologist Only Tube feeding: jevity 1.5 @ 60ml - Follow Up Care Current Providers and Referrals: MANDO ESPANA [Primary Care Provider] - As per Instructions Aiede Rocha MD [Medical Doctor] -
[2016-09-24 13:09] VITALS: BP 95/63; PULSE 99; RESP 20; O2SAT 98
== END 2016-09-24 13:29 | DRG 394 ==
LOC: EDUNIT# → F3E 21:14 → OBSVTOIN 09-21 15:58
PROVIDERS: ADMIT Internal Medicine; ATTEND Hospitalist
PROC: 0DH67UZ Insertion of Feeding Device into Stomach, Via Natural or Artificial Opening (ICD-10-PCS; principal; 2016-09-22 11:44)
DX: K94.19 Other complications of enterostomy (principal); R13.10 Dysphagia, unspecified; D50.9 Iron deficiency anemia, unspecified; C85.99 Non-Hodgkin lymphoma, unspecified, extranodal and solid organ sites; E11.9 Type 2 diabetes mellitus without complications; E78.5 Hyperlipidemia, unspecified; Z87.11 Personal history of peptic ulcer disease; Z86.711 Personal history of pulmonary embolism; Z86.718 Personal history of other venous thrombosis and embolism; Z87.891 Personal history of nicotine dependence; Z87.01 Personal history of pneumonia (recurrent)
CPT/HCPCS: 92526-GN; 92610-GN; 97110-GP; 97162-GP; C1729; C1769; G0378; J1644; J1650; J1815; J2250; J3010; Q9967

== ENCOUNTER 2016-09-24 09:37 | Inpatient (IN) | payer OTHER ==
[2016-09-24] MEDS ORDERED: NS W/ 20 KCl/L 500 ML IV SCH (14:30)
[2016-09-24] MEDS ORDERED: ALTEPLASE 2 MG VIAL IVP PRN (15:07)
[2016-09-24] MEDS ORDERED: NS 500 ML IV SCH (15:15)
[2016-09-24] MEDS ORDERED: TEARS/DEXTRAN 70/HYPROMELLOSE 15 ML OPHT.BTL EACHEYE PRN (15:21)
[2016-09-24] MEDS ORDERED: ONDANSETRON DISINTEGRATING 4 MG TAB PO PRN (15:21)
[2016-09-24] MEDS ORDERED: IPRATROPIUM BROMIDE 0.5 MG/2.5 ML DEYVIAL IH PRN (15:21)
[2016-09-24] MEDS ORDERED: TEMAZEPAM 15 MG CAP TUBE PRN (15:21)
[2016-09-24] MEDS ORDERED: ACETAMINOPHEN 325 MG TAB PO PRN (15:21)
[2016-09-24] MEDS ORDERED: D50W 25 GM/50 ML SYR IVP PRN ×2 (15:26→15:36)
[2016-09-24] MEDS ORDERED: PARAMETERS MISC PRN (15:35)
[2016-09-24] MEDS ORDERED: D50W 25 GM/50 ML VIAL IVP PRN (15:36)
[2016-09-24 15:43] LABS: % IMMATURE GRANULYOCYTES 1.2 % (0.0-1.1); ABSOLUTE IMMATURE GRANULOCYTES 0.13 10^3/uL (0.00-0.10); ADD DIFF? NO; ADD MORPH? NO; ADD SCAN? NO; ATYPICAL LYMPHOCYTE FLAG 10 (0-99); FRAGMENT RBC FLAG 0 (0-99); HEMOGLOBIN 8.4 g/dL (13.7-17.5); LEFT SHIFT FLG 10 (0-99); LIPEMIA HEMOLYSIS FLAG 80 (0-99); MEAN CELL HEMOGLOBIN 30.9 pg (27.9-34.1); MEAN CELL HEMOGLOBIN CONCENTR. 32.3 g/dL (32.4-36.7); MEAN CELL VOLUME 95.6 fL (81.5-99.8); MEAN PLATELET VOLUME 9.8 fL (8.7-11.7); PLATELET CLUMPS FLAG 10 (0-99); PLATELET COUNT 623 10^3/uL (150-400); RED BLOOD CELL COUNT 2.72 10^6/uL (4.40-6.38); RED CELL DISTRIBUTION WIDTH 14.3 % (11.5-15.2)
[2016-09-24] MEDS ORDERED: NS 500 ML IV ONE (16:00)
[2016-09-24 16:02] LABS: ANION GAP 10 mEq/L (8-16); CALCIUM 8.1 mg/dL (8.5-10.4); CARBON DIOXIDE 27 mEq/l (22-31); CHLORIDE 106 mEq/L (97-110); CREATININE 0.6 mg/dL (0.7-1.3); GLOMERULAR FILTRATION RATE > 60; GLUCOSE 132 mg/dL (70-100); POTASSIUM 3.8 mEq/L (3.5-5.2); SODIUM 143 mEq/L (134-144)
--- NOTE | 2016-09-24 16:33 | GHP ---
[f rep st] HISTORY AND PHYSICAL POST ADMISSION PHYSICIAN EVALUATION AND REHABILITATION TREATMENT PLAN DATE OF ADMISSION: 09/24/2016 DATE OF EVALUATION: 09/24/2016 TIME SEEN: 1345 REFERRING FACILITY: [facility] REFERRING PHYSICIAN: Dr Rocha CONSULTING PHYSICIANS: He was managed by the hospitalist service. REHABILITATION DIAGNOSIS: Debility status post excision of cerebellar tumor. IMPAIRMENT GROUP: 2.1. ETIOLOGIC DIAGNOSIS: Nontraumatic brain dysfunction. DATE OF ONSET: 07/13/2016 DATE OF SURGERY: 08/26/2016 HISTORY OF PRESENT ILLNESS: Mr. Landaverde returns to inpatient rehabilitation after 4 days at [facility]. He was discharged from rehabilitation due to a clogged percutaneous jejunostomy tube. At [facility], he was seen by surgeon, Dr. Rocha, who placed a gastrostomy tube and discontinued the jejunostomy tube. He remained in the acute care hospital until the gastrostomy tube was usable, and he was asymptomatic and tolerating feeding. Details of his recent medical history and initial inpatient rehabilitation stay are available in the medical record. To briefly reiterate, Mr. 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 He had subtotal resection of the brain tumor via suboccipital craniotomy and pathology showed B-cell lymphoma. Hospital complications included a pulmonary embolus, aspiration pneumonia, a perforated duodenal ulcer requiring emergent surgery with a Billroth-II procedure. Subsequently, there was a gastrointestinal bleed which was more likely in the colon than in the upper GI tract. He had placement of an IVC filter as he could not be maintained on anticoagulation due to the GI bleed. He was treated with IV antibiotics for pneumonia, as well as peritonitis. Due to the lymphoma, and the craniotomy and excision, he has a left facial paralysis and incomplete closing on the left eye. He developed a corneal abrasion. He was seen by Ophthalmology, and he is being treated with erythromycin ointment and eye patching. On his more recent hospital stay, he had anemia which was stable with a hemoglobin between 7.9 and 7.7. Serum chemistry on 09/21/2016 was overall within normal limits. His creatinine was low at 0.6. His calcium was slightly low at 8.0. PRECAUTIONS: He is a fall risk and an aspiration risk. ACTIVE COMORBIDITIES: He has the tier 2 active comorbidity of dysphagia. He has the tier 3 comorbidity of morbid obesity, that is obesity complicated by diabetes mellitus. PAST MEDICAL HISTORY: 1. Diabetes mellitus type 2, for which he was taking metformin. 2. Dyslipidemia, for which he was taking atorvastatin. PAST SURGICAL HISTORY: He has had several arthroscopic procedures for injuries sustained while skiing and doing other activities. ADMISSION MEDICATIONS: 1. Acetaminophen 650 mg q.4 hours p.r.n. 2. Alteplase 2 mg IV push p.r.n. PICC line clog. 3. Artificial Tears 1 drop each eye q.2 hours p.r.n. 4. Atorvastatin 10 mg p.o. daily. 5. Enoxaparin 40 mg subcutaneous daily. 6. Erythromycin 0.5% ointment to left eye t.i.d. 7. Fluticasone/salmeterol 1 puff b.i.d. 8. Gemfibrozil 600 mg b.i.d. 9. Insulin glargine 4 units subcutaneous daily. 10. Insulin lispro per sliding scale. 11. Ipratropium bromide 0.5 mg inhaled q.i.d. p.r.n. 12. Lansoprazole 30 mg b.i.d. 13. Metformin 500 mg b.i.d. 14. Ondansetron 4 mg p.o. q.4 hours p.r.n. 15. Polyvinyl alcohol/povidone ophthalmic ointment to left eye q.4 hours. 16. Temazepam 15 mg q.h.s. p.r.n. ALLERGIES: There are no known drug allergies. FAMILY HISTORY: There is no family history of clotting disorder. PSYCHOSOCIAL HISTORY: He has a remote history of smoking. He quit 25 years ago. He lives independently in his own home with his son. 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 He will be able to live on a single level in his home. REVIEW OF SYSTEMS: He has had a low blood pressure. He received 1000 cc of normal saline this morning at the [facility]. He reports he has some lightheadedness when he sits up or stands. He continues to have inability to seal the left side of his mouth. He reports he has learned how to speak more clearly by articulating carefully, and he has been able to tolerate swallowing ice chips with speech therapy. He denies pain, chest pain, palpitations, fevers , chills, cough, dyspnea, nausea, vomiting, constipation, diarrhea, dysuria, urinary frequency, joint pain or joint swelling and otherwise, a 10-point review of systems is negative. He has had thirst. He has been drinking a lot of water and he notes that he has been urinating 3 times at night. PHYSICAL EXAM: VITAL SIGNS: Not yet recorded in the chart; however, per verbal report from the nurses systolic blood pressure was 80 when he was first assessed on the rehab unit today, and he was tachycardic. GENERAL: This is a well-nourished, well-developed overweight to obese man, cooperative, and in no acute distress. HEENT: Left eye is patched. On a previous exam, the cornea was cloudy. Right eye: Extraocular movements are intact and pupil is round and reactive to light. Mucous membranes are moist. Dentition is in good condition. NECK: Supple. HEART: There is a regular rate and rhythm with no murmurs, rubs, or gallops. LUNGS: Clear to auscultation bilaterally. ABDOMEN : Soft, nontender, mildly distended with normoactive bowel sounds. There is a well-healed midline surgical scar. There is a gastrostomy tube. The site is clean. EXTREMITIES: There is no cyanosis, clubbing, or edema. NEUROLOGIC: He is alert and oriented x3. There is left facial droop. There is mild dysarthria. There is left ear hearing loss. Otherwise, cranial nerves 2-12 are grossly intact. He appears to have equal strength overall and is independent with bed mobility. Sensation is intact to light touch, and there is no extinction to double simultaneous stimulation. There is no tremor. Cerebellar testing is normal. In the right arm, he has past-pointing in the left upper extremity. CURRENT LEVEL OF FUNCTIONING: Per the preadmission screen: Regarding diet, feeding, and swallowing he was n.p.o. with gastrostomy tube feedings and otherwise, I do not have updated assessments by therapy staff. IMPRESSION: Mr. Landaverde is a 61-year-old man, who returns to inpatient rehabilitation following rehospitalization for a clogged jejunostomy tube. The jejunostomy tube has been removed, and he has had placement of a gastrostomy tube which is functioning, and he is able to be fed through it without any apparent complications. His rehospitalization interrupted his therapy. His debility is due to craniotomy for a left cerebellar central nervous system lymphoma and prolonged complicated hospital stay, including perforated duodenal ulcer, Billroth-II surgical repair, peritonitis, pneumonia, and pulmonary emboli. On his prior rehabilitation stay, his FIM score was 73 consistent with care home level of function. He had been able to walk 150 feet, requiring contact guard assist for transfers and ambulation, and minimal assistance with bathing. He has dysphagia and has been able to make some progress during his acute care hospital stay and is now able to tolerate ice chips and E-Stim. He is appropriate for inpatient rehabilitation, where he will benefit from continued therapy with physical therapy, occupational therapy, and speech therapy. He will benefit from rehabilitation nursing care for skin risk, nutrition, maintenance of gastrostomy tube, maintenance of PICC line which is still present and is be used for supplemental hydration, management and education regarding medications and neurologic education. He will benefit from rehabilitation physician care regarding anemia, nutrition, hypotension, and blood pressure management, DVT prophylaxis, recent pneumonia and respiratory status, and management of diabetes mellitus type 2. His goal is to return home with his family and supportive services. For a safe discharge, it is anticipated that he will achieve independence to modified independence with grooming, bed mobility, and transfers. He may continue to require assistance with dressing, bathing, and ambulation for household distances. It is expected that he will require assistance for household management, shopping, and tube feeding. He will have therapy with Physical Therapy, Occupational therapy, and Speech and Language Pathology for 60 minutes per day for each discipline on 5-7 days a week. His expected duration of stay is 5-7 days. It is anticipated that upon discharge he will continue to benefit from home health services, including nursing, speech and language pathology, a nurse's aide, psychiatric social worker, occupational therapy, and physical therapy. ASSESSMENT AND PLAN: 1. Debility status post craniotomy for cerebellar central nervous system lymphoma and prolonged complicated hospital stay. Resume physical therapy and occupational therapy to optimize mobility and activities of daily living. 2. Dysphagia and dysarthria. These are improving. He will continue speech and language pathology. 3. Nutritional needs. Continue tube feeding per gastrostomy tube and hope that he can advance to oral feeding. 4. Status post craniotomy. His incision appears to be well-healed. 5. History of pneumonia, as well as deep venous thrombosis and pulmonary embolus. He has completed his course of antibiotics. Continue oxygen as needed and inhalers as ordered. 6. Corneal abrasion. Continue treatment with erythromycin and other ophthalmic preparations. He will follow up with Ophthalmology after his discharge. 7. Status post gastrointestinal bleed. This was likely from the colon per the marzipan molder however, he will be continued on lansoprazole. 8. Anemia. Will repeat a CBC to ensure that his blood counts are stable or improving. He was iron deficient on his previous rehabilitation stay with a total iron of 29 and iron saturation of 15%. Once he is tolerating his G-tube feeding well, iron can be supplemented. 9. Vitamin D deficiency. His 25-hydroxy vitamin D level on 09/19/2016 was below the lower threshold of the assay. Once he is tolerating his gastrostomy tube feedings, his vitamin D will be supplemented. 10. Excess oral secretions were a problem in his prior stay. This responded to glycopyrrolate given IV through the PICC line. This will be resumed on an as -needed basis. 11. Diabetes mellitus type 2. He is on metformin, as well as Lantus insulin. He will be placed on a sliding scale. It is possible that with titration of metformin, he will no longer need insulin however, his hemoglobin A1c historically was elevated at 9.7. He may need an additional oral agent to be free of insulin. 12. 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 He will follow up with Oncology after discharge. 13. Pulmonary embolus, status post inferior vena cava placement. Anticoagulation is likely still contraindicated due to his recent GI bleed. This could be discussed further with the marzipan molder. He will be mobilized as well as he can, and he will be maintained with OWEN hose and sequential compression devices when he is in bed. /[id number]/MODL MTDD
[2016-09-24] MEDS ORDERED: INSULIN LISPRO 100 UNIT/ML SC SCH (18:00)
[2016-09-24] MEDS: ERYTHROMYCIN 0.5% 1 GM OPHT.OINT LEFTEYE SCH ×2 (18:09→20:49)
[2016-09-24] MEDS: GEMFIBROZIL 600 MG TAB PO SCH (18:10)
[2016-09-24] MEDS: INSULIN LISPRO 100 UNIT/1 ML VIAL STANDARD SC SCH ×2 (18:10→20:47)
[2016-09-24] MEDS: metFORMIN HCL 500 MG TAB TUBE SCH (18:11)
[2016-09-24] MEDS: PETROLAT,WHT/MIN OIL/SOD CHL 3.5 GM OPHT.OINT LEFTEYE SCH ×2 (18:12→22:06)
[2016-09-24] MEDS: LANSOPRAZOLE SUSP 30MG/10ML UDSYR (Adult) TUBE SCH (21:07)
[2016-09-24 22:03] LABS: COLOR YELLOW; LEUKOCYTE ESTERASE,URINE NEGATIVE (NEGATIVE); NITRITE,URINE NEGATIVE (NEGATIVE)
[2016-09-24] MEDS: FLUTICASONE/SALMETER 250/50MCG DISKUS IH SCH (22:05)
[2016-09-25] MEDS: PETROLAT,WHT/MIN OIL/SOD CHL 3.5 GM OPHT.OINT LEFTEYE SCH ×4 (02:05→14:51)
[2016-09-25] MEDS: INSULIN LISPRO 100 UNIT/1 ML VIAL STANDARD SC SCH ×3 (08:55→17:55)
[2016-09-25] MEDS: metFORMIN HCL 500 MG TAB TUBE SCH ×2 (08:55→17:55)
[2016-09-25] MEDS: FLUTICASONE/SALMETER 250/50MCG DISKUS IH SCH ×2 (08:56→21:33)
[2016-09-25] MEDS: ERYTHROMYCIN 0.5% 1 GM OPHT.OINT LEFTEYE SCH ×3 (08:56→21:32)
[2016-09-25] MEDS: LANSOPRAZOLE SUSP 30MG/10ML UDSYR (Adult) TUBE SCH ×2 (08:57→21:32)
[2016-09-25] MEDS ORDERED: ATORVASTATIN CALCIUM 10 MG TAB PO SCH (09:00)
[2016-09-25] MEDS: GEMFIBROZIL 600 MG TAB PO SCH (09:07)
[2016-09-25] MEDS: ENOXAPARIN 40 MG/0.4 ML SYR SC SCH (09:07)
[2016-09-25] MEDS: INSULIN GLARGINE 100 UNITS/ML SYRINGE SC SCH (09:08)
--- NOTE | 2016-09-25 16:42 | PDOREHIP ---
Admission [facility] - Admission - 3 Day Assessment Period Admission Date/Day 1: 09/24/16 Day 2: 09/25/16 Day 3: 09/26/16 - Active Diagnoses Comorbidities and Co-existing Conditions at Admission: 61829. None of the Above - Skin Conditions Unhealed Pressure Ulcer (1 or more/Stage 1 or >)-Admission: 0. No
--- NOTE | 2016-09-25 16:50 | SOAPPROG ---
SOAP Progress Note Assessment/Plan: Assessment: * Debility status post craniotomy for cerebellar central nervous system lymphoma and prolonged complicated hospital stay. Resume physical therapy and occupational therapy to optimize mobility and activities of daily living. * Dysphagia and dysarthria. These are improving. He will continue speech and language pathology. VFSS tomorrow 09/26/16. * Nutritional needs. Continue tube feeding per gastrostomy tube and hope that he can advance to oral feeding. * Status post craniotomy. His incision appears to be well-healed. * History of pneumonia, as well as deep venous thrombosis and pulmonary embolus. He has completed his course of antibiotics. Continue oxygen as needed and inhalers as ordered. * Corneal abrasion. Continue treatment with erythromycin and other ophthalmic preparations. He will follow up with Ophthalmology after his discharge. * Status post gastrointestinal bleed. This was likely from the colon per the staff field engineer however, he will be continued on lansoprazole. * Anemia. Improving on CBC 09/24/16. He was iron deficient on his previous rehabilitation stay with a total iron of 29 and iron saturation of 15%. Once he is tolerating his G-tube feeding well, iron can be supplemented. * Vitamin D deficiency. His 25-hydroxy vitamin D level on 09/19/2016 was below the lower threshold of the assay. Once he is tolerating his gastrostomy tube feedings, his vitamin D will be supplemented. * Excess oral secretions were a problem in his prior stay. This responded to glycopyrrolate given IV through the PICC line. This will be resumed on an as- needed basis. * Diabetes mellitus type 2. Not taking metformin due to concerns re G-tube clogging., Continue glargine insulin and lispro sliding scale. 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 He will follow up with Oncology after discharge. * Pulmonary embolus, status post inferior vena cava placement. Anticoagulation is likely still contraindicated due to his recent GI bleed. This could be discussed further with the staff field engineer. He will be mobilized as well as he can, and he will be maintained with OWEN hose and sequential compression devices when he is in bed. After considerable discussion, he agrees to remain on unit until after VFSS tomorrow 09/26/16. Staff continues to have concerns re safety at home with son, especially re fall risk with O2 and tube feeding lines. 09/25/16 16:56 Subjective: Wants to go home. Thinks he is swallowing adequately. Does not want meds via G -tube. Only wants erythromycin ointment to L eye. Objective: Vital Signs Temp Pulse Resp BP Pulse Ox 36.6 C 102 H 16 92/64 L 91 L 09/25/16 08:00 09/25/16 08:00 09/25/16 08:00 09/25/16 08:00 09/25/16 08:00 Laboratory Results 09/24/16 14:30 09/24/16 14:30 09/24/16 09/25/16 09/26/16 05:59 05:59 05:59 Intake Total 50 Output Total 200 275 Balance -150 -275 Physical Exam - Physical Exam General Appearance: WD/WN, alert, no apparent distress Respiratory: No respiratory distress, No accessory muscle use Skin: normal color, warm/dry Neuro/Psych: alert, normal mood/affect, oriented x 3, abnormal full stack developer II-XII (L facial droop) ICD10 Worksheet Patient Problems: Problems Problem Status Diagnosed Brain lesion Acute Perforated duodenal ulcer Acute
[2016-09-25] MEDS ORDERED: PETROLAT,WHT/MIN OIL/SOD CHL 3.5 GM OPHT.OINT LEFTEYE PRN (16:54)
[2016-09-26] MEDS: INSULIN LISPRO 100 UNIT/1 ML VIAL STANDARD SC SCH ×3 (08:41→17:13)
[2016-09-26] MEDS: INSULIN GLARGINE 100 UNITS/ML SYRINGE SC SCH (08:41)
[2016-09-26] MEDS ORDERED: ATORVASTATIN CALCIUM 10 MG TAB TUBE SCH (09:00)
[2016-09-26] MEDS: metFORMIN HCL 500 MG TAB TUBE SCH (09:48)
[2016-09-26] MEDS: ENOXAPARIN 40 MG/0.4 ML SYR SC SCH (10:32)
[2016-09-26] MEDS: FLUTICASONE/SALMETER 250/50MCG DISKUS IH SCH ×2 (10:32→21:36)
[2016-09-26] MEDS: ERYTHROMYCIN 0.5% 1 GM OPHT.OINT LEFTEYE SCH ×3 (10:32→21:25)
[2016-09-26] MEDS: LANSOPRAZOLE SUSP 30MG/10ML UDSYR (Adult) TUBE SCH (10:33)
--- NOTE | 2016-09-26 14:40 | DX ---
Video Esophagram with Speech Therapy History: Dysphagia, brain tumor with left facial palsy.. Comparison: None available. Technique: With the patient in the sitting lateral position, the speech therapist administered barium of various consistencies during continual fluoroscopic observation. Findings: There was no aspiration or penetration observed. Mild residue was noted that cleared with r epeat swallows with thin liquids. Half of the 13 mm barium tablet passed normally. Fluoroscopy time: 1.4 minutes. Dose= 99 mGy. Impression: No aspiration or penetration observed. Please see speech therapist report and recommenda tions.
--- NOTE | 2016-09-26 16:21 | SOAPPROG ---
SOAP Progress Note Assessment/Plan: Assessment: * Debility status post craniotomy for cerebellar central nervous system lymphoma and prolonged complicated hospital stay. Resume physical therapy and occupational therapy to optimize mobility and activities of daily living. * Dysphagia and dysarthria. Dysphagia resolved. Start regular diet, thin liquids. Continue STOCK DRIER TENDER re dysarthria and facial droop. * Nutritional needs. Cloth Grader to assist with transition from tube feeding to oral feeding. * Status post craniotomy. His incision appears to be well-healed. * History of pneumonia, as well as deep venous thrombosis and pulmonary embolus. He has completed his course of antibiotics. Continue oxygen as needed and inhalers as ordered. * Corneal abrasion. Continue treatment with erythromycin and other ophthalmic preparations. He will follow up with Ophthalmology after his discharge. * Status post gastrointestinal bleed. This was likely from the colon per the dispatcher electric power however, he will be continued on lansoprazole. * Anemia. Improving on CBC 09/24/16. He was iron deficient on his previous rehabilitation stay with a total iron of 29 and iron saturation of 15%. Once he is tolerating his G-tube feeding well, iron can be supplemented. * Vitamin D deficiency. His 25-hydroxy vitamin D level on 09/19/2016 was below the lower threshold of the assay. Once he is tolerating his gastrostomy tube feedings, his vitamin D will be supplemented. * Excess oral secretions were a problem in his prior stay. This responded to glycopyrrolate given IV through the PICC line. This will be resumed on an as- needed basis. * Diabetes mellitus type 2. Not taking metformin due to concerns re G-tube clogging., Continue glargine insulin and lispro sliding scale. 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 He will follow up with Oncology after discharge. * Pulmonary embolus, status post inferior vena cava placement. Anticoagulation is likely still contraindicated due to his recent GI bleed. D/W Oncology : continue SQ enoxaparin at preventive dose until follow-up with oncology. Plan for discharge 09/26/16. Follow-up with Oncology Dr. Atkinson, Ophthalmology Dr. Moralez, and Surgery Dr. Rocha. 09/26/16 16:16 Subjective: No complaints. Passed VFSS and ready for regular diet, thin liquids. Agrees to stay through 09/29/16. Objective: Vital Signs Temp Pulse Resp BP Pulse Ox 36.3 C 99 18 115/78 94 09/26/16 14:55 09/26/16 14:55 09/26/16 14:55 09/26/16 14:55 09/26/16 14:55 Laboratory Results 09/24/16 14:30 09/24/16 14:30 09/25/16 09/26/16 09/27/16 05:59 05:59 05:59 Intake Total 50 1000 Output Total 200 725 250 Balance -150 275 -250 Physical Exam - Physical Exam General Appearance: WD/WN, alert, no apparent distress Respiratory: normal breath sounds, No crackles, No rhonchi, No wheezing Cardiac/Chest: regular rate, rhythm, No edema Abdomen: normal bowel sounds, non-tender, soft, other (G-tube site clean), No distended Neuro/Psych: alert, normal mood/affect, oriented x 3, abnormal insulation blower II-XII (L facial droop), abnormal gait (slow, short steps, wide base, with FWW accompanied by PT) ICD10 Worksheet Patient Problems: Problems Problem Status Diagnosed Brain lesion Acute Perforated duodenal ulcer Acute
[2016-09-26] MEDS ORDERED: TEMAZEPAM 15 MG CAP PO PRN (16:22)
[2016-09-26] MEDS: metFORMIN HCL 500 MG TAB PO SCH (17:14)
[2016-09-26] MEDS: PANTOPRAZOLE SODIUM 40 MG TAB PO SCH (21:42)
[2016-09-27] MEDS: ENOXAPARIN 40 MG/0.4 ML SYR SC SCH (08:46)
[2016-09-27] MEDS: ATORVASTATIN CALCIUM 10 MG TAB PO SCH (08:46)
[2016-09-27] MEDS: FLUTICASONE/SALMETER 250/50MCG DISKUS IH SCH ×2 (08:47→22:22)
[2016-09-27] MEDS: ERYTHROMYCIN 0.5% 1 GM OPHT.OINT LEFTEYE SCH ×3 (08:47→20:50)
[2016-09-27] MEDS: INSULIN LISPRO 100 UNIT/1 ML VIAL STANDARD SC SCH ×4 (08:48→17:19)
[2016-09-27] MEDS: INSULIN GLARGINE 100 UNITS/ML SYRINGE SC SCH (08:48)
[2016-09-27] MEDS: metFORMIN HCL 500 MG TAB PO SCH ×2 (08:49→17:22)
[2016-09-27] MEDS: PANTOPRAZOLE SODIUM 40 MG TAB PO SCH ×2 (08:50→20:49)
--- NOTE | 2016-09-27 11:17 | SOAPPROG ---
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 Resume physical therapy and occupational therapy to optimize mobility and activities of daily living. * Dysphagia and dysarthria. Dysphagia resolved. Start regular diet, thin liquids. Continue ASSISTANT PROFESSOR OF THEATER re dysarthria and facial droop. * Nutritional needs. Janitorial Tech to assist with transition from tube feeding to oral feeding Patient had questions regarding home diet and possible supplementing with TF bolus. Will ask ST and dietitian to provide information to patient regarding this * Status post craniotomy. His incision appears to be well-healed. * History of pneumonia, as well as deep venous thrombosis and pulmonary embolus. He has completed his course of antibiotics. Continue oxygen as needed and inhalers as ordered. * Corneal abrasion. Continue treatment with erythromycin and other ophthalmic preparations. He will follow up with Ophthalmology after his discharge. * Status post gastrointestinal bleed. This was likely from the colon per the office system analyst however, he will be continued on lansoprazole. * Anemia. Improving on CBC 09/24/16. He was iron deficient on his previous rehabilitation stay with a total iron of 29 and iron saturation of 15%. Once he is tolerating his G-tube feeding well, iron can be supplemented. * Vitamin D deficiency. His 25-hydroxy vitamin D level on 09/19/2016 was below the lower threshold of the assay. Once he is tolerating his gastrostomy tube feedings, his vitamin D will be supplemented. * Excess oral secretions were a problem in his prior stay. This responded to glycopyrrolate given IV through the PICC line. This will be resumed on an as- needed basis. * Diabetes mellitus type 2. Not taking metformin due to concerns re G-tube clogging., Continue glargine insulin and lispro sliding scale. Blood sugar this am 166 so will hold additional insulin so he doesn't get hypoglycemic during today therapies. 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 He will follow up with Oncology after discharge. * Pulmonary embolus, status post inferior vena cava placement. Anticoagulation is likely still contraindicated due to his recent GI bleed. D/W Oncology : continue SQ enoxaparin at preventive dose until follow-up with oncology. Plan: 09/27/16 11:13 Subjective: He wants to talk with ST regarding diet supplements after D/C. Otherwise no complaints Objective: Vital Signs Temp Pulse Resp BP Pulse Ox 36.8 C 94 17 98/63 L 91 L 09/26/16 20:00 09/26/16 20:00 09/26/16 20:00 09/26/16 20:00 09/27/16 07:10 Laboratory Results 09/24/16 14:30 09/24/16 14:30 09/26/16 09/27/16 09/28/16 05:59 05:59 05:59 Intake Total 1000 1335 Output Total 725 250 Balance 275 1085 Physical Exam - Physical Exam General Appearance: WD/WN, alert, no apparent distress EENT: pharynx normal Neck: non-tender, supple Respiratory: chest non-tender, lungs clear, normal breath sounds Cardiac/Chest: tachycardia (Pulse is 100), No edema, No JVD Abdomen: normal bowel sounds, non-tender, distended, No rebound Skin: normal color, warm/dry Neuro/Psych: alert, normal mood/affect ICD10 Worksheet Patient Problems: Problems Problem Status Diagnosed Brain lesion Acute Perforated duodenal ulcer Acute
[2016-09-28] MEDS: ATORVASTATIN CALCIUM 10 MG TAB PO SCH (08:50)
[2016-09-28] MEDS: INSULIN LISPRO 100 UNIT/1 ML VIAL STANDARD SC SCH ×3 (08:50→17:38)
[2016-09-28] MEDS: metFORMIN HCL 500 MG TAB PO SCH ×2 (08:50→17:38)
[2016-09-28] MEDS: PANTOPRAZOLE SODIUM 40 MG TAB PO SCH ×2 (08:50→21:06)
[2016-09-28] MEDS: ENOXAPARIN 40 MG/0.4 ML SYR SC SCH (08:51)
[2016-09-28] MEDS: ERYTHROMYCIN 0.5% 1 GM OPHT.OINT LEFTEYE SCH ×3 (08:51→21:07)
[2016-09-28] MEDS: INSULIN GLARGINE 100 UNITS/ML SYRINGE SC SCH (08:59)
[2016-09-28] MEDS: FLUTICASONE/SALMETER 250/50MCG DISKUS IH SCH ×2 (10:30→21:06)
--- NOTE | 2016-09-28 11:48 | SOAPPROG ---
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 Resume physical therapy and occupational therapy to optimize mobility and activities of daily living. * Dysphagia and dysarthria. Dysphagia resolved. Start regular diet, thin liquids. 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 He is currently on dysphagia three diet and it is resonable to d/c the PEG tube as the patient can probably home supplement with boost or ensure. HOWEVER, will defer this to Dr Bartlett. This was d/w his nurse today. * Nutritional needs. Rag Baler to assist with transition from tube feeding to oral feeding Patient had questions regarding home diet and possible supplementing with TF bolus. Will ask ST and dietitian to provide information to patient regarding this * Status post craniotomy. His incision appears to be well-healed. * History of pneumonia, as well as deep venous thrombosis and pulmonary embolus. He has completed his course of antibiotics. Continue oxygen as needed and inhalers as ordered. The PICC line has not been used in 3 days, but will defer pulling it today, Dr Bartlett to consider this prior to his d/c in am. * Corneal abrasion. Continue treatment with erythromycin and other ophthalmic preparations. He will follow up with Ophthalmology after his discharge. * Status post gastrointestinal bleed. This was likely from the colon per the program support clerk however, he will be continued on lansoprazole. * Anemia. Improving on CBC 09/24/16. He was iron deficient on his previous rehabilitation stay with a total iron of 29 and iron saturation of 15%. Once he is tolerating his G-tube feeding well, iron can be supplemented. * Vitamin D deficiency. His 25-hydroxy vitamin D level on 09/19/2016 was below the lower threshold of the assay. Once he is tolerating his gastrostomy tube feedings, his vitamin D will be supplemented. * Excess oral secretions were a problem in his prior stay. This responded to glycopyrrolate given IV through the PICC line. This will be resumed on an as- needed basis. * Diabetes mellitus type 2. Not taking metformin due to concerns re G-tube clogging., Continue glargine insulin and lispro sliding scale. Blood sugar this am 166 so will hold additional insulin so he doesn't get hypoglycemic during today therapies. 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 He will follow up with Oncology after discharge. * Pulmonary embolus, status post inferior vena cava placement. Anticoagulation is likely still contraindicated due to his recent GI bleed. D/W Oncology : continue SQ enoxaparin at preventive dose until follow-up with oncology. Plan: 09/27/16 11:13 09/28/16 11:42 Subjective: Patient wants PICC line pulled. No other complaints. Objective: Vital Signs Temp Pulse Resp BP Pulse Ox 37.1 C 94 18 109/72 88 L 09/28/16 06:26 09/28/16 06:26 09/28/16 06:26 09/28/16 06:26 09/28/16 06:26 Laboratory Results 09/24/16 14:30 09/24/16 14:30 09/27/16 09/28/16 09/29/16 05:59 05:59 05:59 Intake Total 1335 2341 Output Total 250 300 500.00 Balance 1085 2041 -500.00 Physical Exam - Physical Exam General Appearance: WD/WN, alert, no apparent distress EENT: PERRL/EOMI Neck: supple Respiratory: chest non-tender, lungs clear, normal breath sounds Cardiac/Chest: No edema, No JVD Abdomen: normal bowel sounds (PEG tube in place. ), non-tender, soft Skin: normal color, warm/dry, No cyanosis, No jaundice Extremities: No Doc's sign Neuro/Psych: alert, motor weakness (general UE and LE weakness, but has functional strength.) ICD10 Worksheet Patient Problems: Problems Problem Status Diagnosed Brain lesion Acute Perforated duodenal ulcer Acute
[2016-09-29 07:25] VITALS: RESP 18; TEMP 98.6
[2016-09-29] MEDS: PANTOPRAZOLE SODIUM 40 MG TAB PO SCH (08:44)
[2016-09-29] MEDS: metFORMIN HCL 500 MG TAB PO SCH ×2 (08:44→17:25)
[2016-09-29] MEDS: ATORVASTATIN CALCIUM 10 MG TAB PO SCH (08:45)
[2016-09-29] MEDS: ERYTHROMYCIN 0.5% 1 GM OPHT.OINT LEFTEYE SCH ×2 (08:47→17:37)
[2016-09-29] MEDS: FLUTICASONE/SALMETER 250/50MCG DISKUS IH SCH (08:47)
[2016-09-29] MEDS: INSULIN LISPRO 100 UNIT/1 ML VIAL STANDARD SC SCH ×3 (08:48→17:08)
[2016-09-29] MEDS: INSULIN GLARGINE 100 UNITS/ML SYRINGE SC SCH (10:42)
[2016-09-29] MEDS: ENOXAPARIN 40 MG/0.4 ML SYR SC SCH (10:54)
--- NOTE | 2016-09-29 15:20 | GDS ---
[f rep st] DISCHARGE SUMMARY ADMITTING DIAGNOSIS: Debility status post excision of cerebellar tumor and multiple hospital complications. DISCHARGE DIAGNOSIS: Debility status post excision of cerebellar tumor and multiple hospital complications. OTHER DISCHARGE DIAGNOSES: 1. Diabetes mellitus type 2. 2. Vitamin D deficiency. 3. Iron deficiency anemia. 4. Hypoxia. CONSULTATIONS: There were none. PROCEDURES: There were none. COMPLICATIONS: There were none. HISTORY AND HOSPITAL COURSE: Please see the H and P and discharge summary from his prior stay of 09/17/2016 to 09/20/2016 for details on the first part of his rehabilitation stay. He was readmitted to the hospital on 09/20/2016 due to a blocked jejunostomy tube. He spent 4 days in the hospital. He had the jejunostomy tube removed and a gastrostomy tube placed, and then was returned to rehabilitation. He had dramatic improvement in his swallowing function after his return to rehabilitation and is discharged on a regular textured diet with thin liquids. He made functional progress with physical and Occupational therapy and, on the day of discharge, he had modified independence with bed mobility and transfers using a front-wheeled walker for a stand and pivot transfer. He is able to ambulate 150 feet or greater using a front-wheeled walker. He continued to require supervision for ambulation for management of the oxygen tank and tubing. He was also able to climb and descend stairs with supervision for oxygen tubing management. Regarding other activities of daily living, he progressed with occupational therapy. He was independent with dressing upper body. For lower body, he required standby assist and cues and supervision for safety. He sat for bathing tasks with cues and supervision for safety. He needed similar level of supervision for shower transfer and for toileting and toilet transfer. He was hypoxic with ambulation with his oxygen saturation dropping to 88%. He is being discharged with home oxygen. It is unclear whether he needs oxygen overnight and this can be determined once he has returned home. Regarding diabetes mellitus type 2, he was effectively managed with 4 units of Lantus once a day, as well as metformin at 500 mg twice a day orally. His blood sugars were occasionally elevated, but mostly were running from the low 100s to the high 100s, and mostly no supplemental insulin was used. He should consider titrating his metformin to a maximal dose from 850 mg b.i.d. and the possible inclusion of a second oral agent with which he might be able to be liberated from insulin altogether. He had anemia. He had iron deficiency diagnosed on his initial rehabilitation stay. At that time, he was not taking any medications by mouth and he had concerns about medications per G-tube, so he was not placed on iron supplementation. His iron level was 29. Iron saturation was 15%. His vitamin D level was below the threshold of the assay at less than 12.8. He should have iron and vitamin D supplementation at home. He had a corneal abrasion, which happened during his initial hospitalization, along with other complications. He was continued with eye patching and erythromycin ophthalmic ointment. He had a history of pulmonary embolus during his initial hospitalization. This was certainly contributing to his hypoxemia. An anterior vena cava filter had been placed. He was on preventive dose of enoxaparin with concern regarding any further anticoagulation due to a GI bleed, which had also happened in his initial hospitalization. This was discussed with Oncology on 09/26/2016 and it was advised that he continue the subcutaneous enoxaparin at a preventive dose until he follows up with Oncology. PHYSICAL EXAM: VITALS: On the day of discharge, blood pressure is 103/70, heart rate is 105, respiratory rate is 18, oxygen saturation is 96% on 1 L, was 88% on room air with ambulation, temperature was 37 degrees centigrade. GENERAL: This is a well-nourished, well-developed obese man sitting in a chair , cooperative, and in no acute distress. LUNGS: Clear to auscultation bilaterally. ABDOMEN: Soft, nontender, nondistended with normoactive bowel sounds. HEART: There is a regular rate and rhythm with no murmurs, rubs, or gallops. EXTREMITIES: There is no cyanosis, clubbing, or edema. NEUROLOGIC: There is a left facial droop. He has an eye patch over the left eye, which he is unable to close. He is able to use all extremities. He was observed ambulating in the hallway with a front-wheeled walker in a step thru pattern though walking slowly. DISCHARGE PLAN: Condition upon discharge is good. Activity is ad simona, but he should have supervision for safety, especially regarding management of his oxygen line. He is not to be driving. Diet is regular with a regular texture and thin liquids. Date of next appointment: He reports he is going to follow up with Oncology on 09/30/2016 the day after discharge, with his primary care doctor at the end of this week, and with Ophthalmology early the following week. MEDICATIONS AT DISCHARGE: 1. Acetaminophen 650 mg p.o. q.4 hours p.r.n. 2. Artificial Tears 1 drop each eye q.2 hours p.r.n. 3. Atorvastatin 10 mg p.o. daily. 4. Enoxaparin 40 mg subcutaneous daily. 5. Erythromycin ophthalmic ointment to the left eye t.i.d. 6. Fluticasone/salmeterol 1 puff b.i.d. 7. Insulin glargine 4 units subcutaneous daily. 8. Ipratropium 0.5 mg metered-dose inhaler q.i.d. p.r.n. 9. Metformin 500 mg p.o. b.i.d. 10. Pantoprazole 40 mg p.o. b.i.d. 11. Refresh PM ointment to the left eye q.4 hours p.r.n. ISSUES TO BE ADDRESSED AT FOLLOWUP: 1. Non-Hodgkin's lymphoma, status post excision of cerebellar mass. He is to follow up with Oncology to consider his treatment options. 2. History of pulmonary embolus, on enoxaparin at preventive dose with an IVC filter placed. He will consider further indications for anticoagulation and dosing with Oncology. 3. Diabetes mellitus type 2. It is advised that he increase metformin to 850 mg t.i.d. and consider addition of a second oral agent with a goal to be liberated from insulin; however, his hemoglobin A1c was 9.7 when checked in the hospital indicating that metformin had been inadequate for controlling his blood sugar previously. 4. Corneal abrasion, sustained during his hospitalization. He will follow up with Ophthalmology to consider his options for treating the left corneal abrasion. 5. Dyslipidemia. He reports that he has been on both atorvastatin and gemfibrozil for a number of years. The gemfibrozil was canceled during his hospitalization out of concern for statin myopathy. He can restart this under the guidance of his primary care doctor. 6. Hypoxemia, likely due to pulmonary embolus, plus anemia, plus history of pneumonia during his hospitalization. He can follow up with his primary care physician. He is provided oxygen on discharge to use, especially while ambulating. 7. Iron deficiency anemia. Now that he is taking medications orally, it is advised that he have iron supplementation, Would consider 325 mg p.o. daily for 30 days. 8. Vitamin D deficiency. Advise vitamin D supplementation, for instance 2000 units p.o. daily. Copy requested to: MANDO ESPANA /[id number]/MODL MTDD
[2016-09-29 16:45] VITALS: BP 89/61; PULSE 101; O2SAT 98
== END 2016-09-29 18:57 | disposition home health service (06) | DRG 949 ==
LOC: BREH 13:48
PROVIDERS: ADMIT Internal Medicine; ATTEND Internal Medicine
PROC: F07M3ZZ Motor Function Treatment of Musculoskeletal System - Whole Body (ICD-10-PCS; principal; 2016-09-24)
PROC: F0636ZZ Communicative/Cognitive Integration Skills Treatment of Neurological System - Whole Body (ICD-10-PCS; principal; 2016-09-24)
PROC: F08Z7ZZ Vocational Activities and Functional Community or Work Reintegration Skills Treatment (ICD-10-PCS; principal; 2016-09-24)
DX: Z48.811 Encounter for surgical aftercare following surgery on the nervous system (principal); C85.11 Unspecified B-cell lymphoma, lymph nodes of head, face, and neck; R13.10 Dysphagia, unspecified; R47.1 Dysarthria and anarthria; R29.810 Facial weakness; E11.9 Type 2 diabetes mellitus without complications; D50.9 Iron deficiency anemia, unspecified; E55.9 Vitamin D deficiency, unspecified; R09.02 Hypoxemia; E78.5 Hyperlipidemia, unspecified; E66.01 Morbid (severe) obesity due to excess calories; Z93.1 Gastrostomy status; S05.02XD Injury of conjunctiva and corneal abrasion without foreign body, left eye, subsequent encounter; X58.XXXD Exposure to other specified factors, subsequent encounter; H91.92 Unspecified hearing loss, left ear; Z87.01 Personal history of pneumonia (recurrent); Z98.0 Intestinal bypass and anastomosis status; Z79.2 Long term (current) use of antibiotics; Z79.84 Long term (current) use of oral hypoglycemic drugs; Z86.711 Personal history of pulmonary embolism; Z87.891 Personal history of nicotine dependence; Z80.41 Family history of malignant neoplasm of ovary; Z68.31 Body mass index [BMI] 31.0-31.9, adult
CPT/HCPCS: 92507-GN; 92526; 92610; 97110-GO; 97116-GP; 97162-GP; 97165-GO; 97530-GO; 97530-GP; 97535-GO; J1650; J1815; J2997

== ENCOUNTER → 2016-10-03 | Outpatient (CLI) | payer OTHER ==
[~2016-10-03] MED LIST changes: +GADOBUTROL 10 ML VIAL IVP ONE; -IOPAMIDOL (ISOVUE-300) 100 ML BTL IV ONE; -MIDAZOLAM 2 MG/2 ML VIAL ONE; -ONDANSETRON 4 MG/2 ML VIAL ONE; -fentaNYL 100 MCG/2 ML INJ ONE
--- NOTE | 2016-10-03 20:16 | MR ---
MRI of the Brain (Without and With Contrast) at 1849 hours Clinical Indication: PER DIEM PHYSICAL THERAPIST lymphoma post surgery. Technique: T1-weighted images were acquired axially and sagittally from the foramen magnum to the ve rtex. Axial fast inversion-recovery, fast T2-weighted, and diffusion-weighted axial images were obta ined, without contrast. Postcontrast axial, coronal, and sagittal T1-weighted images, with the uneve ntful intravenous administration of 8 mL Gadavist contrast. Comparison: MRI August 27, 2016. Findings: Previously identified mass involving the posterior left side of the medulla, left middle c erebellar peduncle, and mesial aspect of the left cerebellar hemisphere has significantly decreased i n size and also demonstrates significant decrease in the surrounding edema. Residual enhancing lesio n measures approximately 15 x 8 mm, previously measuring 23 x 15 mm. Previous edema involving the le ft side of the massiel and cerebellum measured 45 x 45 mm, now measuring 15 x 15 mm. Mass effect is als o decreased on the 4rth ventricle. There is no evidence of hydrocephalus. No new enhancing lesions. No hydrocephalus or herniation. No epidural or subdural hematomas. Throu ghout the white matter of bilateral cerebral hemispheres, there are multiple predominantly subcentime ter nonspecific hyperintense T2/FLAIR signal abnormalities, without hemorrhage or mass effect. No ac kletsel dehe wintun infarct on the diffusion series. Cerebellar tonsils in normal position. Pituitary gland normal in size. No significant sinus disease. Impressions 1. Decrease in size of enhancing lesion involving the left side of the medulla and massiel and left mid dle cerebellar peduncle, with significant decrease in the surrounding edema consistent with interval improvement since August 2016. 2. No new enhancing lesions. 3. No hydrocephalus, acute infarct, or herniation. 4. Multiple nonspecific hyperintense T2/FLAIR signal abnormalities in the white matter of bilateral cerebral hemispheres. Differential diagnosis includes moderate microvascular ischemic gliosis, migra ine-related sequela, atypical demyelinating disease, or postinfectious/postinflammatory sequela.
== END ==
LOC: FIMAGING 17:53
PROVIDERS: ATTEND Internal Medicine Hematology & Oncology
DX: G93.9 Disorder of brain, unspecified (principal)
CPT/HCPCS: A9585

== ENCOUNTER → 2016-10-16 | Day surgery (SDC) | payer OTHER ==
--- NOTE | 2016-10-16 16:23 | IR ---
Interventional Consult Relevant History: No longer needs G-tube. G-tube removal requested. Findings: The patient still has his T-fasteners. Those were removed. The G-tube balloon was deflat ed, and the tube came out very easily. The incision site was then dressed with a 4 x 4 and Tegaderm. The patient did not have any issues with this. Impression: G-tube removed. Dressing instructions were given to the patient prior to discharge. Total oorh-sl-eogr consultation was 10 minutes.
== END | disposition home or self-care (01) ==
LOC: FIMAGING 12:31
PROVIDERS: ATTEND Internal Medicine Hematology & Oncology
PROC: 0DP6XUZ Removal of Feeding Device from Stomach, External Approach (ICD-10-PCS; principal; 2016-10-16)
DX: Z43.1 Encounter for attention to gastrostomy (principal)

== ENCOUNTER 2016-10-22 10:55 | Day surgery (SDC) | payer OTHER ==
[2016-10-22] MEDS ORDERED: fentaNYL 100 MCG/2 ML INJ ONE (12:52)
[2016-10-22] MEDS ORDERED: MIDAZOLAM 2 MG/2 ML VIAL ONE (12:52)
[2016-10-22] MEDS ORDERED: IOPAMIDOL (ISOVUE-300) 100 ML BTL IV ONE (13:36)
== END 2016-10-22 15:00 | disposition home or self-care (01) ==
LOC: FIMAGING 10:55
PROVIDERS: ATTEND Internal Medicine Hematology & Oncology
PROC: 06PY3DZ Removal of Intraluminal Device from Lower Vein, Percutaneous Approach (ICD-10-PCS; principal; 2016-10-22 13:43)
DX: Z45.2 Encounter for adjustment and management of vascular access device (principal); C72.9 Malignant neoplasm of central nervous system, unspecified
CPT/HCPCS: 37193; 75825; 99152; C1769; C1773; C1892; J1644; J2250; J3010; Q9967

== ENCOUNTER 2016-10-23 09:40 | Inpatient (IN) | payer OTHER ==
[2016-10-23] MEDS ORDERED: ACETAMINOPHEN 325 MG TAB PO PRN (12:16)
[2016-10-23] MEDS ORDERED: D50W 25 GM/50 ML SYR IVP PRN (12:29)
[2016-10-23] MEDS ORDERED: ALTEPLASE 2 MG VIAL IVP PRN (13:01)
--- NOTE | 2016-10-23 13:27 | GHP ---
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 PRIMARY ONCOLOGIST: Dr. Atkinson. HISTORY OF PRESENT ILLNESS: Patient is a 61-year-old male, history of diabetes and prolonged hospitalization September 01 when he was diagnosed with primary central nervous lymphoma. Course was complicated by a duodenal ulcer related to NSAIDs and steroids. The patient was discharged home on September 29 and has been doing well since that time. He says his energy is improving daily. He has a good appetite with good p.o. intake. Denies fevers, chills, or sweats. No cough, no chest pain. No headache or numbness. Denies abdominal pain. REVIEW OF SYSTEMS: A completed a 10-point review of systems, negative except as noted in HPI. PAST MEDICAL HISTORY: 1. Primary central nervous system lymphoma resected August 26. 2. Pulmonary embolism. 3. Duodenal ulcer: Likely related to NSAIDs and steroids. Status post antrectomy, gastrojejunostomy, and closure of duodenal stump 3. Controlled diabetes. PAST SURGICAL HISTORY: 1. Cerebellar tumor resection August 26. 2. History of G-tube placement. 3. Status post antrectomy, gastrojejunostomy, and closure of duodenal stump secondary to duodenal ulcer. 4. IVC filter placement. G-tube was removed October 16, 2016. IVC filter removed October 22, 2016. SOCIAL HISTORY: Lives in [place]. Smoked tobacco remotely, quit 26 years ago. No alcohol since July. Denies illicit's. Here with his son. FAMILY HISTORY: Mother of an aortic aneurysm. Sister ovarian cancer in remission. MEDICATIONS: 1. Neupogen 480 mcg. 2. Xarelto 20 mg daily. 3. Procarbazine 200 mg daily. 4. Metformin 500 p.o. b.i.d. 5. Protonix 40 twice b.i.d. 6. Erythromycin eye drops. 7. Lipitor 10. 8. Tylenol p.r.n. ALLERGIES: No known drug allergies. PHYSICAL EXAM: VITAL SIGNS: Temperature 36.3, blood pressure 103/87, heart rates 97, respirations 16, 90% on room air. GENERAL: Patient is sitting up, in no acute distress. HEENT: PERRLA. Left eyelid droop with a little bit of drainage. CV: Regular rate and rhythm. No murmurs, gallops, or rubs. LUNGS: Clear to auscultation bilaterally. ABDOMEN: Soft, nontender, nondistended. Positive bowel sounds. Surgical scar well-healed, clean, dry, intact. G-tube site healed, no purulence. : No Gamino, no suprapubic tenderness. MUSCULOSKELETAL: 5/5 upper lower extremity strength. NEURO: 2 through 12 intact. PSYCH: Alert and oriented x3. LABORATORY DATA: Pending. Review labs 10/22 : WBC 7, hemoglobin 11, hematocrit 36, platelets 354. Sodium was 142, potassium 4.1, chloride 105, carbon dioxide 25, creatinine 0.6, glucose 130. LFTs were within normal. ASSESSMENT/PLAN: 1. Primary central nervous system lymphoma. Patient is being admitted by Oncology for chemotherapy. Plan per Dr. Harrison. 2. History of pulmonary embolism. Continue Xarelto. 3. History of duodenal ulcer status post surgical intervention. No active bleeding. Will monitor on anticoagulation closely. Hemoglobin and hematocrit are stable. IVC filter was removed on 10/22/2016. Continue PPI. 4. Controlled diabetes. Will hold metformin while here and sliding scale insulin. 5. Iron-deficiency anemia. Hemoglobin and hematocrit are stable. 6. Diet: Regular. 7. Deep venous thrombosis prophylaxis. Patient is on Xarelto. DISPOSITION: Patient warrants inpatient admission for IV chemotherapy, serial labs. /[id number]/MODL MTDD
[2016-10-23] MEDS: SODIUM BICARBONATE 650 MG TAB PO SCH ×3 (14:59→20:38)
[2016-10-23] MEDS ORDERED: ACETAMINOPHEN 325 MG TAB PO SCH (15:00)
[2016-10-23] MEDS: ATORVASTATIN CALCIUM 10 MG TAB PO SCH (15:00)
[2016-10-23] MEDS: ERYTHROMYCIN 0.5% 1 GM OPHT.OINT LEFTEYE SCH ×3 (15:00→23:37)
[2016-10-23] MEDS: [UNRECOGNIZED DRUG - OTHER] PO SCH (15:02)
--- NOTE | 2016-10-23 15:18 | GCON ---
[f rep st] CONSULTATION MEDICAL ONCOLOGY CONSULTATION The patient is a 61-year-old male who was diagnosed with a central nervous system lymphoma in August of 2016. After his brain biopsy that established the diagnosis, he had a complicated course including a perforated duodenal ulcer requiring emergent surgery, subsequent postop PE, and subsequent GI bleeding requiring placement of an IVC filter. He also developed a corneal abrasion. His presenting complaint was hearing loss and tinnitus in the left ear. He also developed some left-sided facial weakness. He has recovered largely from this, although continues under care with a corneal specialist for his left eye. He is scheduled to start chemotherapy today with the R-MPV regimen which consists of Rituxan 500 mg/meter squared day 1, high-dose methotrexate at 3.5 g/meter squared day 2, vincristine 1.5 mg/meter squared day 2 and procarbazine 100 mg/meter squared per day x7 days on odd cycles. The plan is to repeat cycles every 2 weeks. He will require colony-stimulating factor. He says he is feeling reasonably well at this point in time, although is certainly anxious regarding potential outcome of his chemotherapy. PAST MEDICAL HISTORY: Primarily related to his central nervous system lymphoma. He has controlled diabetes. He has a history of pulmonary embolism and duodenal ulcer. SURGICAL HISTORY: Includes antrectomy, gastrojejunostomy. PERSONAL/SOCIAL HISTORY: Former smoker, but quit many years ago. He lives in [place]. He lives with his son. Sister has a history of ovarian cancer in remission. Mother of an aortic aneurysm. MEDICATIONS ON ADMISSION: Include Xarelto 20 mg daily, metformin, Protonix and erythromycin as well as Lipitor. PHYSICAL EXAMINATION: GENERAL: He is a pleasant talkative male. He has an obvious left facial droop. VITAL SIGNS: Blood pressure 103/87, O2 sat 98%. He is afebrile. HEENT: He is not icteric. I detect no adenopathy. LUNGS: Clear. CARDIAC: Unremarkable. ABDOMEN: Benign without organomegaly. EXTREMITIES: Show no edema. A CBC from yesterday, 10/22, shows a white count of 7.1, hemoglobin 11.6, hematocrit 36.8, platelets of 354,000. Creatinine is 0.6. Remainder of a chemistry panel is generally unremarkable except for hyperglycemia. IMPRESSION: Patient with central nervous system lymphoma about to begin chemotherapy as discussed above. We will monitor carefully. We will begin Rituxan and urine alkalinization today. We will follow methotrexate levels and continue with leucovorin rescue until his level is less than or equal to 0.05. /[id number]/MODL MTDD
[2016-10-23] MEDS ORDERED: NS IV SCH (15:30)
[2016-10-23] MEDS ORDERED: RITUXIMAB IV SCH (15:30)
[2016-10-23] MEDS ORDERED: [UNRECOGNIZED DRUG - SUPPLY] MISC ONE (17:09)
[2016-10-23] MEDS: FAMOTIDINE 20 MG TAB PO SCH (17:17)
[2016-10-23] MEDS: SODIUM BICARBONATE 150 MEQ in D5W 1,000 ML IV SCH (17:20)
[2016-10-23] MEDS: INSULIN LISPRO 100 UNIT/ML SC SCH (18:21)
[2016-10-23] MEDS: ONDANSETRON 4 MG/2 ML VIAL IVP PRN (19:31)
[2016-10-23] MEDS ORDERED: FAMOTIDINE 20 MG TAB PO SCH (21:00)
[2016-10-23] MEDS ORDERED: PANTOPRAZOLE SODIUM 40 MG TAB PO SCH (21:00)
[2016-10-23] MEDS ORDERED: CALCIUM CARBONATE 500 MG CHEWABLE TAB PO PRN (23:29)
[2016-10-24] MEDS: SODIUM BICARBONATE 150 MEQ in D5W 1,000 ML IV SCH ×3 (00:54→17:18)
[2016-10-24] MEDS: ERYTHROMYCIN 0.5% 1 GM OPHT.OINT LEFTEYE SCH ×5 (05:33→20:45)
[2016-10-24] MEDS: SODIUM BICARBONATE 650 MG TAB PO SCH ×4 (05:33→20:45)
[2016-10-24 06:00] LABS: HEMATOCRIT 31.5 % (40.0-51.0); MEAN CELL HEMOGLOBIN CONCENTR. 31.7 g/dL (32.4-36.7); MEAN CELL VOLUME 94.6 fL (81.5-99.8); RED BLOOD CELL COUNT 3.33 10^6/uL (4.40-6.38); RED CELL DISTRIBUTION WIDTH 14.8 % (11.5-15.2)
[2016-10-24 06:17] LABS: ANION GAP 8 mEq/L (8-16); CALCIUM 8.6 mg/dL (8.5-10.4); CARBON DIOXIDE 32 mEq/l (22-31); CHLORIDE 102 mEq/L (97-110); CREATININE 0.6 mg/dL (0.7-1.3); GLOMERULAR FILTRATION RATE > 60; GLUCOSE 135 mg/dL (70-100); POTASSIUM 3.5 mEq/L (3.5-5.2); SODIUM 142 mEq/L (134-144); URIC ACID 5.1 mg/dL (3.5-8.5)
[2016-10-24] MEDS: INSULIN LISPRO 100 UNIT/ML SC SCH ×3 (07:30→18:38)
[2016-10-24] MEDS: FAMOTIDINE 20 MG TAB PO SCH ×2 (08:07→17:00)
[2016-10-24] MEDS: RIVAROXABAN 10 MG TAB PO SCH (08:07)
[2016-10-24] MEDS: ATORVASTATIN CALCIUM 10 MG TAB PO SCH (08:07)
[2016-10-24] MEDS ORDERED: MAGNESIUM HYDROXIDE 30 ML UDCUP PO PRN (10:31)
[2016-10-24] MEDS ORDERED: ONDANSETRON HCL PF 8 MG, DEXAMETHASONE 10 MG in NS 50 ML IV SCH (10:45)
[2016-10-24] MEDS ORDERED: vinCRIStine 2 MG in NS 59 ML IV SCH (11:00)
[2016-10-24] MEDS ORDERED: METHOTREXATE SODIUM IV SCH (11:15)
[2016-10-24] MEDS ORDERED: NS IV SCH (11:15)
[2016-10-24] MEDS: [UNRECOGNIZED DRUG - OTHER] PO SCH (14:55)
--- NOTE | 2016-10-24 16:54 | HOSPPROG ---
Hospitalist Progress Note Assessment/Plan: #ENCAPSULATOR lymphoma: elective chemo. Rituxan yesterday, MTX today. Follow MTX levels #h/o GIB: cont PPI #Pulmonary embolism: IVC recently removed. Cont Xarelto #Controlled DM: SSI #Iron deficiency anemia: stable #HLD: statin #Diet: change to regular #DVT ppx: Xarelto #Disp: warrants inpt admission with IV chemo and serial MTX levels Objective: Vital Signs Temp Pulse Resp BP Pulse Ox 36.9 C 83 18 114/68 96 10/24/16 16:44 10/24/16 16:44 10/24/16 16:44 10/24/16 16:44 10/24/16 16:44 Laboratory Results 10/24/16 05:45 10/24/16 05:45 10/23/16 10/24/16 10/25/16 05:59 05:59 05:59 Intake Total 3645 Output Total 1700 1150 Balance 1945 -1150 - Physical Exam Constitutional: no apparent distress Eyes: PERRL, other (left eyelid droop) Ears, Nose, Mouth, Throat: moist mucous membranes, hearing normal Cardiovascular: regular rate and rhythym, no murmur, rub, or gallop Respiratory: no respiratory distress, no rales or rhonchi Gastrointestinal: normoactive bowel sounds, soft, non-tender abdomen, other ( surgical scar and G-tube site healed. No signs infection) Genitourinary: no bladder fullness Skin: warm Musculoskeletal: full muscle strength Neurologic: AAOx3 Psychiatric: interacting appropriately ICD10 Worksheet Patient Problems: Problems Problem Status Onset Brain lesion Acute Perforated duodenal ulcer Acute
[2016-10-25] MEDS: SODIUM BICARBONATE 650 MG TAB PO SCH ×4 (05:58→20:33)
[2016-10-25] MEDS: ERYTHROMYCIN 0.5% 1 GM OPHT.OINT LEFTEYE SCH ×6 (05:58→20:33)
[2016-10-25 06:17] LABS: % IMMATURE GRANULYOCYTES 0.5 % (0.0-1.1); ABSOLUTE IMMATURE GRANULOCYTES 0.04 10^3/uL (0.00-0.10); ADD DIFF? NO; ADD MORPH? NO; ADD SCAN? NO; ATYPICAL LYMPHOCYTE FLAG 10 (0-99); FRAGMENT RBC FLAG 0 (0-99); HEMATOCRIT 30.8 % (40.0-51.0); HEMOGLOBIN 9.8 g/dL (13.7-17.5); LEFT SHIFT FLG 10 (0-99); LIPEMIA HEMOLYSIS FLAG 80 (0-99); MEAN CELL HEMOGLOBIN CONCENTR. 31.8 g/dL (32.4-36.7); MEAN CELL VOLUME 94.2 fL (81.5-99.8); MEAN PLATELET VOLUME 9.6 fL (8.7-11.7); PLATELET CLUMPS FLAG 20 (0-99); PLATELET COUNT 273 10^3/uL (150-400); RED BLOOD CELL COUNT 3.27 10^6/uL (4.40-6.38); RED CELL DISTRIBUTION WIDTH 14.4 % (11.5-15.2)
[2016-10-25 06:55] LABS: ANION GAP 7 mEq/L (8-16); CALCIUM 8.6 mg/dL (8.5-10.4); CARBON DIOXIDE 31 mEq/l (22-31); CHLORIDE 103 mEq/L (97-110); CREATININE 0.5 mg/dL (0.7-1.3); GLOMERULAR FILTRATION RATE > 60; GLUCOSE 197 mg/dL (70-100); POTASSIUM 3.6 mEq/L (3.5-5.2); SODIUM 141 mEq/L (134-144)
[2016-10-25] MEDS: INSULIN LISPRO 100 UNIT/ML SC SCH ×3 (08:42→19:20)
[2016-10-25] MEDS: RIVAROXABAN 10 MG TAB PO SCH (08:43)
[2016-10-25] MEDS: ATORVASTATIN CALCIUM 10 MG TAB PO SCH (08:43)
[2016-10-25] MEDS: FAMOTIDINE 20 MG TAB PO SCH ×2 (08:45→17:43)
[2016-10-25] MEDS ORDERED: LEUCOVORIN CALCIUM IV SCH (11:00)
[2016-10-25] MEDS ORDERED: NS IV SCH (11:00)
[2016-10-25] MEDS: SODIUM BICARBONATE 150 MEQ in D5W 1,000 ML IV SCH ×2 (12:51→21:05)
--- NOTE | 2016-10-25 13:05 | SOAPPROG ---
[facility] Progress Note Assessment/Plan: Assessment: 1.) NUTRITION AIDE Lymphoma on regimen of Rituxan Day 1, high dose MTX with urinary alkinization, and monitoring of MTX levels, with folinic acid rescure and VCR and Procarbazine on Cycle 1,3, 5 po daily x 7 days. 2.) Prior VTE 3.) Prior GIB 4.) Corneal abrasion Plan: 1.) Urinary alkinization and follow of urine pH and serum MTX levels. 2.) Procarbazine po x 7 days. 3.) Follow labs + VS + sx. 4.) Supportive meds. 5.) G-CSF after Procarbazine. 6.) Continue Tx cycles as feasible. D/W patient. He will go home when feasible/safe . 10/25/16 13:05 Subjective: Doing relatively well thus far today on systemic chemotherapy, following first dose of high dose MTX. No new sx. Objective: VSS, Afebrile HEENT- Left eyelid is edematous and shut. L periorbital edema noted. R eye unremarkable No oral lesions, L facial droop noted Neck- supple Chest- clear CVS-RSR, no extra HS ABD- soft, NT, no mass or HSM EXT- minimal symmetric LE edema skin -intact Labs as noted here. First MTX level has been drawn and is pending. BUN/Cr 9/ 0.5 Vital Signs Temp Pulse Resp BP Pulse Ox 36.6 C 85 18 118/72 96 10/25/16 07:39 10/25/16 07:39 10/25/16 07:39 10/25/16 07:39 10/25/16 07:39 Laboratory Results 10/25/16 06:10 10/25/16 06:10 10/24/16 10/25/16 10/26/16 05:59 05:59 05:59 Intake Total 8051 8491 Output Total 7170 9814 650 Balance 1946 104 -007 ICD10 Worksheet Patient Problems: Problems Problem Status Onset Brain lesion Acute Perforated duodenal ulcer Acute
[2016-10-25] MEDS: NS IV SCH ×2 (14:49→20:34)
[2016-10-25] MEDS: LEUCOVORIN CALCIUM IV SCH ×2 (14:49→20:34)
--- NOTE | 2016-10-25 16:08 | HOSPPROG ---
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 Rituxan yesterday, MTX today with urine alkalization. Follow MTX levels #Nausea/vomiting: due to chemo, PRN IV antiemetics #h/o GIB: cont PPI #Pulmonary embolism: IVC recently removed. Cont Xarelto #Controlled DM: SSI #Iron deficiency anemia: stable #HLD: statin #Diet: change to regular #DVT ppx: Xarelto #Disp: warrants inpt admission with IV chemo and serial MTX levels Subjective: emesis x 1 Objective: Vital Signs Temp Pulse Resp BP Pulse Ox 36.6 C 85 18 118/72 96 10/25/16 07:39 10/25/16 07:39 10/25/16 07:39 10/25/16 07:39 10/25/16 07:39 Laboratory Results 10/25/16 06:10 10/25/16 06:10 10/24/16 10/25/16 10/26/16 05:59 05:59 05:59 Intake Total 1588 5681 Output Total 1700 5720 650 Balance 1945 774 -499 ICD10 Worksheet Patient Problems: Problems Problem Status Onset Brain lesion Acute Perforated duodenal ulcer Acute
[2016-10-25] MEDS: [UNRECOGNIZED DRUG - OTHER] PO SCH (17:40)
[2016-10-25] MEDS: MAGNESIUM HYDROXIDE 30 ML UDCUP PO PRN (22:12)
[2016-10-25] MEDS: ONDANSETRON 4 MG/2 ML VIAL IVP PRN (23:54)
[2016-10-26] MEDS ORDERED: PROMETHAZINE HCL 25 MG/ML INJ IVP PRN (01:01)
[2016-10-26] MEDS ORDERED: PROMETHAZINE HCL 25 MG/ML INJ ONE (01:01)
[2016-10-26] MEDS: NS IV SCH ×4 (01:28→21:57)
[2016-10-26] MEDS: LEUCOVORIN CALCIUM IV SCH ×4 (01:28→21:57)
[2016-10-26] MEDS: SODIUM BICARBONATE 150 MEQ in D5W 1,000 ML IV SCH ×3 (04:34→21:57)
[2016-10-26] MEDS: SODIUM BICARBONATE 650 MG TAB PO SCH ×4 (06:04→21:57)
[2016-10-26] MEDS: ERYTHROMYCIN 0.5% 1 GM OPHT.OINT LEFTEYE SCH ×5 (06:04→21:59)
[2016-10-26 06:19] LABS: % IMMATURE GRANULYOCYTES 0.2 % (0.0-1.1); ABSOLUTE IMMATURE GRANULOCYTES 0.02 10^3/uL (0.00-0.10); ADD DIFF? NO; ADD MORPH? NO; ADD SCAN? NO; ATYPICAL LYMPHOCYTE FLAG 0 (0-99); FRAGMENT RBC FLAG 0 (0-99); HEMOGLOBIN 9.7 g/dL (13.7-17.5); LEFT SHIFT FLG 0 (0-99); LIPEMIA HEMOLYSIS FLAG 80 (0-99); MEAN CELL HEMOGLOBIN 30.8 pg (27.9-34.1); MEAN CELL HEMOGLOBIN CONCENTR. 31.3 g/dL (32.4-36.7); MEAN CELL VOLUME 98.4 fL (81.5-99.8); MEAN PLATELET VOLUME 9.5 fL (8.7-11.7); PLATELET CLUMPS FLAG 0 (0-99); PLATELET COUNT 265 10^3/uL (150-400); RED BLOOD CELL COUNT 3.15 10^6/uL (4.40-6.38); RED CELL DISTRIBUTION WIDTH 14.6 % (11.5-15.2)
[2016-10-26 06:47] LABS: ANION GAP 8 mEq/L (8-16); CALCIUM 8.2 mg/dL (8.5-10.4); CARBON DIOXIDE 33 mEq/l (22-31); CHLORIDE 100 mEq/L (97-110); CREATININE 0.5 mg/dL (0.7-1.3); GLOMERULAR FILTRATION RATE > 60; GLUCOSE 149 mg/dL (70-100); POTASSIUM 3.4 mEq/L (3.5-5.2); SODIUM 141 mEq/L (134-144)
--- NOTE | 2016-10-26 08:39 | HOSPPROG ---
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 Rituxan, MTX. Urine alkalization. Follow MTX levels #Acute hypoxic resp failure: due to IVFs, small amount edema on CXR. Gentle diuresis #Nausea/vomiting: due to chemo, PRN IV antiemetics #h/o GIB: cont PPI #Pulmonary embolism: IVC recently removed. Cont Xarelto #Controlled DM: SSI #Iron deficiency anemia: stable #HLD: statin #Diet: change to regular #DVT ppx: Xarelto #Disp: warrants inpt admission with IV chemo and serial MTX levels Subjective: tired, very nauseated with emesis last night Objective: Vital Signs Temp Pulse Resp BP Pulse Ox 36.7 C 92 16 114/76 95 10/26/16 06:19 10/26/16 06:19 10/26/16 06:19 10/26/16 06:19 10/26/16 06:19 Laboratory Results 10/26/16 06:10 10/26/16 06:10 10/25/16 10/26/16 10/27/16 05:59 05:59 05:59 Intake Total 5674 2114 Output Total 4900 2900 600 Balance 774 -786 -600 - Physical Exam Constitutional: other (tired-appearing) Eyes: PERRL, other (left lid droop) Ears, Nose, Mouth, Throat: moist mucous membranes, hearing normal Cardiovascular: regular rate and rhythym, no murmur, rub, or gallop Respiratory: other (few crackles BL bases) Gastrointestinal: normoactive bowel sounds, soft, non-tender abdomen, other ( surgical scar well-healed) Genitourinary: no bladder fullness Skin: warm Musculoskeletal: full muscle strength Neurologic: AAOx3 Psychiatric: flat affect ICD10 Worksheet Patient Problems: Problems Problem Status Onset Brain lesion Acute Perforated duodenal ulcer Acute
[2016-10-26] MEDS: FAMOTIDINE 20 MG TAB PO SCH ×2 (09:36→18:14)
[2016-10-26] MEDS: RIVAROXABAN 10 MG TAB PO SCH (09:40)
[2016-10-26] MEDS: INSULIN LISPRO 100 UNIT/ML SC SCH ×4 (09:40→22:28)
[2016-10-26] MEDS: ATORVASTATIN CALCIUM 10 MG TAB PO SCH (09:41)
--- NOTE | 2016-10-26 10:15 | SOAPPROG ---
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 2.) Prior VTE 3.) Prior GIB 4.) Corneal abrasion 5.) Volume overload 6.) Hypoxemia, likely due to # 5. 7.) Nausea secondary to chemotherapy regimen. Plan: 1.) Urinary alkinization and follow of urine pH and serum MTX levels. 2.) Procarbazine po x 7 days. 3.) Follow labs + VS + sx. 4.) Supportive meds. 5.) G-CSF after Procarbazine. 6.) Continue Tx cycles as feasible. D/W patient. He will go home when feasible/safe . 7.) Furosemide 20 mg IV 8 hours apart x 2 doses today. D/W community health nurse staff. 8.) CXR today to evaluate dyspnea, with suspected mild CHF anticipated on CXR. 10/26/16 10:13 Subjective: Had emesis last night and reports some dyspnea today. Notes mild JULES Objective: Afebrile, VSS, Pulse oximetry at rest in chair on RA: 87 %. HEENT- no change in Left eyelid and periorbital edema. Also (+) L facial droop - no change. Neck - supple Chest- fine basilar crackles CVS- RSR, no extra HS ABD- soft, BS+, NT EXt- trace 1 + edema bilaterally Labs as noted here: BUN/CR 9/0.5 MTX level coming down. Urine pH 7.5 Vital Signs Temp Pulse Resp BP Pulse Ox 36.9 C 83 18 118/72 96 10/26/16 10:00 10/26/16 10:00 10/26/16 10:00 10/26/16 10:00 10/26/16 10:00 Laboratory Results 10/26/16 06:10 10/26/16 06:10 10/25/16 10/26/16 10/27/16 05:59 05:59 05:59 Intake Total 1004 5268 Output Total 2954 7880 600 Balance 233 -100 -047 ICD10 Worksheet Patient Problems: Problems Problem Status Onset Brain lesion Acute Perforated duodenal ulcer Acute
[2016-10-26] MEDS: FUROSEMIDE 20 MG/2 ML VIAL IVP SCH ×3 (10:46→21:50)
[2016-10-26] MEDS: ONDANSETRON DISINTEGRATING 4 MG TAB PO PRN ×2 (10:55→21:57)
[2016-10-26] MEDS ORDERED: SIMETHICONE 80 MG TAB CHEW PO PRN (11:08)
[2016-10-26] MEDS ORDERED: POTASSIUM CL 20 MEQ TAB PO ONE (11:14)
[2016-10-26] MEDS: [UNRECOGNIZED DRUG - OTHER] PO SCH (15:33)
[2016-10-27] MEDS: NS IV SCH ×4 (01:41→21:25)
[2016-10-27] MEDS: LEUCOVORIN CALCIUM IV SCH ×4 (01:41→21:25)
[2016-10-27] MEDS: SODIUM BICARBONATE 650 MG TAB PO SCH ×4 (04:58→21:26)
[2016-10-27] MEDS: SODIUM BICARBONATE 150 MEQ in D5W 1,000 ML IV SCH ×3 (05:10→23:17)
[2016-10-27] MEDS: ERYTHROMYCIN 0.5% 1 GM OPHT.OINT LEFTEYE SCH ×5 (05:11→21:28)
[2016-10-27 05:54] LABS: ANION GAP 5 mEq/L (8-16); CALCIUM 8.5 mg/dL (8.5-10.4); CARBON DIOXIDE 37 mEq/l (22-31); CHLORIDE 94 mEq/L (97-110); CREATININE 0.5 mg/dL (0.7-1.3); GLOMERULAR FILTRATION RATE > 60; GLUCOSE 146 mg/dL (70-100); MAGNESIUM 1.9 mg/dL (1.6-2.3); POTASSIUM 3.2 mEq/L (3.5-5.2); SODIUM 136 mEq/L (134-144)
[2016-10-27] MEDS ORDERED: POTASSIUM CL 20 MEQ TAB PO ONE (09:01)
--- NOTE | 2016-10-27 09:03 | HOSPPROG ---
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 Rituxan, MTX. Urine alkalization. MTX level 0.15 yesterday. Once 0.05, can DC home #Acute hypoxic resp failure: resolved with IV lasix (mild edema on CXR, personally reviewed by me) #Metabolic alkalosis: due to diuresis. Lasix stopped #Hypokalemia: repleting #Nausea/vomiting: due to chemo, PRN IV antiemetics #h/o GIB: cont PPI #Pulmonary embolism: IVC recently removed. Cont Xarelto #Controlled DM: SSI #Iron deficiency anemia: stable #HLD: statin #Diet: change to regular #DVT ppx: Xarelto #Disp: warrants inpt admission with IV chemo. DC when MTX level 0.05. Subjective: nausea improved Objective: Vital Signs Temp Pulse Resp BP Pulse Ox 36.8 C 94 16 96/66 L 94 10/27/16 00:10 10/27/16 00:10 10/27/16 00:10 10/27/16 00:10 10/27/16 00:10 Laboratory Results 10/26/16 06:10 10/27/16 05:15 10/26/16 10/27/16 10/28/16 05:59 05:59 05:59 Intake Total 2117 4611 Output Total 6942 3350 Balance -088 -1079 - Physical Exam Constitutional: chronically ill appearing Eyes: PERRL, other (left lid droop) Ears, Nose, Mouth, Throat: moist mucous membranes, hearing normal Cardiovascular: regular rate and rhythym, no murmur, rub, or gallop Respiratory: no respiratory distress, no rales or rhonchi Gastrointestinal: normoactive bowel sounds, other (surgical scar healed) Genitourinary: no bladder fullness Skin: warm Musculoskeletal: full muscle strength Neurologic: AAOx3, CN II-XII Intact Psychiatric: interacting appropriately ICD10 Worksheet Patient Problems: Problems Problem Status Onset Brain lesion Acute Perforated duodenal ulcer Acute
[2016-10-27] MEDS: FAMOTIDINE 20 MG TAB PO SCH ×2 (09:23→17:43)
[2016-10-27] MEDS: ATORVASTATIN CALCIUM 10 MG TAB PO SCH (09:23)
[2016-10-27] MEDS: RIVAROXABAN 10 MG TAB PO SCH (09:23)
[2016-10-27] MEDS: INSULIN LISPRO 100 UNIT/ML SC SCH ×3 (09:23→17:42)
[2016-10-27 09:50] LABS: % IMMATURE GRANULYOCYTES 0.3 % (0.0-1.1); ABSOLUTE IMMATURE GRANULOCYTES 0.02 10^3/uL (0.00-0.10); ADD DIFF? NO; ADD MORPH? NO; ADD SCAN? NO; ATYPICAL LYMPHOCYTE FLAG 0 (0-99); FRAGMENT RBC FLAG 30 (0-99); HEMATOCRIT 31.6 % (40.0-51.0); HEMOGLOBIN 10.1 g/dL (13.7-17.5); LEFT SHIFT FLG 0 (0-99); LIPEMIA HEMOLYSIS FLAG 80 (0-99); MEAN CELL HEMOGLOBIN 30.3 pg (27.9-34.1); MEAN CELL VOLUME 94.9 fL (81.5-99.8); MEAN PLATELET VOLUME 9.8 fL (8.7-11.7); PLATELET CLUMPS FLAG 0 (0-99); PLATELET COUNT 304 10^3/uL (150-400); RED BLOOD CELL COUNT 3.33 10^6/uL (4.40-6.38); RED CELL DISTRIBUTION WIDTH 14.3 % (11.5-15.2)
--- NOTE | 2016-10-27 11:20 | SOAPPROG ---
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 His methotrexate level yesterday was 0.15 micromolar yesterday he needs to be at 0.05 micromolar before he can be discharged. We will need to check his level today. He can be discharged when that level is reached. 2.) Prior VTE 3.) Prior GIB 4.) Corneal abrasion 5.) Volume overload - lungs clear today Plan: 1.) Urinary alkinization and follow of urine pH and serum MTX levels. 2.) Procarbazine po x 7 days. 3.) Follow labs + VS + sx. 4.) Supportive meds. 5.) G-CSF after Procarbazine. 6.) Continue Tx cycles as feasible. D/W patient. He will go home when feasible/safe . Subjective: Anxious to go home. No particular complaints today Objective: Vital Signs Temp Pulse Resp BP Pulse Ox 36.8 C 94 16 96/66 L 94 10/27/16 00:10 10/27/16 00:10 10/27/16 00:10 10/27/16 00:10 10/27/16 00:10 Laboratory Results 10/27/16 09:20 10/27/16 05:15 10/25/16 10/26/16 10/27/16 23:59 23:59 23:59 Intake Total 3964 3540 1105 Output Total 2550 7500 1900 Balance 4024 -2904 -204 Physical Exam - Physical Exam General Appearance: alert, no apparent distress Respiratory: No crackles, No rales, No rhonchi Abdomen: normal bowel sounds Neuro/Psych: other (ptosis L eye) ICD10 Worksheet Patient Problems: Problems Problem Status Onset Brain lesion Acute Perforated duodenal ulcer Acute
[2016-10-27] MEDS: [UNRECOGNIZED DRUG - OTHER] PO SCH (14:08)
[2016-10-27 21:50] VITALS: RESP 16
[2016-10-28] MEDS: LEUCOVORIN CALCIUM IV SCH ×2 (02:08→08:25)
[2016-10-28] MEDS: NS IV SCH ×2 (02:08→08:25)
[2016-10-28] MEDS: ERYTHROMYCIN 0.5% 1 GM OPHT.OINT LEFTEYE SCH ×2 (06:36→10:22)
[2016-10-28] MEDS: SODIUM BICARBONATE 650 MG TAB PO SCH (06:36)
[2016-10-28 06:58] LABS: % IMMATURE GRANULYOCYTES 0.2 % (0.0-1.1); ABSOLUTE IMMATURE GRANULOCYTES 0.01 10^3/uL (0.00-0.10); ADD DIFF? NO; ADD MORPH? NO; ADD SCAN? NO; ATYPICAL LYMPHOCYTE FLAG 0 (0-99); FRAGMENT RBC FLAG 0 (0-99); HEMATOCRIT 30.8 % (40.0-51.0); HEMOGLOBIN 9.7 g/dL (13.7-17.5); LEFT SHIFT FLG 0 (0-99); LIPEMIA HEMOLYSIS FLAG 80 (0-99); MEAN CELL HEMOGLOBIN 30.6 pg (27.9-34.1); MEAN CELL HEMOGLOBIN CONCENTR. 31.5 g/dL (32.4-36.7); MEAN CELL VOLUME 97.2 fL (81.5-99.8); MEAN PLATELET VOLUME 9.6 fL (8.7-11.7); PLATELET CLUMPS FLAG 0 (0-99); PLATELET COUNT 258 10^3/uL (150-400); RED BLOOD CELL COUNT 3.17 10^6/uL (4.40-6.38); RED CELL DISTRIBUTION WIDTH 14.2 % (11.5-15.2)
[2016-10-28 07:13] LABS: ALANINE AMINOTRANSFERASE 47 IU/L (21-72); ALBUMIN 2.9 g/dL (3.5-5.0); ALKALINE PHOSPHATASE 86 IU/L (38-126); ANION GAP 7 mEq/L (8-16); ASPARTATE AMINOTRANSFERASE 30 IU/L (17-59); BILIRUBIN,TOTAL 1.1 mg/dL (0.1-1.4); CALCIUM 8.6 mg/dL (8.5-10.4); CARBON DIOXIDE 34 mEq/l (22-31); CHLORIDE 97 mEq/L (97-110); CREATININE 0.5 mg/dL (0.7-1.3); GLOMERULAR FILTRATION RATE > 60; GLUCOSE 142 mg/dL (70-100); POTASSIUM 3.7 mEq/L (3.5-5.2); SODIUM 138 mEq/L (134-144); TOTAL PROTEIN 5.3 g/dL (6.3-8.2)
[2016-10-28] MEDS: FAMOTIDINE 20 MG TAB PO SCH (08:25)
[2016-10-28] MEDS: SODIUM BICARBONATE 150 MEQ in D5W 1,000 ML IV SCH (08:25)
[2016-10-28] MEDS: RIVAROXABAN 10 MG TAB PO SCH (09:06)
[2016-10-28] MEDS: ATORVASTATIN CALCIUM 10 MG TAB PO SCH (09:06)
[2016-10-28 09:09] VITALS: BP 127/80; PULSE 88; TEMP 98.6; O2SAT 99
--- NOTE | 2016-10-28 09:19 | SOAPPROG ---
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 His methotrexate level yesterday was 0.05 micromolar yesterday. Just available today. Can be discharged. D/C leucovorin and bicarb. Follow up with our office within the week. 2.) Prior VTE 3.) Prior GIB 4.) Corneal abrasion 5.) Volume overload - lungs clear today Plan: 1.) Stop leucovorin and bicarb 2.) Procarbazine po x 7 days total. 3.) G-CSF after Procarbazine. Subjective: Anxious to go home Objective: Vital Signs Temp Pulse Resp BP Pulse Ox 37.0 C 88 16 127/80 H 99 10/28/16 08:00 10/28/16 08:00 10/28/16 08:00 10/28/16 08:00 10/28/16 08:00 Laboratory Results 10/28/16 06:50 10/28/16 06:50 10/26/16 10/27/16 10/28/16 23:59 23:59 23:59 Intake Total 8530 3383 1867 Output Total 7500 3450 1400 Balance -7537 -20 381 Physical Exam - Physical Exam General Appearance: no apparent distress Respiratory: lungs clear Cardiac/Chest: regular rate, rhythm Abdomen: normal bowel sounds ICD10 Worksheet Patient Problems: Problems Problem Status Onset Brain lesion Acute Perforated duodenal ulcer Acute
--- NOTE | 2016-10-28 10:09 | HOSPPROG ---
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 Rituxan, MTX. Urine alkalization. MTX level 0.15 yesterday. Once 0.05, can DC home #Acute hypoxic resp failure: resolved with IV lasix (mild edema on CXR, personally reviewed by me) #Metabolic alkalosis: due to diuresis. Lasix stopped #Hypokalemia: repleting #Nausea/vomiting: due to chemo, PRN IV antiemetics #h/o GIB: cont PPI #Pulmonary embolism: IVC recently removed. Cont Xarelto #Controlled DM: SSI #Iron deficiency anemia: stable #HLD: statin #Diet: change to regular #DVT ppx: Xarelto home today > 30 minutes Subjective: very anxious for dc Objective: Vital Signs Temp Pulse Resp BP Pulse Ox 37.0 C 88 16 127/80 H 99 10/28/16 08:00 10/28/16 08:00 10/28/16 08:00 10/28/16 08:00 10/28/16 08:00 Laboratory Results 10/28/16 06:50 10/28/16 06:50 10/27/16 10/28/16 10/29/16 05:59 05:59 05:59 Intake Total 4645 4146 Output Total 6900 3550 Balance -2255 596 - Physical Exam Constitutional: no apparent distress, appears nourished Eyes: PERRL, anicteric sclera Ears, Nose, Mouth, Throat: moist mucous membranes, hearing normal Cardiovascular: regular rate and rhythym, no murmur, rub, or gallop Respiratory: no respiratory distress, no rales or rhonchi Gastrointestinal: normoactive bowel sounds, soft, non-tender abdomen Genitourinary: no bladder fullness, No morrison in urethra Skin: warm, normal color Musculoskeletal: full muscle strength Neurologic: AAOx3 ICD10 Worksheet Patient Problems: Problems Problem Status Onset Brain lesion Acute Perforated duodenal ulcer Acute
--- NOTE | 2016-10-28 10:20 | PDIAF ---
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 Code Status: Full Code - Medication Management Discharge Medications: Medications to Continue on Transfer Atorvastatin Calcium [Lipitor 10 mg (*)] 10 mg PO DAILY #30 tab 09/26/16 [Last Taken 10/22/16] Pantoprazole Sodium [Protonix 40mg (*)] 40 mg PO BID #60 tab 09/26/16 [Last Taken 10/22/16] Acetaminophen [Tylenol 325mg (*)] 650 mg PO DAILY PRN 10/23/16 [Last Taken Unknown] Erythromycin 0.5% 1 lorraine LEFTEYE 5XD 10/23/16 [Last Taken 10/23/16] Filgrastim [Neupogen] 480 mcg IJ AD 10/23/16 [Last Taken Unknown] Procarbazine 50mg Cap 200 mg PO DAILY 10/23/16 [Last Taken Unknown] Rivaroxaban [Xarelto 10mg (*)] 20 mg PO DAILY 10/23/16 [Last Taken Unknown] metFORMIN HCL [Glucophage 500 mg (*)] 500 mg PO BIDMEAL 10/23/16 [Last Taken 4 Days Ago] Discharge Medications: Refer to the Discharge Home Medication list for PRN reason. - Orders Services needed: Home Care, Registered Nurse, Physical Therapy, Occupational Therapy, Speech Language Pathologist Home Care Face to Face: I certify that this patient was under my care and that I had the required [id number] encounter meeting the encounter requirements on the discharge day. My findings support the fact that the patient is homebound as defined in CMS Chapter 7 Medicare Benefits Manual 30.1.1, The condition of the patient is such that there exists a normal inability to leave home and consequently, leaving home would require a considerable and taxing effort. - Follow Up Care Current Providers and Referrals: MANDO ESPANA [Primary Care Provider] -
--- NOTE | 2016-10-28 10:33 | GDS ---
[f rep st] DISCHARGE SUMMARY DISCHARGE DIAGNOSES: 1. Central nervous system lymphoma, status post round of methotrexate. 2. History of pulmonary embolism, on anticoagulation. 3. Duodenal ulcer, status post antrectomy, gastrojejunostomy, and closure of duodenal stump. 4. Controlled diabetes. 5. Acute hypoxemic respiratory failure secondary to volume overload. HOSPITAL COURSE: Please see admission history and physical by Dr. Barby Lemus. The patient pres ented for scheduled chemotherapy admission. He did well. He had some acute hypoxemic respiratory f ailure that resolved with Lasix. On the day of discharge, his methotrexate level was 0.05. He was on room air and very anxious for discharge. No prescriptions provided. /[id number]/MODL
[2016-10-28] MEDS: INSULIN LISPRO 100 UNIT/ML SC SCH (10:52)
[2016-10-28] MEDS: MAGNESIUM HYDROXIDE 30 ML UDCUP PO PRN (11:22)
[2016-10-28] MEDS ORDERED: BACITRACIN OINTMENT 1 PACKET TP ONE (13:06)
== END 2016-10-28 13:30 | disposition home health service (06) | DRG 846 ==
LOC: F1N 11:22
PROVIDERS: ADMIT Internal Medicine; ATTEND Internal Medicine
PROC: 02HV33Z Insertion of Infusion Device into Superior Vena Cava, Percutaneous Approach (ICD-10-PCS; principal; 2016-10-23)
PROC: 3E0330M Introduction of Antineoplastic, Monoclonal Antibody, into Peripheral Vein, Percutaneous Approach (ICD-10-PCS; 2016-10-23)
DX: Z51.11 Encounter for antineoplastic chemotherapy (principal); J96.01 Acute respiratory failure with hypoxia; C85.89 Other specified types of non-Hodgkin lymphoma, extranodal and solid organ sites; E11.9 Type 2 diabetes mellitus without complications; K26.9 Duodenal ulcer, unspecified as acute or chronic, without hemorrhage or perforation; D50.9 Iron deficiency anemia, unspecified; E87.6 Hypokalemia; Z87.891 Personal history of nicotine dependence; Z86.711 Personal history of pulmonary embolism; Z80.41 Family history of malignant neoplasm of ovary
CPT/HCPCS: 83520-90; 97161-GP; 97165-GO; C1751; J0640; J1200; J1815; J2405; J2550; J9260; J9310; J9370

== ENCOUNTER 2016-11-06 06:29 | Inpatient (IN) | payer OTHER ==
[2016-11-06 11:44] LABS: ABSOLUTE IMMATURE GRANULOCYTES 1.13 10^3/uL (0-0.10); HEMATOCRIT 37.5 % (40.0-51.0); MEAN CELL HEMOGLOBIN 29.8 pg (27.9-34.1); MEAN CELL VOLUME 93.1 fL (81.5-99.8); MEAN PLATELET VOLUME 9.4 fL (8.7-11.7); RED BLOOD CELL COUNT 4.03 10^6/uL (4.40-6.38); RED CELL DISTRIBUTION WIDTH 14.6 % (11.5-15.2)
[2016-11-06 12:30] LABS: ALANINE AMINOTRANSFERASE 38 IU/L (21-72); ALBUMIN 4.2 g/dL (3.5-5.0); ALKALINE PHOSPHATASE 126 IU/L (38-126); ANION GAP 13 mEq/L (8-16); ASPARTATE AMINOTRANSFERASE 30 IU/L (17-59); BILIRUBIN,TOTAL 0.9 mg/dL (0.1-1.4); CALCIUM 9.9 mg/dL (8.5-10.4); CARBON DIOXIDE 23 mEq/l (22-31); CHLORIDE 102 mEq/L (97-110); CREATININE 0.6 mg/dL (0.7-1.3); GLOMERULAR FILTRATION RATE > 60; GLUCOSE 141 mg/dL (70-100); POTASSIUM 4.4 mEq/L (3.5-5.2); SODIUM 138 mEq/L (134-144)
[2016-11-06] MEDS ORDERED: ONDANSETRON DISINTEGRATING 4 MG TAB PO PRN (15:20)
[2016-11-06] MEDS ORDERED: ONDANSETRON 4 MG/2 ML VIAL IVP PRN (15:20)
[2016-11-06] MEDS ORDERED: HYDROmorphONE/DILAUDID 1 MG/ML SYR IVP PRN (15:20)
[2016-11-06] MEDS ORDERED: ACETAMINOPHEN 325 MG TAB PO PRN ×2 (15:20→18:02)
[2016-11-06] MEDS ORDERED: PROMETHAZINE HCL 25 MG/ML INJ IVP PRN (15:20)
[2016-11-06] MEDS ORDERED: oxyCODONE IR 5 MG TAB PO PRN (15:20)
[2016-11-06] MEDS ORDERED: ALBUTEROL 3 ML DEYVIAL IH PRN (15:20)
[2016-11-06] MEDS ORDERED: NS 1,000 ML IV SCH (15:30)
--- NOTE | 2016-11-06 15:46 | GCON ---
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 He is currently being admitted for his 2nd cycle of high-dose methotrexate, Rituxan, and vincrist ine. He presented in July 2016 with hearing loss and tinnitus in the left ear. His MRI reveale d a 1.4 x 1.8 x 1.3 cm enhancing mass in the left lateral 4th ventricle and middle cerebral peduncle . He developed a left facial paralysis and gait instability. He had a biopsy on August 26 wher e diffuse large B cell was demonstrated. His postoperative course was complicated by perforated duo denal ulcer requiring exploratory laparotomy and partial gastrectomy. He ultimately recovered from this and was admitted 2 weeks ago for his 1st cycle of chemotherapy, which he overall tolerated well . He generally feels about the same. His neurological deficits have neither worsened nor improved. H e denies any nausea, vomiting, or other similar problems. PAST MEDICAL HISTORY: 1. Primary REGIONAL TELECOMMUNICATIONS SPECIALIST lymphoma as described above. 2. Diabetes. 3. Hypercholesterolemia. 4. Perforated duodenal ulcer. 5. Pulmonary embolism postoperatively. CURRENT MEDICATIONS: Include gemfibrozil, metformin, Xarelto 20 mg daily, Protonix. ALLERGIES: No known drug allergies. FAMILY HISTORY: Noncontributory. SOCIAL HISTORY: He is a nonsmoker and nondrinker. He lives with his son in [place]. REVIEW OF SYSTEMS: Pertinent positives in HPI. Otherwise, a 14-point review of systems is negative . EXAMINATION: VITAL SIGNS: Temperature was 36.9 degrees Celsius, blood pressure 110/60, pulse 110, oxygen 94% on room air. GENERAL: No acute distress. He had a left-sided facial droop and ptosis. Oropharynx is clear. LUNGS: Clear to auscultation bilaterally. CARDIAC EXAMINATION: Regular rat e and rhythm. No murmurs, gallops, or rubs. ABDOMEN: Normoactive bowel sounds. Nontender. Nondis tended. EXTREMITIES: Without edema. 2+ pulses. NEUROLOGIC: He is alert and oriented x3. Left f acial droop is noted. He had a mildly unsteady gait and used a walker to ambulate. LABORATORY DATA: White count 7.53, hemoglobin 12, platelets 283. Sodium 138, potassium 4.4, chlori de 102, bicarb 23, BUN 10, creatinine 0.6. Liver function tests were normal. IMPRESSION: This is a 61-year-old man with primary central nervous system lymphoma, currently admit corinna for 2nd cycle of high-dose methotrexate chemotherapy. He tolerated the 1st cycle well, and ther e will be no dose adjustments. PLAN: 1. He will receive Rituxan today as well as alkalinized fluids and sodium bicarbonate. Tomorrow he will receive high-dose methotrexate followed by leucovorin rescue. Methotrexate levels will be ariel cked every 24 hours after the infusion, and he will be discharged when his level is less than 0.01. He would very much like to avoid the use of a PICC line, and we will try to administer the chemothe rapy via peripheral IV. However, if we cannot establish a high quality IV, we will need to place a PICC line, and I recommended that he keep the PICC line in place until he is finished with chemother apy. The plan is to do 5 cycles of this therapy with procarbazine added in the odd-numbered cycles, and then to repeat his brain MRI. If he is having a good response he will likely proceed to consol idative therapy with high-dose chemotherapy and stem cell transplant. 2. He has history of postoperative pulmonary embolism and will continue on his Xarelto. /[id number]/MODL
[2016-11-06] MEDS: SODIUM BICARBONATE 650 MG TAB PO SCH ×2 (16:26→21:12)
[2016-11-06] MEDS ORDERED: ACETAMINOPHEN 325 MG TAB PO SCH (17:00)
[2016-11-06] MEDS ORDERED: NS IV SCH (17:30)
[2016-11-06] MEDS ORDERED: RITUXIMAB IV SCH (17:30)
[2016-11-06] MEDS: IPRATROPIUM/ALBUTEROL 3 ML DEYVIAL IH SCH ×2 (17:50→21:40)
--- NOTE | 2016-11-06 18:29 | GHP ---
DATE OF ADMISSION: 11/06/2016 CHIEF COMPLAINT: Here for chemotherapy. 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 Th e patient was initially diagnosed in July of 2016, at which time he presented with hearing loss. He has had a somewhat complicated course that has included development of left facial paralysis an d gait instability. He also suffered a perforated duodenal ulcer during his last hospitalization. He currently notes that he is doing fairly well without any change in his neurologic symptoms or oth er changes in his health. He does relay a fairly extensive story regarding his prior hospitalizatio ns and wants to be clear that he has an issue of trust in terms of hospitalists that he feels have l ed to some of his prior complications. PAST MEDICAL HISTORY: 1. CASING SPLITTER lymphoma. 2. Hyperlipidemia. 3. Diabetes. 4. Perforated duodenal ulcer requiring exploratory laparotomy and partial gastrectomy. 5. History of PE that occurred in the postoperative state. SOCIAL HISTORY: The patient is a nonsmoker, nondrinker. He has a son whom he lives with in [facility]. FAMILY HISTORY: This was reviewed and is noncontributory. REVIEW OF SYSTEMS: Ten-point review of systems was obtained, negative except as per HPI. MEDICATIONS: Home medications include: 1. Metformin. 2. Xarelto. 3. Atorvastatin. 4. Tylenol. ALLERGIES: No known drug allergies. PHYSICAL EXAMINATION: VITAL SIGNS: BP 110/69, heart rate 99, respiratory rate 12, O2 sats 92% on r oom air, temperature is 36.7. GENERAL APPEARANCE: This is a male. He is awake and alert. He is in no acute distress. EYES: Anicteric. He does have a significant ptosis on the left. HEENT: Oropharynx is clear. Th e patient has a significant left facial droop. CARDIOVASCULAR: RRR, no MRG. PULMONARY: CTA bilat erally. ABDOMEN: Soft, nontender. Positive bowel sounds. EXTREMITIES: No clubbing, cyanosis, or edema. SKIN: Warm, dry, and well perfused. NEURO/PSYCH: Other than facial droop as per above. He has normal strength and sensation. CLINICAL DATA: Labs reviewed. Significant for white blood cell count of 7.5, hematocrit 37.5, plat elets of 283. Chemistry is unremarkable with a glucose of 141. ASSESSMENT/PLAN: 1. This is a 61-year-old man admitted for scheduled high-dose methotrexate chemotherapy. I reviewe d the patient's care plan with Dr. Atkinson. The plan is for Rituxan today, as well as alkalinized fluid and sodium bicarbonate with methotrexate to be administered tomorrow. He will then require le ucovorin rescue. He will be able to be discharged when his level is less than 0.01. 2. History of pulmonary emboli. We will continue Xarelto. 3. Diabetes. As long as his kidney function remains normal, we will continue his metformin which i s his preference although I did explain that he may need to be switched to insulin if he has any iss ues with his kidney function while he is here. 4. Hyperlipidemia. Continue atorvastatin. 5. Disposition: Inpatient status. The patient will need greater than a 48-hour stay for evaluatio n and management of above given need for high-risk chemotherapy therapeutic agents being administere d. The patient is new to my care. Old records reviewed. Summarized as per HPI and past medical histor y. Care plan reviewed with Dr. Atkinson. Greater than 60 minutes spent in care of this patient, mo re than half of which in direct [id number] counseling of patient regarding his concerns around his prior hospital stay. /[id number]/MODL
[2016-11-06] MEDS: ERYTHROMYCIN 0.5% 1 GM OPHT.OINT LEFTEYE SCH (22:54)
[2016-11-06] MEDS: SODIUM BICARBONATE 150 MEQ in D5W 1,000 ML IV SCH (22:58)
[2016-11-07] MEDS: SODIUM BICARBONATE 650 MG TAB PO SCH ×4 (04:44→20:49)
[2016-11-07] MEDS: ERYTHROMYCIN 0.5% 1 GM OPHT.OINT LEFTEYE SCH ×5 (04:44→22:03)
[2016-11-07 05:05] LABS: ADD DIFF? YES; ADD MORPH? NO; ATYPICAL LYMPHOCYTE FLAG 10 (0-99); FRAGMENT RBC FLAG 0 (0-99); HEMATOCRIT 32.3 % (40.0-51.0); HEMOGLOBIN 10.4 g/dL (13.7-17.5); LIPEMIA HEMOLYSIS FLAG 80 (0-99); MEAN CELL HEMOGLOBIN 29.8 pg (27.9-34.1); MEAN CELL HEMOGLOBIN CONCENTR. 32.2 g/dL (32.4-36.7); MEAN CELL VOLUME 92.6 fL (81.5-99.8); MEAN PLATELET VOLUME 9.7 fL (8.7-11.7); PLATELET CLUMPS FLAG 0 (0-99); PLATELET COUNT 276 10^3/uL (150-400); RED BLOOD CELL COUNT 3.49 10^6/uL (4.40-6.38); RED CELL DISTRIBUTION WIDTH 14.8 % (11.5-15.2)
[2016-11-07 05:28] LABS: ADD SCAN? NO; LEFT SHIFT FLG 100 (0-99)
[2016-11-07 05:32] LABS: ANION GAP 9 mEq/L (8-16); CALCIUM 8.8 mg/dL (8.5-10.4); CARBON DIOXIDE 28 mEq/l (22-31); CHLORIDE 105 mEq/L (97-110); CREATININE 0.6 mg/dL (0.7-1.3); GLOMERULAR FILTRATION RATE > 60; GLUCOSE 129 mg/dL (70-100); POTASSIUM 3.4 mEq/L (3.5-5.2); SODIUM 142 mEq/L (134-144)
[2016-11-07] MEDS: SODIUM BICARBONATE 150 MEQ in D5W 1,000 ML IV SCH ×3 (06:00→21:13)
[2016-11-07] MEDS: IPRATROPIUM/ALBUTEROL 3 ML DEYVIAL IH SCH (06:12)
[2016-11-07 06:53] LABS: PLATELET ESTIMATE ADEQUATE (ADEQ)
[2016-11-07] MEDS ORDERED: [UNRECOGNIZED DRUG - SUPPLY] MISC ONE (08:11)
[2016-11-07] MEDS: RIVAROXABAN 20 MG TAB PO SCH (08:13)
[2016-11-07] MEDS: ATORVASTATIN CALCIUM 10 MG TAB PO SCH (08:13)
[2016-11-07] MEDS: metFORMIN HCL 500 MG TAB PO SCH ×2 (08:13→18:23)
[2016-11-07] MEDS ORDERED: ENOXAPARIN 40 MG/0.4 ML SYR SC SCH (09:00)
--- NOTE | 2016-11-07 10:15 | SOAPPROG ---
KAREY Progress Note Assessment/Plan: Assessment: 1. 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 perforated gastric ulcer 3. pulmonary embolism 4. Anemia - due to GI bleed vs chemo effect Plan: - proceed with MTX infusion once urine pH >7 - will need MTX levels checked q24 hours - reviewed the chemo schedule, plan for autologous stem cell transplant at [facility] for consolidative therapy. Will plan to get MRI during cycle 3 to evaluate for interval change - will check iron studies - if pt is iron deficient he may benefit for IV iron while he is here. 11/07/16 10:14 Subjective: feels well today. frustrated with the lack of improvement in his facial droop. Objective: exam: NAD L facial droop Lungs CTAB CV RRR no MGR Abd: +BS NT ND Ext: no edema Vital Signs Temp Pulse Resp BP Pulse Ox 36.6 C 105 H 18 115/73 92 11/07/16 08:00 11/07/16 08:00 11/07/16 08:00 11/07/16 08:00 11/07/16 08:00 Laboratory Results 11/07/16 04:38 11/07/16 04:38 11/06/16 11/07/16 11/08/16 05:59 05:59 05:59 Intake Total 1915 1232 Balance 1915 1232 ICD10 Worksheet Patient Problems: Problems Problem Status Onset Brain lesion Acute Perforated duodenal ulcer Acute
[2016-11-07] MEDS ORDERED: IPRATROPIUM/ALBUTEROL 3 ML DEYVIAL IH PRN (10:56)
[2016-11-07 11:40] LABS: % SATURATION 29 % (20-55); TOTAL IRON BINDING CAPACITY 282 ug/dL (260-490)
[2016-11-07] MEDS ORDERED: ONDANSETRON HCL PF 8 MG, DEXAMETHASONE 10 MG in NS 50 ML IV SCH (14:30)
[2016-11-07] MEDS ORDERED: METHOTREXATE SODIUM IV SCH (15:00)
[2016-11-07] MEDS ORDERED: NS IV SCH (15:00)
--- NOTE | 2016-11-07 16:43 | HOSPPROG ---
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 Atkinson Subjective: no significant overnight events, patient somnolent but no other issues Objective: Vital Signs Temp Pulse Resp BP Pulse Ox 36.6 C 74 14 115/72 96 11/07/16 15:29 11/07/16 15:29 11/07/16 15:29 11/07/16 15:29 11/07/16 15:29 Laboratory Results 11/07/16 04:38 11/07/16 04:38 11/06/16 11/07/16 11/08/16 05:59 05:59 05:59 Intake Total 1915 1232 Output Total 2400 Balance 1915 -1168 somnolent arousable anicteric op clear rrr cta soft nt nd no cce warm dry well perfused ICD10 Worksheet Patient Problems: Problems Problem Status Onset Brain lesion Acute Perforated duodenal ulcer Acute
[2016-11-07] MEDS ORDERED: PROTOCOL MAGNESIUM 1 DOSE IV PRN (16:47)
[2016-11-07] MEDS ORDERED: PROTOCOL POTASSIUM 1 DOSE MISC PRN (16:47)
[2016-11-07] MEDS ORDERED: vinCRIStine 2 MG in NS 59 ML IV SCH (17:00)
[2016-11-07 19:41] LABS: POTASSIUM 3.8 mEq/L (3.5-5.2)
[2016-11-07] MEDS ORDERED: POTASSIUM CL 10 MEQ TAB PO ONE (22:44)
[2016-11-08] MEDS: SODIUM BICARBONATE 150 MEQ in D5W 1,000 ML IV SCH ×2 (03:21→22:16)
[2016-11-08] MEDS: SODIUM BICARBONATE 650 MG TAB PO SCH ×4 (05:35→22:12)
[2016-11-08] MEDS: ERYTHROMYCIN 0.5% 1 GM OPHT.OINT LEFTEYE SCH ×5 (05:35→22:12)
[2016-11-08 05:43] LABS: % IMMATURE GRANULYOCYTES 2.2 % (0.0-1.1); ABSOLUTE IMMATURE GRANULOCYTES 0.17 10^3/uL (0.00-0.10); ADD DIFF? NO; ADD MORPH? NO; ADD SCAN? NO; ATYPICAL LYMPHOCYTE FLAG 0 (0-99); FRAGMENT RBC FLAG 0 (0-99); HEMATOCRIT 33.1 % (40.0-51.0); HEMOGLOBIN 10.8 g/dL (13.7-17.5); LEFT SHIFT FLG 10 (0-99); LIPEMIA HEMOLYSIS FLAG 80 (0-99); MEAN CELL HEMOGLOBIN 30.1 pg (27.9-34.1); MEAN CELL HEMOGLOBIN CONCENTR. 32.6 g/dL (32.4-36.7); MEAN CELL VOLUME 92.2 fL (81.5-99.8); MEAN PLATELET VOLUME 9.7 fL (8.7-11.7); PLATELET CLUMPS FLAG 0 (0-99); PLATELET COUNT 318 10^3/uL (150-400); RED BLOOD CELL COUNT 3.59 10^6/uL (4.40-6.38); RED CELL DISTRIBUTION WIDTH 14.2 % (11.5-15.2)
[2016-11-08 06:05] LABS: ANION GAP 8 mEq/L (8-16); CALCIUM 9.1 mg/dL (8.5-10.4); CARBON DIOXIDE 31 mEq/l (22-31); CHLORIDE 101 mEq/L (97-110); CREATININE 0.5 mg/dL (0.7-1.3); GLOMERULAR FILTRATION RATE > 60; GLUCOSE 152 mg/dL (70-100); MAGNESIUM 1.9 mg/dL (1.6-2.3); POTASSIUM 3.5 mEq/L (3.5-5.2); SODIUM 140 mEq/L (134-144)
[2016-11-08] MEDS: ATORVASTATIN CALCIUM 10 MG TAB PO SCH (08:30)
[2016-11-08] MEDS: metFORMIN HCL 500 MG TAB PO SCH ×2 (08:30→19:34)
[2016-11-08] MEDS: RIVAROXABAN 20 MG TAB PO SCH (08:30)
[2016-11-08] MEDS ORDERED: POTASSIUM CL 10 MEQ TAB PO ONE ×3 (09:30→19:55)
--- NOTE | 2016-11-08 11:02 | HOSPPROG ---
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 Case discussed with oncology. First MTX level this afternoon, goal <0.05. # DM: will continue metformin for now, if change in renal function will change to ssi # hx of perforated gastric ulcer # hx of PE-continue xarelto # anemia: mild, continue to monitor # hypokalemia: improved, continue to replete as needed # corneal abrasion: right eyelids sutured closed, followed by opthalmology # dispo: IP status, will need > 48 hours stay for eval/mgmt of above Subjective: Pt doing okay. He is upset about his corneal abrasion and spends most of our visit telling me about this. Otherwise, he is doing well. No CP or SOB. No N/V/D. Objective: Vital Signs Temp Pulse Resp BP Pulse Ox 36.8 C 103 H 16 100/63 91 L 11/08/16 08:30 11/08/16 08:30 11/08/16 08:30 11/08/16 08:30 11/08/16 08:30 Laboratory Results 11/08/16 04:55 11/08/16 04:55 11/07/16 11/08/16 11/09/16 05:59 05:59 05:59 Intake Total 5 6591 Output Total 5700 Balance 1915 891 - Physical Exam Constitutional: no apparent distress Eyes: other (left eyelids sutured together due to corneal abrasion) Ears, Nose, Mouth, Throat: moist mucous membranes Cardiovascular: regular rate and rhythym Respiratory: no respiratory distress, clear to auscultation Gastrointestinal: normoactive bowel sounds, soft, non-tender abdomen Skin: warm Musculoskeletal: full muscle strength Neurologic: AAOx3 ICD10 Worksheet Patient Problems: Problems Problem Status Onset Brain lesion Acute Perforated duodenal ulcer Acute
[2016-11-08] MEDS: NS IV SCH ×2 (12:18→19:34)
[2016-11-08] MEDS: LEUCOVORIN CALCIUM IV SCH ×2 (12:18→19:34)
[2016-11-08] MEDS: MAGNESIUM HYDROXIDE 30 ML UDCUP PO PRN (12:21)
--- NOTE | 2016-11-08 12:49 | SOAPPROG ---
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 Doing well and first level will be sent this afternoon and Q24 hours after. Goal < 0.05. Dr. Atkinson is planning repeat MRI around or during cycle 3. He reviewed the chemo schedule, plan for autologous stem cell transplant at [facility] for consolidative therapy. * H/O perforated gastric ulcer * H/O pulmonary embolism * Anemia: iron levels ok so most likely due to chemo Subjective: No complaints including no n/v. Mild constipation. No change in left facial droop. Objective: Vital Signs Temp Pulse Resp BP Pulse Ox 36.8 C 103 H 16 100/63 91 L 11/08/16 08:30 11/08/16 08:30 11/08/16 08:30 11/08/16 08:30 11/08/16 08:30 Laboratory Results 11/08/16 04:55 11/08/16 04:55 11/07/16 11/08/16 11/09/16 05:59 05:59 05:59 Intake Total 1915 6591 Output Total 5700 Balance 1915 891 Laboratory Tests 11/07/16 11/07/16 11/08/16 04:38 04:38 04:55 Hgb 10.4 L 10.8 L Iron Saturation 29 Ferritin 189.0 Physical Exam - Physical Exam General Appearance: alert, no apparent distress EENT: pharynx normal Respiratory: lungs clear Cardiac/Chest: regular rate, rhythm Abdomen: normal bowel sounds, soft Neuro/Psych: facial droop (left) ICD10 Worksheet Patient Problems: Problems Problem Status Onset Brain lesion Acute Perforated duodenal ulcer Acute
[2016-11-08 18:52] LABS: POTASSIUM 3.6 mEq/L (3.5-5.2)
[2016-11-08] MEDS ORDERED: POTASSIUM CL 20 MEQ TAB PO ONE (22:30)
[2016-11-09] MEDS: NS IV SCH ×4 (01:17→18:07)
[2016-11-09] MEDS: LEUCOVORIN CALCIUM IV SCH ×4 (01:17→18:07)
[2016-11-09] MEDS: ERYTHROMYCIN 0.5% 1 GM OPHT.OINT LEFTEYE SCH ×5 (05:35→22:00)
[2016-11-09] MEDS: SODIUM BICARBONATE 650 MG TAB PO SCH ×4 (05:35→21:05)
[2016-11-09 06:02] LABS: % IMMATURE GRANULYOCYTES 0.4 % (0.0-1.1); ABSOLUTE IMMATURE GRANULOCYTES 0.02 10^3/uL (0.00-0.10); ADD DIFF? NO; ADD MORPH? NO; ADD SCAN? NO; ATYPICAL LYMPHOCYTE FLAG 10 (0-99); FRAGMENT RBC FLAG 0 (0-99); HEMATOCRIT 31.5 % (40.0-51.0); HEMOGLOBIN 10.1 g/dL (13.7-17.5); LEFT SHIFT FLG 0 (0-99); LIPEMIA HEMOLYSIS FLAG 80 (0-99); MEAN CELL HEMOGLOBIN 30.1 pg (27.9-34.1); MEAN CELL HEMOGLOBIN CONCENTR. 32.1 g/dL (32.4-36.7); MEAN CELL VOLUME 93.8 fL (81.5-99.8); MEAN PLATELET VOLUME 9.5 fL (8.7-11.7); PLATELET CLUMPS FLAG 0 (0-99); PLATELET COUNT 324 10^3/uL (150-400); RED BLOOD CELL COUNT 3.36 10^6/uL (4.40-6.38); RED CELL DISTRIBUTION WIDTH 14.6 % (11.5-15.2)
[2016-11-09 06:18] LABS: ANION GAP 6 mEq/L (8-16); CALCIUM 8.8 mg/dL (8.5-10.4); CARBON DIOXIDE 33 mEq/l (22-31); CHLORIDE 100 mEq/L (97-110); CREATININE 0.6 mg/dL (0.7-1.3); GLOMERULAR FILTRATION RATE > 60; GLUCOSE 132 mg/dL (70-100); MAGNESIUM 1.9 mg/dL (1.6-2.3); POTASSIUM 3.4 mEq/L (3.5-5.2); SODIUM 139 mEq/L (134-144)
[2016-11-09] MEDS ORDERED: POTASSIUM CL 10 MEQ TAB PO ONE (08:38)
[2016-11-09] MEDS: RIVAROXABAN 20 MG TAB PO SCH (08:46)
[2016-11-09] MEDS: metFORMIN HCL 500 MG TAB PO SCH ×2 (08:46→18:04)
[2016-11-09] MEDS: ATORVASTATIN CALCIUM 10 MG TAB PO SCH (08:46)
--- NOTE | 2016-11-09 11:15 | HOSPPROG ---
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 MTX level sent yesterday, pending. Goal <0.05. Case discussed with oncology. Likely home in 1-2 days when MTX level at goal. # right neck furuncle / abscess - this is about a centimeter. will start keflex , warm compresses, and monitor. may need I&D if getting larger. # DM: will continue metformin for now, if change in renal function will change to ssi # hx of perforated gastric ulcer # hx of PE-continue xarelto # anemia: mild, continue to monitor # hypokalemia: improved, continue to replete as needed # corneal abrasion: right eyelids sutured closed, followed by opthalmology # dispo: IP status, will need > 48 hours stay for eval/mgmt of above Subjective: Pt reports increasing right neck lump and redness / pain. No fevers /chills. This is the site where his IVC filter was removed. Appetite good. AMbulating. Objective: Vital Signs Temp Pulse Resp BP Pulse Ox 36.6 C 92 17 129/82 H 90 L 11/09/16 08:00 11/09/16 08:00 11/09/16 08:00 11/09/16 08:00 11/09/16 08:00 Laboratory Results 11/09/16 05:26 11/09/16 05:26 11/08/16 11/09/16 11/10/16 05:59 05:59 05:59 Intake Total 6591 4050 Output Total 5700 2050 Balance 891 1999 - Physical Exam Constitutional: no apparent distress Eyes: PERRL Ears, Nose, Mouth, Throat: moist mucous membranes, other (right anterolateral neck with ~1cm erythematous, fluctuant furuncle) Cardiovascular: regular rate and rhythym Respiratory: no respiratory distress, clear to auscultation Gastrointestinal: normoactive bowel sounds, soft, non-tender abdomen Skin: warm Musculoskeletal: full muscle strength Neurologic: AAOx3 Psychiatric: interacting appropriately ICD10 Worksheet Patient Problems: Problems Problem Status Onset Brain lesion Acute Perforated duodenal ulcer Acute
[2016-11-09] MEDS ORDERED: EPSOM SALT 454 GM TP ONE (11:23)
[2016-11-09] MEDS: CEPHALEXIN 500 MG CAP PO SCH ×4 (12:26→23:12)
[2016-11-09] MEDS: MAGNESIUM HYDROXIDE 30 ML UDCUP PO PRN (12:27)
--- NOTE | 2016-11-09 13:22 | SOAPPROG ---
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 Doing well and will continue Q24 hours MTX levels. Goal < 0.05. Dr. Atkinson is planning repeat MRI around or during cycle 3. He reviewed the chemo schedule, plan for autologous stem cell transplant at [facility] for consolidative therapy. * H/O perforated gastric ulcer * H/O pulmonary embolism * Anemia: iron levels ok so most likely due to chemo * Right neck infection: agree with warm compresses and abx; recommend surgical eval if worsens. Subjective: Area right neck where catheter was placed started to swell with redness yesterday. Getting worse. No f/c. Imed started abx. No other complaints. Objective: Vital Signs Temp Pulse Resp BP Pulse Ox 36.6 C 92 17 129/82 H 90 L 11/09/16 08:00 11/09/16 08:00 11/09/16 08:00 11/09/16 08:00 11/09/16 08:00 Laboratory Results 11/09/16 05:26 11/09/16 05:26 11/08/16 11/09/16 11/10/16 05:59 05:59 05:59 Intake Total 6591 4050 490 Output Total 5700 2050 1920 Balance 891 1999 -1430 Laboratory Tests 11/08/16 11/09/16 11/09/16 04:55 05:26 05:26 Hgb 10.8 L 10.1 L Potassium 3.4 L Creatinine 0.6 L MTX level: 1.43 Physical Exam - Physical Exam General Appearance: no apparent distress EENT: pharynx normal Neck: other (erythematous pustule right neck with redness outside marked line from yesterday) Respiratory: lungs clear Cardiac/Chest: regular rate, rhythm ICD10 Worksheet Patient Problems: Problems Problem Status Onset Brain lesion Acute Perforated duodenal ulcer Acute
[2016-11-09 19:50] LABS: POTASSIUM 3.6 mEq/L (3.5-5.2)
[2016-11-09] MEDS: SODIUM BICARBONATE 150 MEQ in D5W 1,000 ML IV SCH (21:02)
[2016-11-10] MEDS: NS IV SCH ×4 (00:35→19:07)
[2016-11-10] MEDS: LEUCOVORIN CALCIUM IV SCH ×4 (00:35→19:07)
[2016-11-10] MEDS: ERYTHROMYCIN 0.5% 1 GM OPHT.OINT LEFTEYE SCH ×6 (01:37→21:14)
[2016-11-10] MEDS: SODIUM BICARBONATE 150 MEQ in D5W 1,000 ML IV SCH ×2 (03:41→17:34)
[2016-11-10] MEDS: SODIUM BICARBONATE 650 MG TAB PO SCH ×4 (06:07→21:14)
[2016-11-10] MEDS: CEPHALEXIN 500 MG CAP PO SCH ×3 (06:07→17:34)
[2016-11-10 06:09] LABS: ANION GAP 9 mEq/L (8-16); CALCIUM 9.2 mg/dL (8.5-10.4); CARBON DIOXIDE 30 mEq/l (22-31); CHLORIDE 101 mEq/L (97-110); CREATININE 0.5 mg/dL (0.7-1.3); GLOMERULAR FILTRATION RATE > 60; GLUCOSE 130 mg/dL (70-100); POTASSIUM 3.5 mEq/L (3.5-5.2); SODIUM 140 mEq/L (134-144)
[2016-11-10] MEDS: metFORMIN HCL 500 MG TAB PO SCH ×2 (08:49→17:34)
[2016-11-10] MEDS: ATORVASTATIN CALCIUM 10 MG TAB PO SCH (08:49)
[2016-11-10] MEDS: RIVAROXABAN 20 MG TAB PO SCH (08:49)
--- NOTE | 2016-11-10 13:34 | HOSPPROG ---
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 MTX level 0.015. Goal <0.05. Case discussed with oncology. Likely home in 1-2 days when MTX level at goal. # right neck furuncle / abscess - this is about a centimeter, improving on keflex, warm compresses. Dr. Saravia to see for possible I&D and obtain Cx. # DM: will continue metformin for now, if change in renal function will change to ssi # hx of perforated gastric ulcer # hx of PE - continue xarelto # anemia: mild, continue to monitor # hypokalemia: improved, continue to replete as needed # corneal abrasion: right eyelids sutured closed, followed by opthalmology # dispo: IP status, will need > 48 hours stay for eval/mgmt of above Subjective: Pt wants to go home. Worried about right neck furuncle. No fevers/ chills. No pain. Appetite good. Objective: Vital Signs Temp Pulse Resp BP Pulse Ox 36.4 C 100 15 112/68 91 L 11/10/16 08:00 11/10/16 08:00 11/10/16 08:00 11/10/16 08:00 11/10/16 08:00 Laboratory Results 11/09/16 05:26 11/10/16 05:30 11/09/16 11/10/16 11/11/16 05:59 05:59 05:59 Intake Total 4050 1840 408 Output Total 0 2472 750 Balance 2000 -4130 -342 - Physical Exam Constitutional: no apparent distress Eyes: PERRL Ears, Nose, Mouth, Throat: moist mucous membranes Cardiovascular: regular rate and rhythym Respiratory: no respiratory distress, clear to auscultation Gastrointestinal: normoactive bowel sounds, soft, non-tender abdomen Skin: warm, other (right neck furuncle now with small focal purulent head) Musculoskeletal: full muscle strength Neurologic: AAOx3 Psychiatric: interacting appropriately ICD10 Worksheet Patient Problems: Problems Problem Status Onset Brain lesion Acute Perforated duodenal ulcer Acute
--- NOTE | 2016-11-10 14:44 | POSTOPPROG ---
Post Op Note Date of Operation: 11/10/16 Surgeon: Andrez Saravia Anesthesia: Other (Specify) (none) Pre-op Diagnosis: furuncle, right neck Post-op Diagnosis: furuncle, right neck Indication: furuncle, right neck Procedure: I&D furuncle, right neck Findings: furuncle, right neck Inf/Abcess present in the surg proc area at time of surgery?: Yes Depth: Superfical (Skin SQ) Complications: none
--- NOTE | 2016-11-10 15:32 | GOP ---
DATE OF OPERATION: SURGEON: Andrez Saravia MD PREOPERATIVE DIAGNOSIS: Furuncle, right neck. POSTOPERATIVE DIAGNOSIS: Furuncle, right neck. PROCEDURE PERFORMED: Incision and drainage of furuncle, right neck. FINDINGS: Furuncle, right neck. INDICATIONS: Furuncle, right neck. This patient has multiple ongoing issues. He had an inferior vena cava filter removed. He is undergoing chemotherapy. He has developed a furuncle at the site of the removal of the filter. It has apparently gotten somewhat smaller on Keflex. The patient is adamant that he would like to have this small cutaneous/subcutaneous abscess drained. DESCRIPTION OF PROCEDURE: The right neck was carefully prepped with Betadine and draped. Patient identified and a time out carried out. An 11 blade was used to incise the attenuated skin. Approximately a 2 cc amount of purulent mucoid material was expressed. This was cultured. The pocket did not appear big enough to irrigate at this point. A sterile dressing was applied. The patient was stable after the procedure. COMPLICATIONS: None. INFECTION: Yes. Skin and subcutaneous tissue, right neck. /[id number]/MODL MTDD
--- NOTE | 2016-11-10 16:41 | SOAPPROG ---
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 Doing well and will continue Q24 hours MTX levels. Goal < 0.05. Dr. Atkinson is planning repeat MRI around or during cycle 3. He reviewed the chemo schedule, plan for autologous stem cell transplant at [facility] for consolidative therapy. - MTX level again this afternoon - discussed with him the need to continue LV rescue until MTX cleared * H/O perforated gastric ulcer * H/O pulmonary embolism * Anemia: likely due to chemo 11/10/16 16:40 Subjective: Tolerating chemo without significant side effects. Frustrated about needing to be in the hospital. PE: VS reviewed. AF, hemodynamically stable. Adequate UO. Gen: NAD. Lungs: breathing comfortably. Neuro: left ptosis. Labs: Selected Entries 11/10/16 15:32 Heart Rate 93 Respiratory 16 Rate O2 Sat (%) 94 Temperature (C) 36.8 C Blood Pressure 131/85 H Laboratory Tests 11/09/16 11/10/16 15:00 05:30 Sodium 140 Potassium 3.5 Chloride 101 Carbon Dioxide 30 Anion Gap 9 BUN 8 Creatinine 0.5 L Estimated GFR > 60 Glucose 130 H Calcium 9.2 Magnesium 2.0 Methotrexate 0.15 Objective: Vital Signs Temp Pulse Resp BP Pulse Ox 36.8 C 93 16 131/85 H 94 11/10/16 15:32 11/10/16 15:32 11/10/16 15:32 11/10/16 15:32 11/10/16 15:32 Laboratory Results 11/09/16 05:26 11/10/16 05:30 11/09/16 11/10/16 11/11/16 05:59 05:59 05:59 Intake Total 4050 1840 1208 Output Total 4754 5856 1250 Balance 2000 -4130 -42 ICD10 Worksheet Patient Problems: Problems Problem Status Onset Brain lesion Acute Perforated duodenal ulcer Acute
[2016-11-10] MEDS ORDERED: POTASSIUM CL 10 MEQ TAB PO ONE (16:50)
[2016-11-10 18:52] LABS: POTASSIUM 4.4 mEq/L (3.5-5.2)
[2016-11-11] MEDS: NS IV SCH ×2 (00:23→08:17)
[2016-11-11] MEDS: LEUCOVORIN CALCIUM IV SCH ×2 (00:23→08:17)
[2016-11-11] MEDS: CEPHALEXIN 500 MG CAP PO SCH ×3 (00:23→12:17)
[2016-11-11] MEDS: SODIUM BICARBONATE 150 MEQ in D5W 1,000 ML IV SCH (03:32)
[2016-11-11 05:35] LABS: MAGNESIUM 1.8 mg/dL (1.6-2.3); POTASSIUM 3.7 mEq/L (3.5-5.2)
[2016-11-11] MEDS: SODIUM BICARBONATE 650 MG TAB PO SCH (06:13)
[2016-11-11] MEDS: ERYTHROMYCIN 0.5% 1 GM OPHT.OINT LEFTEYE SCH ×2 (06:13→11:56)
[2016-11-11 07:49] VITALS: RESP 18
--- NOTE | 2016-11-11 08:15 | SOAPPROG ---
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 Doing well and will continue Q24 hours MTX levels. Goal < 0.05. Dr. Atkinson is planning repeat MRI around or during cycle 3. He reviewed the chemo schedule, plan for autologous stem cell transplant at [facility] for consolidative therapy. MTX level of .05 yesterday. - can discharge from oncology standpoint. - Daily neupagen starting today. Will give a dose prior to discharge. He has a supply at home for self administration. - Follow up in the office this . * H/O perforated gastric ulcer * H/O pulmonary embolism * Anemia: likely due to chemo * Furuncle on right neck-drained. Healing well. Finish out course of Keflex. 11/11/16 08:45 Subjective: eager for discharge Objective: Vital Signs Temp Pulse Resp BP Pulse Ox 36.8 C 88 18 120/80 93 11/11/16 04:45 11/11/16 07:48 11/11/16 07:48 11/11/16 07:48 11/11/16 07:48 Microbiology 11/10/16 14:45 Gram Stain - Final Neck - Swab Laboratory Results 11/09/16 05:26 11/11/16 04:47 11/10/16 11/11/16 11/12/16 05:59 05:59 05:59 Intake Total 1840 3258 Output Total 5932 0040 Balance -7835 -6756 Physical Exam - Physical Exam General Appearance: alert, no apparent distress Neck: other (right neck with small erythematous papule. no signs of obvious infection) Respiratory: lungs clear Abdomen: non-tender, soft Neuro/Psych: other (left facial droop, otherwise non focal) ICD10 Worksheet Patient Problems: Problems Problem Status Onset Brain lesion Acute Perforated duodenal ulcer Acute
[2016-11-11] MEDS: metFORMIN HCL 500 MG TAB PO SCH (08:17)
[2016-11-11] MEDS: ATORVASTATIN CALCIUM 10 MG TAB PO SCH (08:17)
[2016-11-11] MEDS: RIVAROXABAN 20 MG TAB PO SCH (08:20)
[2016-11-11] MEDS ORDERED: FILGRASTIM-SNDZ 480 MCG/0.8 ML SYR SC ONE (09:00)
--- NOTE | 2016-11-11 10:55 | GDS ---
DISCHARGE DIAGNOSES: 1. Central nervous system lymphoma. 2. Right neck furuncle, status post I and D. 3. Diabetes mellitus. 4. History of pulmonary embolism. 5. Chronic anticoagulation. 6. Chronic anemia. 7. Corneal abrasion. CONSULTANTS: 1. Dr. Martin Atkinson, Oncology. 2. Dr. Andrez Saravia, General Surgery. HISTORY: For details please see the history and physical dated November 06, 2016. 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 He was [facility] t [facility] for his 2nd cycle of chemotherapy including Rituxan and methotrexate and vincristine. The patient was admitted to the Oncology Unit. He received Rituxan. He was alkalinized, and meth otrexate was administered. His levels were followed until he cleared it to a level of 0.05. He hue erated his chemo well without complication. He was continued on Xarelto for his history of PE. His blood sugars remained within goal on his metformin with no evidence of renal insufficiency. During his hospitalization he developed a small right neck furuncle at the site of his IVC filter removal. This was treated with Keflex, and a very small I and D was performed by Dr. Saravia. A culture was sent. Gram stain is currently negative. Wound culture is pending. It seems to be responding to K eflex, and I will continue this for 1 more week. DISPOSITION: The patient is discharged home in stable condition. FOLLOWUP: The patient has followup with Dr. Atkinson at the [facility]. He will follow up with Conrado Lewis, primary care provider. I do not think he needs followup for his neck furuncle unless this becomes more problematic. DISCHARGE MEDICATIONS: Please see [facility] for complete updated outpatient medication list. New ia dications on discharge include: Keflex 500 mg p.o. q.6 hours #28, no refills. He will continue all other medications as prescribed. /[id number]/MODL
--- NOTE | 2016-11-11 11:20 | PDIAF ---
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 Code Status: Full Code - Medication Management Discharge Medications: Medications to Continue on Transfer Atorvastatin Calcium [Lipitor 10 mg (*)] 10 mg PO DAILY #30 tab 09/26/16 [Last Taken 11/06/16] Acetaminophen [Tylenol 325mg (*)] 650 mg PO DAILY PRN 10/23/16 [Last Taken Unknown] Erythromycin 0.5% 1 lorraine LEFTEYE 5XD 10/23/16 [Last Taken 11/06/16] Filgrastim [Neupogen] 480 mcg IJ AD 10/23/16 [Last Taken Unknown] Procarbazine 50mg Cap 200 mg PO DAILY 10/23/16 [Last Taken Unknown] Rivaroxaban [Xarelto 10mg (*)] 20 mg PO DAILY 10/23/16 [Last Taken 11/06/16] metFORMIN HCL [Glucophage 500 mg (*)] 500 mg PO BIDMEAL 10/23/16 [Last Taken 10/24] Cephalexin [Keflex (*)] 500 mg PO Q6HRS #28 cap 11/11/16 [Last Taken Unknown] Discharge Medications: Refer to the Discharge Home Medication list for PRN reason. - Orders Services needed: Home Care, Registered Nurse, Physical Therapy, Speech Language Pathologist Home Care Face to Face: I certify that this patient was under my care and that I had the required [id number] encounter meeting the encounter requirements on the discharge day. My findings support the fact that the patient is homebound as defined in CMS Chapter 7 Medicare Benefits Manual 30.1.1, The condition of the patient is such that there exists a normal inability to leave home and consequently, leaving home would require a considerable and taxing effort. Diet Recommendation: no restrictions on diet - Follow Up Care Current Providers and Referrals: MANDO ESPANA [Primary Care Provider] -
[2016-11-11 13:14] VITALS: BP 124/86; PULSE 100; TEMP 98.4; O2SAT 94
== END 2016-11-11 13:34 | disposition home health service (06) | DRG 847 ==
LOC: RMCCLAB 06:29 → EDSTATUS 14:09 → F1N 14:17 → OBSVTOIN 14:17
PROVIDERS: ADMIT Internal Medicine Hematology & Oncology; ATTEND Internal Medicine Hematology & Oncology
PROC: 3E0330M Introduction of Antineoplastic, Monoclonal Antibody, into Peripheral Vein, Percutaneous Approach (ICD-10-PCS; principal; 2016-11-06)
PROC: 0H94XZZ Drainage of Neck Skin, External Approach (ICD-10-PCS; 2016-11-10)
DX: Z51.11 Encounter for antineoplastic chemotherapy (principal); C85.89 Other specified types of non-Hodgkin lymphoma, extranodal and solid organ sites; L02.12 Furuncle of neck; E11.9 Type 2 diabetes mellitus without complications; D53.9 Nutritional anemia, unspecified; E78.5 Hyperlipidemia, unspecified; S05.01XD Injury of conjunctiva and corneal abrasion without foreign body, right eye, subsequent encounter; Z86.711 Personal history of pulmonary embolism; Z79.01 Long term (current) use of anticoagulants
CPT/HCPCS: 83520-90; 97165-GO; J0640; J1200; J2405; J9260; J9310; J9370; Q5101-ZA

== ENCOUNTER 2016-11-20 14:49 | Inpatient (IN) | payer OTHER ==
--- NOTE | 2016-11-20 16:22 | PDGENHP ---
History and Physical - Chief Complaint Apraxia, inpatient chemotherapy - History of Present Illness PCP: Dr. Lewis Primary oncologist: Dr. Atkinson Primary neurosurgeon: Dr. Dumont HPI: 61-year-old male presenting for cycle 3 of inpatient chemotherapy. 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 He has otherwise been taking all of his home medications he is currently denying any physical symptoms outside of his chronic left-sided facial palsy. History Information - Allergies/Home Medication List Allergies/Adverse Reactions: No Known Allergies Allergy (Unverified 08/22/16 11:45) Home Medications: Acetaminophen [Tylenol 325mg (*)] 650 mg PO DAILY PRN 10/23/16 [Last Taken Unknown] Erythromycin 0.5% 1 lorraine LEFTEYE 5XD 10/23/16 [Last Taken 11/06/16] Filgrastim [Neupogen] 480 mcg IJ AD 10/23/16 [Last Taken Unknown] Procarbazine 50mg Cap 200 mg PO DAILY 10/23/16 [Last Taken Unknown] Rivaroxaban [Xarelto 10mg (*)] 20 mg PO DAILY 10/23/16 [Last Taken 11/06/16] metFORMIN HCL [Glucophage 500 mg (*)] 500 mg PO BIDMEAL 10/23/16 [Last Taken 10/24] I have personally reviewed and updated: family history, medical history, social history, surgical history - Past Medical History diabetes type 2, hyperlipidemia Additional medical history: MANAGER DATABASE ADMINISTRATION lymphoma status post 2 cycles of rituximab, methotrexate, vincristine, taking procarbazine at home. Perforated duodenal M. Pulmonary embolism. Corneal abrasion status post gauze trauma with left eyelid palsy - Surgical History Additional surgical history: 08/26 cerebellar tumor removal. 09/01 Partial gastrectomy for emergently perforated duodenum. G tube placement and removal. IVC filter placement and removal - Family History Additional family history: Mother with aortic aneurysm, sibling with ovarian cancer - Social History Smoking Status: Former smoker Alcohol Use: None Drug Use: None Additional social history: Independent in his ADLs Review of Systems ROS: 10pt was reviewed & negative except for what was stated in HPI & below EENMT: Reports: other (Reduced vision in left eye) Physical Exam Temp Pulse Resp BP Pulse Ox 36.6 C 111 H 16 116/77 94 11/20/16 15:24 11/20/16 15:24 11/20/16 15:24 11/20/16 15:24 11/20/16 15:24 Constitutional: no apparent distress, appears nourished, not in pain Eyes: other (Left eye tracks with conjugate gaze of right, left eyelid oversewn) Ears, Nose, Mouth, Throat: moist mucous membranes, hearing normal, ears appear normal, no oral mucosal ulcers Cardiovascular: regular rate and rhythym, no murmur, rub, or gallop, No edema Respiratory: no respiratory distress, no rales or rhonchi, clear to auscultation Gastrointestinal: normoactive bowel sounds, soft, non-tender abdomen, distension (Mild to moderate with central hernia) Skin: warm, normal color, no rashes or abrasions, no fluctuance, no induration, No mottled Neurologic: AAOx3, facial droop (Left facial palsy), other (Visible dysmetria of his left upper extremity), No weakness (Motor strength 5/5 bilateral upper and lower extremities) Psychiatric: interacting appropriately, not anxious, not encephalopathic, thought process linear, other (Very talkative) Assessment & Plan Assessment: 61-year-old male presents for 3rd cycle of chemotherapy for 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 MANAGER DATABASE ADMINISTRATION lymphoma. Discussed with Dr. Stanley, the patient is being admitted for Rituxan, methotrexate, vincristine, he will continue his procarbazine, premedications ordered 2. History of pulmonary embolism. Patient has been continued on Xarelto 3. History of right neck furuncle. Reviewed outside records including 11/11/[address] Rocio Davidson in, she reports the patient tolerated his chemotherapy well without complications but did experience right neck furuncle and was discharged home with Keflex, no evidence of persistence on physical exam 4. Diabetes mellitus type 2. Patient will be continued on his home dosage of metformin Diet. Regular Prophylaxis. High risk patient, continue on Xarelto Code status. Full per patient, son is MPOA Disposition. Anticipated discharge is uncertain this time, anticipated length stay greater than 48 hours warranting inpatient admission status for acute inpatient chemotherapy for MANAGER DATABASE ADMINISTRATION lymphoma. I spent greater than 50 minutes with the patient, greater than 50% of the time spent counseling regarding medical issues above as well as counseling him regarding our desire to be good listener this the setting of traumatic hospitalization in August of 2016 resulting in duodenal perforation as well as left corneal abrasion, reassuring the patient that we will provide him with the best care possible and will always be willing to listen to any feedback he is willing to provide; time was also spent coordinating his care.
--- NOTE | 2016-11-20 16:24 | GCON ---
[f rep st] CONSULTATION NEW PATIENT CONSULTATION REASON FOR CONSULTATION: Primary LICENSED PROFESSIONAL COUNSELOR lymphoma. HISTORY OF PRESENT ILLNESS: The patient is a 61-year-old man with primary LICENSED PROFESSIONAL COUNSELOR lymphoma. He was in usual state of health until 07/2016 when he developed sudden hearing loss and tinnitus of the left e ar. Brain MRI subsequently revealed a 1.4 x 1.8 x 1.3 cm enhancing mass in the left lateral 4th ruby tricle in middle cerebral pedicle. He has developed some difficulty with balance and unable to walk unassisted, also developed a facial droop. Dr. Dumont ordered a CT chest, abdomen, and pelvis, whic h was entirely unremarkable. He had a biopsy August 26. Dr. Dumont reported that he removed abo ut 70% of the tumor. 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 Hospital cour se was unfortunately complicated by perforation of a duodenal ulcer that required emergency surgery. He also developed a postop PE and then GI bleeding and had an IVC filter placed. He developed a c orneal abrasion as the result of left-sided facial weakness. He was discharged to rehab then home. Notably bone marrow biopsy and PET-CT were negative for other sites of disease. He generally feels about the same. His neurologic deficits have neither worsened nor improved. He denies nausea, vomiting or other similar problems. He has his left eyelid surgically shut to avoid future corneal abrasions. Today, he will be admitted for a 3rd cycle of chemotherapy, including Rit uxan, methotrexate, procarbazine and vincristine. PAST MEDICAL HISTORY: Primary LICENSED PROFESSIONAL COUNSELOR lymphoma as described above, diabetes, hypercholesterolemia, perf orated duodenal ulcer and pulmonary embolism postoperatively. CURRENT MEDICINES: Reviewed. ALLERGIES: No known drug allergies. FAMILY HISTORY: Noncontributory. SOCIAL HISTORY: Nonsmoker. Nondrinker. He lives with his son in [place]. REVIEW OF SYSTEMS: Pertinent positives in the HPI. Otherwise, 14-point review of systems is negati ve. PHYSICAL EXAM: VITAL SIGNS: Today show blood pressure of 116/77, heart rate 111, respiratory rate 16, O2 saturation 94% on room air, temperature is 36.6. GENERAL: Older gentleman, not in acute dis tress. HEENT: Left eye ptosis surgically closed and left facial droop. NECK: Supple. RESPIRATOR Y: Breathing comfortable. Lungs clear. CARDIOVASCULAR: Normal heart sounds. Regular rate and rh ythm. ABDOMEN: No masses or tenderness. EXTREMITIES: Lower extremities: No edema. SKIN: No ra sh. NEUROLOGIC: Unsteady gait. Uses a walker. LABORATORY DATA: Today are pending, including a CBC and CMP. ASSESSMENT AND PLAN: A 61-year-old gentleman with primary central nervous system lymphoma, status p ost 2nd cycle of chemotherapy. He is electively admitted for a 3rd cycle of Rituxan, methotrexate, vincristine and procarbazine. 1. He will receive Rituxan today as well as alkalized fluids and sodium bicarb. Tomorrow he will r eceive high-dose methotrexate, followed by leucovorin rescue. Methotrexate levels will be checked e very 24 hours after infusion. He will be discharged when his level is less than 0.05. Chemotherapy will be delivered via peripheral IV. Patient reports he had a significant amount of nausea during his 1st cycle when procarbazine was given. Will need to pay special attention to this, but he does have antiemetics written for. Plan is to do 5 cycles total, and procarbazine is added into the odd number cycles alone. After discussion with the patient, it sounds as if Dr. Atkinson would like to repeat his brain MRI after this 3rd cycle which will order in the next couple of days. If he is hav ing a good response, will likely proceed to consolidative therapy and high-dose chemotherapy with st em cell transplant. 2. He has a history of postop pulmonary embolism and will continue his Xarelto. 3. History of perforated duodenal ulcer. Monitoring CBC, on blood thinners. 4. Left corneal abrasions. Supportive care. /[id number]/MODL
[2016-11-20] MEDS ORDERED: ACETAMINOPHEN 325 MG TAB PO ONE (16:30)
[2016-11-20] MEDS ORDERED: PALONOSETRON HCL 0.25 MG/5 ML VIAL IVP ONE (16:30)
[2016-11-20] MEDS ORDERED: METOCLOPRAMIDE 10 MG TAB PO PRN (16:31)
[2016-11-20] MEDS ORDERED: PROMETHAZINE HCL 25 MG TAB PO PRN (16:31)
[2016-11-20] MEDS ORDERED: ACETAMINOPHEN 325 MG TAB PO PRN (16:31)
[2016-11-20] MEDS ORDERED: METOCLOPRAMIDE 10 MG/2 ML VIAL IVP PRN (16:31)
[2016-11-20] MEDS ORDERED: RITUXIMAB IV ONE (17:00)
[2016-11-20] MEDS ORDERED: NS IV ONE (17:00)
[2016-11-20] MEDS: SODIUM BICARBONATE 650 MG TAB PO SCH ×2 (17:16→20:25)
[2016-11-20] MEDS ORDERED: [UNRECOGNIZED DRUG - SUPPLY] MISC ONE (17:26)
[2016-11-20] MEDS: [UNRECOGNIZED DRUG - OTHER] PO SCH (17:54)
[2016-11-20] MEDS ORDERED: GADOBUTROL 10 ML VIAL IVP ONE (22:16)
[2016-11-20] MEDS: SODIUM BICARBONATE 150 MEQ in D5W 1,000 ML IV SCH (22:49)
[2016-11-20] MEDS: ERYTHROMYCIN 0.5% 1 GM OPHT.OINT LEFTEYE SCH (23:50)
[2016-11-21] MEDS: SODIUM BICARBONATE 650 MG TAB PO SCH ×4 (05:51→20:57)
[2016-11-21] MEDS: ERYTHROMYCIN 0.5% 1 GM OPHT.OINT LEFTEYE SCH ×5 (05:51→20:58)
[2016-11-21] MEDS: SODIUM BICARBONATE 150 MEQ in D5W 1,000 ML IV SCH ×2 (05:51→18:10)
[2016-11-21 06:10] LABS: ADD DIFF? YES; ADD MORPH? NO; ADD SCAN? NO; ATYPICAL LYMPHOCYTE FLAG 20 (0-99); FRAGMENT RBC FLAG 0 (0-99); HEMATOCRIT 35.5 % (40.0-51.0); HEMOGLOBIN 11.6 g/dL (13.7-17.5); LEFT SHIFT FLG 30 (0-99); LIPEMIA HEMOLYSIS FLAG 80 (0-99); MEAN CELL HEMOGLOBIN 31.2 pg (27.9-34.1); MEAN CELL HEMOGLOBIN CONCENTR. 32.7 g/dL (32.4-36.7); MEAN CELL VOLUME 95.4 fL (81.5-99.8); MEAN PLATELET VOLUME 9.8 fL (8.7-11.7); PLATELET CLUMPS FLAG 0 (0-99); PLATELET COUNT 271 10^3/uL (150-400); RED BLOOD CELL COUNT 3.72 10^6/uL (4.40-6.38); RED CELL DISTRIBUTION WIDTH 14.8 % (11.5-15.2)
[2016-11-21 06:23] LABS: ANION GAP 9 mEq/L (8-16); CARBON DIOXIDE 29 mEq/l (22-31); CHLORIDE 102 mEq/L (97-110); CREATININE 0.6 mg/dL (0.7-1.3); GLOMERULAR FILTRATION RATE > 60; GLUCOSE 133 mg/dL (70-100); POTASSIUM 4.3 mEq/L (3.5-5.2); SODIUM 140 mEq/L (134-144)
[2016-11-21 06:57] LABS: PLATELET ESTIMATE ADEQUATE (ADEQ); TOXIC GRANULATION PRESENT
[2016-11-21] MEDS ORDERED: [UNRECOGNIZED DRUG - OTHER] PO SCH (09:00)
[2016-11-21] MEDS ORDERED: DEXAMETHASONE SOD PHOSPHATE 10 MG in NS 50 ML IV ONE (09:00)
[2016-11-21] MEDS ORDERED: METHOTREXATE SODIUM IV ONE (10:00)
[2016-11-21] MEDS ORDERED: NS IV ONE (10:00)
[2016-11-21] MEDS: [UNRECOGNIZED DRUG - OTHER] PO SCH (10:02)
--- NOTE | 2016-11-21 10:44 | SOAPPROG ---
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 2.) High dose MTX and VCR IV today. Pt. declines central line thus far and understands there is some hazard of IV peripheral admin. with VCR as a vesicant. 3.) Monitor urine pH, labs, pt. symptoms, etc. 4.) Home after this cycle is completed. 11/21/16 10:39 Subjective: No new sx. Still with left facial numbness and minimal vision L eye with L eyelid sewn partially closed. Objective: In NAD, with L facial droop, L facial periorbital edema. No oral lesions Neck- supple Chest-clear CVS- RSR, no extra HS ABD- soft, NT, no mass or HSM EXT- no edema, no rash, skin intact See labs here. urine pH is 7.5 this AM Vital Signs Temp Pulse Resp BP Pulse Ox 36.7 C 86 16 117/78 94 11/21/16 08:46 11/21/16 08:46 11/21/16 08:46 11/21/16 08:46 11/21/16 08:46 Laboratory Results 11/21/16 05:11 11/21/16 05:11 11/20/16 11/21/16 11/22/16 05:59 05:59 05:59 Intake Total 2400 Output Total 2350 650 Balance 50 -650 ICD10 Worksheet Patient Problems: Problems Problem Status Onset Brain lesion Acute Perforated duodenal ulcer Acute
[2016-11-21] MEDS ORDERED: vinCRIStine 2 MG in NS 59 ML IV ONE (12:30)
[2016-11-21] MEDS: metFORMIN HCL 500 MG TAB PO SCH ×4 (13:15→18:21)
[2016-11-21] MEDS: RIVAROXABAN 10 MG TAB PO SCH (13:15)
[2016-11-21] MEDS ORDERED: ERYTHROMYCIN 0.5% 1 GM OPHT.OINT LEFTEYE SCH (14:00)
[2016-11-21] MEDS: ATORVASTATIN CALCIUM 10 MG TAB PO SCH (14:41)
--- NOTE | 2016-11-21 17:02 | HOSPPROG ---
Hospitalist Progress Note Assessment/Plan: Assessment: 61-year-old male presents for 3rd cycle of chemotherapy for ASSESSMENT NURSE lymphoma Plan: 1. ASSESSMENT NURSE lymphoma. Discussed with Dr. Galeano, he will discuss details of MRI from yesterday (reduced tumor size), the patient is D2 Rituxan, methotrexate, vincristine, he will continue his procarbazine, premedications received 2. History of pulmonary embolism. Patient has been continued on Xarelto 3. History of right neck furuncle. Resolved 4. Diabetes mellitus type 2. Patient will be continued on his home dosage of metformin, monitor renal fxn Diet. Regular Prophylaxis. High risk patient, continue on Xarelto Code status. Full per patient, son is MPOA Disposition. Anticipated discharge is uncertain this time, pending successful completion of chemo. Subjective: Patient reports the Benadryl made him fatigued, has not moved his bowels today Objective: Vital Signs Temp Pulse Resp BP Pulse Ox 36.6 C 98 20 124/84 H 93 11/21/16 15:37 11/21/16 15:37 11/21/16 15:37 11/21/16 15:37 11/21/16 15:37 Laboratory Results 11/21/16 05:11 11/21/16 05:11 11/20/16 11/21/16 11/22/16 05:59 05:59 05:59 Intake Total 2400 2809 Output Total 2350 2600 Balance 50 209 - Physical Exam Constitutional: no apparent distress, appears nourished, not in pain Cardiovascular: regular rate and rhythym, no murmur, rub, or gallop, No tachycardia, No edema Respiratory: no respiratory distress, no rales or rhonchi, clear to auscultation Gastrointestinal: normoactive bowel sounds, soft, non-tender abdomen, no palpable masses, other (Mildly distended with central hernia) Neurologic: AAOx3, facial droop (Left) Psychiatric: interacting appropriately, not anxious, not encephalopathic, thought process linear ICD10 Worksheet Patient Problems: Problems Problem Status Onset Brain lesion Acute Perforated duodenal ulcer Acute
[2016-11-22] MEDS: SODIUM BICARBONATE 650 MG TAB PO SCH ×4 (03:35→19:53)
[2016-11-22] MEDS: ERYTHROMYCIN 0.5% 1 GM OPHT.OINT LEFTEYE SCH ×5 (05:07→19:57)
[2016-11-22 05:51] LABS: % IMMATURE GRANULYOCYTES 0.6 % (0.0-1.1); ABSOLUTE IMMATURE GRANULOCYTES 0.05 10^3/uL (0.00-0.10); ADD DIFF? NO; ADD MORPH? NO; ADD SCAN? NO; ATYPICAL LYMPHOCYTE FLAG 0 (0-99); FRAGMENT RBC FLAG 0 (0-99); HEMATOCRIT 31.2 % (40.0-51.0); LEFT SHIFT FLG 0 (0-99); LIPEMIA HEMOLYSIS FLAG 80 (0-99); MEAN CELL HEMOGLOBIN 29.8 pg (27.9-34.1); MEAN CELL HEMOGLOBIN CONCENTR. 32.1 g/dL (32.4-36.7); MEAN CELL VOLUME 92.9 fL (81.5-99.8); MEAN PLATELET VOLUME 9.8 fL (8.7-11.7); PLATELET CLUMPS FLAG 0 (0-99); PLATELET COUNT 254 10^3/uL (150-400); RED BLOOD CELL COUNT 3.36 10^6/uL (4.40-6.38); RED CELL DISTRIBUTION WIDTH 14.4 % (11.5-15.2)
[2016-11-22 06:11] LABS: ANION GAP 9 mEq/L (8-16); CALCIUM 8.7 mg/dL (8.5-10.4); CARBON DIOXIDE 28 mEq/l (22-31); CHLORIDE 101 mEq/L (97-110); CREATININE 0.5 mg/dL (0.7-1.3); GLOMERULAR FILTRATION RATE > 60; GLUCOSE 158 mg/dL (70-100); POTASSIUM 3.5 mEq/L (3.5-5.2); SODIUM 138 mEq/L (134-144)
[2016-11-22] MEDS: metFORMIN HCL 500 MG TAB PO SCH ×2 (08:26→18:27)
[2016-11-22] MEDS ORDERED: ATORVASTATIN CALCIUM 10 MG TAB PO SCH (09:00)
[2016-11-22] MEDS: [UNRECOGNIZED DRUG - OTHER] PO SCH (09:49)
[2016-11-22] MEDS: ATORVASTATIN CALCIUM 10 MG TAB PO SCH (09:50)
[2016-11-22] MEDS: RIVAROXABAN 10 MG TAB PO SCH (09:50)
[2016-11-22] MEDS: SODIUM BICARBONATE 150 MEQ in D5W 1,000 ML IV SCH ×2 (10:25→20:02)
--- NOTE | 2016-11-22 13:07 | HOSPPROG ---
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 HAMPER MAKER MACHINE lymphoma. Discussed with Dr. Torres, MRI w/ reduced tumor size, the patient is D3 Rituxan, methotrexate, vincristine, now monitoring MTX levels - UOP 5L, cont monitoring - cont monitoring CBC 2. History of pulmonary embolism. Patient has been continued on Xarelto 3. History of right neck furuncle. Resolved 4. Diabetes mellitus type 2. Patient will be continued on his home dosage of metformin, monitor renal fxn Diet. Regular Prophylaxis. High risk patient, continue on Xarelto Code status. Full per patient, son is MPOA Disposition. Anticipated discharge is uncertain this time, pending successful completion of chemo. Subjective: Patient feeling well, encourage by speech language consultation Objective: Vital Signs Temp Pulse Resp BP Pulse Ox 36.7 C 94 18 113/72 92 11/22/16 08:23 11/22/16 08:23 11/22/16 08:23 11/22/16 08:23 11/22/16 08:23 Laboratory Results 11/22/16 05:04 11/22/16 05:04 11/21/16 11/22/16 11/23/16 05:59 05:59 05:59 Intake Total 2400 8239 Output Total 2350 5025 900 Balance 50 2094 900 - Physical Exam Constitutional: no apparent distress, appears nourished, not in pain, No uncomfortable Cardiovascular: regular rate and rhythym, no murmur, rub, or gallop, No edema Respiratory: no respiratory distress, no rales or rhonchi, clear to auscultation Gastrointestinal: normoactive bowel sounds, soft, non-tender abdomen, no palpable masses Neurologic: AAOx3, facial droop (Left side), other (Extraocular movements intact , conjugate gaze) Psychiatric: interacting appropriately, not anxious, not encephalopathic, thought process linear ICD10 Worksheet Patient Problems: Problems Problem Status Onset Brain lesion Acute Perforated duodenal ulcer Acute
--- NOTE | 2016-11-22 14:21 | SOAPPROG ---
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 Tolerating ctx without major toxicities. Responding to tx. - MTX level to be sent at 1400 (24 hours following completion of gtt). Can d/c when <0.05. - Procarbazine D1-7 11/22/16 14:22 Subjective: No nausea. No SOB. PE: VSS. Good UO, alkalinized urine. Gen: NAD. Lungs: CTA. CV: no edema. Neuro: left facial droop. Laboratory Tests 11/22/16 11/22/16 05:04 05:04 WBC 8.81 Hgb 10.0 L Plt Count 254 Sodium 138 Potassium 3.5 Chloride 101 Carbon Dioxide 28 Anion Gap 9 BUN 10 Creatinine 0.5 L Estimated GFR > 60 Glucose 158 H Objective: Vital Signs Temp Pulse Resp BP Pulse Ox 36.7 C 83 16 128/78 H 96 11/22/16 13:15 11/22/16 13:15 11/22/16 13:15 11/22/16 13:15 11/22/16 13:15 Laboratory Results 11/22/16 05:04 11/22/16 05:04 11/21/16 11/22/16 11/23/16 05:59 05:59 05:59 Intake Total 2400 8239 Output Total 2350 7379 900 Balance 50 0534 -900 ICD10 Worksheet Patient Problems: Problems Problem Status Onset Brain lesion Acute Perforated duodenal ulcer Acute
[2016-11-22] MEDS: NS IV SCH ×2 (14:34→19:53)
[2016-11-22] MEDS: LEUCOVORIN CALCIUM IV SCH ×2 (14:34→19:53)
[2016-11-23] MEDS: NS IV SCH ×4 (02:08→21:44)
[2016-11-23] MEDS: LEUCOVORIN CALCIUM IV SCH ×4 (02:08→21:44)
[2016-11-23] MEDS: SODIUM BICARBONATE 150 MEQ in D5W 1,000 ML IV SCH (04:32)
[2016-11-23 05:41] LABS: % IMMATURE GRANULYOCYTES 0.4 % (0.0-1.1); ABSOLUTE IMMATURE GRANULOCYTES 0.02 10^3/uL (0.00-0.10); ADD DIFF? NO; ADD MORPH? NO; ADD SCAN? NO; ATYPICAL LYMPHOCYTE FLAG 0 (0-99); FRAGMENT RBC FLAG 0 (0-99); HEMATOCRIT 31.6 % (40.0-51.0); LEFT SHIFT FLG 0 (0-99); LIPEMIA HEMOLYSIS FLAG 80 (0-99); MEAN CELL HEMOGLOBIN 29.9 pg (27.9-34.1); MEAN CELL HEMOGLOBIN CONCENTR. 31.6 g/dL (32.4-36.7); MEAN CELL VOLUME 94.6 fL (81.5-99.8); MEAN PLATELET VOLUME 9.5 fL (8.7-11.7); PLATELET CLUMPS FLAG 0 (0-99); PLATELET COUNT 237 10^3/uL (150-400); RED BLOOD CELL COUNT 3.34 10^6/uL (4.40-6.38); RED CELL DISTRIBUTION WIDTH 14.8 % (11.5-15.2)
[2016-11-23] MEDS: SODIUM BICARBONATE 650 MG TAB PO SCH ×4 (05:47→21:44)
[2016-11-23] MEDS: ERYTHROMYCIN 0.5% 1 GM OPHT.OINT LEFTEYE SCH ×5 (05:47→21:45)
[2016-11-23 05:56] LABS: ANION GAP 10 mEq/L (8-16); CALCIUM 8.5 mg/dL (8.5-10.4); CARBON DIOXIDE 30 mEq/l (22-31); CHLORIDE 101 mEq/L (97-110); CREATININE 0.5 mg/dL (0.7-1.3); GLOMERULAR FILTRATION RATE > 60; GLUCOSE 126 mg/dL (70-100); POTASSIUM 3.4 mEq/L (3.5-5.2); SODIUM 141 mEq/L (134-144)
[2016-11-23] MEDS ORDERED: POTASSIUM CL 20 MEQ TAB PO ONE (08:39)
[2016-11-23] MEDS: metFORMIN HCL 500 MG TAB PO SCH ×2 (09:39→18:26)
[2016-11-23] MEDS: RIVAROXABAN 10 MG TAB PO SCH (09:39)
[2016-11-23] MEDS: ATORVASTATIN CALCIUM 10 MG TAB PO SCH (09:39)
[2016-11-23] MEDS: [UNRECOGNIZED DRUG - OTHER] PO SCH (09:45)
--- NOTE | 2016-11-23 10:42 | SOAPPROG ---
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 Tolerating ctx without major toxicities. Responding to tx. - MTX level 11/22/16 1400 (24 hours following completion of gtt) pending. Can d/c when <0.05. - Procarbazine D1-7 11/23/16 10:41 Subjective: Encouraged by some improvement in left eyelid function. No nausea. PE: VSS Gen: NAD. Lungs: CTA. CV: no edema. Neuro: left facial droop. Laboratory Tests 11/23/16 05:16 WBC 5.57 Hgb 10.0 L Plt Count 237 Objective: Vital Signs Temp Pulse Resp BP Pulse Ox 36.6 C 90 20 100/68 90 L 11/23/16 09:42 11/23/16 09:42 11/23/16 09:42 11/23/16 09:42 11/23/16 09:42 Laboratory Results 11/23/16 05:16 11/23/16 05:16 11/22/16 11/23/16 11/24/16 05:59 05:59 05:59 Intake Total 8239 3850 Output Total 7711 2847 1200 Balance 8101 -188 -1200 ICD10 Worksheet Patient Problems: Problems Problem Status Onset Brain lesion Acute Perforated duodenal ulcer Acute
--- NOTE | 2016-11-23 20:25 | HOSPPROG ---
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 Discussed with Dr. Torres, MRI w/ reduced tumor size, the patient is D3 Rituxan, methotrexate, vincristine, now monitoring MTX levels ( 2.2 11/22, today pending) - UOP 4.3L, cont monitoring - cont monitoring CBC 2. History of pulmonary embolism. Patient has been continued on Xarelto 3. History of right neck furuncle. Resolved 4. Diabetes mellitus type 2. Patient will be continued on his home dosage of metformin, monitor renal fxn Diet. Regular Prophylaxis. High risk patient, continue on Xarelto Code status. Full per patient, son is MPOA Disposition. Anticipated discharge is uncertain this time, pending successful completion of chemo. Subjective: patient w/o complaints, would like to know his MTX level Objective: Vital Signs Temp Pulse Resp BP Pulse Ox 36.6 C 66 16 115/64 98 11/23/16 19:53 11/23/16 19:53 11/23/16 19:53 11/23/16 19:53 11/23/16 19:53 Laboratory Results 11/23/16 05:16 11/23/16 05:16 11/22/16 11/23/16 11/24/16 05:59 05:59 05:59 Intake Total 8239 3850 2103 Output Total 8982 4350 2700 Balance 4707 -275 -490 - Physical Exam Constitutional: no apparent distress, appears nourished, not in pain Cardiovascular: regular rate and rhythym, no murmur, rub, or gallop, No edema Respiratory: no respiratory distress, no rales or rhonchi, clear to auscultation Gastrointestinal: normoactive bowel sounds, soft, non-tender abdomen, no palpable masses Neurologic: AAOx3, facial droop (left) Psychiatric: not anxious, not encephalopathic, thought process linear, flat affect ICD10 Worksheet Patient Problems: Problems Problem Status Onset Brain lesion Acute Perforated duodenal ulcer Acute
[2016-11-24] MEDS: SODIUM BICARBONATE 150 MEQ in D5W 1,000 ML IV SCH (00:17)
[2016-11-24] MEDS: NS IV SCH ×4 (02:00→19:56)
[2016-11-24] MEDS: LEUCOVORIN CALCIUM IV SCH ×4 (02:00→19:56)
[2016-11-24 06:06] LABS: HEMATOCRIT 31.5 % (40.0-51.0); HEMOGLOBIN 9.9 g/dL (13.7-17.5); MEAN CELL HEMOGLOBIN 30.1 pg (27.9-34.1); MEAN CELL HEMOGLOBIN CONCENTR. 31.4 g/dL (32.4-36.7); MEAN CELL VOLUME 95.7 fL (81.5-99.8); RED BLOOD CELL COUNT 3.29 10^6/uL (4.40-6.38); RED CELL DISTRIBUTION WIDTH 14.7 % (11.5-15.2)
[2016-11-24] MEDS: SODIUM BICARBONATE 650 MG TAB PO SCH ×4 (06:10→19:56)
[2016-11-24] MEDS: ERYTHROMYCIN 0.5% 1 GM OPHT.OINT LEFTEYE SCH ×5 (06:10→22:08)
[2016-11-24 06:20] LABS: ANION GAP 8 mEq/L (8-16); CALCIUM 8.7 mg/dL (8.5-10.4); CARBON DIOXIDE 29 mEq/l (22-31); CHLORIDE 101 mEq/L (97-110); CREATININE 0.5 mg/dL (0.7-1.3); GLOMERULAR FILTRATION RATE > 60; GLUCOSE 136 mg/dL (70-100); MAGNESIUM 1.9 mg/dL (1.6-2.3); POTASSIUM 3.5 mEq/L (3.5-5.2); SODIUM 138 mEq/L (134-144)
[2016-11-24] MEDS: ATORVASTATIN CALCIUM 10 MG TAB PO SCH (09:57)
[2016-11-24] MEDS: RIVAROXABAN 10 MG TAB PO SCH (09:57)
[2016-11-24] MEDS: metFORMIN HCL 500 MG TAB PO SCH ×2 (09:57→18:01)
[2016-11-24] MEDS: [UNRECOGNIZED DRUG - OTHER] PO SCH (09:58)
--- NOTE | 2016-11-24 11:45 | SOAPPROG ---
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 Yesterday's MTX level pending. Will plan d/c home once level < 0.05. Continue oral leucovorin for now. Patient has follow up with Dr. Atkinson scheduled this week. He is hoping to go home tomorrow. Case d/w nursing/ pharmacy Patient's questions answered. 11/24/16 11:41 11/24/16 11:46 Subjective: Feels well. Denies HAMLIN. N/V Objective: Vital Signs Temp Pulse Resp BP Pulse Ox 36.8 C 89 17 112/83 H 90 L 11/24/16 09:11 11/24/16 09:11 11/24/16 09:11 11/24/16 09:11 11/24/16 09:11 Laboratory Results 11/24/16 04:55 11/24/16 04:55 11/23/16 11/24/16 11/25/16 05:59 05:59 05:59 Intake Total 3850 4203 Output Total 4350 4300 1400 Balance -500 97 -1400 - Time Spent With Patient Time Spent With Patient: 25 minutes Physical Exam - Physical Exam General Appearance: alert, no apparent distress EENT: other (Left facial palsy) Respiratory: lungs clear Cardiac/Chest: regular rate, rhythm Abdomen: non-tender, soft Neuro/Psych: alert, normal mood/affect ICD10 Worksheet Patient Problems: Problems Problem Status Onset Brain lesion Acute Perforated duodenal ulcer Acute
--- NOTE | 2016-11-24 17:05 | HOSPPROG ---
Hospitalist Progress Note Assessment/Plan: Assessment: 61-year-old male presents for 3rd cycle of chemotherapy for WELT RANDER lymphoma Plan: 1. WELT RANDER lymphoma. Discussed with Dr. Torres, MRI w/ reduced tumor size, the patient is s/p Rituxan, methotrexate, vincristine, now monitoring MTX levels ( 0.15 11/23, today pending) - UOP 4.3L, cont monitoring - cont monitoring CBC - DC when MTX < 0.05 2. History of pulmonary embolism. Patient has been continued on Xarelto 3. History of right neck furuncle. Resolved 4. Diabetes mellitus type 2. Patient on his home dosage of metformin, monitor renal fxn Diet. Regular Prophylaxis. High risk patient, continue on Xarelto Code status. Full per patient, son is MPOA Disposition. Anticipated discharge is 11/25, pending MTX levels and no longer requiring leucovorin Subjective: patient reports he is feeling well, he is tracking his own methotrexate level Objective: Vital Signs Temp Pulse Resp BP Pulse Ox 36.6 C 95 16 101/69 94 11/24/16 16:50 11/24/16 16:50 11/24/16 16:50 11/24/16 16:50 11/24/16 16:50 Laboratory Results 11/24/16 04:55 11/24/16 04:55 11/23/16 11/24/16 11/25/16 05:59 05:59 05:59 Intake Total 3850 4203 Output Total 4350 4300 2800 Balance - - Pending Discharge Pending Discharge Within 24 Hours: Yes Pending Discharge Date: 11/25/16 Pending Discharge Time: 11:00 - Physical Exam Constitutional: no apparent distress, appears nourished, not in pain Cardiovascular: regular rate and rhythym, no murmur, rub, or gallop Respiratory: no respiratory distress, no rales or rhonchi, clear to auscultation Gastrointestinal: normoactive bowel sounds, soft, non-tender abdomen, no palpable masses Neurologic: AAOx3, facial droop ( left side) Psychiatric: interacting appropriately, not anxious, not encephalopathic, thought process linear ICD10 Worksheet Patient Problems: Problems Problem Status Onset Brain lesion Acute Perforated duodenal ulcer Acute
[2016-11-24 20:30] VITALS: TEMP 98.1
[2016-11-25] MEDS: LEUCOVORIN CALCIUM IV SCH ×3 (02:08→14:01)
[2016-11-25] MEDS: NS IV SCH ×3 (02:08→14:01)
[2016-11-25] MEDS: SODIUM BICARBONATE 150 MEQ in D5W 1,000 ML IV SCH (02:34)
[2016-11-25 05:22] LABS: HEMATOCRIT 32.4 % (40.0-51.0); HEMOGLOBIN 10.5 g/dL (13.7-17.5); MEAN CELL HEMOGLOBIN 30.5 pg (27.9-34.1); MEAN CELL HEMOGLOBIN CONCENTR. 32.4 g/dL (32.4-36.7); MEAN CELL VOLUME 94.2 fL (81.5-99.8); RED BLOOD CELL COUNT 3.44 10^6/uL (4.40-6.38); RED CELL DISTRIBUTION WIDTH 14.5 % (11.5-15.2)
[2016-11-25 05:32] LABS: ANION GAP 9 mEq/L (8-16); CARBON DIOXIDE 30 mEq/l (22-31); CHLORIDE 102 mEq/L (97-110); CREATININE 0.5 mg/dL (0.7-1.3); GLOMERULAR FILTRATION RATE > 60; GLUCOSE 145 mg/dL (70-100); MAGNESIUM 1.9 mg/dL (1.6-2.3); POTASSIUM 3.4 mEq/L (3.5-5.2); SODIUM 141 mEq/L (134-144)
[2016-11-25] MEDS: ERYTHROMYCIN 0.5% 1 GM OPHT.OINT LEFTEYE SCH ×3 (06:06→14:00)
[2016-11-25] MEDS: SODIUM BICARBONATE 650 MG TAB PO SCH ×2 (06:06→14:01)
[2016-11-25 06:14] VITALS: O2SAT 94
[2016-11-25 09:40] VITALS: BP 113/81; PULSE 83; RESP 18
[2016-11-25] MEDS: RIVAROXABAN 10 MG TAB PO SCH (10:24)
[2016-11-25] MEDS: metFORMIN HCL 500 MG TAB PO SCH (10:24)
[2016-11-25] MEDS: [UNRECOGNIZED DRUG - OTHER] PO SCH (10:24)
[2016-11-25] MEDS: ATORVASTATIN CALCIUM 10 MG TAB PO SCH (10:24)
--- NOTE | 2016-11-25 12:23 | SOAPPROG ---
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 Yesterday's MTX level is 0.06. I think that he is appropriate for discharge at this point. He last received a dose of Leucovorin at 11:30 today. I do not think he requires any more Leucovorin at this point. He has a home prescription for Procarbazine. I instructed him to take 200 mg of Procarbazine tomorrow, and then to stop. A writtent copy of this instruction will be given to him at discharge. Patient has follow up with Dr. Atkinson scheduled this week. I will notify Dr. Atkinson of his discharge. Case d/w nursing/ pharmacy Patient's questions answered. 11/24/16 11:41 11/24/16 11:46 11/25/16 12:19 Subjective: Feels well. Denies HAMLIN or nausea. Wants to go home today. Objective: Vital Signs Temp Pulse Resp BP Pulse Ox 36.7 C 83 18 113/81 H 94 11/25/16 09:39 11/25/16 09:39 11/25/16 09:39 11/25/16 09:39 11/25/16 09:39 Laboratory Results 11/25/16 04:46 11/25/16 04:46 11/24/16 11/25/16 11/26/16 05:59 05:59 05:59 Intake Total 1072 2622 Output Total 7421 2383 Balance -97 -5970 - Time Spent With Patient Time Spent With Patient: 25 minutes Physical Exam - Physical Exam General Appearance: alert, no apparent distress EENT: other (Left facial palsy unchanged) Neuro/Psych: normal mood/affect, oriented x 3 ICD10 Worksheet Patient Problems: Problems Problem Status Onset Brain lesion Acute Perforated duodenal ulcer Acute
--- NOTE | 2016-11-25 12:42 | PDDCSUM ---
Discharge Summary Discharge Summary: HPI/HOSPITAL COURSE: 61-year-old male presents for 3rd cycle of chemotherapy for SQL REPORT DEVELOPER lymphoma. MTX level trended. His level from yesterday is 0.06. He has been cleared for discharge by Oncology. He is to stop Levcovorin. He is to take Procarbazine 200mg tomorrow x 1. He has a home prescription for this. He is to f/u with Dr. Cardona on . Given the above, he is ready for discharge. He denies sob, cp, palpitations, fever DDX: 1. SQL REPORT DEVELOPER lymphoma. The patient is s/p Rituxan, methotrexate, vincristine, now monitoring MTX levels 2. History of pulmonary embolism. Patient has been continued on Xarelto 3. History of right neck furuncle. Resolved 4. Diabetes mellitus type 2. Patient on his home dosage of metformin, monitor renal fxn 5. Left Facial Nerve Palsy due to #1 Diet. Regular Code status. Full per patient, son is MPOA Exam: VSS NAD AAOX3 PERRLA MMM OROPHARYNX CLEAR NO JVD RRR CTA B, S/NT/ND NO EDEMA Meds: see med rec. No new meds provided F/U: PER ABOVE WITH DR. CARDONA total care time arranging discharge is 40 minutes
== END 2016-11-25 14:51 | disposition home or self-care (01) | DRG 847 ==
LOC: F1N 14:49
PROVIDERS: ADMIT Internal Medicine Hematology & Oncology; ATTEND Internal Medicine
PROC: 3E0330M Introduction of Antineoplastic, Monoclonal Antibody, into Peripheral Vein, Percutaneous Approach (ICD-10-PCS; principal; 2016-11-20)
DX: Z51.11 Encounter for antineoplastic chemotherapy (principal); C85.89 Other specified types of non-Hodgkin lymphoma, extranodal and solid organ sites; E11.9 Type 2 diabetes mellitus without complications; E78.5 Hyperlipidemia, unspecified; Z86.711 Personal history of pulmonary embolism; Z79.01 Long term (current) use of anticoagulants; Z87.891 Personal history of nicotine dependence; Z80.41 Family history of malignant neoplasm of ovary; Z79.84 Long term (current) use of oral hypoglycemic drugs; G51.0 Bell's palsy; S05.01XD Injury of conjunctiva and corneal abrasion without foreign body, right eye, subsequent encounter
CPT/HCPCS: 83520-90; 92526-GN; 92610-GN; A9585; J0640; J1200; J2469; J9260; J9310; J9370

== ENCOUNTER 2016-12-04 05:51 | Inpatient (IN) | payer OTHER ==
[2016-12-04 11:15] LABS: % IMMATURE GRANULOCYTES 10.7 % (0.0-1.1); ABSOLUTE IMMATURE GRANULOCYTES 0.81 10^3/uL (0-0.10); HEMOGLOBIN 12.5 g/dL (13.7-17.5); MEAN CELL HEMOGLOBIN CONC. 32.1 g/dL (32.4-36.7); MEAN CELL VOLUME 93.8 fL (81.5-99.8); MEAN PLATELET VOLUME 9.7 fL (8.7-11.7); RED BLOOD CELL COUNT 4.16 10^6/uL (4.40-6.38); RED CELL DISTRIBUTION WIDTH 16.1 % (11.5-15.2)
[2016-12-04 11:48] LABS: ALANINE AMINOTRANSFERASE 45 IU/L (21-72); ALBUMIN 4.3 g/dL (3.5-5.0); ALKALINE PHOSPHATASE 152 IU/L (38-126); ANION GAP 12 mEq/L (8-16); ASPARTATE AMINOTRANSFERASE 35 IU/L (17-59); BILIRUBIN,TOTAL 0.7 mg/dL (0.1-1.4); CARBON DIOXIDE 24 mEq/l (22-31); CHLORIDE 103 mEq/L (97-110); CREATININE 0.6 mg/dL (0.7-1.3); GLOMERULAR FILTRATION RATE > 60; GLUCOSE 127 mg/dL (70-100); LACTATE DEHYDROGENASE 709 IU/L (313-618); POTASSIUM 4.6 mEq/L (3.5-5.2); SODIUM 139 mEq/L (134-144); TOTAL PROTEIN 7.2 g/dL (6.3-8.2)
--- NOTE | 2016-12-04 13:11 | SOAPPROG ---
SOAP Progress Note Assessment/Plan: Assessment: 1.) Primary B- cell Diffuse Large Cell Lymphoma of the ELECTRONICS TESTER, showing improvement since start of Tx with Rituxan, VCR, hi dose MTX and Procarbazine, now admitted for cycle # 4 today. Last seen 11/27/16 in the office. Dx by brain biopsy 08/26/16, with subtotal ( 70%) removal of mass by Dr. Julia MD. Lesion in left lateral ventricle and middle cerebral peduncle. Lymphoma c-myc negative. MRI at last Tx showed improvement. Pt had Left corneal abrasion at diagnosis and now has continued residual left facial droop as a result of initial brain insult from disease presentation. Pt. to have 6 cycles and then be considered for High dose therapy/stem cell rescue. 2.) PE post op 08/22, on Xarelto and S/P IVC filter placement 3.) GI Bleed 08/22, while on AC. Had duodenal perf. requiring surgical stablilization. 4.) DM 5.) Anemia of underlying malignancy and chemotherapy tx. Plan: 1.) Rituxan on Day 1- 12/04/16 2.) IV and po bicarb alkalinization 12/04 for high dose MTX on 12/05 3.) High dose MTX 12/05 4.) Vincristine 12/05 5.) Leukovorin rescue starting 24 hours after MTX on 12/06 with continued bicarb alkalinization 6.) Follow MTX levels and urine pH levels 7.) G-CSF following Tx with 4 days SQ QD, at home after discharge. 8.) Close outpt. follow up after discharge. [See Tx orders- prepared by Dr. Atkinson for this inpatient cycle of Tx.] 12/04/16 13:11 Subjective: Neil is stable by symptoms and is here for his 4th of 6 cycles of Rituxan + High dose Methotrexate with pre-tx IV and po alkalinization + Vincristine + Leukovorin rescue. He has no new sx. since his last office visit and since his last course of Tx. Objective: Pleasant middle aged WM in NAD, with obvious Left facial droop HEENT- Left facial droop with L eyelid shown shut, anicteric, no oral lesions Neck- supple, without LN enlargement Chest- clear CVS- RSR, no extra HS ABD- soft, NT, BS+, no mass, HSM or ascites EXT- skin intact, no edema Labs and VS as noted here: Hgb 12.5, PLT 250, WBC 7.59, BUN/CR 8/0.6, Glu 127 Vital Signs Temp Pulse Resp BP Pulse Ox 37.0 C 99 18 109/92 H 99 12/04/16 12:50 12/04/16 12:50 12/04/16 12:50 12/04/16 12:50 12/04/16 12:50 Laboratory Results 12/04/16 11:05 12/04/16 11:05 ICD10 Worksheet Patient Problems: Problems Problem Status Onset Brain lesion Acute Perforated duodenal ulcer Acute
[2016-12-04] MEDS ORDERED: ACETAMINOPHEN 325 MG TAB PO PRN (13:16)
[2016-12-04] MEDS ORDERED: ONDANSETRON 4 MG/2 ML VIAL IVP PRN (13:16)
[2016-12-04] MEDS ORDERED: ONDANSETRON DISINTEGRATING 4 MG TAB PO PRN (13:16)
[2016-12-04] MEDS ORDERED: ACETAMINOPHEN 325 MG TAB PO SCH (14:30)
[2016-12-04] MEDS ORDERED: ALTEPLASE 2 MG VIAL IVP PRN (14:57)
[2016-12-04] MEDS ORDERED: RITUXIMAB IV SCH (15:00)
[2016-12-04] MEDS ORDERED: NS IV SCH (15:00)
[2016-12-04] MEDS: SODIUM BICARBONATE 650 MG TAB PO SCH ×3 (15:07→21:44)
--- NOTE | 2016-12-04 15:20 | GHP ---
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 HISTORY OF PRESENT ILLNESS: Patient is a 61-year-old male with history of diffuse large-cell lymphoma of CORPORATE HUMAN RESOURCES MANAGER, who is being admitted today for cycle 4. He was initially diagnosed 08/26/2016. Biopsy with subtotal (70%) removal of mass by Dr. Dumont. Lymphoma [facility] negative. MR at last treatment showed improvement. He reports some fatigue since the last treatment. Eating as much as he can. No nausea, vomiting, diarrhea. No headaches. REVIEW OF SYSTEMS: I completed a 10-point review of systems, negative except as noted in HPI. PAST MEDICAL HISTORY: 1. Diffuse large B-cell lymphoma with CORPORATE HUMAN RESOURCES MANAGER diagnosed 08/26/2016. 2. Pulmonary embolism. 3. Duodenal ulcer related to NSAIDs and steroids status post antrectomy, gastrojejunostomy and closure of duodenal stump. 4. Controlled diabetes. 5. Left facial droop. PAST SURGICAL HISTORY: 1. Cerebral tumor resection August [address] Dumont. 2. History of G-tube placement. 3. Status post antrectomy, gastrojejunostomy, and closure of duodenal stump. 4. IVC filter placement, removed October 22, 2016. 5. G-tube was removed October 16, 2016. SOCIAL HISTORY: Lives in [place]. Smoked tobacco remotely, quit 26 years ago. No alcohol since July. Denies illicits. Son lives close by. FAMILY HISTORY: Mother of aortic aneurysm. Sister ovarian cancer in remission. HOME MEDICATIONS: 1. Neupogen 2. Xarelto 20 mg daily. 3. Procarbazine 4. Erythromycin to eye. 5 Lipitor 10 mg daily. 6. Tylenol as needed. ALLERGIES: No known drug allergies. PHYSICAL EXAMINATION: VITAL SIGNS: Temperature 37, blood pressure 109/92, heart rate 90, respirations 18, 94% on room air. GENERAL: Patient is in no acute distress. HEENT: PERRLA. Left eyelid lag. CV: Regular rate and rhythm. No murmurs, gallops, rubs. LUNGS: Clear to auscultation bilaterally. ABDOMEN: Mildly distended. Surgical incision midline, healed. No tenderness. Positive bowel sounds. : No Gamino. MUSCULOSKELETAL: 5/5 upper and lower extremity strength. NEUROLOGIC: 2 through 12 intact. PSYCHIATRIC: Alert and oriented x3. Flat affect. LABORATORY DATA: WBC 7.5, hemoglobin 12, hematocrit 39, platelets 250. Sodium 139, potassium 4.6, chloride 106, carbon dioxide 24, anion gap 12, BUN 8, creatinine 0.6, glucose 127, total bilirubin 0.7, AST 35, ALT 45, alkaline phosphatase 152. LDH 709. Albumin 4.3. ASSESSMENT AND PLAN: 1. Primary B-cell diffuse large cell lymphoma. CORPORATE HUMAN RESOURCES MANAGER: Patient being admitted today for cycle 4. Plan for Rituxan day 1 today. Will start IV n.p.o. bicarb alkalinization today for high-dose methotrexate tomorrow along with vincristine. Will dose leucovorin on 12/06 and follow methotrexate and urine pH levels. 2. History of pulmonary embolism. Continue Xarelto. Had IVC, that has since been removed. 3. History of gastrointestinal bleed August 22 secondary to steroids and NSAIDs. Status post duodenal perforation surgery. 4. Controlled diabetes. Continue metformin. May need sliding scale insulin with steroids. 5. Anemia of chronic disease. H and H is stable. 6. Diet: Regular. 7. Deep venous thrombosis prophylaxis on Xarelto. 8. Patient warrants inpatient admission given chemotherapy, warranting serial labs and clinical monitoring. /[id number]/MODL MTDD
[2016-12-04] MEDS: SODIUM BICARBONATE 150 MEQ in D5W 1,000 ML IV SCH (17:12)
[2016-12-04] MEDS: metFORMIN HCL 500 MG TAB PO SCH (19:24)
[2016-12-04] MEDS: ERYTHROMYCIN 0.5% 1 GM OPHT.OINT LEFTEYE SCH ×2 (19:24→21:45)
[2016-12-05] MEDS: ERYTHROMYCIN 0.5% 1 GM OPHT.OINT LEFTEYE SCH ×5 (05:22→21:03)
[2016-12-05] MEDS: SODIUM BICARBONATE 650 MG TAB PO SCH ×4 (05:24→21:02)
[2016-12-05 05:52] LABS: ANION GAP 10 mEq/L (8-16); CALCIUM 8.9 mg/dL (8.5-10.4); CARBON DIOXIDE 32 mEq/l (22-31); CHLORIDE 101 mEq/L (97-110); CREATININE 0.6 mg/dL (0.7-1.3); GLOMERULAR FILTRATION RATE > 60; GLUCOSE 139 mg/dL (70-100); POTASSIUM 3.9 mEq/L (3.5-5.2); SODIUM 143 mEq/L (134-144)
--- NOTE | 2016-12-05 08:27 | HOSPPROG ---
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 He no longer wants to take and refusing doses here. I explained both risk/benefits of anticoagulation extensively with him today #h/o GIB: due to steroids/NSAIDs: s/p surgical repair of duodenal ulcer #Controlled DM: metformin #Anemia of chronic disease: H/H stable #DVT ppx: ambulating #Disp: cont serial labs Subjective: moderate bleeding from PICC line last night Objective: Vital Signs Temp Pulse Resp BP Pulse Ox 36.8 C 96 16 104/68 91 L 12/05/16 05:13 12/05/16 05:13 12/05/16 05:13 12/05/16 05:13 12/05/16 05:13 Laboratory Results 12/04/16 11:05 12/05/16 05:20 12/04/16 12/05/16 12/06/16 05:59 05:59 05:59 Intake Total 3495 Output Total 1460 Balance 2034 - Physical Exam Constitutional: no apparent distress Eyes: PERRL, other (left lid droop) Ears, Nose, Mouth, Throat: moist mucous membranes, hearing normal Cardiovascular: regular rate and rhythym Respiratory: no respiratory distress Gastrointestinal: normoactive bowel sounds Skin: warm Musculoskeletal: full muscle strength, other (RUE PICC without active bleeding. ) Neurologic: AAOx3, CN II-XII Intact Psychiatric: flat affect ICD10 Worksheet Patient Problems: Problems Problem Status Onset Brain lesion Acute Perforated duodenal ulcer Acute
[2016-12-05] MEDS: metFORMIN HCL 500 MG TAB PO SCH ×2 (08:38→18:37)
[2016-12-05] MEDS: ATORVASTATIN CALCIUM 10 MG TAB PO SCH (08:38)
[2016-12-05] MEDS ORDERED: Herbals/Supplements -Info Only PO SCH (09:00)
[2016-12-05] MEDS ORDERED: NS IV SCH ×2 (09:30→10:00)
[2016-12-05] MEDS ORDERED: DEXAMETHASONE SOD PHOSPHATE IV SCH (09:30)
[2016-12-05] MEDS ORDERED: ONDANSETRON HCL IV SCH (09:30)
[2016-12-05] MEDS ORDERED: METHOTREXATE SODIUM IV SCH (10:00)
[2016-12-05] MEDS: RIVAROXABAN 20 MG TAB PO SCH (10:27)
[2016-12-05] MEDS ORDERED: vinCRIStine 2 MG in NS 57 ML IV SCH (12:30)
--- NOTE | 2016-12-05 12:31 | SOAPPROG ---
SOAP Progress Note Assessment/Plan: Assessment: 1.) Primary B- cell Diffuse Large Cell Lymphoma of the GLASS FORMING CREW MEMBER, showing improvement since start of Tx with Rituxan, VCR, hi dose MTX and Procarbazine, now admitted for cycle # 4 today. Last seen 11/27/16 in the office. Dx by brain biopsy 08/26/16, with subtotal ( 70%) removal of mass by Dr. Julia MD. Lesion in left lateral ventricle and middle cerebral peduncle. Lymphoma c-myc negative. MRI at last Tx showed improvement. Pt had Left corneal abrasion at diagnosis and now has continued residual left facial droop as a result of initial brain insult from disease presentation. Pt. to have 6 cycles and then be considered for High dose therapy/stem cell rescue. 2.) PE post op 08/22, on Xarelto and S/P IVC filter placement 3.) GI Bleed 08/22, while on AC. Had duodenal perf. requiring surgical stablilization. 4.) DM 5.) Anemia of underlying malignancy and chemotherapy tx. Plan: 1.) Rituxan given on Day 1- 12/04/16 2.) IV and po bicarb alkalinization 12/04 for high dose MTX on 12/05 3.) High dose MTX 12/05 4.) Vincristine 12/05 5.) Leukovorin rescue starting 24 hours after MTX on 12/06 with continued bicarb alkalinization 6.) Follow MTX levels and urine pH levels 7.) G-CSF following Tx with 4 days SQ QD, at home after discharge. 8.) Close outpt. follow up after discharge. [See Tx orders- prepared by Dr. Atkinson for this inpatient cycle of Tx.] 9.) Discharge home in next 72 hours if stable and with MTX level at safe level with adequate excretion. Dr. Atkinson plans two additional cycles of this regimen. Pt was informed that Xarelto usually given for approx. 6 months duration unless complication/contraindication ensues. 12/05/16 12:31 Subjective: Had bleeding with PICC line placement RUE, stable now Objective: Afebrile, VSS as noted here. HEENT- unchanged Neck- no LN enlargement Chest clear CVS- RSR, no extra HS ABD- soft, NT no mass or HSM, BS+ EXT- no edema, R PICC line site- NT Labs as noted here. Urine pH is staying at 7.5 Vital Signs Temp Pulse Resp BP Pulse Ox 36.8 C 97 18 104/64 92 12/05/16 08:39 12/05/16 08:39 12/05/16 08:39 12/05/16 08:39 12/05/16 08:39 Laboratory Results 12/04/16 11:05 12/05/16 05:20 12/04/16 12/05/16 12/06/16 05:59 05:59 05:59 Intake Total 3495 Output Total 1460 500 Balance 2035 -500 ICD10 Worksheet Patient Problems: Problems Problem Status Onset Brain lesion Acute Perforated duodenal ulcer Acute
[2016-12-05] MEDS: SODIUM BICARBONATE 150 MEQ in D5W 1,000 ML IV SCH (17:43)
[2016-12-06] MEDS: SODIUM BICARBONATE 150 MEQ in D5W 1,000 ML IV SCH ×2 (01:05→20:59)
[2016-12-06] MEDS: SODIUM BICARBONATE 650 MG TAB PO SCH ×4 (06:04→20:49)
[2016-12-06] MEDS: ERYTHROMYCIN 0.5% 1 GM OPHT.OINT LEFTEYE SCH ×5 (06:04→21:02)
[2016-12-06 06:09] LABS: HEMATOCRIT 31.4 % (40.0-51.0); HEMOGLOBIN 10.2 g/dL (13.7-17.5); MEAN CELL HEMOGLOBIN 29.8 pg (27.9-34.1); MEAN CELL HEMOGLOBIN CONCENTR. 32.5 g/dL (32.4-36.7); MEAN CELL VOLUME 91.8 fL (81.5-99.8); RED BLOOD CELL COUNT 3.42 10^6/uL (4.40-6.38); RED CELL DISTRIBUTION WIDTH 15.6 % (11.5-15.2)
[2016-12-06 06:44] LABS: ANION GAP 8 mEq/L (8-16); CALCIUM 8.7 mg/dL (8.5-10.4); CARBON DIOXIDE 33 mEq/l (22-31); CHLORIDE 102 mEq/L (97-110); CREATININE 0.6 mg/dL (0.7-1.3); GLOMERULAR FILTRATION RATE > 60; GLUCOSE 162 mg/dL (70-100); POTASSIUM 3.5 mEq/L (3.5-5.2); SODIUM 143 mEq/L (134-144)
[2016-12-06] MEDS: metFORMIN HCL 500 MG TAB PO SCH ×2 (08:48→18:16)
[2016-12-06] MEDS: ATORVASTATIN CALCIUM 10 MG TAB PO SCH (08:48)
[2016-12-06] MEDS: RIVAROXABAN 20 MG TAB PO SCH (08:49)
--- NOTE | 2016-12-06 12:57 | HOSPPROG ---
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 Again he is refusing Xarelto, despite several providers recommendations. He acknowledges risks of not taking; will take off his MAR. #h/o GIB: due to steroids/NSAIDs: s/p surgical repair of duodenal ulcer #Controlled DM: metformin #Anemia of chronic disease: H/H stable #DVT ppx: ambulating #Disp: cont serial labs Subjective: no oozing from PICC. Tired Objective: Vital Signs Temp Pulse Resp BP Pulse Ox 36.9 C 86 18 103/66 93 12/06/16 08:46 12/06/16 08:46 12/06/16 08:46 12/06/16 08:46 12/06/16 08:46 Laboratory Results 12/06/16 06:00 12/06/16 06:00 12/05/16 12/06/16 12/07/16 05:59 05:59 05:59 Intake Total 3495 3650 Output Total 1460 4900 800 Balance 2035 -1250 -800 - Physical Exam Constitutional: no apparent distress Eyes: PERRL, other (left lid droop) Ears, Nose, Mouth, Throat: moist mucous membranes, hearing normal Cardiovascular: regular rate and rhythym, no murmur, rub, or gallop Respiratory: no respiratory distress, no rales or rhonchi Gastrointestinal: normoactive bowel sounds, other (midline surgical scar healed) Genitourinary: no bladder fullness Skin: warm Musculoskeletal: full muscle strength Neurologic: AAOx3, CN II-XII Intact ICD10 Worksheet Patient Problems: Problems Problem Status Onset Brain lesion Acute Perforated duodenal ulcer Acute
--- NOTE | 2016-12-06 14:15 | SOAPPROG ---
SOAP Progress Note Assessment/Plan: Assessment: 1. 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 First level to be draw this afternoon and leucovorin started. Continues alkalinization. Tolerating chemo fairly well. 2. Hx PE post op. He has had recurrent epistaxis and bleeding from puncture sites. He refuses Xarelto/anticoag at this time. Plan: - Continue hydration/alkalization/leucovorin. Leucovorin to continue until MTX is <0.05 micromolar. - Observe off anticoagulation Subjective: No mouth sores or N/V. He recounted in detail the bleeding from his R arm, his nose bleeds, and his bleeding from cuts during shaving which stopped when he discontinued Xarleto Objective: Vital Signs Temp Pulse Resp BP Pulse Ox 36.9 C 86 18 103/66 93 12/06/16 08:46 12/06/16 08:46 12/06/16 08:46 12/06/16 08:46 12/06/16 08:46 Laboratory Results 12/06/16 06:00 12/06/16 06:00 12/04/16 12/05/16 12/06/16 23:59 23:59 23:59 Intake Total 970 4125 2050 Output Total 680 3680 2800 Balance 290 445 -750 Physical Exam - Physical Exam General Appearance: alert, no apparent distress EENT: other (ptosis L eye) Respiratory: lungs clear Cardiac/Chest: regular rate, rhythm Abdomen: non-tender Skin: normal color, warm/dry Neuro/Psych: normal mood/affect, oriented x 3 ICD10 Worksheet Patient Problems: Problems Problem Status Onset Brain lesion Acute Perforated duodenal ulcer Acute
[2016-12-06] MEDS: LEUCOVORIN CALCIUM IV SCH ×2 (15:56→21:57)
[2016-12-06] MEDS: NS IV SCH ×2 (15:56→21:57)
[2016-12-06] MEDS ORDERED: MAGNESIUM HYDROXIDE 30 ML UDCUP PO ONE (20:00)
[2016-12-07] MEDS: LEUCOVORIN CALCIUM IV SCH ×4 (04:26→22:04)
[2016-12-07] MEDS: NS IV SCH ×4 (04:26→22:04)
[2016-12-07 04:49] LABS: HEMATOCRIT 30.6 % (40.0-51.0); HEMOGLOBIN 9.8 g/dL (13.7-17.5); MEAN CELL HEMOGLOBIN 30.5 pg (27.9-34.1); MEAN CELL VOLUME 95.3 fL (81.5-99.8); RED BLOOD CELL COUNT 3.21 10^6/uL (4.40-6.38); RED CELL DISTRIBUTION WIDTH 15.8 % (11.5-15.2)
[2016-12-07 05:05] LABS: ANION GAP 7 mEq/L (8-16); CALCIUM 8.3 mg/dL (8.5-10.4); CARBON DIOXIDE 34 mEq/l (22-31); CHLORIDE 101 mEq/L (97-110); CREATININE 0.5 mg/dL (0.7-1.3); GLOMERULAR FILTRATION RATE > 60; GLUCOSE 160 mg/dL (70-100); POTASSIUM 3.4 mEq/L (3.5-5.2); SODIUM 142 mEq/L (134-144)
[2016-12-07] MEDS: SODIUM BICARBONATE 150 MEQ in D5W 1,000 ML IV SCH ×2 (05:06→21:00)
[2016-12-07] MEDS: ERYTHROMYCIN 0.5% 1 GM OPHT.OINT LEFTEYE SCH ×5 (05:06→22:04)
[2016-12-07] MEDS: SODIUM BICARBONATE 650 MG TAB PO SCH ×4 (05:06→22:06)
[2016-12-07] MEDS ORDERED: POTASSIUM CL 20 MEQ TAB PO ONE ×2 (09:12→16:00)
[2016-12-07] MEDS: ATORVASTATIN CALCIUM 10 MG TAB PO SCH (09:30)
[2016-12-07] MEDS: metFORMIN HCL 500 MG TAB PO SCH ×2 (09:30→17:58)
[2016-12-07] MEDS: ENOXAPARIN 40 MG/0.4 ML SYR SC SCH (12:26)
[2016-12-07] MEDS ORDERED: MAGNESIUM HYDROXIDE 30 ML UDCUP PO PRN (14:29)
--- NOTE | 2016-12-07 14:29 | HOSPPROG ---
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 Did have moderate bleeding from PICC site 2 days ago, none since. #Hypokalemia: repleted #h/o PE: recommend 6 months treatment. Again he is refusing Xarelto, despite several providers recommendations. He acknowledges risks of not taking; will take off his MAR. #h/o GIB: due to steroids/NSAIDs: s/p surgical repair of duodenal ulcer #Controlled DM: metformin #DVT ppx: ambulating #Disp: cont serial labs Subjective: no bleeding from PICC Objective: Vital Signs Temp Pulse Resp BP Pulse Ox 36.7 C 93 18 122/77 H 90 L 12/07/16 08:57 12/07/16 08:57 12/07/16 08:57 12/07/16 08:57 12/07/16 08:57 Laboratory Results 12/07/16 04:35 12/07/16 04:35 12/06/16 12/07/16 12/08/16 05:59 05:59 05:59 Intake Total 3650 3332 300 Output Total 4900 4100 1125 Balance -1250 -768 -825 - Physical Exam Constitutional: no apparent distress Eyes: PERRL, other (left eyelid lag) Ears, Nose, Mouth, Throat: moist mucous membranes Cardiovascular: regular rate and rhythym Respiratory: no respiratory distress Gastrointestinal: normoactive bowel sounds, other (surgical scar healed) Genitourinary: no bladder fullness Skin: warm Musculoskeletal: other (RUE PICC without bleeding) Neurologic: AAOx3 Psychiatric: interacting appropriately ICD10 Worksheet Patient Problems: Problems Problem Status Onset Brain lesion Acute Perforated duodenal ulcer Acute
--- NOTE | 2016-12-07 14:55 | SOAPPROG ---
SOHAI Progress Note Assessment/Plan: Assessment: 1. 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 MTX level 1.7 on 12/06/2016. Continues alkalinization and leucovorin. Tolerating chemo fairly well. 2. Hx PE post op. He has had recurrent epistaxis and bleeding from puncture sites. He refuses Xarelto/anticoag at this time. Plan: - Continue hydration/alkalization/leucovorin. Leucovorin to continue until MTX is <0.05 micromolar. Level for today is being drawn now. - Observe off anticoagulation - He is requesting a family conference with Dr. Atkinson tomorrow. I sent Dr. Atkinson a message. Subjective: No complaints. Walking in sue. Objective: Vital Signs Temp Pulse Resp BP Pulse Ox 36.7 C 93 18 122/77 H 90 L 12/07/16 08:57 12/07/16 08:57 12/07/16 08:57 12/07/16 08:57 12/07/16 08:57 Laboratory Results 12/07/16 04:35 12/07/16 04:35 12/05/16 12/06/16 12/07/16 23:59 23:59 23:59 Intake Total 4125 3332 2350 Output Total 3680 6840 3824 Balance 561 -2297 -042 Physical Exam - Physical Exam General Appearance: alert, no apparent distress Respiratory: lungs clear (Had a few rales that cleared with deep breaths.) Cardiac/Chest: regular rate, rhythm Abdomen: normal bowel sounds Skin: warm/dry, pallor Extremities: other (no bleeding from PICC site today) Neuro/Psych: oriented x 3, other (ptosis L eye) ICD10 Worksheet Patient Problems: Problems Problem Status Onset Brain lesion Acute Perforated duodenal ulcer Acute
[2016-12-08] MEDS: NS IV SCH ×4 (04:08→22:12)
[2016-12-08] MEDS: LEUCOVORIN CALCIUM IV SCH ×4 (04:08→22:12)
[2016-12-08] MEDS: ERYTHROMYCIN 0.5% 1 GM OPHT.OINT LEFTEYE SCH ×5 (04:08→22:13)
[2016-12-08 05:07] LABS: HEMATOCRIT 30.8 % (40.0-51.0); HEMOGLOBIN 9.8 g/dL (13.7-17.5); MEAN CELL HEMOGLOBIN 29.9 pg (27.9-34.1); MEAN CELL HEMOGLOBIN CONCENTR. 31.8 g/dL (32.4-36.7); MEAN CELL VOLUME 93.9 fL (81.5-99.8); RED BLOOD CELL COUNT 3.28 10^6/uL (4.40-6.38); RED CELL DISTRIBUTION WIDTH 15.8 % (11.5-15.2)
[2016-12-08 05:22] LABS: ANION GAP 7 mEq/L (8-16); CALCIUM 8.8 mg/dL (8.5-10.4); CARBON DIOXIDE 32 mEq/l (22-31); CHLORIDE 101 mEq/L (97-110); CREATININE 0.5 mg/dL (0.7-1.3); GLOMERULAR FILTRATION RATE > 60; GLUCOSE 147 mg/dL (70-100); POTASSIUM 3.6 mEq/L (3.5-5.2); SODIUM 140 mEq/L (134-144)
[2016-12-08] MEDS: ATORVASTATIN CALCIUM 10 MG TAB PO SCH (09:43)
[2016-12-08] MEDS: SODIUM BICARBONATE 650 MG TAB PO SCH ×4 (09:43→22:12)
[2016-12-08] MEDS: ENOXAPARIN 40 MG/0.4 ML SYR SC SCH (09:43)
[2016-12-08] MEDS: SODIUM BICARBONATE 150 MEQ in D5W 1,000 ML IV SCH ×2 (09:43→18:26)
[2016-12-08] MEDS: metFORMIN HCL 500 MG TAB PO SCH ×2 (09:43→18:25)
[2016-12-08 11:39] LABS: % SATURATION 42 % (20-55); TOTAL IRON BINDING CAPACITY 279 ug/dL (260-490)
--- NOTE | 2016-12-08 12:01 | SOAPPROG ---
SOAP Progress Note Assessment/Plan: Assessment: 1. 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 responding well to R-MVP chemo. Currently on cycle 4 of 5. 2. History of PE. Xarelto held due to pt concerns re: bleeding from PICC site. 3. s/p perf duodenal ulcer. Plan: - continue leucovorin until MTX<0.05. 72h level will be drawn tonight. - pt willing to take xarelto 10 mg, which is better than nothing (he should ideally be on xarelto until mid-February = 6 months) - we discussed the next steps in his care. The only chance at cure for this disease would be a consolidative transplant. He met w/ Dr. Falk at about this but is not sure if he wishes to proceed given the potential toxicity. There are no well-established consolidation regimens outside of a high intensity approach, and I would probably favor observing him off all therapy after the completion of 5 cycles if his MRI looks good. I explained the disease would be very likely to recur at some point if we do not do the transplant. 45 min spent w/ pt and son discussing the above. 12/08/16 11:55 Subjective: feels OK today. no nausea. Objective: exam unchanged. persistent L facial droop and L sided weakness. Vital Signs Temp Pulse Resp BP Pulse Ox 36.8 C 97 17 120/73 93 12/08/16 09:23 12/08/16 09:23 12/08/16 09:23 12/08/16 09:23 12/08/16 09:23 Laboratory Results 12/08/16 04:50 12/08/16 04:50 12/07/16 12/08/16 12/09/16 05:59 05:59 05:59 Intake Total 7400 5401 Output Total 5925 4297 6435 Balance -768 174 -1920 ICD10 Worksheet Patient Problems: Problems Problem Status Onset Brain lesion Acute Perforated duodenal ulcer Acute
--- NOTE | 2016-12-08 15:01 | HOSPPROG ---
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 Regular PPx. SCDs, ambulating, does not want pharm Code. Full Dispo. ADD 12/09, pending MTX level < 0.05 Subjective: Reports good urine output, moving bowel Objective: Vital Signs Temp Pulse Resp BP Pulse Ox 36.8 C 97 17 120/73 93 12/08/16 09:23 12/08/16 09:23 12/08/16 09:23 12/08/16 09:23 12/08/16 09:23 Laboratory Results 12/08/16 04:50 12/08/16 04:50 12/07/16 12/08/16 12/09/16 05:59 05:59 05:59 Intake Total 3332 5409 Output Total 4100 4775 2600 Balance -768 634 -2600 - Physical Exam Constitutional: no apparent distress, appears nourished, not in pain Cardiovascular: regular rate and rhythym, no murmur, rub, or gallop Respiratory: no respiratory distress, no rales or rhonchi, clear to auscultation Gastrointestinal: normoactive bowel sounds, soft, non-tender abdomen, no palpable masses Neurologic: AAOx3, facial droop (Left facial) Psychiatric: interacting appropriately, not anxious, not encephalopathic, thought process linear ICD10 Worksheet Patient Problems: Problems Problem Status Onset Brain lesion Acute Perforated duodenal ulcer Acute
[2016-12-09] MEDS ORDERED: LEUCOVORIN 25 MG PO SCH
[2016-12-09] MEDS ORDERED: SODIUM BICARBONATE 650 MG TAB PO SCH
[2016-12-09] MEDS: SODIUM BICARBONATE 150 MEQ in D5W 1,000 ML IV SCH ×2 (02:00→09:50)
[2016-12-09] MEDS: NS IV SCH ×2 (04:50→09:53)
[2016-12-09] MEDS: LEUCOVORIN CALCIUM IV SCH ×2 (04:50→09:53)
[2016-12-09] MEDS: SODIUM BICARBONATE 650 MG TAB PO SCH ×2 (06:19→12:33)
[2016-12-09 06:38] LABS: HEMATOCRIT 30.5 % (40.0-51.0); HEMOGLOBIN 9.9 g/dL (13.7-17.5); MEAN CELL HEMOGLOBIN 30.5 pg (27.9-34.1); MEAN CELL HEMOGLOBIN CONCENTR. 32.5 g/dL (32.4-36.7); MEAN CELL VOLUME 93.8 fL (81.5-99.8); RED BLOOD CELL COUNT 3.25 10^6/uL (4.40-6.38); RED CELL DISTRIBUTION WIDTH 15.7 % (11.5-15.2)
[2016-12-09] MEDS: ERYTHROMYCIN 0.5% 1 GM OPHT.OINT LEFTEYE SCH ×2 (06:43→10:01)
[2016-12-09 06:48] LABS: ANION GAP 10 mEq/L (8-16); CALCIUM 8.9 mg/dL (8.5-10.4); CARBON DIOXIDE 29 mEq/l (22-31); CHLORIDE 101 mEq/L (97-110); CREATININE 0.5 mg/dL (0.7-1.3); GLOMERULAR FILTRATION RATE > 60; GLUCOSE 122 mg/dL (70-100); POTASSIUM 3.4 mEq/L (3.5-5.2); SODIUM 140 mEq/L (134-144)
[2016-12-09 08:33] VITALS: BP 121/86; PULSE 106; RESP 16; TEMP 97.8; O2SAT 92
[2016-12-09] MEDS: ENOXAPARIN 40 MG/0.4 ML SYR SC SCH (09:58)
[2016-12-09] MEDS: ATORVASTATIN CALCIUM 10 MG TAB PO SCH (10:00)
[2016-12-09] MEDS: metFORMIN HCL 500 MG TAB PO SCH (10:00)
--- NOTE | 2016-12-09 11:39 | SOAPPROG ---
[facility]ARE[facility] Progress Note Assessment/Plan: Assessment: 1. 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 responding well to R-MVP chemo. Currently on cycle 4 of 5. 2. History of PE. Xarelto held due to pt concerns re: bleeding from PICC site. 3. s/p perf duodenal ulcer. 4. Possible iron deficiency (ferritin 112) MTX 0.06 (72h level) Plan: - ok for discharge from my perspective - should go home with 2 day supply of leucovorin 25 mg PO q6h ( = 8 doses) and sodium bicarbonate 650 mg PO q6h - has f/u arranged in clinic on 12/11 - will repeat MTX level then - plan for 1 more cycle of R-MVP, then possible autoSCT (though pt is reluctant) - consider IV iron on next admission to help with anemia Subjective: feels well. ready to go home. Objective: exam unchanged Vital Signs Temp Pulse Resp BP Pulse Ox 36.6 C 106 H 16 121/86 H 92 12/09/16 08:31 12/09/16 08:31 12/09/16 08:31 12/09/16 08:31 12/09/16 08:31 Laboratory Results 12/09/16 06:20 12/09/16 06:20 12/08/16 12/09/16 12/10/16 05:59 05:59 05:59 Intake Total 5408 3283 200 Output Total 7312 6631 900 Balance 504 -4200 -700 ICD10 Worksheet Patient Problems: Problems Problem Status Onset Brain lesion Acute Perforated duodenal ulcer Acute
--- NOTE | 2016-12-09 12:29 | PDDCSUM ---
Discharge Summary Discharge Summary: DISCHARGE SUMMARY FOLLOW-UP ITEMS: Follow up outpatient labs primary oncology office DATE OF ADMISSION: 12/04/2016 DATE OF DISCHARGE: 12/09/2016 DISCHARGE DIAGNOSES: 1. 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 Hypokalemia 3. History of pulmonary embolism CONSULTATIONS: Oncology PROCEDURES / IMAGING: None CHIEF COMPLAINT: Inpatient chemotherapy SUBJECTIVE: Patient is feeling well at time of discharge, he is looking forward therapy PHYSICAL EXAM ON DISCHARGE: Systolic blood pressure is 120, heart rate 90, afebrile overnight, satting well on room air, left facial palsy, left eye sewn shut LABS ON DISCHARGE: Methotrexate level 0.06, creatinine 0.5, white blood count 3000, hemoglobin 9.9 HOSPITAL COURSE BY PROBLEM: 1. 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 Patient was admitted for inpatient chemotherapy with Rituxan on 12/04, followed by high-dose methotrexate and rescue leucovorin with sodium bicarbonate. Patient's methotrexate level was 0.06 at time of discharge, and he received sodium bicarb and leucovorin orally times a doses at discharge. To follow up with his primary oncologist hereafter. Patient will also have home speech therapy and physical therapy ordered. 2. Hypokalemia. This was repleted during hospitalization 3. History of pulmonary embolism. Initially he had been recommended the patient received 6 months of treatment but he has been refusing the appropriate dosage of Xarelto. At the time of discharge, the patient has agreed to take Xarelto 10 mg daily and this has been ordered for him. DISCHARGE MEDICATIONS: Please see official discharge medication reconciliation sheet in chart , leucovorin and sodium bicarbonate a doses provided at discharge, Xarelto 10 mg daily. DISCHARGE INSTRUCTIONS: Please follow up with primary oncologist
--- NOTE | 2016-12-09 12:30 | PDIAF ---
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 lymphoma Code Status: Full Code - Medication Management Discharge Medications: Medications to Continue on Transfer Atorvastatin Calcium [Lipitor 10 mg (*)] 10 mg PO DAILY #30 tab 09/26/16 [Last Taken 12/04/16] Erythromycin 0.5% 1 lorraine LEFTEYE 5XD 10/23/16 [Last Taken 12/04/16] Filgrastim [Neupogen] 480 mcg IJ AD 10/23/16 [Last Taken Unknown] metFORMIN HCL [Glucophage 500 mg (*)] 500 mg PO BIDMEAL 10/23/16 [Last Taken ] Herbals/Supplements -Info Only 1 ea PO DAILY 12/04/16 [Last Taken 12/04/16] Rivaroxaban [Xarelto 10mg (*)] 10 mg PO DAILY #30 tab 12/09/16 [Last Taken Unknown] Sodium Bicarbonate [Na Bicarb] 650 mg PO QID tab 12/09/16 [Last Taken Unknown] Toe Stripper Antibiotics: NA Discharge Medications: Refer to the Discharge Home Medication list for PRN reason. PICC Care - Routine: N/A - Orders Services needed: Home Care, Physical Therapy, Speech Language Pathologist Home Care Face to Face: I certify that this patient was under my care and that I had the required [id number] encounter meeting the encounter requirements on the discharge day. My findings support the fact that the patient is homebound as defined in CMS Chapter 7 Medicare Benefits Manual 30.1.1, The condition of the patient is such that there exists a normal inability to leave home and consequently, leaving home would require a considerable and taxing effort. Diet Texture: Regular Texture Diet, Thin Liquids Gamino: Not applicable - Follow Up Care Current Providers and Referrals: MANDO ESPANA [Primary Care Provider] -
== END 2016-12-09 13:15 | disposition home health service (06) | DRG 847 ==
LOC: RMCCLAB 05:51 → EDSTATUS 12:22 → OBSVTOIN 12:24 → F1N 12:24
PROVIDERS: ADMIT Internal Medicine Hematology & Oncology; ATTEND Internal Medicine
PROC: 02HV33Z Insertion of Infusion Device into Superior Vena Cava, Percutaneous Approach (ICD-10-PCS; principal; 2016-12-04)
PROC: 3E0330M Introduction of Antineoplastic, Monoclonal Antibody, into Peripheral Vein, Percutaneous Approach (ICD-10-PCS; 2016-12-04)
DX: Z51.11 Encounter for antineoplastic chemotherapy (principal); C83.39 Diffuse large B-cell lymphoma, extranodal and solid organ sites; E87.6 Hypokalemia; Z86.718 Personal history of other venous thrombosis and embolism; E11.9 Type 2 diabetes mellitus without complications; D63.1 Anemia in chronic kidney disease; D64.81 Anemia due to antineoplastic chemotherapy; Z79.84 Long term (current) use of oral hypoglycemic drugs
CPT/HCPCS: 83520-90; 92610-GN; C1751; J0640; J1200; J1650; J2405; J2997; J9260; J9310; J9370

== ENCOUNTER 2016-12-18 11:41 | Inpatient (IN) | payer OTHER ==
[2016-12-18] MEDS ORDERED: ALTEPLASE 2 MG VIAL IVP PRN (12:40)
[2016-12-18] MEDS ORDERED: ACETAMINOPHEN 325 MG TAB PO PRN (15:50)
[2016-12-18] MEDS ORDERED: ONDANSETRON 4 MG/2 ML VIAL IVP PRN (15:50)
[2016-12-18] MEDS ORDERED: ZOLPIDEM TARTRATE 5 MG TAB PO PRN (15:50)
[2016-12-18] MEDS ORDERED: ONDANSETRON DISINTEGRATING 4 MG TAB PO PRN (15:50)
--- NOTE | 2016-12-18 15:57 | PDGENHP ---
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 Since his last chemotherapy round he has done reasonably well at home. There are no episodes of nausea or vomiting, no oral or other mucosal sores, no abdominal pain, no fevers, no respiratory symptoms, no joint or muscle aches and no other acute symptoms. He denies any fever symptoms and is bowel and bladder are working well. He has his usual left facial paralysis. At the moment he is waiting for his PICC catheter placement. His preference is to have his PICC catheter removed after each chemotherapy session as he did have some oozing of blood at 1 point while on anticoagulant earlier. His initial presenting symptoms of lymphoma were left facial paralysis and gait apraxia. Since his last visit here he has noticed no changes in these specific abnormalities ROS: A comprehensive 10 system review revealed no other significant findings PAST MEDICAL HISTORY: FIBERGLASS FABRICATOR lymphoma Diabetes mellitus Perforated duodenal ulcer requiring antrectomy and gastrojejunostomy with stump closure, in the setting of use of steroid and NSAID. 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 I have reviewed the list and ordered appropriate medicines. PHYSICAL EXAMINATION: Vital Signs: Stable without fever Examination: General: alert, oriented, good mentation Skin: warm, dry, good color, no rash Neurologic: normal speech/language, he has significant left-sided facial droop which is at his baseline, no other focal weakness HEENT: normal otherwise Neck: no mass or jvd Resps: relaxed Lungs: clear breath sounds Heart: regular, no murmur Abdomen: soft, nondistended, nontender, +BS, no mass Lower Extremities: no edema, warm No Bleeding or bruising IV site: looks normal LABORATORY DATA: I have ordered chemistries and CBC which are all pending at this time RADIOLOGY STUDIES: No radiologic studies today, he had an MRI on November 20 which showed shrinking of his intracranial mass ASSESSMENT: -FIBERGLASS FABRICATOR LYMPHOMA, COMES IN FOR AROUND 5 OF CHEMOTHERAPY WITH METHOTREXATE RITUXAN VINCRISTINE AND PROCARBAZINE. -per protocol will have him aggressively hydrated with alkalinized fluid, and he will receive leucovorin and will follow uric acid levels and chemistries closely. 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 -continue erythromycin here I have reviewed the patient's case in detail with Dr. Sagastume of oncology I have reviewed the patient's past medical records as part of this assessment, including prior hospital records from his chemotherapy sessions.
[2016-12-18] MEDS ORDERED: ACETAMINOPHEN 325 MG TAB PO ONE (16:00)
[2016-12-18] MEDS ORDERED: NS IV ONE (16:30)
[2016-12-18] MEDS ORDERED: RITUXIMAB IV ONE (16:30)
[2016-12-18] MEDS: metFORMIN HCL 500 MG TAB PO SCH (17:07)
[2016-12-18] MEDS: SODIUM BICARBONATE 650 MG TAB PO SCH ×2 (17:07→23:00)
[2016-12-18] MEDS: ERYTHROMYCIN 0.5% 1 GM OPHT.OINT LEFTEYE SCH ×2 (17:08→21:37)
[2016-12-18] MEDS: [UNRECOGNIZED DRUG - OTHER] PO SCH (17:08)
[2016-12-18 17:18] LABS: ADD DIFF? YES; ADD MORPH? NO; ADD SCAN? YES; ATYPICAL LYMPHOCYTE FLAG 20 (0-99); FRAGMENT RBC FLAG 30 (0-99); HEMATOCRIT 34.9 % (40.0-51.0); HEMOGLOBIN 11.2 g/dL (13.7-17.5); LIPEMIA HEMOLYSIS FLAG 80 (0-99); MEAN CELL HEMOGLOBIN 29.6 pg (27.9-34.1); MEAN CELL HEMOGLOBIN CONCENTR. 32.1 g/dL (32.4-36.7); MEAN CELL VOLUME 92.3 fL (81.5-99.8); MEAN PLATELET VOLUME 9.5 fL (8.7-11.7); PLATELET CLUMPS FLAG 20 (0-99); PLATELET COUNT 288 10^3/uL (150-400); RED BLOOD CELL COUNT 3.78 10^6/uL (4.40-6.38); RED CELL DISTRIBUTION WIDTH 16.3 % (11.5-15.2)
[2016-12-18 17:19] LABS: LEFT SHIFT FLG 120 (0-99)
[2016-12-18 17:37] LABS: ALANINE AMINOTRANSFERASE 41 IU/L (21-72); ALBUMIN 3.7 g/dL (3.5-5.0); ALKALINE PHOSPHATASE 140 IU/L (38-126); ANION GAP 8 mEq/L (8-16); ASPARTATE AMINOTRANSFERASE 29 IU/L (17-59); BILIRUBIN,TOTAL 0.6 mg/dL (0.1-1.4); CALCIUM 9.3 mg/dL (8.5-10.4); CARBON DIOXIDE 27 mEq/l (22-31); CHLORIDE 102 mEq/L (97-110); CREATININE 0.6 mg/dL (0.7-1.3); GLOMERULAR FILTRATION RATE > 60; GLUCOSE 94 mg/dL (70-100); POTASSIUM 4.1 mEq/L (3.5-5.2); SODIUM 137 mEq/L (134-144); TOTAL PROTEIN 6.4 g/dL (6.3-8.2)
[2016-12-18 17:54] LABS: PLATELET ESTIMATE ADEQUATE (ADEQ)
--- NOTE | 2016-12-18 18:21 | GCON ---
[f rep st] CONSULTATION Oncology Initial Visit. 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 HISTORY OF PRESENT ILLNESS: The patient is a 61-year-old gentleman diagnosed with primary SPLIT LEATHER DEPARTMENT SUPERVISOR lymph linus, July or August 2016. He is being admitted today for his 5th cycle of chemotherapy includ ing rituximab, methotrexate, prochlorperazine and vincristine. He states that the last chemotherapy went well without any significant problems. He still has the left facial paralysis and some gait i nstability with left-sided lower extremity weakness. His left eyelid is still partially stitched sh ut, although he can move the eyeball and he can see through the slit somewhat. He has recovered fro m the last chemotherapy and has no acute complaints today. PAST MEDICAL HISTORY: He has no known drug allergies. Home medications include Xarelto, Protonix, metformin, filgrastim, erythromycin ointment, and Lipitor. Chronic illnesses include the primary CN S lymphoma, diabetes, elevated cholesterol. He had a perforated duodenal ulcer at the time of diagn osis postop and he also developed a pulmonary embolism postop. FAMILY HISTORY: Noncontributory. SOCIAL HISTORY: He is nonsmoker and nondrinker. He lives with his son. REVIEW OF SYSTEMS: A 10-point Review of Systems performed. Pertinent positives in HPI. Otherwise negative. PHYSICAL EXAM: VITAL SIGNS: He is afebrile. Vital signs are stable. GENERAL: He is a well-appea ring man in no distress. HEENT: He has a left facial droop and his left eye has been 2/3 stitched shut. Oropharynx is unremarkable. LUNGS: Clear. CARDIAC: Regular without murmur or edema. ABDO MEN: Soft, nontender. NEUROLOGIC: He is alert and oriented, has left facial droop and unsteady ga it and uses a walker. LABS: White count is 8900, hemoglobin 12 g/dL, platelet count 281,000. Chemistries and LFTs remark able for an alk phos of 148, which is stable for him. LDH is 712, which is about the same for him. IMPRESSION: 1. Primary central nervous system lymphoma. 2. Right facial droop. 3. Previous pulmonary embolism. PLAN: To admit him to the hospital and receive rituximab, and his urine will be alkalized and start ed on high-dose methotrexate with leucovorin rescue. He will also then receive vincristine and proc hlorperazine. Methotrexate levels will be checked as protocol starting 24 hours after infusion and goal levels are to be less than 0.05 before discharge. While in the hospital, we will also get an M RI during this admission. Finally, he will continue on Xarelto. /[id number]/MODL
[2016-12-18] MEDS: SODIUM BICARBONATE 150 MEQ in D5W 1,000 ML IV SCH (21:37)
[2016-12-18 22:32] LABS: SCAN POSITIVE
[2016-12-19] MEDS: SODIUM BICARBONATE 150 MEQ in D5W 1,000 ML IV SCH ×4 (05:11→22:03)
[2016-12-19] MEDS: ERYTHROMYCIN 0.5% 1 GM OPHT.OINT LEFTEYE SCH ×5 (05:11→22:03)
[2016-12-19] MEDS: SODIUM BICARBONATE 650 MG TAB PO SCH ×4 (05:11→22:03)
[2016-12-19 05:19] LABS: ADD DIFF? YES; ADD MORPH? NO; ADD SCAN? NO; ATYPICAL LYMPHOCYTE FLAG 10 (0-99); FRAGMENT RBC FLAG 0 (0-99); HEMATOCRIT 34.1 % (40.0-51.0); LEFT SHIFT FLG 90 (0-99); LIPEMIA HEMOLYSIS FLAG 80 (0-99); MEAN CELL HEMOGLOBIN 30.1 pg (27.9-34.1); MEAN CELL HEMOGLOBIN CONCENTR. 32.3 g/dL (32.4-36.7); MEAN CELL VOLUME 93.2 fL (81.5-99.8); MEAN PLATELET VOLUME 9.2 fL (8.7-11.7); PLATELET CLUMPS FLAG 0 (0-99); PLATELET COUNT 246 10^3/uL (150-400); RED BLOOD CELL COUNT 3.66 10^6/uL (4.40-6.38); RED CELL DISTRIBUTION WIDTH 16.2 % (11.5-15.2)
[2016-12-19 05:32] LABS: ALANINE AMINOTRANSFERASE 39 IU/L (21-72); ALBUMIN 3.5 g/dL (3.5-5.0); ALKALINE PHOSPHATASE 113 IU/L (38-126); ANION GAP 10 mEq/L (8-16); ASPARTATE AMINOTRANSFERASE 24 IU/L (17-59); BILIRUBIN,TOTAL 0.4 mg/dL (0.1-1.4); CALCIUM 8.8 mg/dL (8.5-10.4); CARBON DIOXIDE 30 mEq/l (22-31); CHLORIDE 102 mEq/L (97-110); CREATININE 0.5 mg/dL (0.7-1.3); GLOMERULAR FILTRATION RATE > 60; GLUCOSE 139 mg/dL (70-100); POTASSIUM 3.7 mEq/L (3.5-5.2); SODIUM 142 mEq/L (134-144); URIC ACID 6.2 mg/dL (3.5-8.5)
[2016-12-19 06:03] LABS: PLATELET ESTIMATE ADEQUATE (ADEQ)
[2016-12-19] MEDS ORDERED: ONDANSETRON HCL PF 8 MG, DEXAMETHASONE 10 MG in NS 50 ML IV ONE (08:30)
[2016-12-19] MEDS ORDERED: NS IV ONE (09:00)
[2016-12-19] MEDS ORDERED: METHOTREXATE SODIUM IV ONE (09:00)
[2016-12-19] MEDS: metFORMIN HCL 500 MG TAB PO SCH ×2 (10:20→18:30)
[2016-12-19] MEDS: ATORVASTATIN CALCIUM 10 MG TAB PO SCH (10:20)
[2016-12-19] MEDS: RIVAROXABAN 10 MG TAB PO SCH (10:20)
[2016-12-19] MEDS: [UNRECOGNIZED DRUG - OTHER] PO SCH (10:21)
[2016-12-19] MEDS ORDERED: vinCRIStine 2 MG in NS 59 ML IV ONE (11:15)
--- NOTE | 2016-12-19 11:33 | HOSPPROG ---
Hospitalist Progress Note Assessment/Plan: DIAGNOSES: -CITY JAILER LYMPHOMA, COMES IN FOR AROUND 5 OF CHEMOTHERAPY WITH METHOTREXATE RITUXAN VINCRISTINE AND PROCARBAZINE. -per protocol will have him aggressively hydrated with alkalinized fluid, and he will receive leucovorin and will follow uric acid levels and chemistries closely. 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 -continue erythromycin here PLANS: -continue with scheduled planned chemotherapy -Continue hydration -monitor electrolytes, uric acid and cell counts closely -monitor for any mucosal or other toxicities -continue anticoagulant SUBJECTIVE: Feels okay, no mucosal febrile respiratory or other symptoms OBJECTIVE Vitals reviewed: Stable without fever Exam: alert oriented skin warm dry color ok resps not labored lungs clear BSs heart regular abd soft nondistended nontender, bowel sounds present limbs warm, no edema PICC site ok Objective: Vital Signs Temp Pulse Resp BP Pulse Ox 36.5 C 101 H 18 91/67 L 90 L 12/19/16 08:55 12/19/16 08:55 12/19/16 08:55 12/19/16 08:55 12/19/16 08:55 Laboratory Results 12/19/16 05:07 12/19/16 05:07 12/18/16 12/19/16 12/20/16 06:59 06:59 06:59 Intake Total 2400 Output Total 1300 1800 Balance 1100 -1800 ICD10 Worksheet Patient Problems: Problems Problem Status Onset Brain lesion Acute Perforated duodenal ulcer Acute
--- NOTE | 2016-12-19 14:50 | SOAPPROG ---
SOAP Progress Note Assessment/Plan: E&M for Primary HEDGE FUND PRINCIPAL Lymphoma * Primary HEDGE FUND PRINCIPAL Lymphoma: cycle 5 of rituximab, methotrexate, and vincristine given. Awaiting clearance of MTX probably by Thu or Thu. MRI scheduled for Thursday. Labs are stable. No problems thus far. Subjective: Just finished chemotherapy and doing well without acute complaints. Objective: Vital Signs Temp Pulse Resp BP Pulse Ox 36.5 C 101 H 18 91/67 L 90 L 12/19/16 08:55 12/19/16 08:55 12/19/16 08:55 12/19/16 08:55 12/19/16 08:55 Laboratory Results 12/19/16 05:07 12/19/16 05:07 12/18/16 12/19/16 12/20/16 05:59 05:59 05:59 Intake Total 2400 Output Total 1300 1800 Balance 1100 -1800 Physical Exam - Physical Exam General Appearance: no apparent distress EENT: pharynx normal Respiratory: lungs clear Cardiac/Chest: regular rate, rhythm Abdomen: non-tender, soft Neuro/Psych: facial droop, motor weakness ICD10 Worksheet Patient Problems: Problems Problem Status Onset Brain lesion Acute Perforated duodenal ulcer Acute
[2016-12-20] MEDS: SODIUM BICARBONATE 650 MG TAB PO SCH ×3 (04:42→17:58)
[2016-12-20] MEDS: SODIUM BICARBONATE 150 MEQ in D5W 1,000 ML IV SCH ×3 (04:42→23:34)
[2016-12-20] MEDS: ERYTHROMYCIN 0.5% 1 GM OPHT.OINT LEFTEYE SCH ×5 (04:43→21:10)
[2016-12-20 05:02] LABS: % IMMATURE GRANULYOCYTES 2.4 % (0.0-1.1); ABSOLUTE IMMATURE GRANULOCYTES 0.22 10^3/uL (0.00-0.10); ADD DIFF? NO; ADD MORPH? NO; ADD SCAN? NO; ATYPICAL LYMPHOCYTE FLAG 0 (0-99); FRAGMENT RBC FLAG 0 (0-99); HEMATOCRIT 30.7 % (40.0-51.0); HEMOGLOBIN 9.9 g/dL (13.7-17.5); LEFT SHIFT FLG 20 (0-99); LIPEMIA HEMOLYSIS FLAG 80 (0-99); MEAN CELL HEMOGLOBIN 29.8 pg (27.9-34.1); MEAN CELL HEMOGLOBIN CONCENTR. 32.2 g/dL (32.4-36.7); MEAN CELL VOLUME 92.5 fL (81.5-99.8); MEAN PLATELET VOLUME 9.8 fL (8.7-11.7); PLATELET CLUMPS FLAG 0 (0-99); PLATELET COUNT 228 10^3/uL (150-400); RED BLOOD CELL COUNT 3.32 10^6/uL (4.40-6.38); RED CELL DISTRIBUTION WIDTH 15.8 % (11.5-15.2)
[2016-12-20 05:14] LABS: ALANINE AMINOTRANSFERASE 39 IU/L (21-72); ALBUMIN 3.4 g/dL (3.5-5.0); ALKALINE PHOSPHATASE 112 IU/L (38-126); ANION GAP 7 mEq/L (8-16); ASPARTATE AMINOTRANSFERASE 23 IU/L (17-59); BILIRUBIN,TOTAL 0.6 mg/dL (0.1-1.4); CALCIUM 8.4 mg/dL (8.5-10.4); CARBON DIOXIDE 34 mEq/l (22-31); CHLORIDE 101 mEq/L (97-110); CREATININE 0.6 mg/dL (0.7-1.3); GLOMERULAR FILTRATION RATE > 60; GLUCOSE 153 mg/dL (70-100); POTASSIUM 3.4 mEq/L (3.5-5.2); SODIUM 142 mEq/L (134-144); TOTAL PROTEIN 5.6 g/dL (6.3-8.2); URIC ACID 5.3 mg/dL (3.5-8.5)
--- NOTE | 2016-12-20 09:47 | SOAPPROG ---
SOHAI Progress Note Assessment/Plan: Assessment: 1. 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 Responding to therapy. Here for cycle 5 of rituximab / methotrexate / vincristine / prednisone 2. Diabetes 3. h/o perforated duodenal ulcer 4. h/o pulmonary embolism Plan: - 24h MTX level to be checked today at 1pm - start leucovorin rescue - MRI to be done tomorrow. If he has a complete response, next step would be autologous stem cell transplant - continue low dose Xarelto for PE 12/20/16 09:46 Subjective: feels well. Objective: exam: NAD L facial paralysis unchanged Lungs CTAB CV RRR no MGR Abd: +BS NT ND Ext: no edema Vital Signs Temp Pulse Resp BP Pulse Ox 36.6 C 96 16 133/78 H 97 12/20/16 09:07 12/20/16 09:07 12/20/16 09:07 12/20/16 09:07 12/20/16 09:07 Laboratory Results 12/20/16 04:52 12/20/16 04:52 12/19/16 12/20/16 12/21/16 05:59 05:59 05:59 Intake Total 2400 5447 Output Total 1300 6450 Balance 1100 -1003 ICD10 Worksheet Patient Problems: Problems Problem Status Onset Brain lesion Acute Perforated duodenal ulcer Acute
[2016-12-20] MEDS: ATORVASTATIN CALCIUM 10 MG TAB PO SCH (09:54)
[2016-12-20] MEDS: [UNRECOGNIZED DRUG - OTHER] PO SCH (09:55)
[2016-12-20] MEDS: metFORMIN HCL 500 MG TAB PO SCH ×2 (09:55→17:58)
[2016-12-20] MEDS: RIVAROXABAN 10 MG TAB PO SCH (09:55)
[2016-12-20] MEDS: LEUCOVORIN CALCIUM IV SCH ×2 (12:45→18:19)
[2016-12-20] MEDS: NS IV SCH ×2 (12:45→18:19)
[2016-12-20] MEDS: MAGNESIUM HYDROXIDE 30 ML UDCUP PO PRN (13:37)
--- NOTE | 2016-12-20 17:01 | HOSPPROG ---
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 -per protocol will have him aggressively hydrated with alkalinized fluid, and he will receive leucovorin and will follow uric acid levels and chemistries closely. 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 Have not been able to connect w him in his room. Feels okay, no mucosal, febrile, respiratory or other symptoms, no pain. No nausea or diarrhea. OBJECTIVE Vitals reviewed: Stable without fever Exam: alert oriented looks very good walking as far as strength balance and endurance no change in facial weakness skin warm dry color ok resps not labored PICC site ok Objective: Vital Signs Temp Pulse Resp BP Pulse Ox 36.9 C 97 16 121/69 H 94 12/20/16 15:52 12/20/16 15:52 12/20/16 15:52 12/20/16 15:52 12/20/16 15:52 Laboratory Results 12/20/16 04:52 12/20/16 04:52 12/19/16 12/20/16 12/21/16 06:59 06:59 06:59 Intake Total 2400 5496 Output Total 7764 4703 700 Balance 1100 -1003 -700 ICD10 Worksheet Patient Problems: Problems Problem Status Onset Brain lesion Acute Perforated duodenal ulcer Acute
[2016-12-21] MEDS: SODIUM BICARBONATE 650 MG TAB PO SCH ×4 (00:02→18:24)
[2016-12-21] MEDS: NS IV SCH ×4 (00:02→18:24)
[2016-12-21] MEDS: LEUCOVORIN CALCIUM IV SCH ×4 (00:02→18:24)
[2016-12-21] MEDS: ERYTHROMYCIN 0.5% 1 GM OPHT.OINT LEFTEYE SCH ×5 (05:21→21:13)
[2016-12-21 05:35] LABS: % IMMATURE GRANULYOCYTES 0.6 % (0.0-1.1); ABSOLUTE IMMATURE GRANULOCYTES 0.03 10^3/uL (0.00-0.10); ADD DIFF? NO; ADD MORPH? NO; ADD SCAN? NO; ATYPICAL LYMPHOCYTE FLAG 0 (0-99); FRAGMENT RBC FLAG 0 (0-99); HEMATOCRIT 31.3 % (40.0-51.0); HEMOGLOBIN 9.7 g/dL (13.7-17.5); LEFT SHIFT FLG 0 (0-99); LIPEMIA HEMOLYSIS FLAG 80 (0-99); MEAN CELL HEMOGLOBIN 29.4 pg (27.9-34.1); MEAN CELL VOLUME 94.8 fL (81.5-99.8); MEAN PLATELET VOLUME 9.6 fL (8.7-11.7); PLATELET CLUMPS FLAG 10 (0-99); PLATELET COUNT 222 10^3/uL (150-400)
[2016-12-21 05:52] LABS: ALANINE AMINOTRANSFERASE 45 IU/L (21-72); ALBUMIN 3.1 g/dL (3.5-5.0); ALKALINE PHOSPHATASE 91 IU/L (38-126); ANION GAP 7 mEq/L (8-16); ASPARTATE AMINOTRANSFERASE 31 IU/L (17-59); BILIRUBIN,TOTAL 0.5 mg/dL (0.1-1.4); CALCIUM 8.5 mg/dL (8.5-10.4); CARBON DIOXIDE 33 mEq/l (22-31); CHLORIDE 101 mEq/L (97-110); CREATININE 0.5 mg/dL (0.7-1.3); GLOMERULAR FILTRATION RATE > 60; GLUCOSE 123 mg/dL (70-100); POTASSIUM 3.4 mEq/L (3.5-5.2); SODIUM 141 mEq/L (134-144); TOTAL PROTEIN 5.3 g/dL (6.3-8.2); URIC ACID 5.3 mg/dL (3.5-8.5)
[2016-12-21] MEDS: [UNRECOGNIZED DRUG - OTHER] PO SCH (08:56)
[2016-12-21] MEDS: ATORVASTATIN CALCIUM 10 MG TAB PO SCH (08:57)
[2016-12-21] MEDS: RIVAROXABAN 10 MG TAB PO SCH (08:57)
[2016-12-21] MEDS: metFORMIN HCL 500 MG TAB PO SCH ×2 (08:57→18:24)
--- NOTE | 2016-12-21 10:09 | SOAPPROG ---
KAREY Progress Note Assessment/Plan: Assessment: 1. 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 Responding to therapy. Here for cycle 5 of rituximab / methotrexate / vincristine / prednisone 2. Diabetes 3. h/o perforated duodenal ulcer 4. h/o pulmonary embolism MTX at goal for 24h. Plan: - 48h MTX level to be checked today at 1pm - continue leucovorin rescue - MRI to be done today If he has a complete response, next step would be autologous stem cell transplant. He has an appt to see Dr. Falk at [facility] on . - continue low dose Xarelto for PE - pt can d/c when MTX<0.05 - should start neupogen in outpt setting once he has completed 7 days of procarbazine (today is day 4) 12/20/16 09:46 12/21/16 10:08 Subjective: feels well today Objective: exam unchanged Vital Signs Temp Pulse Resp BP Pulse Ox 36.6 C 86 16 127/74 H 89 L 12/21/16 07:20 12/21/16 07:20 12/21/16 07:20 12/21/16 07:20 12/21/16 07:20 Laboratory Results 12/21/16 05:20 12/21/16 05:20 12/20/16 12/21/16 12/22/16 05:59 05:59 05:59 Intake Total 8724 9097 Output Total 5349 3934 1161 [facility] -1003 -1667 -1165 MTX @ 24h : 1.48 ICD10 Worksheet Patient Problems: Problems Problem Status Onset Brain lesion Acute Perforated duodenal ulcer Acute
[2016-12-21] MEDS ORDERED: GADOBUTROL 10 ML VIAL IVP ONE (10:47)
--- NOTE | 2016-12-21 11:51 | HOSPPROG ---
Hospitalist Progress Note Assessment/Plan: DIAGNOSES: -SIZE MARKER LYMPHOMA, COMES IN FOR AROUND 5 OF CHEMOTHERAPY WITH METHOTREXATE RITUXAN VINCRISTINE AND PROCARBAZINE. -per protocol will have him aggressively hydrated with alkalinized fluid, and he will receive leucovorin and will follow uric acid levels and chemistries closely. 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 -continue erythromycin here PLANS: -await MTX level -await MRI result, will review with pt when available -Continue hydration, leucovorin -monitor electrolytes, uric acid and cell counts closely -monitor for any mucosal or other toxicities -continue anticoagulant SUBJECTIVE: Feeling well with no discomfort, nausea, or fever sxs, no other chemo side effects eating well ambulating frequently OBJECTIVE Vitals reviewed: Stable without fever Exam: alert oriented skin warm dry good color, no lesions no change in facial weakness resps not labored lungs clear heart reg PICC site ok Objective: Vital Signs Temp Pulse Resp BP Pulse Ox 36.6 C 86 16 127/74 H 89 L 12/21/16 07:20 12/21/16 07:20 12/21/16 07:20 12/21/16 07:20 12/21/16 07:20 Laboratory Results 12/21/16 05:20 12/21/16 05:20 12/20/16 12/21/16 12/22/16 06:59 06:59 06:59 Intake Total 7277 3682 Output Total 8324 4300 1160 [facility] -1003 -1667 -1165 ICD10 Worksheet Patient Problems: Problems Problem Status Onset Brain lesion Acute Perforated duodenal ulcer Acute
[2016-12-21] MEDS: SODIUM BICARBONATE 150 MEQ in D5W 1,000 ML IV SCH (18:32)
[2016-12-21] MEDS: MAGNESIUM HYDROXIDE 30 ML UDCUP PO PRN (21:12)
[2016-12-22] MEDS: SODIUM BICARBONATE 650 MG TAB PO SCH ×4 (00:24→18:25)
[2016-12-22] MEDS: NS IV SCH ×4 (00:24→18:25)
[2016-12-22] MEDS: LEUCOVORIN CALCIUM IV SCH ×4 (00:24→18:25)
[2016-12-22] MEDS: SODIUM BICARBONATE 150 MEQ in D5W 1,000 ML IV SCH ×2 (02:34→21:32)
[2016-12-22 06:11] LABS: % IMMATURE GRANULYOCYTES 0.6 % (0.0-1.1); ABSOLUTE IMMATURE GRANULOCYTES 0.02 10^3/uL (0.00-0.10); ADD DIFF? NO; ADD MORPH? NO; ADD SCAN? NO; ATYPICAL LYMPHOCYTE FLAG 0 (0-99); FRAGMENT RBC FLAG 0 (0-99); HEMOGLOBIN 9.7 g/dL (13.7-17.5); LEFT SHIFT FLG 0 (0-99); LIPEMIA HEMOLYSIS FLAG 80 (0-99); MEAN CELL HEMOGLOBIN 29.4 pg (27.9-34.1); MEAN CELL HEMOGLOBIN CONCENTR. 31.3 g/dL (32.4-36.7); MEAN CELL VOLUME 93.9 fL (81.5-99.8); MEAN PLATELET VOLUME 9.4 fL (8.7-11.7); PLATELET CLUMPS FLAG 0 (0-99); PLATELET COUNT 223 10^3/uL (150-400); RED CELL DISTRIBUTION WIDTH 15.8 % (11.5-15.2)
[2016-12-22] MEDS: ERYTHROMYCIN 0.5% 1 GM OPHT.OINT LEFTEYE SCH ×5 (06:12→21:40)
[2016-12-22 07:00] LABS: ANION GAP 8 mEq/L (8-16); CALCIUM 8.7 mg/dL (8.5-10.4); CARBON DIOXIDE 31 mEq/l (22-31); CHLORIDE 100 mEq/L (97-110); CREATININE 0.5 mg/dL (0.7-1.3); GLOMERULAR FILTRATION RATE > 60; GLUCOSE 132 mg/dL (70-100); POTASSIUM 3.4 mEq/L (3.5-5.2); SODIUM 139 mEq/L (134-144)
[2016-12-22] MEDS: RIVAROXABAN 10 MG TAB PO SCH (09:16)
[2016-12-22] MEDS: metFORMIN HCL 500 MG TAB PO SCH ×2 (09:16→18:25)
[2016-12-22] MEDS: [UNRECOGNIZED DRUG - OTHER] PO SCH (09:17)
[2016-12-22] MEDS: ATORVASTATIN CALCIUM 10 MG TAB PO SCH (09:17)
--- NOTE | 2016-12-22 13:02 | SOAPPROG ---
SOAP Progress Note Assessment/Plan: Assessment: 1. 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 Responding to therapy. Here for cycle 5 of rituximab / methotrexate / vincristine / prednisone 2. Diabetes 3. h/o perforated duodenal ulcer 4. h/o pulmonary embolism MTX at goal for 24h. Plan: - 72h MTX level to be checked today at 1pm - continue leucovorin rescue - MRI shows 2mm residual - continue low dose Xarelto for PE - pt can d/c when MTX<0.05 - should start neupogen in outpt setting once he has completed 7 days of procarbazine (today is day 5) He has supply at home 12/22/16 13:00 Subjective: Feels ok Objective: Vital Signs Temp Pulse Resp BP Pulse Ox 98.0 F 80 16 114/76 93 12/22/16 07:54 12/22/16 07:54 12/22/16 07:54 12/22/16 07:54 12/22/16 07:54 Laboratory Results 12/22/16 06:05 12/22/16 06:05 12/21/16 12/22/16 12/23/16 05:59 05:59 05:59 Intake Total 3683 600 2260 Output Total 5330 5315 800 Balance -0836 -6028 1460 Physical Exam - Physical Exam General Appearance: alert, no apparent distress Respiratory: normal breath sounds Cardiac/Chest: regular rate, rhythm Abdomen: normal bowel sounds Neuro/Psych: abnormal telephoner II-XII (left facial) ICD10 Worksheet Patient Problems: Problems Problem Status Onset Brain lesion Acute Perforated duodenal ulcer Acute
--- NOTE | 2016-12-22 22:38 | HOSPPROG ---
Hospitalist Progress Note Assessment/Plan: DIAGNOSES: -COLDFUSION LYMPHOMA, COMES IN FOR AROUND 5 OF CHEMOTHERAPY WITH METHOTREXATE RITUXAN VINCRISTINE AND PROCARBAZINE. -per protocol will have him aggressively hydrated with alkalinized fluid, and he will receive leucovorin and will follow uric acid levels and chemistries closely. Antiemetics are ordered -HISTORY OF GASTRIC PERFORATION STATUS POST REPAIR WITH ANTRECTOMY GASTROJEJUNAL BYPASS -HISTORY OF PE, ON CHRONIC ANTICOAGULATION AT SLIGHTLY REDUCED DOSE DUE TO SOME HISTORY OF BLEEDING AROUND THE PICC LINE -continue anticoagulation here, follow platelets -DIABETES MELLITUS ON ORAL THERAPY -monitor sugars and adjust treatment as indicated -HISTORY OF CORNEAL INJURY, using ERYTHROMYCIN OINTMENT -continue erythromycin here PLANS: -await MTX level -reviewed MRI images w patient - tumor decreased from 5 mm to 2 mm in past 2 weeks -Continue hydration, leucovorin -monitor electrolytes, uric acid and cell counts closely -monitor for any mucosal or other toxicities -continue anticoagulant SUBJECTIVE: Feeling well with no discomfort, nausea, or fever sxs, no other chemo side effectsLab eating well ambulating frequently OBJECTIVE Vitals reviewed: Stable without fever Exam: alert oriented skin warm dry good color, no lesions no change in facial weakness resps not labored lungs clear heart reg PICC site ok Lab data: MTX level from today pending MRI i reviewed images, my interp: remaining tumor burden down to single 2 mm mass, notably smaller than 2 weeks ago Objective: Vital Signs Temp Pulse Resp BP Pulse Ox 36.8 C 74 18 135/85 H 97 12/22/16 20:08 12/22/16 20:08 12/22/16 20:08 12/22/16 20:08 12/22/16 20:08 Laboratory Results 12/22/16 06:05 12/22/16 06:05 12/21/16 12/22/16 12/23/16 06:59 06:59 06:59 Intake Total 8134 4102 2052 Output Total 9972 1974 [id number] [facility] -3205 -5646 ICD10 Worksheet Patient Problems: Problems Problem Status Onset Brain lesion Acute Perforated duodenal ulcer Acute
[2016-12-23] MEDS: SODIUM BICARBONATE 650 MG TAB PO SCH ×3 (00:21→13:02)
[2016-12-23] MEDS: LEUCOVORIN CALCIUM IV SCH ×3 (00:21→13:02)
[2016-12-23] MEDS: NS IV SCH ×3 (00:21→13:02)
[2016-12-23 05:29] VITALS: O2SAT 95
[2016-12-23] MEDS: SODIUM BICARBONATE 150 MEQ in D5W 1,000 ML IV SCH (06:24)
[2016-12-23] MEDS: ERYTHROMYCIN 0.5% 1 GM OPHT.OINT LEFTEYE SCH ×2 (06:29→13:02)
[2016-12-23] MEDS ORDERED: LIDOCAINE 2% 100 MG/5 ML SYR ONE (09:02)
[2016-12-23] MEDS: [UNRECOGNIZED DRUG - OTHER] PO SCH (09:06)
[2016-12-23] MEDS: RIVAROXABAN 10 MG TAB PO SCH (09:06)
[2016-12-23] MEDS: metFORMIN HCL 500 MG TAB PO SCH (09:06)
[2016-12-23] MEDS: ATORVASTATIN CALCIUM 10 MG TAB PO SCH (09:06)
[2016-12-23] MEDS ORDERED: POTASSIUM CL 20 MEQ TAB PO ONE (10:23)
[2016-12-23 11:04] VITALS: BP 124/78; PULSE 94; RESP 18; TEMP 98.2
--- NOTE | 2016-12-23 11:14 | GDS ---
[f rep st] DISCHARGE SUMMARY DIAGNOSES: 1. Central nervous system lymphoma. 2. Status post round 5 of chemotherapy. 3. History of gastric perforation status post repair. 4. History of pulmonary embolism on low-dose anticoagulation due to PICC line bleeding. 5. Diabetes mellitus. 6. History of corneal injury on erythromycin ointment. HOSPITAL COURSE: A 61-year-old man admitted for round 5 of chemotherapy with methotrexate, Rituxan, vincristine, procarbazine. There were no significant events during this hospitalization related to his chemotherapy. Ultimate plan will be for him to get an autologous bone marrow transplant at the [facility]. He does have a residual 2 mm brain lesion, this is decreased from 5 mm previously. Methotrexate level on discharge is 0.06 - Dr Harrison is ok with discharge at this level. PLAN: Will be for him to start Granix tomorrow. He will follow up with Dr. Atkinson in clinic tomorrow. His chronic medical issues including history of a small bowel perforation, left- sided facial droop, history of PE on low-dose anticoagulation have all been stable. BILLING: I spent more than 30 minutes on the day of discharge coordinating care. /[id number]/MODL MTDD
--- NOTE | 2016-12-23 11:32 | SOAPPROG ---
SOAP Progress Note Assessment/Plan: Assessment: 1. 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 Responding to therapy. Here for cycle 5 of rituximab / methotrexate / vincristine / prednisone 2. Diabetes 3. h/o perforated duodenal ulcer 4. h/o pulmonary embolism MTX .06 yesterday Plan: home today, follow up Dr Atkinson tomorrow 12/22/16 13:00 12/23/16 11:31 Subjective: Feels ok Objective: Vital Signs Temp Pulse Resp BP Pulse Ox 98.2 F 94 18 124/78 H 95 12/23/16 10:57 12/23/16 10:57 12/23/16 10:57 12/23/16 10:57 12/23/16 10:57 Laboratory Results 12/22/16 06:05 12/22/16 06:05 12/22/16 12/23/16 12/24/16 05:59 05:59 05:59 Intake Total 600 6251 30 Output Total 5315 5640 1550 [place] [id number] ICD10 Worksheet Patient Problems: Problems Problem Status Onset Brain lesion Acute Perforated duodenal ulcer Acute
== END 2016-12-23 13:14 | disposition home health service (06) | DRG 847 ==
LOC: F1N 11:41
PROVIDERS: ADMIT Internal Medicine; ATTEND Internal Medicine
PROC: 3E0330M Introduction of Antineoplastic, Monoclonal Antibody, into Peripheral Vein, Percutaneous Approach (ICD-10-PCS; principal; 2016-12-18)
PROC: 02HV33Z Insertion of Infusion Device into Superior Vena Cava, Percutaneous Approach (ICD-10-PCS; 2016-12-23)
DX: Z51.11 Encounter for antineoplastic chemotherapy (principal); C85.89 Other specified types of non-Hodgkin lymphoma, extranodal and solid organ sites; E11.9 Type 2 diabetes mellitus without complications; E78.5 Hyperlipidemia, unspecified; Z80.41 Family history of malignant neoplasm of ovary; Z86.711 Personal history of pulmonary embolism; Z79.01 Long term (current) use of anticoagulants; R29.810 Facial weakness
CPT/HCPCS: 83520-90; A9585; C1751; J0640; J1200; J2001; J2405; J9260; J9310; J9370

== ENCOUNTER → 2017-03-30 | Outpatient (CLI) | payer OTHER | LOC: FIMAGING 17:22 | PROVIDERS: ATTEND Internal Medicine Hematology & Oncology | DX: C85.90 Non-Hodgkin lymphoma, unspecified, unspecified site (principal) | CPT/HCPCS: A9585 ==

== ENCOUNTER 2017-04-03 13:17 | Emergency (ER) | payer OTHER ==
--- NOTE | 2017-04-03 14:06 | EDPHY ---
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 He has had the symptoms for several months but states that over the last couple of weeks they have been increasing to the point that he can hardly get up to go to the bathroom. He does use a walker at baseline. He had an MRI of his brain on Thursday that family told me was read is unchanged. He has not had a fever. Also has some weakness and trouble controlling his left arm but this is baseline. Also has a history of PE with IVC filter place, diabetes type 2 and Orta's palsy. He called Dr. Atkinson is office this morning who recommended he come to the emergency department. REVIEW OF SYSTEMS: Constitutional: denies: chills, fever, recent illness, recent injury EENTM: denies: blurred vision, double vision, nose congestion Respiratory: denies: cough, shortness of breath Cardiac: denies: chest pain, irregular heart rate, lightheadedness, palpitations Gastrointestinal/Abdominal: denies: abdominal pain, diarrhea, nausea, vomiting, blood streaked stools Genitourinary: denies: dysuria, frequency, hematuria, pain Musculoskeletal: See HPI Skin: denies: lesions, rash, jaundice, bruising Neurological: See HPI Hematologic/Lymphatic: denies: blood clots, easy bleeding, easy bruising Immunologic/allergic: denies: HIV/AIDS, transplant EXAM: GENERAL: Well-appearing, well-nourished and in no acute distress. HEAD: Atraumatic, normocephalic. EYES: Pupils equal round and reactive to light, extraocular movements intact, sclera anicteric, conjunctiva are normal. ENT: TMs normal, nares patent, pronounced left-sided facial droop chronic NECK: Normal range of motion, supple without lymphadenopathy or JVD. LUNGS: Breath sounds clear to auscultation bilaterally and equal. No wheezes rales or rhonchi. HEART: Regular rate and rhythm without murmurs, rubs or gallops. ABDOMEN: Soft, nontender, normoactive bowel sounds. No guarding, no rebound. No masses appreciated. BACK: No CVA tenderness, no spinal tenderness, step-offs or deformities EXTREMITIES: Normal range of motion, no pitting or edema. No clubbing or cyanosis. NEUROLOGICAL: Pronounced left-sided facial droop and slurred speech, unchanged from baseline. 5/5 strength, normal movement in all extremities, normal sensation PSYCH: Normal mood, normal affect. SKIN: Warm, dry, normal turgor, no visible rashes or lesions. 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 in August 2016, perferated duodenal ulcer with emergent surgery, GI bleed, IVC filter, J tube, G tube, abrasion to left eye/cornea, bells palsy left face - Family History Significant Family History: No pertinent family hx - Social History Smoking Status: Former smoker Alcohol Use: Sober Drug Use: None Constitutional: Initial Vital Signs Temperature (C) 36.8 C 04/03/17 13:23 Heart Rate 94 04/03/17 13:23 Respiratory Rate 18 04/03/17 13:23 Blood Pressure 97/62 L 04/03/17 13:23 O2 Sat (%) 95 04/03/17 13:23 O2 Delivery Mode Room Air Allergies/Adverse Reactions: No Known Allergies Allergy (Verified 04/03/17 13:21) Home Medications: Medication Instructions Recorded Atorvastatin Calcium [Lipitor 10 10 mg PO DAILY #30 tab 09/26/16 mg (*)] Erythromycin 0.5% 1 lorraine LEFTEYE 5XD 10/23/16 metFORMIN HCL [Glucophage 500 mg 500 mg PO BIDMEAL 10/23/16 (*)] Antifungal Med 04/03/17 Medical Decision Making - Diagnostics Imaging Results: Imaging Impressions Head CT 04/03/17 14:09 Impression: Nothing acute identified. Please refer to the patient's brain MRI done 3 days ago. Results called to Dr. Alaniz General information for patients regarding this examination can be found at [email or web address]. If you have questions or comments about this report, please contact me at (hospital) or [phone] (cell). Chest X-Ray 04/03/17 15:06 Impression: 1. No active cardiopulmonary disease seen. 2. A few fibrotic streaks are suspected at the lung bases. Imaging: Discussed imaging studies w/ locomotive mechanic Radiologist ED Course/Re-evaluation: 2:10 p.m. I discussed the case with Dr. Atkinson who recommends CT of the brain to rule bleeding and labs and hydration. If the patient continues to feel symptomatic likely admission for failure to thrive at home. 4:20 p.m. we discussed the test findings. I do not have an explanation to the patient as to why he is feeling dizzy and increased tingling. I offered admission for further evaluation and possibly rehabilitation. The patient declines and would like to go home. He will follow up with Dr. Atkinson next week. over the weekend Dr. Bergman is on-call for Dr. Atkinson and she is aware the situation. Differential Diagnosis: Partial list of the Differential diagnosis considered include but were not limited to; electrolyte abnormality, infection, bleeding, failure to thrive and although unlikely based on the history and physical exam, I also considered CVA, failure to thrive, urinary tract infection. I discussed these differential diagnoses and the plan with the patient as well as the usual and expected course. The patient understands that the diagnosis is provisional and that in medicine we are not always correct and that further workup is often warranted. Usual and customary warnings were given. All of the patient's questions were answered. The patient was instructed to return to the emergency department should the symptoms at all worsen or return, otherwise to followup with the physician as we discussed. - Data Points Laboratory Results: Laboratory Results 04/03/17 14:08 04/03/17 14:08 04/03/17 04/03/17 04/03/17 15:50 14:08 14:08 WBC RBC Hgb Hct MCV MCH MCHC RDW Plt Count MPV Neut % (Auto) Lymph % (Auto) Glynn % (Auto) Eos % (Auto) Baso % (Auto) Nucleat RBC Rel Count Absolute Neuts (auto) Absolute Lymphs (auto) Absolute Monos (auto) Absolute Eos (auto) Absolute Basos (auto) Absolute Nucleated RBC Immature Gran % Immature Gran # Platelet Estimate Polychromasia Hypochromasia Oval Macrocytes Keratocytes PT 13.0 SEC SEC (12.0-15.0) INR 0.99 (0.83-1.16) Sodium 142 mEq/L mEq/L (134-144) Potassium 4.2 mEq/L mEq/L (3.5-5.2) Chloride 107 mEq/L mEq/L (97-110) Carbon Dioxide 25 mEq/l mEq/l (22-31) Anion Gap 10 mEq/L mEq/L (8-16) BUN 8 mg/dL mg/dL (7-23) Creatinine 0.5 mg/dL L mg/dL (0.7-1.3) Estimated GFR > 60 Glucose 102 mg/dL H mg/dL (70-100) Calcium 9.4 mg/dL mg/dL (8.5-10.4) Urine Color YELLOW Urine Appearance HAZY Urine pH 7.0 (5.0-7.5) Ur Specific [place] 1.009 (1.002-1.030) Urine Protein NEGATIVE (NEGATIVE) Urine Ketones NEGATIVE (NEGATIVE) Urine Blood NEGATIVE (NEGATIVE) Urine Nitrate NEGATIVE (NEGATIVE) Urine Bilirubin NEGATIVE (NEGATIVE) Urine Urobilinogen NEGATIVE EU EU (0.2-1.0) Ur Leukocyte Esterase NEGATIVE (NEGATIVE) Urine RBC 3-5 /hpf H /hpf (0-3) Urine WBC 1-3 /hpf /hpf (0-3) Ur Epithelial Cells NONE SEEN /lpf /lpf (NONE-1+) Urine Glucose NEGATIVE (NEGATIVE) 04/03/17 14:08 WBC 12.77 10^3/uL H 10^3/uL (3.80-9.50) RBC 3.51 10^6/uL L 10^6/uL (4.40-6.38) Hgb 11.7 g/dL L g/dL (13.7-17.5) Hct 36.5 % L % (40.0-51.0) MCV 104.0 fL H fL (81.5-99.8) MCH 33.3 pg pg (27.9-34.1) MCHC 32.1 g/dL L g/dL (32.4-36.7) RDW 21.6 % H % (11.5-15.2) Plt Count 79 10^3/uL L 10^3/uL (150-400) MPV 10.1 fL fL (8.7-11.7) Neut % (Auto) 43.6 % % (39.3-74.2) Lymph % (Auto) 46.2 % H % (15.0-45.0) Glynn % (Auto) 8.3 % % (4.5-13.0) Eos % (Auto) 0.9 % % (0.6-7.6) Baso % (Auto) 0.5 % % (0.3-1.7) Nucleat RBC Rel Count 0.0 % % (0.0-0.2) Absolute Neuts (auto) 5.58 10^3/uL 10^3/uL (1.70-6.50) Absolute Lymphs (auto) 5.90 10^3/uL H 10^3/uL (1.00-3.00) Absolute Monos (auto) 1.06 10^3/uL H 10^3/uL (0.30-0.80) Absolute Eos (auto) 0.11 10^3/uL 10^3/uL (0.03-0.40) Absolute Basos (auto) 0.06 10^3/uL 10^3/uL (0.02-0.10) Absolute Nucleated RBC 0.00 10^3/uL 10^3/uL (0-0.01) Immature Gran % 0.5 % % (0.0-1.1) Immature Gran # 0.06 10^3/uL 10^3/uL (0.00-0.10) Platelet Estimate DECREASED L (ADEQ) Polychromasia 1+ H Hypochromasia 1+ H Oval Macrocytes 1+ H Keratocytes 1+ H PT INR Sodium Potassium Chloride Carbon Dioxide Anion Gap BUN Creatinine Estimated GFR Glucose Calcium Urine Color Urine Appearance Urine pH Ur Specific [place] Urine Protein Urine Ketones Urine Blood Urine Nitrate Urine Bilirubin Urine Urobilinogen Ur Leukocyte Esterase Urine RBC Urine WBC Ur Epithelial Cells Urine Glucose Medications Given: Discontinued Medications Sodium Chloride (Ns) 1,000 mls @ 0 mls/hr IV ONCE ONE; Wide Open PRN Reason: Protocol Stop: 04/03/17 14:09 Last Admin: 04/03/17 14:46 Dose: Not Given Departure - Departure Disposition: Home, Routine, Self-Care Clinical Impression: Facial droop, Dizzinesses Condition: Fair Instructions: Dizziness (ED) Referrals: MANDO ESPANA [Primary Care Provider] - As per Instructions
[2017-04-03] MEDS ORDERED: NS 1,000 ML IV ONE (14:08)
[2017-04-03 14:55] LABS: % IMMATURE GRANULYOCYTES 0.5 % (0.0-1.1); ABSOLUTE IMMATURE GRANULOCYTES 0.06 10^3/uL (0.00-0.10); ADD DIFF? NO; ADD MORPH? YES; ADD SCAN? NO; ATYPICAL LYMPHOCYTE FLAG 20 (0-99); FRAGMENT RBC FLAG 0 (0-99); HEMATOCRIT 36.5 % (40.0-51.0); HEMOGLOBIN 11.7 g/dL (13.7-17.5); LEFT SHIFT FLG 0 (0-99); LIPEMIA HEMOLYSIS FLAG 80 (0-99); MEAN CELL HEMOGLOBIN 33.3 pg (27.9-34.1); MEAN CELL HEMOGLOBIN CONCENTR. 32.1 g/dL (32.4-36.7); MEAN PLATELET VOLUME 10.1 fL (8.7-11.7); PLATELET CLUMPS FLAG 10 (0-99); PLATELET COUNT 79 10^3/uL (150-400); RED BLOOD CELL COUNT 3.51 10^6/uL (4.40-6.38)
[2017-04-03 14:57] LABS: RED CELL DISTRIBUTION WIDTH 21.6 % (11.5-15.2)
[2017-04-03 15:05] LABS: INR 0.99 (0.83-1.16)
[2017-04-03 15:20] LABS: ANION GAP 10 mEq/L (8-16); CALCIUM 9.4 mg/dL (8.5-10.4); CARBON DIOXIDE 25 mEq/l (22-31); CHLORIDE 107 mEq/L (97-110); CREATININE 0.5 mg/dL (0.7-1.3); GLOMERULAR FILTRATION RATE > 60; GLUCOSE 102 mg/dL (70-100); POTASSIUM 4.2 mEq/L (3.5-5.2); SODIUM 142 mEq/L (134-144)
[2017-04-03 15:54] LABS: HYPOCHROMIA 1+; KERATOCYTES 1+; MACROCYTES 1+; PLATELET ESTIMATE DECREASED (ADEQ); POLYCHROMASIA 1+
[2017-04-03 15:59] LABS: COLOR YELLOW; LEUKOCYTE ESTERASE,URINE NEGATIVE (NEGATIVE); NITRITE,URINE NEGATIVE (NEGATIVE)
[2017-04-03 17:00] VITALS: BP 133/76; PULSE 76; RESP 16; TEMP 98.1; O2SAT 98
== END 2017-04-03 17:00 | disposition home or self-care (01) ==
DX: R29.810 Facial weakness (principal); R42 Dizziness and giddiness; E11.9 Type 2 diabetes mellitus without complications; Z87.891 Personal history of nicotine dependence; Z79.84 Long term (current) use of oral hypoglycemic drugs

== ENCOUNTER → 2017-07-10 | Outpatient (CLI) | payer OTHER | LOC: FIMAGING 19:26 | PROVIDERS: ATTEND Internal Medicine Hematology & Oncology | DX: R90.82 White matter disease, unspecified (principal); G93.89 Other specified disorders of brain | CPT/HCPCS: A9585 ==